=== PATIENT | male | born 1995 | race Caucasian/White ===

== ENCOUNTER 2017-04-26 13:14 | Emergency (ER) | payer SELFPAY | END 2017-04-26 15:27 | disposition home or self-care (01) | PROVIDERS: Emergency Provider Emergency Medicine; Visit Provider Emergency Medicine | DX: F41.8 Other specified anxiety disorders (principal); F32.9 Major depressive disorder, single episode, unspecified; R55 Syncope and collapse; Z81.8 Family history of other mental and behavioral disorders | CPT/HCPCS: 71020; 80053; 80305; 81001; 84484; 85025; 93005; 93041; 99283 ==

== ENCOUNTER 2017-05-13 22:16 | Emergency (ER) | payer SELFPAY ==
[2017-05-13 22:27] VITALS: BP 120/56; PULSE 50; RESP 12; TEMP 36.7; O2SAT 100; BMI 20.3
--- NOTE | 2017-05-13 22:35 | CT_ITS ---
CT abdomen pelvis wo con CLINICAL INDICATION: Left lower quadrant pain ITS.REASON: LLQ PAIN. ORDERING PHYSICIAN: Scott Lewis MD PATIENT AGE: 21 years COMPARISON: None TECHNIQUE: Axial images obtained with sagittal and coronal reformats. PROCEDURE: Oral Contrast: None IV Contrast: None . FINDINGS: Lower thorax: No acute finding ABDOMEN: Liver: No masses or biliary dilatation. Gallbladder: Nondistended. No radio opaque stones. Pancreas: No masses or peripancreatic fluid collections. Spleen: Unremarkable. Adrenals: Unremarkable Kidneys/ureters: No masses. No renal calculi. No hydronephrosis. No perinephric fluid collections. No ureteral dilatation or obvious ureteral calculi. Stomach bowel: Mild amount retained colonic feces. No intestinal obstruction or free air. Multiple unopacified bowel loops are present which could obscure or mimic pathology. Appendix: No evidence of appendicitis. PELVIS: Reproductive: Unremarkable Bladder: Nondistended. No obvious stones or masses. ABDOMEN & PELVIS: Peritoneum: No abnormal fluid collections. No obvious inflammatory changes. No free air. Lymph nodes: No enlarged lymph nodes apparent. Vasculature: No evidence of abdominal aortic aneurysm. No retroperitoneal hemorrhage evident. Bones: No acute fracture IMPRESSION: No acute finding
--- NOTE | 2017-05-13 22:54 | PC.NURSE ---
pt to CT.
[2017-05-13 22:56] LABS: Basophils # 0.1 K/mm3 (0-0.2); Basophils % 1.1 % (0.1-2.0); Eosinophils # 0.3 K/mm3 (0.0-0.4); Eosinophils % 3.9 % (0.1-12.0); Hematocrit 42.1 % (42.0-52.0); Hemoglobin 14.9 g/dL (14.1-18.0); Lymphocytes # 2.2 K/mm3 (0.7-4.5); Lymphocytes % 31.8 K/mm3 (10-50); Mean Corpuscular HGB Conc 35.4 g/dL (31.8-35.4); Mean Corpuscular Hemoglobin 31.2 pg (27.0-31.2); Mean Corpuscular Volume 88.1 fl (80-94); Mean Platelet Volume 8.2 fl (7.4-10.4); Microscopic, Urine URINE MICROSCOPIC (MICROSCOPIC); Monocytes # 0.6 K/mm3 (0.1-1.0); Monocytes % 7.9 % (1.7-9.3); Neutrophils # 3.9 K/mm3 (1.8-7.8); Neutrophils % 55.4 % (37.0-80.0); Platelet Count 245 K/mm3 (142-424); Red Blood Count 4.78 M/mm3 (4.60-6.20); Red Cell Distribution Width 13.5 % (11.5-17.5)
[2017-05-13 23:10] LABS: Alanine Aminotransferase 23 U/L (12-78); Albumin Level 4.8 gm/dL (3.4-5.0); Alkaline Phosphatase 81 U/L (46-116); Amylase 46 U/L (25-125); Anion Gap 11.6 mEq/L (5-15); Aspartate Amino Transferase 21 U/L (15-37); Bilirubin,Total 0.5 mg/dL (0.2-1.0); Blood Urea Nitrogen 12 mg/dL (7-18); Calcium 9.1 mg/dL (8.5-10.1); Carbon Dioxide 28 mmol/L (21.0-32.0); Chloride 104 mmol/L (98-107); Creatinine Clearance Estimated 137 mL/min (0-300); Creatinine,Serum 0.82 mg/dL (0.70-1.30); Estimated Glomerular Filt Rate 119 ml/min (>60); GFR (African American) 144 ML/MIN (>60); Globulin 2.4 gm/dl (1.3-3.2); Glucose 86 mg/dL (74-106); Lipase 99 u/L (73-393); Potassium 3.6 mmoL/L (3.5-5.1); Sodium 140 mmol/L (136-145); Total Protein,Serum 7.2 gm/dL (6.4-8.2)
[2017-05-13 23:23] LABS: Appearance,Urine Clear (Clear); Color,Urine Yellow (Yellow)
[2017-05-13 23:24] LABS: Bacteria,Urine Trace /lpf; Bilirubin,Urine Negative (Negative); Blood, Urine Negative (Negative); Glucose,Urine (UA) Negative (Negative); Ketones,Urine Negative (Negative); Leukocyte Esterase,Urine Negative (Negative); Nitrate,Urine Negative (Negative); Protein,Urine Negative (Negative); Specific Gravity, Urine <= 1.005 (1.005-1.030); Urobilinogen,Urine 0.2 EU/dl (0.2); WBC,Urine Occasional #/hpf (0-3)
[2017-05-13 23:39] VITALS: BP 108/58; PULSE 50; RESP 14; O2SAT 100
--- NOTE | 2017-05-13 23:45 | HMH.EDNVD ---
ED Disposition Clinical Impression: Abdominal pain Qualifiers: Abdominal location: left lower quadrant Qualified Code(s): R10.32 - Left lower quadrant pain Disposition: Home, Self-Care Condition on Discharge: Good Instructions: DI for Acute Abdomen Additional Instructions: fluids and see pcp for follow up - Critical Care Critical Care Time: No Attestation: On 05/13/17, the high probability of a clinically significant, sudden or life threatening deterioration of the following system(s) required my full and direct attention, intervention and personal management. The time I documented below is in addition to time spent performing reported procedures but includes the following listed in this critical care notation. Medical Decision Making - Medical Records Medical records reviewed: Yes: I reviewed the patient's medical records. Vital Signs: 05/13/17 22:27 05/13/17 23:39 Temperature 98.1 F Temperature Source Oral Pulse Rate [Right Brachial] 50 L 50 L Respiratory Rate 12 14 Blood Pressure [Right Arm] 120/56 108/58 Blood Pressure Mean [Right Arm] 77 74 Blood Pressure Source [Right Arm] Automatic Cuff Automatic Cuff Blood Pressure Position [Right Arm] Supine Supine 02 Sat by Pulse Oximetry 100 100 Oxygen Delivery Method Room Air Room Air - Lab Data Lab results reviewed: Yes: I reviewed the patient's lab results. Lab Results 05/13/17 22:45: Urine Color Yellow, Urine Appearance Clear, Urine pH 7.0, Ur Specific [place] <= 1.005, Urine Protein Negative, Urine Glucose (UA) Negative, Urine Ketones Negative, Urine Blood Negative, Urine Nitrate Negative, Urine Bilirubin Negative, Urine Urobilinogen 0.2, Ur Leukocyte Esterase Negative, Urine WBC Occasional, Urine Bacteria Trace 05/13/17 22:45: WBC 7.0, RBC 4.78, Hgb 14.9, Hct 42.1, MCV 88.1, MCH 31.2, MCHC 35.4, RDW 13.5, Plt Count 245, MPV 8.2, Neut % (Auto) 55.4, Lymph % (Auto) 31.8, [place] % (Auto) 7.9, Eos % (Auto) 3.9, Baso % (Auto) 1.1, Neut # (Auto) 3.9, Lymph # (Auto) 2.2, [place] # (Auto) 0.6, Eos # (Auto) 0.3, Baso # (Auto) 0.1 05/13/17 22:45: Sodium 140, Potassium 3.6, Chloride 104, Carbon Dioxide 28, Anion Gap 11.6, BUN 12, Creatinine 0.82, Estimated Creat Clear 137, Estimated GFR 119, Est GFR ( Amer) 144, Glucose 86, Calcium 9.1, Total Bilirubin 0.5, AST 21, ALT 23, Alkaline Phosphatase 81, Total Protein 7.2, Albumin 4.8, Globulin 2.4, Albumin/Globulin Ratio 2.0 H, Amylase 46, Lipase 99 Result diagrams: 05/13/17 22:45 05/13/17 22:45 Orders (Tests/Meds): ED MEDICATIONS Discontinued Medications Generic Name Dose Route Start Last Admin Trade Name Freq PRN Reason Stop Dose Admin Ketorolac Tromethamine 30 mg 05/13/17 22:36 05/13/17 22:38 Toradol 30mg/Ml Vial IV 05/13/17 22:37 30 mg ONCE ONE Administration Lactated Ringer's 0 ml 05/13/17 22:37 05/13/17 22:38 Lactated Ringer's 1000 Ml Bag IV 05/13/17 22:38 1,000 ml BOLUS ONE Administration ORDERS Category Date Time Status CT abdomen pelvis wo con Stat Cat Scan 05/13/17 22:35 Taken - CT Data CT Scan: Abdomen, Pelvis Time Received: 23:[address] Reviewed: Yes: I have viewed the radiologist's interpretation Preliminary Findings: Normal/NAD - Unruly Inquiry Pt receiving controlled substance: No Nausea/Vomiting/Diarrhea HPI - General Chief complaint: Abdominal Pain Stated complaint: Lower left side ABD pain Time Seen by Provider: 05/13/17 23:46 Mode of Arrival: Family Vehicle Source of Information: Patient, Medical Record Limitations: No Limitations Description of Symptoms (Recalled from ER Triage Doc. by RN): C/O LLQ PAIN FOR 2 HOURS SYSTEMS LEAD. DENIES C/O N/V/D - History of Present Illness HPI Narrative: acute onset of lt lower abd pain about 2-3 hrs uniform [employer] with no testicular pain - no fever or gi sx - no hematuria MD complaint: abdominal pain Onset (ago): hour(s) Associated Abdominal Pain: Yes Location of pain: LLQ Severity: moderate Quality: aching
--- NOTE | 2017-05-13 23:49 | ED_ITS ---
ED Disposition Clinical Impression: Abdominal pain Qualifiers: Abdominal location: left lower quadrant Qualified Code(s): R10.32 - Left lower quadrant pain Disposition: Home, Self-Care Condition on Discharge: Good Instructions: DI for Acute Abdomen Additional Instructions: fluids and see pcp for follow up - Critical Care Critical Care Time: No Attestation: On 05/13/17, the high probability of a clinically significant, sudden or life threatening deterioration of the following system(s) required my full and direct attention, intervention and personal management. The time I documented below is in addition to time spent performing reported procedures but includes the following listed in this critical care notation. Medical Decision Making - Medical Records Medical records reviewed: Yes: I reviewed the patient's medical records. Vital Signs: 05/13/17 22:27 05/13/17 23:39 Temperature 98.1 F Temperature Source Oral Pulse Rate [Right Brachial] 50 L 50 L Respiratory Rate 12 14 Blood Pressure [Right Arm] 120/56 108/58 Blood Pressure Mean [Right Arm] 77 74 Blood Pressure Source [Right Arm] Automatic Cuff Automatic Cuff Blood Pressure Position [Right Arm] Supine Supine 02 Sat by Pulse Oximetry 100 100 Oxygen Delivery Method Room Air Room Air - Lab Data Lab results reviewed: Yes: I reviewed the patient's lab results. Lab Results 05/13/17 22:45: Urine Color Yellow, Urine Appearance Clear, Urine pH 7.0, Ur Specific [place] <= 1.005, Urine Protein Negative, Urine Glucose (UA) Negative, Urine Ketones Negative, Urine Blood Negative, Urine Nitrate Negative, Urine Bilirubin Negative, Urine Urobilinogen 0.2, Ur Leukocyte Esterase Negative, Urine WBC Occasional, Urine Bacteria Trace 05/13/17 22:45: WBC 7.0, RBC 4.78, Hgb 14.9, Hct 42.1, MCV 88.1, MCH 31.2, MCHC 35.4, RDW 13.5, Plt Count 245, MPV 8.2, Neut % (Auto) 55.4, Lymph % (Auto) 31.8 , [place] % (Auto) 7.9, Eos % (Auto) 3.9, Baso % (Auto) 1.1, Neut # (Auto) 3.9, Lymph # (Auto) 2.2, [place] # (Auto) 0.6, Eos # (Auto) 0.3, Baso # (Auto) 0.1 05/13/17 22:45: Sodium 140, Potassium 3.6, Chloride 104, Carbon Dioxide 28, Anion Gap 11.6, BUN 12, Creatinine 0.82, Estimated Creat Clear 137, Estimated GFR 119, Est GFR ( Amer) 144, Glucose 86, Calcium 9.1, Total Bilirubin 0.5, AST 21, ALT 23, Alkaline Phosphatase 81, Total Protein 7.2, Albumin 4.8, Globulin 2.4, Albumin/Globulin Ratio 2.0 H, Amylase 46, Lipase 99 Result diagrams: 05/13/17 22:45 05/13/17 22:45 Orders (Tests/Meds): ED MEDICATIONS Discontinued Medications Generic Name Dose Route Start Last Admin Trade Name Freq PRN Reason Stop Dose Admin Ketorolac Tromethamine 30 mg 05/13/17 22:36 05/13/17 22:38 Toradol 30mg/Ml Vial IV 05/13/17 22:37 30 mg ONCE ONE Administration Lactated Ringer's 0 ml 05/13/17 22:37 05/13/17 22:38 Lactated Ringer's 1000 Ml Bag IV 05/13/17 22:38 1,000 ml BOLUS ONE Administration ORDERS Category Date Time Status CT abdomen pelvis wo con Stat Cat Scan 05/13/17 22:35 Taken - CT Data CT Scan: Abdomen, Pelvis Time Received: 23:[address] Reviewed: Yes: I have viewed the radiologist's interpretation Preliminary Findings: Normal/NAD - Unruly Inquiry Pt receiving controlled substance: No Nausea/Vomiting/Diarrhea HPI - General Chief compl
[2017-05-14] VITALS: BP 112/55; PULSE 47; RESP 18; O2SAT 99
== END 2017-05-14 00:01 | disposition home or self-care (01) ==
PROVIDERS: Emergency Provider Emergency Medicine
DX: R10.32 Left lower quadrant pain (principal); F17.210 Nicotine dependence, cigarettes, uncomplicated
CPT/HCPCS: 74176; 80053; 81001; 82150; 83690; 85025; 96365; 96372; 99284

== ENCOUNTER 2018-10-10 23:31 | Emergency (ER) | payer SELFPAY ==
[2018-10-10 23:35] VITALS: BP 128/72; PULSE 58; RESP 14; TEMP 36.9; O2SAT 100; BMI 20.3
--- NOTE | 2018-10-10 23:46 | XR_ITS ---
XR ankle LT min 3V HISTORY: Posttraumatic pain ITS.REASON: injury ORDERING PHYSICIAN: Scott Lewis MD PATIENT AGE: 23 years Comparison: None FINDINGS: No fracture or dislocation. No lytic or blastic change. There is normal mineralization.. The joint spaces are well-preserved. No significant degenerative/arthritic changes. No erosive changes evident. IMPRESSION: Negative ankle, no acute finding
--- NOTE | 2018-10-11 00:18 | HMH.EDGENADL ---
ED Disposition Clinical Impression: Sprain of foot, left Qualifiers: Encounter type: initial encounter Qualified Code(s): S93.602A - Unspecified sprain of left foot, initial encounter Left ankle sprain Qualifiers: Encounter type: initial encounter Involved ligament of ankle: unspecified ligament Qualified Code(s): S93.402A - Sprain of unspecified ligament of left ankle, initial encounter Disposition: Home, Self-Care Condition on Discharge: Good Instructions: DI for Foot Sprain Additional Instructions: wt bearing as triny and see podiatry and pcp for follow up Referrals: Provider,Referral, [Primary Care Provider] - Maris Piedra DPM [Staff Physician] - - Critical Care Critical Care Time: No Attestation: On 10/10/18, the high probability of a clinically significant, sudden or life threatening deterioration of the following system(s) required my full and direct attention, intervention and personal management. The time I documented below is in addition to time spent performing reported procedures but includes the following listed in this critical care notation. Medical Decision Making - Medical Records Medical records reviewed: Yes: I reviewed the patient's medical records. - Unruly Inquiry Pt receiving controlled substance: No Vital Signs: 10/10/18 23:35 Temperature 98.4 F Temperature Source Oral Pulse Rate [Right] 58 L Respiratory Rate 14 Blood Pressure [Right Arm] 128/72 Blood Pressure Mean [Right Arm] 90 Blood Pressure Source [Right Arm] Automatic Cuff Blood Pressure Position [Right Arm] Sitting 02 Sat by Pulse Oximetry 100 Oxygen Delivery Method Room Air Orders (Tests/Meds): ORDERS Category Date Time Status Ankle XR - Left minimum 3 Views [XR ankle LT min 3V] Exams 10/10/18 23:46 Taken Stat XR foot LT min 3V Stat Exams 10/11/18 00:26 Taken - Radiology Data #1 Image(s): Ankle, Foot/Toes Image Reviewed: Yes I reviewed the patient's radiology image Preliminary Findings: No Fracture Seen General Adult HPI - General Chief complaint: PAIN Stated complaint: Pain on inside of left foot Time Seen by Provider: 10/11/18 00:18 Mode of Arrival: Ambulatory Source of Information: Patient, Significant Other, Medical Record Limitations: No Limitations Description of Symptoms (Recalled from ER Triage Doc. by RN): Pain in left ankle. Pt states he was playing softball and it started hurting real Bad when he got done. Pt does not remember injuring it while playing. - History of Present Illness HPI narrative: playing softball and acute injury to lt foot and ankle - Onset (ago): hour(s) Location: left, lower extremity Severity: moderate Associated symptoms: denies other symptoms Treatments prior to arrival: none - Related Data Home Medications Medication Instructions Recorded Confirmed No Known Home Medications 10/11/18 10/11/18 Allergies Allergy/AdvReac Type Severity Reaction Status Date / Time Sulfa (Sulfonamide Allergy Unknown Verified 05/13/17 22:34 Antibiotics) [SULFA (SULFONAMIDE ANTIBIOTICS)] [facility] History - Hepatitis A Screen Drug use history?: No High risk sexual behaviors?: No History of sexually transmitted infection?: No Currently employed?: No Childcare worker?: No Do you have indoor plumbing?: Yes Do you have electricity?: Yes Attestation statement:: This patient has been screened for Hepatitis A risk factors. I have reviewed the patient's past medical history: Yes 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: Denies:: Cancer, Diabetes Mellitus Type 1, Diabetes Mellitus Type 2, Hypertension, MRSA Amputation: No Fractures: No - Social History Educational Level: Completed High School Smoking Status: Current every day smoker Tobacco Type: cigarettes # Packs/Day (cigarettes): 1 #Yrs smoked (if former smoker): 7 Alcohol Intake: never Occupational Status: employed Housing: apartment Household Members: significant other - Psychiatric History Ex
--- NOTE | 2018-10-11 00:26 | XR_ITS ---
XR foot LT min 3V HISTORY: Posttraumatic pain ITS.REASON: injury ORDERING PHYSICIAN: Scott Lewis MD PATIENT AGE: 23 years COMPARISON: None FINDINGS: No fracture or dislocation. No lytic or blastic change. There is normal mineralization.. The joint spaces are well-preserved. No significant degenerative/arthritic changes. No erosive changes evident. IMPRESSION: Negative, no acute finding
[2018-10-11 01:07] VITALS: BP 126/64; PULSE 72; RESP 16; TEMP 36.9; O2SAT 99
== END 2018-10-11 01:08 | disposition home or self-care (01) ==
PROVIDERS: Emergency Provider Emergency Medicine
DX: S93.602A Unspecified sprain of left foot, initial encounter (principal); S93.402A Sprain of unspecified ligament of left ankle, initial encounter; X50.1XXA Overexertion from prolonged static or awkward postures, initial encounter; Y93.64 Activity, baseball; Y92.838 Other recreation area as the place of occurrence of the external cause; F17.210 Nicotine dependence, cigarettes, uncomplicated
CPT/HCPCS: 29515; 73610; 73630; 99283

== ENCOUNTER 2020-01-18 11:35 | Emergency (ER) | payer BC, SELFPAY ==
[2020-01-18 11:41] VITALS: BP 121/65; PULSE 66; RESP 19; TEMP 36.9; O2SAT 97; BMI 20.3
[2020-01-18 11:42] VITALS: BP 121/65; PULSE 66; RESP 19; TEMP 36.9; O2SAT 97; BMI 20.2
--- NOTE | 2020-01-18 11:48 | HMH.EDUTC ---
[facility] [place] Clinical Impression: Viral syndrome Diarrhea Qualifiers: Diarrhea type: unspecified type Qualified Code(s): R19.7 - Diarrhea, unspecified Disposition: Home, Self-Care Condition on Discharge: Good Instructions: Diarrhea, Nausea and Vomiting-Adult, Loperamide, Preventing the Spread of Coronavirus Discharge Instructions Additional Instructions: ? Drink extra fluids with and between meals. If you have difficulty drinking, try very small amounts of water or suck on ice chips. ? Avoid fruit juices, as these do not replace minerals and can actually increase diarrhea. ? Children and adults can use sports drinks to replenish electrolytes. Younger children and infants should use products formulated for children, like oral rehydration solutions. ? Eat food in small amounts and let your stomach recover. ? Get lots of rest. You may feel tired or weak. ? No greasy or fried foods for the next 24-48 hours BRAT diet Bananas Rice Apples and [place] ? Make sure to drink plenty of liquids ? Return if needed ? Straight to ER if any life threatening symptoms ? Zofran as prescribed ? You was given an outpatient order for diarrhea panel, please collect specimen and bring back to outpatient lab then call back to the [facility] or follow up with family doctor for results ? Follow up with family doctor in the next 48-72 hours if no improvement or any worsening of symptoms You was tested for COVID19, your test will take 48-72 hours for the results to be back, make sure to call back to the [facility] to see if your test results are back and the result Return if needed Straight to ER if any life threatening symptoms Prescriptions: Ondansetron [Zofran 4mg ODT] 4 mg PO TIDP PRN #6 tab PRN Reason: Nausea Transmission Status: Received by [facility] #[id number] Forms: Work/School Release Time of Disposition: 12:13 Medical Decision Making - Unruly Inquiry Pt receiving controlled substance: No Unruly was queried for this patient: No Vital Signs: 01/18/20 11:41 01/18/20 11:42 Temperature 98.4 F 98.4 F Temperature Source Oral Oral Pulse Rate [Left Radial] 66 Pulse Rate [Radial] 66 Respiratory Rate 19 19 Blood Pressure [Right Arm] 121/65 121/65 Blood Pressure Mean [Right Arm] 83 83 Blood Pressure Source [Right Arm] Automatic Cuff Automatic Cuff Blood Pressure Position [Right Arm] Sitting Sitting 02 Sat by Pulse Oximetry 97 97 Oxygen Delivery Method Room Air Room Air - Lab Data Lab results reviewed: Yes: I reviewed the patient's lab results. Lab Results 01/18/20 11:45: Influenza Type A Ag Negative, Influenza Type B Ag Negative 01/18/20 11:45: Strep Scn [facility] Negative Orders (Tests/Meds): ORDERS Category Date Time Status Covid-19 Nasal PCR Send[facility] [place] Stat Lab 01/18/20 11:45 Ordered Strep Screen Confirmation Stat Micro 01/18/20 11:45 [place] [facility] [place] - General Stated complaint: nausea,diarrhea,weakness,fatigue Time Seen by Provider: 01/18/20 11:48 Mode of Arrival: Ambulatory Source of Information: Patient Limitations: No Limitations Description of Symptoms (Recalled from Triage Doc. by RN): nausea, diarrhea, weakness, fatigue HEENT Symptoms (Recalled from RN notes): No Resp Symptoms (Recalled from RN notes): No Skin Symptoms (Recalled from RN notes): No MS Symptoms (Recalled from RN notes): No Functional Status (Recalled from RN notes): wnl - History of Present Illness Provider Complaint: Patient states that he woke up this morning having body aches, chills, fatigue, diarrhea and nausea States that girlfriend is having same symptoms that started yesterday States that he was at work and they made him come in and get tested for COVID19 States that he has not had any vomiting nor had a fever that he is aware of States that last eppisode of diarrhea was about 30min prior to arrival - Related Data Previous Rx's Medication Instructions Recorded methylPREDNISolone [Medrol] 4 mg PO DIRECTED 6 Days #21
[2020-01-18 12:10] LABS: UTC Influenza A Antigen Negative (Negative); UTC Strep Screen (Rapid) Negative (Negative)
[2020-01-18 12:11] LABS: UTC Influenza B Antigen Negative (Negative)
[2020-01-18 12:28] VITALS: BP 121/65; PULSE 66; RESP 19; TEMP 36.9; O2SAT 97
[2020-01-19 15:51] LABS: Covid-19 Nasal PCR Sendout Lex Not Detected
== END 2020-01-18 12:28 | disposition home or self-care (01) ==
LOC: UTC 12:44
PROVIDERS: Emergency Provider Nurse Practitioner
DX: B34.9 Viral infection, unspecified (principal); F17.210 Nicotine dependence, cigarettes, uncomplicated; Z88.2 Allergy status to sulfonamides
CPT/HCPCS: 87804; 87880; 99202; U0004

== ENCOUNTER 2020-05-04 00:55 | Emergency (ER) | payer OTHER, SELFPAY ==
[2020-05-04 00:57] VITALS: BP 119/83; PULSE 61; RESP 15; TEMP 37.1; O2SAT 97; BMI 20.3
--- NOTE | 2020-05-04 01:12 | ECG_ITS ---
APPROVED REPORT Exam: Resting ECG HR:55 bpm ECG Measurements Heart Rate 55 AXES DC 142 P 55 QRSd 108 QRS 66 QT 434 T 55 QTc 415 Conclusion Sinus bradycardia Otherwise normal ECG Electronically signed by : Tim Horton, 05/04/2020 19:44:34
--- NOTE | 2020-05-04 01:38 | PC.NURSE ---
Pt finished PO contrast
--- NOTE | 2020-05-04 01:49 | HMH.EDGENADL ---
ED Disposition Clinical Impression: Left against medical advice Abdominal pain Qualifiers: Abdominal location: left upper quadrant Qualified Code(s): R10.12 - Left upper quadrant pain Disposition: Left Against Medical Advice Condition on Discharge: Good Instructions: DI for Acute Pain -- Adult Additional Instructions: see pcp for follow up Referrals: PCP,No [Primary Care Provider] - - Critical Care Critical Care Time: No Attestation: On 05/04/20, the high probability of a clinically significant, sudden or life threatening deterioration of the following system(s) required my full and direct attention, intervention and personal management. The time I documented below is in addition to time spent performing reported procedures but includes the following listed in this critical care notation. Medical Decision Making - Medical Records Medical records reviewed: Yes: I reviewed the patient's medical records. - Unruly Inquiry Pt receiving controlled substance: No Vital Signs: 05/04/20 00:57 05/04/20 02:00 05/04/20 02:15 Temperature 98.7 F 97.9 F Temperature Source Oral Oral Pulse Rate 58 L Pulse Rate [Right Radial] 61 60 Respiratory Rate 15 17 15 Blood Pressure 121/77 Blood Pressure [Right Arm] 119/83 121/77 Blood Pressure Mean [Right Arm] 95 91 Blood Pressure Source Automatic Cuff Blood Pressure Source [Right Arm] Automatic Cuff Automatic Cuff Blood Pressure Position Supine Blood Pressure Position [Right Arm] Supine Supine 02 Sat by Pulse Oximetry 97 100 Oxygen Delivery Method Room Air Room Air Room Air 05/04/20 02:17 Temperature Temperature Source Pulse Rate Pulse Rate [Right Radial] Respiratory Rate Blood Pressure Blood Pressure [Right Arm] Blood Pressure Mean [Right Arm] Blood Pressure Source Blood Pressure Source [Right Arm] Blood Pressure Position Blood Pressure Position [Right Arm] 02 Sat by Pulse Oximetry Oxygen Delivery Method Room Air - Lab Data Lab results reviewed: Yes: I reviewed the patient's lab results. Lab Results 05/04/20 01:34: WBC 9.2, RBC 5.08, Hgb 15.3, Hct 45.4, MCV 89.3, MCH 30.1, MCHC 33.7, RDW 13.6, Plt Count 230, MPV 8.3, Neut % (Auto) 67.7, Lymph % (Auto) 22.3, [place] % (Auto) 5.7, Eos % (Auto) 3.3, Baso % (Auto) 1.0, Neut # (Auto) 6.3, Lymph # (Auto) 2.1, [place] # (Auto) 0.5, Eos # (Auto) 0.3, Baso # (Auto) 0.1 05/04/20 01:34: Sodium 139, Potassium 3.5, Chloride 102, Carbon Dioxide 29, Anion Gap 11.5, BUN 8 L, Creatinine 0.80, Estimated Creat Clear 137, Estimated GFR 119, Est GFR ( Amer) 144, Glucose 102 H, Calcium 9.8, Total Bilirubin 0.5, Direct Bilirubin 0.1, Conjugated Bilirubin 0.0, Indirect Bilirubin 0.4, Unconjugated Bilirubin 0.4, AST 27, ALT 15, Alkaline Phosphatase 50, Troponin I < 0.01, C-Reactive Protein < 0.3, Total Protein 7.6, Albumin 4.9 05/04/20 01:34: ESR 2 05/04/20 01:34: SARS-CoV-2 IgG Ab (Rapid) Negative, SARS-CoV-2 IgM Ab (Rapid) Negative 05/04/20 02:02: Influenza Type A Ag Negative, Influenza Type B Ag Negative Result diagrams: 05/04/20 01:34 05/04/20 01:34 Orders (Tests/Meds): ED MEDICATIONS Discontinued Medications Generic Name Dose Route Start Last Admin Trade Name Kevinq PRN Reason Stop Dose Admin Diatrizoate Meglum/Diatrizoate Sod 30 ml 05/04/20 01:23 05/04/20 01:25 Diatrizoate [place] 66% & Diatrizoate Na 10% 30ml Udc PO 05/04/20 01:24 30 ml ONCE ONE Administration Famotidine 20 mg 05/04/20 01:40 05/04/20 01:52 Famotidine 20mg/2ml Vial IV 05/04/20 01:41 20 mg ONCE ONE Administration Sodium Chloride 1,000 mls @ 999 mls/hr 05/04/20 01:30 05/04/20 01:52 Sod Chlor 0.9% 1000ml Bag IV 05/04/20 02:30 999 mls/hr .Q1H1M NOEMY Administration Ketorolac Tromethamine 30 mg 05/04/20 01:40 05/04/20 01:52 Ketorolac 30mg/Ml Vial IV 05/04/20 01:41 30 mg ONCE ONE Administration Metoclopramide HCl 10 mg 05/04/20 01:40 05/04/20 01:52 Metoclopramide Hcl 10mg/2ml Vial
[2020-05-04 01:50] LABS: Basophils # 0.1 K/mm3 (0-0.2); Eosinophils # 0.3 K/mm3 (0.0-0.4); Eosinophils % 3.3 % (0.1-12.0); Hematocrit 45.4 % (42.0-52.0); Hemoglobin 15.3 g/dL (14.1-18.0); Lymphocytes # 2.1 K/mm3 (0.7-4.5); Lymphocytes % 22.3 % (10-50); Mean Corpuscular HGB Conc 33.7 g/dL (31.8-35.4); Mean Corpuscular Hemoglobin 30.1 pg (27.0-31.2); Mean Corpuscular Volume 89.3 fl (80-94); Mean Platelet Volume 8.3 fl (7.4-10.4); Monocytes # 0.5 K/mm3 (0.1-1.0); Monocytes % 5.7 % (1.7-9.3); Neutrophils # 6.3 K/mm3 (1.8-7.8); Neutrophils % 67.7 % (37.0-80.0); Platelet Count 230 K/mm3 (142-424); Red Blood Count 5.08 M/mm3 (4.60-6.20); Red Cell Distribution Width 13.6 % (11.5-17.5); White Blood Count 9.2 K/mm3 (4.8-10.8)
[2020-05-04 01:52] LABS: Chloride 102 mmol/L (98-107)
[2020-05-04 01:53] LABS: Potassium 3.5 mmoL/L (3.5-5.1); Sodium 139 mmol/L (136-145)
[2020-05-04 01:55] LABS: Alanine Aminotransferase 15 U/L (12-78); Alkaline Phosphatase 50 U/L (38-126); Anion Gap 11.5 mEq/L (5-15); Aspartate Amino Transferase 27 U/L (17-59); Bilirubin,Direct 0.1 mg/dl (0.0-0.4); Bilirubin,Indirect 0.4 mg/dL (0.0-0.9); Bilirubin,Total 0.5 mg/dl (0.2-1.3); Bilirubin,Unconjugated 0.4 mg/dL (0.0-1.1); Blood Urea Nitrogen 8 mg/dl (9-20); Carbon Dioxide 29 mmol/L (22.0-30.0); Creatinine Clearance Estimated 137 mL/min (50-200); Estimated Glomerular Filt Rate 119 ml/min (>60); GFR (African American) 144 ML/MIN (>60)
[2020-05-04 01:56] LABS: Albumin Level 4.9 g/dl (3.5-5.0); Calcium 9.8 mg/dl (8.4-10.2); Glucose 102 mg/dl (74-100); Total Protein,Serum 7.6 g/dl (6.3-8.2)
[2020-05-04 02:00] VITALS: BP 121/77; PULSE 60; RESP 17; O2SAT 100
[2020-05-04 02:10] LABS: Coronavirus 19 IgG Antibody Negative (Negative); Coronavirus 19 IgM Antibody Negative (Negative); Troponin I < 0.01 ng/ml (0.00-0.034)
[2020-05-04 02:12] LABS: C-Reactive Protein < 0.3 mg/L (0-4)
[2020-05-04 02:15] VITALS: BP 121/77; PULSE 58; RESP 15; TEMP 36.6; O2SAT 98
[2020-05-04 02:25] LABS: Erythrocyte Sedimentation Rate 2 mm/hr (0-15)
== END 2020-05-04 02:21 | disposition left against medical advice (07) ==
PROVIDERS: Emergency Provider Emergency Medicine
DX: R10.12 Left upper quadrant pain (principal); Z01.84 Encounter for antibody response examination; F12.10 Cannabis abuse, uncomplicated
CPT/HCPCS: 80048; 80076; 84484; 85025; 85651; 86140; 86328; 87275; 87276; 93005; 96365; 96375; 99283; J2405

== ENCOUNTER 2020-10-02 11:17 | Emergency (ER) | payer OTHER, SELFPAY ==
[2020-10-02 11:24] VITALS: BP 126/74; PULSE 61; RESP 19; TEMP 36.8; O2SAT 100; BMI 20.3
--- NOTE | 2020-10-02 11:32 | HMH.EDUTC ---
[facility] [place] Disposition Clinical Impression: Dental abscess Disposition: Home, Self-Care Condition on Discharge: Good Additional Instructions: Use dental balls as directed in [facility] Take antibiotics as prescribed Follow up with Dentist as scheduled Return if needed Straight to ER if any life threatening symptoms Prescriptions: Ibuprofen [Ibuprofen 600mg Tablet] 600 mg PO Q6HP PRN #20 tab PRN Reason: Moderate Pain Transmission Status: Pending to [id number] # Amoxicillin/Potassium Clav [Augmentin 875-125 Tablet] 1 tab PO Q12H 7 Days #14 tab Transmission Status: Pending to [facility] # Referrals: Provider,Referral, [Primary Care Provider] - As needed Time of Disposition: 11:39 Medical Decision Making - Unruly Inquiry Pt receiving controlled substance: No Unruly was queried for this patient: No Vital Signs: 10/02/20 11:24 Temperature 98.2 F Temperature Source Oral Pulse Rate [Right] 61 Respiratory Rate 19 Blood Pressure [Right Arm] 126/74 Blood Pressure Mean [Right Arm] 91 Blood Pressure Source [Right Arm] Automatic Cuff Blood Pressure Position [Right Arm] Sitting 02 Sat by Pulse Oximetry 100 Medical Decision Narrative: Patient states that he is allergic to sulfa drugs but has taken amoxicillin in the past without reactions [facility] [place] HPI - General Stated complaint: mouth swollen Time Seen by Provider: 10/02/20 11:32 Mode of Arrival: Ambulatory Source of Information: Patient Limitations: No Limitations Description of Symptoms (Recalled from Triage Doc. by RN): pt has swelling on the R side of his mouth. pt has an abcessed tooth. HEENT Symptoms (Recalled from RN notes): Yes (abcessed tooth) Resp Symptoms (Recalled from RN notes): No Skin Symptoms (Recalled from RN notes): No MS Symptoms (Recalled from RN notes): No Functional Status (Recalled from RN notes): na - History of Present Illness Provider Complaint: Patient reports that he has several bad teeth on right lower gum area State that for the last 2 weeks he has been having dental pain and he called and made appointment with Dentist later on this week but for last couple of days he has been having swelling in right lower jaw area and feels like it is abscessed - Related Data Previous Rx's Medication Instructions Recorded Amoxicillin/Potassium Clav 1 tab PO Q12H 7 Days #14 tab 10/02/20 [Augmentin 875-125 Tablet] Ibuprofen [Ibuprofen 600mg 600 mg PO Q6HP PRN #20 tab 10/02/20 Tablet] Allergies Allergy/AdvReac Type Severity Reaction Status Date / Time Sulfa (Sulfonamide Allergy Unknown Verified 10/02/20 11:24 Antibiotics) [SULFA (SULFONAMIDE ANTIBIOTICS)] - Worker's Comp Is this a Worker's Comp case?: No [facility] History - Hepatitis A Screen Drug use history?: No High risk sexual behaviors?: No History of sexually transmitted infection?: No Currently employed?: No Childcare worker?: No Do you have indoor plumbing?: Yes Do you have electricity?: Yes Attestation statement:: This patient has been screened for Hepatitis A risk factors. I have reviewed the patient's past medical history: Yes 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: Denies:: Cancer, Diabetes Mellitus Type 1, Diabetes Mellitus Type 2, Hypertension, MRSA Amputation: No Fractures: No - Social History Smoking Status: Current every day smoker Tobacco Type: cigarettes # Packs/Day (cigarettes): 1 #Yrs smoked (if former smoker): 7 Alcohol Intake: never Substance Use Type: marijuana Occupational Status: employed Housing: apartment Household Members: significant other ROS Obtained: Yes All systems reviewed & no additional complaints, Yes Systems reviewed as appropriate & no additional complaints - Constitutional Constitutional: Reports system reviewed and no additional complaints, except as docu - ENT Ears, Nose, Mouth, and Throat: Reports system reviewed and no additional complaints, except as docu, Reports dental pain - Card
[2020-10-02 11:52] VITALS: BP 120/74; PULSE 65; RESP 14; TEMP 36.6
== END 2020-10-02 11:53 | disposition home or self-care (01) ==
PROVIDERS: Emergency Provider Nurse Practitioner
DX: K04.7 Periapical abscess without sinus (principal); F17.210 Nicotine dependence, cigarettes, uncomplicated; Z88.2 Allergy status to sulfonamides
CPT/HCPCS: 99202; G0463

== ENCOUNTER 2020-10-23 11:40 | Emergency (ER) | payer OTHER, SELFPAY ==
[2020-10-23 11:56] VITALS: BP 114/63; PULSE 56; RESP 14; TEMP 36.8; O2SAT 100; BMI 21.7
[2020-10-23 12:24] VITALS: BP 114/63; PULSE 56; RESP 14; TEMP 36.8
--- NOTE | 2020-10-23 12:33 | HMH.EDUTC ---
[facility] [place] Clinical Impression: Contact dermatitis Qualifiers: Contact dermatitis type: unspecified Contact dermatitis trigger: unspecified trigger Qualified Code(s): L25.9 - Unspecified contact dermatitis, unspecified cause Disposition: Home, Self-Care Condition on Discharge: Good Instructions: DI for Poison Hermelinda Allergy Additional Instructions: Avoid contact with the offending substance (poison hermelinda). Don't start the oral steroids until tomorrow. Don't put the topical steroids (triamcinolone) on your face or your groin. Follow up with your regular doctor. GO TO THE ER FOR ANY WORSENING SYMPTOMS OR CONCERNS Prescriptions: methylPREDNISolone [Medrol] 4 mg PO DIRECTED 6 Days #21 tab.ds.pk Transmission Status: Received by [facility] #[id number] Triamcinolone Acetonide 1 applicatio TP TIDP PRN 7 Days #1 tube PRN Reason: Itching Transmission Status: Received by [facility] #[id number] Referrals: Provider,Referral, [Primary Care Provider] - Time of Disposition: 12:38 Medical Decision Making - Medical Records Medical records reviewed: No: I reviewed the patient's medical records. - Unruly Inquiry Pt receiving controlled substance: No Vital Signs: 10/23/20 11:56 10/23/20 12:24 Temperature 98.3 F 98.3 F Temperature Source Oral Pulse Rate 56 L Pulse Rate [Left] 56 L Respiratory Rate 14 14 Blood Pressure 114/63 Blood Pressure [Right Arm] 114/63 Blood Pressure Mean [Right Arm] 80 02 Sat by Pulse Oximetry 100 [facility] [place] HPI - General Stated complaint: rash face, hands Time Seen by Provider: 10/23/20 12:34 Mode of Arrival: Ambulatory Source of Information: Patient Limitations: No Limitations Description of Symptoms (Recalled from Triage Doc. by RN): pt c/o ongoing poison hermelinda for about a week. he has an itchy rash on his face, neck, arms and legs. HEENT Symptoms (Recalled from RN notes): No Resp Symptoms (Recalled from RN notes): No Skin Symptoms (Recalled from RN notes): Yes (poison hermelinda. face, neck, arms and legs) MS Symptoms (Recalled from RN notes): No Functional Status (Recalled from RN notes): na - History of Present Illness Provider Complaint: He states that for the past 3 days he has a rash and itching of his face and bilateral arms. He states that he has been exposed to pioson hermelinda. - Related Data Previous Rx's Medication Instructions Recorded Amoxicillin/Potassium Clav 1 tab PO Q12H 7 Days #14 tab 10/02/20 [Augmentin 875-125 Tablet] Ibuprofen [Ibuprofen 600mg 600 mg PO Q6HP PRN #20 tab 10/02/20 Tablet] Triamcinolone Acetonide 1 applicatio TP TIDP PRN 7 Days #1 10/23/20 tube methylPREDNISolone [Medrol] 4 mg PO DIRECTED 6 Days #21 10/23/20 tab.ds.pk Allergies Allergy/AdvReac Type Severity Reaction Status Date / Time Sulfa (Sulfonamide Allergy Unknown Verified 10/02/20 11:24 Antibiotics) [SULFA (SULFONAMIDE ANTIBIOTICS)] - Worker's Comp Is this a Worker's Comp case?: No [facility] History - Hepatitis A Screen Drug use history?: No High risk sexual behaviors?: No History of sexually transmitted infection?: No Currently employed?: No Childcare worker?: No Do you have indoor plumbing?: Yes Do you have electricity?: Yes Attestation statement:: This patient has been screened for Hepatitis A risk factors. I have reviewed the patient's past medical history: Yes 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: Denies:: Cancer, Diabetes Mellitus Type 1, Diabetes Mellitus Type 2, Hypertension, MRSA Amputation: No Fractures: No - Social History Smoking Status: Current every day smoker Tobacco Type: cigarettes # Packs/Day (cigarettes): 1 #Yrs smoked (if former smoker): 7 Alcohol Intake: never Substance Use Type: marijuana Occupational Status: employed Housing: apartment Household Members: significant other ROS Obtained: Yes All systems reviewed & no additional complaints - Constitutional Constitutional: Denies chills, Denies fever(s)
== END 2020-10-23 12:49 | disposition home or self-care (01) ==
PROVIDERS: Emergency Provider Nurse Practitioner Family
DX: L25.9 Unspecified contact dermatitis, unspecified cause (principal); F17.210 Nicotine dependence, cigarettes, uncomplicated
CPT/HCPCS: 99202; G0463

== ENCOUNTER 2020-11-03 17:20 | Emergency (ER) | payer SELFPAY ==
[2020-11-03 17:20] VITALS: BP 136/83; PULSE 61; RESP 20; TEMP 36.9; O2SAT 98; BMI 20.5
--- NOTE | 2020-11-03 17:44 | HMH.EDUTC ---
[facility] [place] Disposition Clinical Impression: Dental abscess Disposition: Home, Self-Care Condition on Discharge: Good Instructions: Tooth Abscess, DI for Dental Pain Additional Instructions: Take medication as prescribed Use dental balls as advised Call and make appointment with Dentist, until these teeth are fixed they may continued to cause you pain and cause infection Return if needed Straight to ER if any life threatening symptoms Prescriptions: Ibuprofen [Ibuprofen 600mg Tablet] 600 mg PO Q6HP PRN #20 tab PRN Reason: Moderate Pain Transmission Status: Pending to [facility] # Amoxicillin/Potassium Clav [Augmentin 875-125 Tablet] 1 tab PO Q12H 7 Days #14 tab Transmission Status: Pending to [facility] # Referrals: Provider,Referral, [Primary Care Provider] - As needed Asim Gregg [Referring] - Time of Disposition: 17:55 Medical Decision Making - Unruly Inquiry Pt receiving controlled substance: No Unruly was queried for this patient: No Vital Signs: 11/03/20 17:20 Temperature 98.5 F Temperature Source Oral Pulse Rate [Right Brachial] 61 Respiratory Rate 20 Blood Pressure [Right Arm] 136/83 Blood Pressure Mean [Right Arm] 100 Blood Pressure Source [Right Arm] Automatic Cuff Blood Pressure Position [Right Arm] Sitting 02 Sat by Pulse Oximetry 98 Oxygen Delivery Method Room Air [facility] [place] HPI - General Stated complaint: Left jaw and ear Time Seen by Provider: 11/03/20 17:49 Mode of Arrival: Ambulatory Source of Information: Patient Limitations: No Limitations Description of Symptoms (Recalled from Triage Doc. by RN): PATIENT C/O TOOTH AND EAR PAIN TO LEFT SIDE SINCE YESTERDAY HEENT Symptoms (Recalled from RN notes): Yes Resp Symptoms (Recalled from RN notes): No Skin Symptoms (Recalled from RN notes): No MS Symptoms (Recalled from RN notes): No Functional Status (Recalled from RN notes): WNL - History of Present Illness Provider Complaint: Patient states that he has multiple broken and decaying teeth States that yesterday he started having pain in his left lower gum line and states that pain feels like it shoots into his left ear at times States that he had some dental balls left over and has tried them but they didnt help much States that he had similar pain about a month or so ago on the other side but has never seen a dentist yet - Related Data Previous Rx's Medication Instructions Recorded Amoxicillin/Potassium Clav 1 tab PO Q12H 7 Days #14 tab 11/03/20 [Augmentin 875-125 Tablet] Ibuprofen [Ibuprofen 600mg 600 mg PO Q6HP PRN #20 tab 11/03/20 Tablet] Allergies Allergy/AdvReac Type Severity Reaction Status Date / Time Sulfa (Sulfonamide Allergy Unknown Verified 10/02/20 11:24 Antibiotics) [SULFA (SULFONAMIDE ANTIBIOTICS)] - Worker's Comp Is this a Worker's Comp case?: No [facility] History - Hepatitis A Screen Drug use history?: No High risk sexual behaviors?: No History of sexually transmitted infection?: No Currently employed?: No Childcare worker?: No Do you have indoor plumbing?: Yes Do you have electricity?: Yes Attestation statement:: This patient has been screened for Hepatitis A risk factors. I have reviewed the patient's past medical history: Yes 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: Denies:: Cancer, Diabetes Mellitus Type 1, Diabetes Mellitus Type 2, Hypertension, MRSA Amputation: No Fractures: No - Social History Smoking Status: Current every day smoker Tobacco Type: cigarettes # Packs/Day (cigarettes): 1 #Yrs smoked (if former smoker): 7 Alcohol Intake: never Substance Use Type: marijuana Occupational Status: other Housing: apartment Household Members: significant other ROS Obtained: Yes All systems reviewed & no additional complaints, Yes Systems reviewed as appropriate & no additional complaints - Constitutional Constitutional: Reports system reviewed and no additional complaints, except as docu, Denies chills,
[2020-11-03 17:55] VITALS: BP 136/83; PULSE 61; RESP 20; TEMP 36.9; O2SAT 98
== END 2020-11-03 18:07 | disposition home or self-care (01) ==
PROVIDERS: Emergency Provider Nurse Practitioner
DX: K04.7 Periapical abscess without sinus (principal); K02.9 Dental caries, unspecified; F17.210 Nicotine dependence, cigarettes, uncomplicated

== ENCOUNTER 2020-12-18 20:18 | Emergency (ER) | payer SELFPAY ==
[2020-12-18 20:19] VITALS: BP 120/84; PULSE 63; RESP 18; TEMP 37; O2SAT 98; BMI 20.3
--- NOTE | 2020-12-18 20:32 | CT_ITS ---
PROCEDURE INFORMATION: Exam: CT Abdomen And Pelvis Without Contrast Exam date and time: 12/18/2020 8:32 PM Age: 25 years old Clinical indication: Abdominal pain; Patient HX: Ruq and right flank pain for 3 days per patient. ; Additional info: Ruq and RT flank pin TECHNIQUE: Imaging protocol: Computed tomography of the abdomen and pelvis without contrast. Total images: 282 Radiation optimization: All CT scans at this facility use at least one of these dose optimization techniques: automated exposure control; mA and/or kV adjustment per patient size (includes targeted exams where dose is matched to clinical indication); or iterative reconstruction. COMPARISON: ABDPEL CT abdomen pelvis w con 05/25/2018 7:27 PM FINDINGS: Lungs: Visualized lung bases are clear. Heart: Heart size normal. Mediastinal space: The visualized distal esophagus is normal. Liver: Normal contour. No mass lesions. No intrahepatic biliary ductal dilatation. Gallbladder and bile ducts: Normal. No calcified stones. No ductal dilation. Pancreas: Questionable faint stranding posterior to the pancreatic head/neck which might simply represent image graininess, correlate clinically for any evidence of mild pancreatitis. No pancreatic ductal dilatation. No fluid collections. Spleen: Granulomatous calcifications in the spleen without acute splenic abnormality. Adrenal glands: Normal. No adrenal mass. Kidneys and ureters: No acute abnormalities. No hydronephrosis or hydroureter. No urinary tract stones are identified. Stomach and bowel: The stomach is unremarkable. Question slightly excessive fluid content in the mid and distal small bowel segments with slight mesenteric stranding/congestion. This is suspicious for mild gastroenteritis. No denton bowel dilatation or transition point. No evidence of bowel obstruction, perforation, or abscess. There is a moderate amount of stool distributed throughout the colon suggesting constipation. Appendix: The appendix is normal in caliber and demonstrates no evidence of appendicitis. Intraperitoneal space: No free fluid or air. Vasculature: No acute process. No abdominal aortic aneurysm. Circumaortic left renal vein configuration noted. Lymph nodes: No adenopathy. Urinary bladder: The urinary bladder is largely contracted without gross abnormality. Reproductive: Unremarkable as visualized. Bones/joints: No acute osseous abnormalities. Soft tissues: Unremarkable. IMPRESSION: 1. There is a moderate amount of stool distributed throughout the colon suggesting constipation. 2. Questionable changes of mild gastroenteritis in the mid to distal small bowel. No evidence of bowel obstruction, perforation, or abscess. 3. Questionable faint stranding versus image graininess/artifact near the pancreatic head/neck. Clinical/laboratory correlation recommended to exclude evidence of mild pancreatitis.
[2020-12-18 20:36] LABS: Microscopic, Urine URINE MICROSCOPIC (MICROSCOPIC)
[2020-12-18 20:39] LABS: Appearance,Urine CLEAR (Clear); Bilirubin,Urine Negative (Negative); Blood, Urine Negative (Negative); Color,Urine YELLOW (Yellow); Glucose,Urine (UA) Negative (Negative); Ketones,Urine Negative (Negative); Leukocyte Esterase,Urine Negative (Negative); Nitrate,Urine Negative (Negative); Protein,Urine Negative (Negative)
--- NOTE | 2020-12-18 20:43 | HMH.EDNVD ---
ED Disposition Clinical Impression: Flank pain Disposition: Home, Self-Care Condition on Discharge: Good Instructions: DI for Acute Abdominal Pain Additional Instructions: fluids and see pcp for follow up Referrals: Provider,Referral, [Primary Care Provider] - - Critical Care Critical Care Time: No Attestation: On 12/18/20, the high probability of a clinically significant, sudden or life threatening deterioration of the following system(s) required my full and direct attention, intervention and personal management. The time I documented below is in addition to time spent performing reported procedures but includes the following listed in this critical care notation. Medical Decision Making - Medical Records Medical records reviewed: Yes: I reviewed the patient's medical records. - Unruly Inquiry Pt receiving controlled substance: No Vital Signs: 12/18/20 20:19 Temperature 98.6 F Temperature Source Oral Pulse Rate [Right] 63 Respiratory Rate 18 Blood Pressure [Right Arm] 120/84 Blood Pressure Mean [Right Arm] 96 02 Sat by Pulse Oximetry 98 - Lab Data Lab results reviewed: Yes: I reviewed the patient's lab results. Lab Results 12/18/20 20:28: Urine Color Yellow, Urine Appearance Clear, Urine pH 7.0, Ur Specific [place] 1.020, Urine Protein Negative, Urine Glucose (UA) Negative, Urine Ketones Negative, Urine Blood Negative, Urine Nitrate Negative, Urine Bilirubin Negative, Urine Urobilinogen 2.0, Ur Leukocyte Esterase Negative, Urine RBC None, Urine WBC Occasional, Ur Squamous Epith Cells Occasional, Urine Bacteria Trace 12/18/20 20:41: WBC 7.6, RBC 5.03, Hgb 15.7, Hct 45.6, MCV 90.7, MCH 31.2, MCHC 34.4, RDW 14.3, Plt Count 262, MPV 8.5, Neut % (Auto) 51.8, Lymph % (Auto) 34.3, [place] % (Auto) 6.3, Eos % (Auto) 5.7, Baso % (Auto) 1.9, Neut # (Auto) 3.9, Lymph # (Auto) 2.6, [place] # (Auto) 0.5, Eos # (Auto) 0.4, Baso # (Auto) 0.1 12/18/20 20:41: Sodium 142, Potassium 3.6, Chloride 104, Carbon Dioxide 27, Anion Gap 14.6, BUN 11, Creatinine 0.70, Estimated Creat Clear 155, Estimated GFR 137, Est GFR ( Amer) 166, Glucose 105 H, Calcium 9.4, Total Bilirubin 0.5, AST 33, ALT 40, Alkaline Phosphatase 56, C-Reactive Protein < 0.3, Total Protein 7.6, Albumin 4.8, Globulin 2.8, Albumin/Globulin Ratio 1.7, Amylase 65, Lipase 56 Result diagrams: 12/18/20 20:41 12/18/20 20:41 Orders (Tests/Meds): ED MEDICATIONS Generic Name Dose Route Start Last Admin Trade Name Freq PRN Reason Stop Dose Admin Sodium Chloride 1,000 mls @ 999 mls/hr 12/18/20 20:45 12/18/20 20:57 Sod Chlor 0.9% 1000ml Bag IV 12/18/20 21:45 999 mls/hr .Q1H1M NOEMY Administration Discontinued Medications Generic Name Dose Route Start Last Admin Trade Name Freq PRN Reason Stop Dose Admin Ketorolac Tromethamine 30 mg 12/18/20 20:34 12/18/20 20:57 Ketorolac 30mg/Ml Vial IV 12/18/20 20:35 30 mg ONCE ONE Administration ORDERS Category Date Time Status Amylase Stat Lab 12/18/20 20:41 Results C-Reactive Protein Stat Lab 12/18/20 20:41 Results Complete Blood Count Auto Diff Stat Lab 12/18/20 20:41 Results Comprehensive Metabolic Panel Stat Lab 12/18/20 20:41 Results Erythrocyte Sedimentation Rate Stat Lab 12/18/20 20:41 Results Lipase Stat Lab 12/18/20 20:41 Results Procalcitonin Stat Lab 12/18/20 20:41 Results - CT Data CT Scan: Abdomen, Pelvis Time Received: 21:[address] Reviewed: Yes: I have viewed the radiologist's interpretation Preliminary Findings: Normal/NAD Medical Decision Narrative: rt flank pain - nonspecific and will give pain meds at this time and fluids Nausea/Vomiting/Diarrhea HPI - General Chief complaint: Abdominal Pain Stated complaint: rght side pain Time Seen by Provider: 12/18/20 20:35 Mode of Arrival: Ambulatory Source of Information: Patient, Medical Record Limitations: No Limitations Description of Symptoms (Recalled from ER Triage Doc. by RN): pt c/o RLQ pain
[2020-12-18 21:00] LABS: Bacteria,Urine Trace /lpf; Squamous Epithelial Cell,Urine Occasional #/hpf (0-5); WBC,Urine Occasional #/hpf (0-3)
[2020-12-18 21:02] LABS: Basophils # 0.1 K/mm3 (0-0.2); Basophils % 1.9 % (0.1-2.0); Eosinophils # 0.4 K/mm3 (0.0-0.4); Eosinophils % 5.7 % (0.1-12.0); Hematocrit 45.6 % (42.0-52.0); Hemoglobin 15.7 g/dL (14.1-18.0); Lymphocytes # 2.6 K/mm3 (0.7-4.5); Lymphocytes % 34.3 % (10-50); Mean Corpuscular HGB Conc 34.4 g/dL (31.8-35.4); Mean Corpuscular Hemoglobin 31.2 pg (27.0-31.2); Mean Corpuscular Volume 90.7 fl (80-94); Mean Platelet Volume 8.5 fl (7.4-10.4); Monocytes # 0.5 K/mm3 (0.1-1.0); Monocytes % 6.3 % (1.7-9.3); Neutrophils # 3.9 K/mm3 (1.8-7.8); Neutrophils % 51.8 % (37.0-80.0); Platelet Count 262 K/mm3 (142-424); Red Blood Count 5.03 M/mm3 (4.60-6.20); Red Cell Distribution Width 14.3 % (11.5-17.5); White Blood Count 7.6 K/mm3 (4.8-10.8)
[2020-12-18 21:10] LABS: Alanine Aminotransferase 40 U/L (12-78); Albumin Level 4.8 g/dl (3.5-5.0); Albumin/Globulin Ratio 1.7 (1.1-1.8); Alkaline Phosphatase 56 U/L (38-126); Amylase 65 U/L (30-110); Anion Gap 14.6 mEq/L (5-15); Aspartate Amino Transferase 33 U/L (17-59); Bilirubin,Total 0.5 mg/dl (0.2-1.3); Blood Urea Nitrogen 11 mg/dl (9-20); Calcium 9.4 mg/dl (8.4-10.2); Carbon Dioxide 27 mmol/L (22.0-30.0); Chloride 104 mmol/L (98-107); Creatinine Clearance Estimated 155 mL/min (50-200); Estimated Glomerular Filt Rate 137 ml/min (>60); GFR (African American) 166 ML/MIN (>60); Globulin 2.8 g/dL (1.3-3.2); Glucose 105 mg/dl (74-100); Lipase 56 U/L (23-300); Potassium 3.6 mmoL/L (3.5-5.1); Sodium 142 mmol/L (136-145); Total Protein,Serum 7.6 g/dl (6.3-8.2)
[2020-12-18 21:19] LABS: C-Reactive Protein < 0.3 mg/L (0-4)
[2020-12-18 21:29] LABS: Procalcitonin 0.042 ng/mL (0.0-2.0)
[2020-12-18 21:32] LABS: Erythrocyte Sedimentation Rate 4 mm/hr (0-15)
[2020-12-18 21:33] VITALS: BP 122/81; PULSE 89; RESP 18; TEMP 37; O2SAT 99
== END 2020-12-18 21:33 | disposition home or self-care (01) ==
PROVIDERS: Emergency Provider Emergency Medicine
DX: R10.31 Right lower quadrant pain (principal); F17.210 Nicotine dependence, cigarettes, uncomplicated
CPT/HCPCS: 74176; 80053; 81001; 82150; 83690; 84145; 85025; 85651; 86140; 96365; 96375; 99283

== ENCOUNTER 2021-02-19 21:17 | Emergency (ER) | payer SELFPAY ==
--- NOTE | 2021-02-19 21:17 | ECG_ITS ---
APPROVED REPORT Exam: Resting ECG HR:59 bpm ECG Measurements Heart Rate 59 AXES PA 160 P 65 QRSd 94 QRS 69 QT 424 T 63 QTc 419 Conclusion Sinus bradycardia Otherwise normal ECG Electronically signed by : Tim Horton MD 02/23/2021 14:33:29
[2021-02-19 21:19] VITALS: BP 129/85; PULSE 65; RESP 16; TEMP 36.9; O2SAT 100; BMI 19.6
--- NOTE | 2021-02-19 21:29 | XR_ITS ---
PROCEDURE INFORMATION: Exam: XR Chest Exam date and time: 02/19/2021 9:29 PM Age: 25 years old Clinical indication: Patient HX: Cough, congestion. Smoker. No chest surgeries. ; Additional info: Cp TECHNIQUE: Imaging protocol: XR of the chest. Views: 2 views. COMPARISON: CR CXR CHEST(2 VIEWS-NOT PORTABLE) 04/26/2017 2:13 PM FINDINGS: Lungs: Unremarkable. No consolidation. Pleural spaces: Unremarkable. No pleural effusion. No pneumothorax. Heart/Mediastinum: Left mediastinum calcified node the. No cardiomegaly. Bones/joints: Unremarkable. IMPRESSION: No acute findings.
[2021-02-19 21:34] LABS: Coronavirus 19, PCR Not Detected (NotDetected); Influenza A, PCR Not Detected (NotDetected); Influenza B, PCR Not Detected (NotDetected)
[2021-02-19 21:35] LABS: Basophils # 0.1 K/mm3 (0-0.2); Basophils % 1.6 % (0.1-2.0); Eosinophils # 0.4 K/mm3 (0.0-0.4); Eosinophils % 4.9 % (0.1-12.0); Hematocrit 47.9 % (42.0-52.0); Hemoglobin 16.6 g/dL (14.1-18.0); Lymphocytes # 2.5 K/mm3 (0.7-4.5); Lymphocytes % 32.7 % (10-50); Mean Corpuscular HGB Conc 34.7 g/dL (31.8-35.4); Mean Corpuscular Hemoglobin 31.9 pg (27.0-31.2); Mean Corpuscular Volume 91.8 fl (80-94); Monocytes # 0.5 K/mm3 (0.1-1.0); Monocytes % 6.8 % (1.7-9.3); Neutrophils # 4.2 K/mm3 (1.8-7.8); Platelet Count 255 K/mm3 (142-424); Red Blood Count 5.22 M/mm3 (4.60-6.20); Red Cell Distribution Width 13.8 % (11.5-17.5); White Blood Count 7.8 K/mm3 (4.8-10.8)
[2021-02-19 21:43] LABS: Alanine Aminotransferase 18 U/L (12-78); Albumin Level 4.7 g/dl (3.5-5.0); Alkaline Phosphatase 62 U/L (38-126); Amylase 83 U/L (30-110); Anion Gap 11.6 mEq/L (5-15); Aspartate Amino Transferase 33 U/L (17-59); Bilirubin,Direct 0.5 mg/dl (0.0-0.4); Bilirubin,Total 0.5 mg/dl (0.2-1.3); Blood Urea Nitrogen 7 mg/dl (9-20); Calcium 9.3 mg/dl (8.4-10.2); Carbon Dioxide 30 mmol/L (22.0-30.0); Chloride 104 mmol/L (98-107); Creatinine Clearance Estimated 150 mL/min (50-200); Estimated Glomerular Filt Rate 137 ml/min (>60); GFR (African American) 166 ML/MIN (>60); Glucose 79 mg/dl (74-100); Lipase 112 U/L (23-300); Potassium 3.6 mmoL/L (3.5-5.1); Sodium 142 mmol/L (136-145); Total Protein,Serum 7.7 g/dl (6.3-8.2)
[2021-02-19 21:44] LABS: Magnesium 1.7 mg/dl (1.6-2.3)
[2021-02-19 21:55] LABS: C-Reactive Protein < 0.3 mg/L (0-4); Troponin I 0.01 ng/ml (0.00-0.034)
[2021-02-19 22:00] VITALS: BP 118/75; PULSE 56; RESP 8; O2SAT 97
[2021-02-19 22:09] LABS: Erythrocyte Sedimentation Rate 6 mm/hr (0-15)
[2021-02-19 22:21] LABS: Procalcitonin 0.035 ng/mL (0.0-2.0)
--- NOTE | 2021-02-19 22:36 | HMH.EDCP ---
ED Disposition Clinical Impression: Atypical chest pain Disposition: Home, Self-Care Condition on Discharge: Good Instructions: DI for Atypical Chest Pain Additional Instructions: use meds and see pcp for follow up Prescriptions: predniSONE [Prednisone 20mg Tab] 20 mg PO BID #10 tab Transmission Status: Pending to [email or web address] #[id number] Azithromycin [Zithromax 250mg tab] 250 mg PO DIRECTED #6 tab Transmission Status: Pending to [email or web address] #[id number] Referrals: Provider,Referral, [Primary Care Provider] - - Critical Care Critical Care Time: No Attestation: On 02/19/21, the high probability of a clinically significant, sudden or life threatening deterioration of the following system(s) required my full and direct attention, intervention and personal management. The time I documented below is in addition to time spent performing reported procedures but includes the following listed in this critical care notation. Medical Decision Making - Medical Records Medical records reviewed: Yes: I reviewed the patient's medical records. - Unruly Inquiry Pt receiving controlled substance: No Vital Signs: 02/19/21 21:19 02/19/21 22:00 Temperature 98.4 F Temperature Source Oral Pulse Rate 56 L Pulse Rate [Right] 65 Respiratory Rate 16 8 L Blood Pressure 118/75 Blood Pressure [Right Arm] 129/85 Blood Pressure Mean [Right Arm] 99 Blood Pressure Source [Right Arm] Automatic Cuff 02 Sat by Pulse Oximetry 100 97 Oxygen Delivery Method Room Air Room Air - Lab Data Lab results reviewed: Yes: I reviewed the patient's lab results. Lab Results 02/19/21 21:22: WBC 7.8, RBC 5.22, Hgb 16.6, Hct 47.9, MCV 91.8, MCH 31.9 H, MCHC 34.7, RDW 13.8, Plt Count 255, MPV 9.0, Neut % (Auto) 54.0, Lymph % (Auto) 32.7, Shannon % (Auto) 6.8, Eos % (Auto) 4.9, Baso % (Auto) 1.6, Neut # (Auto) 4.2, Lymph # (Auto) 2.5, Shannon # (Auto) 0.5, Eos # (Auto) 0.4, Baso # (Auto) 0.1 02/19/21 21:22: Sodium 142, Potassium 3.6, Chloride 104, Carbon Dioxide 30, Anion Gap 11.6, BUN 7 L, Creatinine 0.70, Estimated Creat Clear 150, Estimated GFR 137, Est GFR ( Amer) 166, Glucose 79, Calcium 9.3, Total Bilirubin 0.5, Direct Bilirubin 0.5 H, Conjugated Bilirubin 0.0, Indirect Bilirubin 0.0, Unconjugated Bilirubin 0.0, AST 33, ALT 18, Alkaline Phosphatase 62, Troponin I 0.01, Total Protein 7.7, Albumin 4.7, Amylase 83, Lipase 112 02/19/21 21:22: SARS-CoV-2 (PCR) Not detected, Influenza A Untype (PCR) Not detected, Influenza Type B (PCR) Not detected 02/19/21 21:22: Magnesium 1.7, C-Reactive Protein < 0.3 02/19/21 21:22: ESR 6 02/19/21 21:22: Procalcitonin 0.035 Result diagrams: 02/19/21 21:22 02/19/21 21:22 Orders (Tests/Meds): ED MEDICATIONS Generic Name Dose Route Start Last Admin Trade Name Freq PRN Reason Stop Dose Admin Sodium Chloride 1,000 mls @ 999 mls/hr 02/19/21 21:45 02/19/21 21:44 Sod Chlor 0.9% 1000ml Bag IV 02/19/21 22:45 999 mls/hr .Q1H1M NOEMY Administration Discontinued Medications Generic Name Dose Route Start Last Admin Trade Name Freq PRN Reason Stop Dose Admin Aspirin 324 mg 02/19/21 21:31 02/19/21 21:46 Aspirin 81mg Chewable Tablet PO 02/19/21 21:32 324 mg ONCE ONE Administration Ketorolac Tromethamine 30 mg 02/19/21 21:45 02/19/21 21:45 Ketorolac 30mg/Ml Vial IV 02/19/21 21:46 30 mg ONCE ONE Administration Methylprednisolone Sodium Succinate 125 mg 02/19/21 21:45 02/19/21 21:46 Methylprednisolone Sod Succ 125mg Vial IV 02/19/21 21:46 125 mg ONCE ONE Administration ORDERS Category Date Time Status CXR 2 view (NOT portable) [XR chest 2V] Stat Exams 02/19/21 21:29 Taken Troponin I Q3H Lab 02/20/21 00:30 Ordered Troponin I Q3H Lab 02/20/21 03:30 Ordered - Radiology Data #1 Image(s): Chest Image Reviewed: Yes I reviewed the patient's radiology image Preliminary Findings: Normal/NAD - ECG Data Tracing #1
[2021-02-19 22:45] VITALS: BP 119/73; PULSE 55; RESP 14; TEMP 36.9; O2SAT 98
== END 2021-02-19 23:03 | disposition home or self-care (01) ==
PROVIDERS: Emergency Provider Emergency Medicine
DX: R07.89 Other chest pain (principal); F12.10 Cannabis abuse, uncomplicated; F17.210 Nicotine dependence, cigarettes, uncomplicated; Z88.2 Allergy status to sulfonamides; Z20.822 Contact with and (suspected) exposure to COVID-19
CPT/HCPCS: 71046; 80048; 80076; 82150; 83690; 83735; 84145; 84484; 85025; 85651; 86140; 93005; 96365; 96375; 99283; C9803; U0003; U0005

== ENCOUNTER 2021-04-17 23:10 | Emergency (ER) | payer SELFPAY ==
[2021-04-17 23:11] VITALS: BP 136/83; PULSE 87; RESP 20; TEMP 36.9; O2SAT 99; BMI 20.3
--- NOTE | 2021-04-17 23:30 | XR_ITS ---
PROCEDURE INFORMATION: Exam: XR Chest Exam date and time: 04/17/2021 11:30 PM Age: 25 years old Clinical indication: Patient HX: Productive cough x3 days. No SX to chest area, smoker, no HX of covid TECHNIQUE: Imaging protocol: XR of the chest. Views: 2 views. COMPARISON: CR XR CHEST 2V 02/19/2021 9:30 PM FINDINGS: Lungs: Unremarkable. No consolidation. Pleural spaces: Unremarkable. No pleural effusion. No pneumothorax. Heart/Mediastinum: Unremarkable. No cardiomegaly. Bones/joints: Unremarkable. IMPRESSION: No acute findings.
[2021-04-17 23:33] LABS: Coronavirus 19, PCR Not Detected (NotDetected); Influenza A, PCR Not Detected (NotDetected); Influenza B, PCR Not Detected (NotDetected); Microscopic, Urine URINE MICROSCOPIC (MICROSCOPIC)
[2021-04-17 23:38] LABS: Appearance,Urine CLEAR (Clear); Basophils # 0.1 K/mm3 (0-0.2); Basophils % 1.4 % (0.1-2.0); Bilirubin,Urine Negative (Negative); Blood, Urine Negative (Negative); Color,Urine YELLOW (Yellow); Eosinophils # 0.4 K/mm3 (0.0-0.4); Eosinophils % 4.7 % (0.1-12.0); Glucose,Urine (UA) Negative (Negative); Hematocrit 46.9 % (42.0-52.0); Hemoglobin 16.2 g/dL (14.1-18.0); Ketones,Urine Negative (Negative); Leukocyte Esterase,Urine Negative (Negative); Lymphocytes # 2.2 K/mm3 (0.7-4.5); Lymphocytes % 24.9 % (10-50); Mean Corpuscular HGB Conc 34.5 g/dL (31.8-35.4); Mean Corpuscular Hemoglobin 30.8 pg (27.0-31.2); Mean Corpuscular Volume 89.1 fl (80-94); Mean Platelet Volume 8.2 fl (7.4-10.4); Monocytes # 0.6 K/mm3 (0.1-1.0); Monocytes % 6.8 % (1.7-9.3); Neutrophils # 5.5 K/mm3 (1.8-7.8); Neutrophils % 62.3 % (37.0-80.0); Nitrate,Urine Negative (Negative); Platelet Count 234 K/mm3 (142-424); Protein,Urine Negative (Negative); Red Blood Count 5.26 M/mm3 (4.60-6.20); Red Cell Distribution Width 13.4 % (11.5-17.5); White Blood Count 8.8 K/mm3 (4.8-10.8)
[2021-04-17 23:42] LABS: Alanine Aminotransferase 18 U/L (12-78); Albumin Level 4.9 g/dl (3.5-5.0); Albumin/Globulin Ratio 1.8 (1.1-1.8); Alkaline Phosphatase 54 U/L (38-126); Anion Gap 10.6 mEq/L (5-15); Aspartate Amino Transferase 30 U/L (17-59); Bilirubin,Total 0.4 mg/dl (0.2-1.3); Blood Urea Nitrogen 10 mg/dl (9-20); Calcium 9.9 mg/dl (8.4-10.2); Carbon Dioxide 31 mmol/L (22.0-30.0); Chloride 101 mmol/L (98-107); Creatinine Clearance Estimated 136 mL/min (50-200); Estimated Glomerular Filt Rate 118 ml/min (>60); GFR (African American) 143 ML/MIN (>60); Globulin 2.8 g/dL (1.3-3.2); Glucose 97 mg/dl (74-100); Potassium 3.6 mmoL/L (3.5-5.1); Sodium 139 mmol/L (136-145); Total Protein,Serum 7.7 g/dl (6.3-8.2)
--- NOTE | 2021-04-17 23:49 | HMH.EDGENADL ---
ED Disposition Clinical Impression: Bronchitis, Left groin pain Disposition: Home, Self-Care Condition on Discharge: Good Instructions: DI for Acute Pain -- Adult Additional Instructions: fluids and use meds and see pcp for follow up Prescriptions: Benzonatate [Benzonatate 100mg cap] 100 mg PO TID #21 cap Transmission Status: Pending to [facility] # levoFLOXacin [Levaquin 500mg tab] 500 mg PO DAILY #7 tab Transmission Status: Pending to [facility] # predniSONE [Prednisone 20mg Tab] 20 mg PO BID #10 tab Transmission Status: Pending to [facility] # Referrals: Provider,Referral, [Primary Care Provider] - - Critical Care Critical Care Time: No Attestation: On 04/17/21, the high probability of a clinically significant, sudden or life threatening deterioration of the following system(s) required my full and direct attention, intervention and personal management. The time I documented below is in addition to time spent performing reported procedures but includes the following listed in this critical care notation. Medical Decision Making - Medical Records Medical records reviewed: Yes: I reviewed the patient's medical records. - Unruly Inquiry Pt receiving controlled substance: No Vital Signs: 04/17/21 23:11 Temperature 98.4 F Temperature Source Oral Pulse Rate [Apical] 87 Respiratory Rate 20 Blood Pressure [Right Arm] 136/83 Blood Pressure Mean [Right Arm] 100 Blood Pressure Source [Right Arm] Automatic Cuff Blood Pressure Position [Right Arm] Sitting 02 Sat by Pulse Oximetry 99 Oxygen Delivery Method Room Air - Lab Data Lab results reviewed: Yes: I reviewed the patient's lab results. Lab Results 04/17/21 23:20: Urine Color Yellow, Urine Appearance Clear, Urine pH 7.0, Ur Specific Mobile 1.020, Urine Protein Negative, Urine Glucose (UA) Negative, Urine Ketones Negative, Urine Blood Negative, Urine Nitrate Negative, Urine Bilirubin Negative, Urine Urobilinogen 1.0, Ur Leukocyte Esterase Negative, Urine WBC Occasional, Urine Bacteria Trace 04/17/21 23:20: WBC 8.8, RBC 5.26, Hgb 16.2, Hct 46.9, MCV 89.1, MCH 30.8, MCHC 34.5, RDW 13.4, Plt Count 234, MPV 8.2, Neut % (Auto) 62.3, Lymph % (Auto) 24.9, [place] % (Auto) 6.8, Eos % (Auto) 4.7, Baso % (Auto) 1.4, Neut # (Auto) 5.5, Lymph # (Auto) 2.2, [place] # (Auto) 0.6, Eos # (Auto) 0.4, Baso # (Auto) 0.1, ESR 6 04/17/21 23:20: Sodium 139, Potassium 3.6, Chloride 101, Carbon Dioxide 31 H, Anion Gap 10.6, BUN 10, Creatinine 0.80, Estimated Creat Clear 136, Estimated GFR 118, Est GFR ( Amer) 143, Glucose 97, Calcium 9.9, Total Bilirubin 0.4, AST 30, ALT 18, Alkaline Phosphatase 54, C-Reactive Protein < 0.3, Total Protein 7.7, Albumin 4.9, Globulin 2.8, Albumin/Globulin Ratio 1.8 04/17/21 23:20: SARS-CoV-2 (PCR) Not detected, Influenza A Untype (PCR) Not detected, Influenza Type B (PCR) Not detected Result diagrams: 04/17/21 23:20 04/17/21 23:20 - Radiology Data #1 Image(s): Chest Image Reviewed: Yes I reviewed the patient's radiology image Preliminary Findings: Normal/NAD Medical Decision Narrative: has bronchial illness with stable labs and exam- uncertain as to etiology of groin pain - no nodes or hernia and possible lig injury General Adult HPI - General Chief complaint: PAIN Stated complaint: fever,weakness,cough Time Seen by Provider: 04/17/21 23:30 Mode of Arrival: Ambulatory Source of Information: Patient, Medical Record Limitations: No Limitations Description of Symptoms (Recalled from ER Triage Doc. by RN): Patient states that he had a fever on Friday but hasn't had any fever since, has had a cough. Additionally, he complains of left sided groin pain that he describes as sometimes throbbing, and sometimes stabbing. States that this pain started yesterday and he has noticed slight swelling in that groin area. - History of Present Illness HPI narrative: over the last few d
[2021-04-17 23:57] LABS: C-Reactive Protein < 0.3 mg/L (0-4)
[2021-04-18 00:04] LABS: Erythrocyte Sedimentation Rate 6 mm/hr (0-15)
[2021-04-18 00:06] LABS: Bacteria,Urine Trace /lpf; WBC,Urine Occasional #/hpf (0-3)
[2021-04-18 01:07] VITALS: BP 128/78; PULSE 52; RESP 20; TEMP 36.7; O2SAT 100
== END 2021-04-18 01:09 | disposition home or self-care (01) ==
PROVIDERS: Emergency Provider Emergency Medicine
DX: J20.9 Acute bronchitis, unspecified (principal); F17.210 Nicotine dependence, cigarettes, uncomplicated; Z20.822 Contact with and (suspected) exposure to COVID-19
CPT/HCPCS: 71046; 80053; 81001; 85025; 85651; 86140; 99283; C9803; U0003; U0005

== ENCOUNTER 2021-04-19 22:19 | Emergency (ER) | payer SELFPAY ==
[2021-04-19 22:25] VITALS: BP 136/75; PULSE 62; RESP 18; TEMP 36.9; O2SAT 98; BMI 21.7
--- NOTE | 2021-04-19 22:33 | CT_ITS ---
PROCEDURE INFORMATION: Exam: CT Abdomen And Pelvis With Contrast Exam date and time: 04/19/2021 10:33 PM Age: 25 years old Clinical indication: Pain; Other: Left groin; Additional info: Groin pain TECHNIQUE: Imaging protocol: Computed tomography of the abdomen and pelvis with contrast. Total images: 283 Radiation optimization: All CT scans at this facility use at least one of these dose optimization techniques: automated exposure control; mA and/or kV adjustment per patient size (includes targeted exams where dose is matched to clinical indication); or iterative reconstruction. Contrast material: ISOVUE; Contrast volume: 75 ml; Contrast route: IV; COMPARISON: CT ABDOMEN PELVIS WO CON 12/18/2020 8:43 PM FINDINGS: Lungs: Visualized lung bases are clear. Heart: Heart size normal. Mediastinal space: The visualized distal esophagus is largely contracted without gross abnormality. Liver: Question mild generalized fatty infiltration of the liver. Normal contour. No mass lesions. No intrahepatic biliary ductal dilatation. Gallbladder and bile ducts: The gallbladder is contracted but otherwise unremarkable. Nondilated common bile duct. Pancreas: Normal. No inflammatory changes or ductal dilation. Spleen: Granulomatous calcifications in the spleen without acute splenic abnormality. Adrenal glands: Normal. No adrenal mass. Kidneys and ureters: No acute abnormalities. No hydronephrosis or hydroureter. No urinary tract stones are identified. There is a low-density circumscribed right renal cortical lesion suggesting renal cyst. No further imaging evaluation is required. Stomach and bowel: The stomach is unremarkable. The small bowel is nondilated with no gross abnormality. There is a moderate amount of stool distributed throughout the colon suggesting constipation. Appendix: The appendix is normal in caliber and demonstrates no evidence of appendicitis. Intraperitoneal space: No free fluid or air. Vasculature: No acute process. No abdominal aortic aneurysm. Circumaortic left renal vein configuration noted. Lymph nodes: No adenopathy. Urinary bladder: Unremarkable as visualized. Reproductive: Unremarkable as visualized. Bones/joints: No acute osseous abnormalities. Moderate disc space narrowing L5-S1. Soft tissues: Unremarkable. IMPRESSION: 1. There is a moderate amount of stool distributed throughout the colon suggesting constipation. 2. Additional nonemergent findings detailed above. COMMENTS: Consistent with the [employer]'s Incidental Findings Committee white paper (J Am Yohana Radiol 2018): Any incidental renal lesion less than 1 cm or classified as too small to characterize, or any incidental cystic renal lesion characterized as simple-appearing, is likely benign. No follow-up imaging is recommended for these lesions per consensus recommendations based on imaging criteria.
[2021-04-19 22:51] LABS: Basophils # 0.3 K/mm3 (0-0.2); Eosinophils # 0.4 K/mm3 (0.0-0.4); Eosinophils % 5.3 % (0.1-12.0); Hematocrit 48.7 % (42.0-52.0); Lymphocytes # 2.5 K/mm3 (0.7-4.5); Lymphocytes % 30.1 % (10-50); Mean Corpuscular Hemoglobin 30.8 pg (27.0-31.2); Mean Corpuscular Volume 93.6 fl (80-94); Monocytes # 0.5 K/mm3 (0.1-1.0); Monocytes % 5.7 % (1.7-9.3); Neutrophils # 4.5 K/mm3 (1.8-7.8); Neutrophils % 54.9 % (37.0-80.0); Platelet Count 252 K/mm3 (142-424); Red Cell Distribution Width 13.9 % (11.5-17.5); White Blood Count 8.1 K/mm3 (4.8-10.8)
[2021-04-19 22:54] LABS: Chloride 103 mmol/L (98-107)
[2021-04-19 22:55] LABS: Potassium 3.8 mmoL/L (3.5-5.1); Sodium 143 mmol/L (136-145)
[2021-04-19 22:57] LABS: Alanine Aminotransferase 17 U/L (12-78); Aspartate Amino Transferase 36 U/L (17-59); Blood Urea Nitrogen 14 mg/dl (9-20); Creatinine Clearance Estimated 129 mL/min (50-200); Estimated Glomerular Filt Rate 103 ml/min (>60); GFR (African American) 124 ML/MIN (>60)
[2021-04-19 22:58] LABS: Albumin/Globulin Ratio 1.8 (1.1-1.8); Alkaline Phosphatase 55 U/L (38-126); Anion Gap 13.8 mEq/L (5-15); Bilirubin,Total 0.4 mg/dl (0.2-1.3); Calcium 9.6 mg/dl (8.4-10.2); Carbon Dioxide 30 mmol/L (22.0-30.0); Globulin 2.8 g/dL (1.3-3.2); Glucose 97 mg/dl (74-100); Total Protein,Serum 7.8 g/dl (6.3-8.2)
--- NOTE | 2021-04-19 23:22 | HMH.EDGENADL ---
ED Disposition Clinical Impression: Left groin pain Disposition: Home, Self-Care Condition on Discharge: Good Instructions: DI for Acute Pain -- Adult Additional Instructions: use meds and see pcp for follow up Referrals: Provider,Referral, [Primary Care Provider] - - Critical Care Critical Care Time: No Attestation: On 04/19/21, the high probability of a clinically significant, sudden or life threatening deterioration of the following system(s) required my full and direct attention, intervention and personal management. The time I documented below is in addition to time spent performing reported procedures but includes the following listed in this critical care notation. Medical Decision Making - Medical Records Medical records reviewed: Yes: I reviewed the patient's medical records. - Unruly Inquiry Pt receiving controlled substance: No Vital Signs: 04/19/21 22:25 Temperature 98.4 F Temperature Source Oral Pulse Rate [Right Brachial] 62 Respiratory Rate 18 Blood Pressure [Right Arm] 136/75 Blood Pressure Mean [Right Arm] 95 Blood Pressure Source [Right Arm] Automatic Cuff Blood Pressure Position [Right Arm] Sitting 02 Sat by Pulse Oximetry 98 Oxygen Delivery Method Room Air - Lab Data Lab results reviewed: Yes: I reviewed the patient's lab results. Lab Results 04/19/21 22:41: WBC 8.1, RBC 5.20, Hgb 16.0, Hct 48.7, MCV 93.6, MCH 30.8, MCHC 33.0, RDW 13.9, Plt Count 252, MPV 9.0, Neut % (Auto) 54.9, Lymph % (Auto) 30.1, [place] % (Auto) 5.7, Eos % (Auto) 5.3, Baso % (Auto) 4.0 H, Neut # (Auto) 4.5, Lymph # (Auto) 2.5, [place] # (Auto) 0.5, Eos # (Auto) 0.4, Baso # (Auto) 0.3 H 04/19/21 22:41: Sodium 143, Potassium 3.8, Chloride 103, Carbon Dioxide 30, Anion Gap 13.8, BUN 14 D, Creatinine 0.90, Estimated Creat Clear 129, Estimated GFR 103, Est GFR ( Amer) 124, Glucose 97, Calcium 9.6, Total Bilirubin 0.4, AST 36, ALT 17, Alkaline Phosphatase 55, Total Protein 7.8, Albumin 5.0, Globulin 2.8, Albumin/Globulin Ratio 1.8 Result diagrams: 04/19/21 22:41 04/19/21 22:41 Orders (Tests/Meds): ED MEDICATIONS Discontinued Medications Generic Name Dose Route Start Last Admin Trade Name Alfredito PRN Reason Stop Dose Admin Iopamidol 75 ml 04/19/21 22:50 04/19/21 22:51 Iopamidol-370 (76%);100ml Bottle IV 04/19/21 22:51 75 ml ONCE ONE Administration Sodium Chloride 10 ml 04/19/21 22:50 04/19/21 22:51 Sodium Chloride 0.9% 10ml Syr (Rad Only) IV 04/19/21 22:51 10 ml ONCE ONE Administration - CT Data CT Scan: Abdomen, Pelvis Time Received: 23:[address] Reviewed: Yes: I have viewed the radiologist's interpretation Preliminary Findings: Normal/NAD Medical Decision Narrative: pt has lt groin pain with some element of radicular pain - neg ct abd/pelvis for kidney stone and no hernia - General Adult HPI - General Chief complaint: PAIN Stated complaint: Groin pain Time Seen by Provider: 04/19/21 23:00 Mode of Arrival: Family Vehicle Source of Information: Patient, Medical Record Limitations: Physical Limitations Description of Symptoms (Recalled from ER Triage Doc. by RN): patient reports left thigh and groin pain that radiates down into medial thigh; patient denies any injury or straining and states it hurts more when he is sitting rather than moving. denies heavy lifting. recently seen for same problem. states that the only difference is the pain sorta made me nauseated this time when it hit. - History of Present Illness HPI narrative: pt with ongoing lt groin pain over the last few days - w/o fever/rash or trauma but now reports some rad to lt lower leg and gluteal area - Onset (ago): day(s) Location: back Radiation: extremity Severity: moderate Consistency: intermittent Associated symptoms: denies other symptoms Treatments prior to arrival: none - Related Data Previous Rx's Medication Instructions Recorded Azithromycin [Zithromax 250mg 250 mg PO
[2021-04-19 23:52] VITALS: BP 120/70; PULSE 60; RESP 18; TEMP 36.9; O2SAT 98
== END 2021-04-19 23:53 | disposition home or self-care (01) ==
PROVIDERS: Emergency Provider Emergency Medicine
DX: R10.32 Left lower quadrant pain (principal); F17.210 Nicotine dependence, cigarettes, uncomplicated
CPT/HCPCS: 74177; 80053; 85025; 99282; Q9967

== ENCOUNTER 2021-07-01 18:26 | Emergency (ER) | payer OTHER, SELFPAY ==
[2021-07-01 19:00] VITALS: BP 115/82; PULSE 73; RESP 18; TEMP 37.2; O2SAT 98; BMI 20.3
[2021-07-01 19:29] LABS: UTC Strep Screen (Rapid) Negative (Negative)
[2021-07-01 19:35] VITALS: BP 115/82; PULSE 73; RESP 18; TEMP 37.2; O2SAT 98
--- NOTE | 2021-07-01 19:36 | HMH.EDUTC ---
[facility] [place] Disposition Clinical Impression: Acute maxillary sinusitis Qualifiers: Recurrence: non-recurrent Qualified Code(s): J01.00 - Acute maxillary sinusitis, unspecified Disposition: Home, Self-Care Condition on Discharge: Good Instructions: DI for Sinusitis Additional Instructions: Start antibiotic patient to take as ordered for a full length of time even if you feel better. Sinus infections do not get better overnight. It may take 2-3 days to notice much improvement so be sure to use conservative measures as discussed for symptoms. Flonase 1 spray each nostril daily to help with nasal congestion, sinus and ear pressure/information Increase fluids Humidifier/vaporizer as needed Tylenol and ibuprofen as needed for fever or pain. If symptoms do not improve or get worse return or be seen in the ER Follow-up with primary care this week Prescriptions: Azithromycin [Zithromax 250mg tab] 250 mg PO DIRECTED #6 tab Transmission Status: Pending to [facility] #[id number] Referrals: Provider,Referral, [Primary Care Provider] - Time of Disposition: 19:39 Medical Decision Making - Unruly Inquiry Pt receiving controlled substance: No Vital Signs: 07/01/21 19:00 Temperature 99.0 F Temperature Source Oral Pulse Rate [Right Brachial] 73 Respiratory Rate 18 Blood Pressure [Right Arm] 115/82 Blood Pressure Mean [Right Arm] 93 Blood Pressure Source [Right Arm] Automatic Cuff Blood Pressure Position [Right Arm] Sitting 02 Sat by Pulse Oximetry 98 Oxygen Delivery Method Room Air - Lab Data Lab Results 07/01/21 19:02: Strep Scn Rapid Clinic Negative Orders (Tests/Meds): ORDERS Category Date Time Status Covid-19 Nasal PCR ([facility]) Routine Lab 07/01/21 18:58 Received Strep Screen Confirmation Stat Micro 07/01/21 19:02 Received [facility] [place] HPI - General Chief complaint: [facility] Stated complaint: sore throat,cough, runny nose sissy Time Seen by Provider: 07/01/21 19:36 Mode of Arrival: Ambulatory Source of Information: Patient Limitations: No Limitations Description of Symptoms (Recalled from Triage Doc. by RN): PATIENT C/O RUNNY NOSE, PRODUCTIVE COUGH, LOW-GRADE FEVER, CHEST CONGESTION AND SORE THROAT SINCE FRIDAY HEENT Symptoms (Recalled from RN notes): Yes Resp Symptoms (Recalled from RN notes): No Skin Symptoms (Recalled from RN notes): No MS Symptoms (Recalled from RN notes): No Functional Status (Recalled from RN notes): WNL - History of Present Illness Provider Complaint: 25 yr old male presents for runny nose, sore throat, yellow drainage, sinus pressure for 2 days. child has strep - Related Data Previous Rx's Medication Instructions Recorded Azithromycin [Zithromax 250mg 250 mg PO DIRECTED #6 tab 07/01/21 tab] Allergies Allergy/AdvReac Type Severity Reaction Status Date / Time Sulfa (Sulfonamide Allergy Unknown Verified 10/02/20 11:24 Antibiotics) [SULFA (SULFONAMIDE ANTIBIOTICS)] - Worker's Comp Is this a Worker's Comp case?: No [facility] History - Hepatitis A Screen Drug use history?: No High risk sexual behaviors?: No History of sexually transmitted infection?: No Currently employed?: No Childcare worker?: No Do you have indoor plumbing?: Yes Do you have electricity?: Yes Attestation statement:: This patient has been screened for Hepatitis A risk factors. I have reviewed the patient's past medical history: Yes 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: Denies:: Cancer, Diabetes Mellitus Type 1, Diabetes Mellitus Type 2, Hypertension, MRSA Amputation: No Fractures: No - Social History Smoking Status: Current every day smoker Tobacco Type: cigarettes # Packs/Day (cigarettes): 1 #Yrs smoked (if former smoker): 7 Alcohol Intake: never Substance Use Type: marijuana Occupational Status: employed Housing: apartment Household Members: significant other ROS Obtained: Yes Systems reviewed as appropriate & no additional complaints -
== END 2021-07-01 19:38 | disposition home or self-care (01) ==
PROVIDERS: Emergency Provider Nurse Practitioner Family
DX: J01.00 Acute maxillary sinusitis, unspecified (principal); J02.9 Acute pharyngitis, unspecified; R50.9 Fever, unspecified; F17.210 Nicotine dependence, cigarettes, uncomplicated; Z20.822 Contact with and (suspected) exposure to COVID-19; Z88.2 Allergy status to sulfonamides
CPT/HCPCS: 87880; 99213; C9803; G0463; U0003; U0005

== ENCOUNTER 2021-07-21 14:03 | Emergency (ER) | payer OTHER, SELFPAY ==
[2021-07-21 14:03] VITALS: BP 126/79; PULSE 65; RESP 16; TEMP 36.7; O2SAT 100; BMI 20.3
--- NOTE | 2021-07-21 14:03 | ECG_ITS ---
APPROVED REPORT Exam: Resting ECG HR:68 bpm ECG Measurements Heart Rate 68 AXES HI 152 P 73 QRSd 108 QRS 79 QT 400 T 54 QTc 418 Conclusion SINUS RHYTHM WITH SINUS ARRHYTHMIA NORMAL ECG UNCONFIRMED REPORT Electronically signed by : Tim Horton MD 07/22/2021 07:48:28
--- NOTE | 2021-07-21 14:07 | PC.NURSE ---
pt in room, hooked up to cardiac monitoring, vital signs and call light given to patient. Nurses are bedside.
--- NOTE | 2021-07-21 14:22 | PC.NURSE ---
doctor is in with patient at this time.
--- NOTE | 2021-07-21 14:24 | XR_ITS ---
PROCEDURE INFORMATION: Exam: XR Chest Exam date and time: 07/21/2021 2:28 PM Age: 25 years old Clinical indication: Chest wall pain; Additional info: Chest pain TECHNIQUE: Imaging protocol: XR of the chest. Views: 2 views. COMPARISON: CR XR CHEST 2V 04/17/2021 11:32 PM FINDINGS: Lungs: Unremarkable. No consolidation. Pleural spaces: Unremarkable. No pleural effusion. No pneumothorax. Heart/Mediastinum: Unremarkable. No cardiomegaly. Bones/joints: Unremarkable. IMPRESSION: No acute findings.
[2021-07-21 14:30] VITALS: BP 114/70; RESP 16; O2SAT 100
--- NOTE | 2021-07-21 14:30 | PC.NURSE ---
Notified radiology of chest xray
[2021-07-21 14:35] LABS: Basophils # 0.2 K/mm3 (0-0.2); Basophils % 2.5 % (0.1-2.0); Eosinophils # 0.3 K/mm3 (0.0-0.4); Eosinophils % 4.1 % (0.1-12.0); Hematocrit 50.8 % (42.0-52.0); Hemoglobin 16.9 g/dL (14.1-18.0); Lymphocytes # 2.1 K/mm3 (0.7-4.5); Lymphocytes % 32.4 % (10-50); Mean Corpuscular HGB Conc 33.2 g/dL (31.8-35.4); Mean Corpuscular Hemoglobin 31.4 pg (27.0-31.2); Mean Corpuscular Volume 94.6 fl (80-94); Monocytes # 0.4 K/mm3 (0.1-1.0); Monocytes % 6.4 % (1.7-9.3); Neutrophils # 3.6 K/mm3 (1.8-7.8); Neutrophils % 54.7 % (37.0-80.0); Platelet Count 247 K/mm3 (142-424); Red Blood Count 5.38 M/mm3 (4.60-6.20); Red Cell Distribution Width 14.2 % (11.5-17.5); White Blood Count 6.6 K/mm3 (4.8-10.8)
--- NOTE | 2021-07-21 14:35 | PC.NURSE ---
patient to radiology.
[2021-07-21 14:37] LABS: Chloride 105 mmol/L (98-107); Potassium 3.5 mmoL/L (3.5-5.1); Sodium 141 mmol/L (136-145)
--- NOTE | 2021-07-21 14:39 | PC.NURSE ---
patient returned from radiology. hooked back up to vital signs and cardiac monitoring.
--- NOTE | 2021-07-21 14:39 | PC.NURSE ---
pt back from RAD
[2021-07-21 14:40] LABS: Anion Gap 13.5 mEq/L (5-15); Blood Urea Nitrogen 6 mg/dl (9-20); Calcium 9.1 mg/dl (8.4-10.2); Carbon Dioxide 26 mmol/L (22.0-30.0); Creatinine Clearance Estimated 136 mL/min (50-200); Estimated Glomerular Filt Rate 118 ml/min (>60); GFR (African American) 143 ML/MIN (>60); Glucose 79 mg/dl (74-100)
--- NOTE | 2021-07-21 14:42 | HMH.EDGENADL ---
ED Disposition Clinical Impression: Atypical chest pain Disposition: Home, Self-Care Condition on Discharge: Good Additional Instructions: Please return to the ED with any new or worsening symptoms including worsening chest pain, presyncope, shortness of breath. Referrals: Provider,Lance, [Primary Care Provider] - Tim Horton MD [Staff Physician] - - Critical Care Critical Care Time: No Attestation: On 07/21/21, the high probability of a clinically significant, sudden or life threatening deterioration of the following system(s) required my full and direct attention, intervention and personal management. The time I documented below is in addition to time spent performing reported procedures but includes the following listed in this critical care notation. Medical Decision Making - Medical Records Medical records reviewed: Yes: I reviewed the patient's medical records. - Unruly Inquiry Pt receiving controlled substance: No Vital Signs: 07/21/21 14:03 07/21/21 14:30 07/21/21 15:03 Temperature 98.0 F Temperature Source Oral Pulse Rate 60 Pulse Rate [Right] 65 Respiratory Rate 16 16 16 Blood Pressure 114/70 128/77 Blood Pressure [Right Arm] 126/79 Blood Pressure Mean [Right Arm] 94 02 Sat by Pulse Oximetry 100 100 100 Oxygen Delivery Method Room Air Room Air - Lab Data Lab Results 07/21/21 14:10: WBC 6.6, RBC 5.38, Hgb 16.9, Hct 50.8, MCV 94.6 H, MCH 31.4 H, MCHC 33.2, RDW 14.2, Plt Count 247, MPV 9.0, Neut % (Auto) 54.7, Lymph % (Auto) 32.4, [place] % (Auto) 6.4, Eos % (Auto) 4.1, Baso % (Auto) 2.5 H, Neut # (Auto) 3.6, Lymph # (Auto) 2.1, [place] # (Auto) 0.4, Eos # (Auto) 0.3, Baso # (Auto) 0.2 07/21/21 14:10: Sodium 141, Potassium 3.5, Chloride 105, Carbon Dioxide 26, Anion Gap 13.5, BUN 6 L, Creatinine 0.80, Estimated Creat Clear 136, Estimated GFR 118, Est GFR ( Amer) 143, Glucose 79, Calcium 9.1, Troponin I < 0.01 Result diagrams: 07/21/21 14:10 07/21/21 14:10 Orders (Tests/Meds): ED MEDICATIONS Generic Name Dose Route Start Last Admin Trade Name Alfredito PRN Reason Stop Dose Admin Sodium Chloride 10 ml 07/21/21 14:24 Sodium Chloride 0.9% 10ml Flush Syringe IV 08/20/21 14:23 NEEDED PRN Maintain IV Site Discontinued Medications Generic Name Dose Route Start Last Admin Trade Name Freq PRN Reason Stop Dose Admin Aspirin 324 mg 07/21/21 14:27 07/21/21 14:29 Aspirin 81mg Chewable Tablet PO 07/21/21 14:28 324 mg ONCE ONE Administration ORDERS Category Date Time Status XR chest 2V Stat Exams 07/21/21 14:24 Taken Troponin I Q3H Lab 07/21/21 17:30 Ordered Troponin I Q3H Lab 07/21/21 20:30 Ordered Medical Decision Narrative: Patient is 25-year-old male presents the ED today with left upper chest pain, patient is well-appearing no acute distress, vital signs within normal limits and stable, patient with no tachycardia, no hypotension no hypoxia on vital signs, patient's chest pain is unclear in etiology, could be pneumothorax, musculoskeletal, DVT PE, anxiety, asthma. Patient's lung exam is not consistent with COPD or asthma, no wheezes on exam, no pain that is worse with palpation or movement of the left shoulder, will perform a chest x-ray to further evaluate for this. Patient is otherwise young healthy male, pneumothorax is a consideration will rule out with chest x-ray, although patient does have bilateral lung sounds which are normal. 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 Patient reassessed, feels improved from a chest pain standpoint, however states that his head feels foggy and he feels tired, patient does not feel if he is dehydrated, on reassessing review of systems there is no dizziness or presyncope, I discussed the patient that a full cardiac work-up would
--- NOTE | 2021-07-21 14:54 | PC.NURSE ---
Pt to restroom
[2021-07-21 14:55] LABS: Troponin I < 0.01 ng/ml (0.00-0.034)
--- NOTE | 2021-07-21 14:57 | PC.NURSE ---
pt back to room tech hooking pt back up
[2021-07-21 15:03] VITALS: BP 128/77; PULSE 60; RESP 16; O2SAT 100
[2021-07-21 15:30] VITALS: BP 127/76; PULSE 55; RESP 12; O2SAT 100
--- NOTE | 2021-07-21 15:43 | PC.NURSE ---
pt was up to the bathroom at this time. no assistance needed.
[2021-07-21 15:48] VITALS: BP 127/76; PULSE 55; RESP 12; TEMP 36.7; O2SAT 100
== END 2021-07-21 15:52 | disposition home or self-care (01) ==
PROVIDERS: Emergency Provider Student in an Organized Health Care Education/Training Program
DX: R07.89 Other chest pain (principal); R06.02 Shortness of breath; R05.3 Chronic cough; M71.22 Synovial cyst of popliteal space [Baker], left knee; F17.210 Nicotine dependence, cigarettes, uncomplicated
CPT/HCPCS: 71046; 80048; 84484; 85025; 93005; 99283

== ENCOUNTER 2021-07-27 05:14 | Emergency (ER) | payer OTHER, SELFPAY ==
[2021-07-27 05:28] VITALS: BP 119/74; PULSE 53; RESP 18; TEMP 37; O2SAT 98; BMI 20.3
--- NOTE | 2021-07-27 05:30 | ECG_ITS ---
APPROVED REPORT Exam: Resting ECG HR:53 bpm ECG Measurements Heart Rate 53 AXES UT 140 P 55 QRSd 97 QRS 81 QT 424 T 66 QTc 407 Conclusion SINUS BRADYCARDIA INCOMPLETE RIGHT BUNDLE BRANCH BLOCK [90+ ms QRS DURATION, TERMINAL R IN V1/V2, 40+ ms S IN I/aVL/V4/V5/V6] BORDERLINE ECG UNCONFIRMED REPORT Electronically signed by : Tim Horton MD 08/01/2021 17:38:05
--- NOTE | 2021-07-27 05:33 | XR_ITS ---
PROCEDURE INFORMATION: Exam: XR Chest Exam date and time: 07/27/2021 5:41 AM Age: 25 years old Clinical indication: Pain; Cough; Chest pressure; Additional info: Sore throat, cough TECHNIQUE: Imaging protocol: XR of the chest. Views: 2 views. COMPARISON: CR XR CHEST 2V 07/21/2021 2:28 PM FINDINGS: Lungs: No acute findings or consolidation. Pleural spaces: No pleural effusion. No pneumothorax. Heart/Mediastinum: No acute findings or cardiomegaly. Bones/joints: No acute findings. IMPRESSION: No acute cardiopulmonary findings.
--- NOTE | 2021-07-27 05:42 | CT_ITS ---
PROCEDURE INFORMATION: Exam: CT Abdomen And Pelvis With Contrast Exam date and time: 07/27/2021 5:51 AM Age: 25 years old Clinical indication: Nausea; Abdominal pain TECHNIQUE: Imaging protocol: Computed tomography of the abdomen and pelvis with contrast. Radiation optimization: All CT scans at this facility use at least one of these dose optimization techniques: automated exposure control; mA and/or kV adjustment per patient size (includes targeted exams where dose is matched to clinical indication); or iterative reconstruction. Contrast material: ISOVUE; Contrast volume: 75 ml; Contrast route: IV; COMPARISON: CT ABDOMEN PELVIS W CON 04/19/2021 10:43 PM FINDINGS: Liver: No acute findings. No mass. Gallbladder and bile ducts: No acute findings, calcified stones or ductal dilation. Pancreas: No acute findings, focal abnormality or ductal dilation. Spleen: No splenomegaly or focal abnormality. Adrenal glands: Normal. No mass. Kidneys and ureters: Simple appearing exophytic right renal cysts, unchanged. Stomach and bowel: No obstruction. No mucosal thickening. Appendix: No evidence of appendicitis. Intraperitoneal space: No free air. No significant fluid collection. Vasculature: No abdominal aortic aneurysm. Lymph nodes: No pathologically enlarged lymph nodes. Urinary bladder: Unremarkable as visualized. Reproductive: Unremarkable as visualized. Bones/joints: No acute fracture. Soft tissues: No acute findings. IMPRESSION: No acute findings in the abdomen or pelvis.
[2021-07-27 05:43] LABS: Basophils # 0.2 K/mm3 (0-0.2); Basophils % 2.4 % (0.1-2.0); Eosinophils # 0.3 K/mm3 (0.0-0.4); Eosinophils % 5.3 % (0.1-12.0); Hematocrit 45.5 % (42.0-52.0); Hemoglobin 15.7 g/dL (14.1-18.0); Lymphocytes % 32.8 % (10-50); Mean Corpuscular HGB Conc 34.6 g/dL (31.8-35.4); Mean Corpuscular Hemoglobin 31.2 pg (27.0-31.2); Mean Corpuscular Volume 90.2 fl (80-94); Mean Platelet Volume 8.5 fl (7.4-10.4); Monocytes # 0.6 K/mm3 (0.1-1.0); Monocytes % 9.3 % (1.7-9.3); Neutrophils % 50.1 % (37.0-80.0); Platelet Count 219 K/mm3 (142-424); Red Blood Count 5.04 M/mm3 (4.60-6.20); Red Cell Distribution Width 13.7 % (11.5-17.5); White Blood Count 6.1 K/mm3 (4.8-10.8)
[2021-07-27 05:45] LABS: Coronavirus 19, PCR Not Detected (NotDetected); Influenza A, PCR Not Detected (NotDetected); Influenza B, PCR Not Detected (NotDetected)
[2021-07-27 05:47] LABS: Alanine Aminotransferase 21 U/L (12-78); Albumin Level 4.8 g/dl (3.5-5.0); Alkaline Phosphatase 60 U/L (38-126); Anion Gap 12.5 mEq/L (5-15); Aspartate Amino Transferase 30 U/L (17-59); Blood Urea Nitrogen 11 mg/dl (9-20); Calcium 9.3 mg/dl (8.4-10.2); Carbon Dioxide 25 mmol/L (22.0-30.0); Chloride 105 mmol/L (98-107); Creatinine Clearance Estimated 155 mL/min (50-200); Estimated Glomerular Filt Rate 137 ml/min (>60); GFR (African American) 166 ML/MIN (>60); Globulin 2.4 g/dL (1.3-3.2); Glucose 90 mg/dl (74-100); Potassium 3.5 mmoL/L (3.5-5.1); Sodium 139 mmol/L (136-145); Total Protein,Serum 7.2 g/dl (6.3-8.2)
[2021-07-27 05:54] LABS: Strep Scrn Group A (Rapid) Negative (Negative)
[2021-07-27 05:55] LABS: C-Reactive Protein < 0.3 mg/L (0-4)
[2021-07-27 06:06] LABS: Procalcitonin 0.043 ng/mL (0.0-2.0)
[2021-07-27 06:16] LABS: Erythrocyte Sedimentation Rate 3 mm/hr (0-15)
--- NOTE | 2021-07-27 06:46 | HMH.EDWEAK ---
ED Disposition Clinical Impression: Weakness Disposition: Home, Self-Care Condition on Discharge: Good Instructions: DI for Muscle Weakness Additional Instructions: see pcp for follow up Referrals: Tim Horton MD [Primary Care Provider] - - Critical Care Critical Care Time: No Attestation: On 07/27/21, the high probability of a clinically significant, sudden or life threatening deterioration of the following system(s) required my full and direct attention, intervention and personal management. The time I documented below is in addition to time spent performing reported procedures but includes the following listed in this critical care notation. Medical Decision Making - Medical Records Medical records reviewed: Yes: I reviewed the patient's medical records. - Unruly Inquiry Pt receiving controlled substance: No Vital Signs: 07/27/21 05:28 Temperature 98.6 F Temperature Source Oral Pulse Rate [Apical] 53 L Respiratory Rate 18 Blood Pressure [Right Arm] 119/74 Blood Pressure Mean [Right Arm] 89 Blood Pressure Source [Right Arm] Automatic Cuff Blood Pressure Position [Right Arm] Sitting 02 Sat by Pulse Oximetry 98 Oxygen Delivery Method Room Air - Lab Data Lab results reviewed: Yes: I reviewed the patient's lab results. Lab Results 07/27/21 05:27: WBC 6.1, RBC 5.04, Hgb 15.7, Hct 45.5, MCV 90.2, MCH 31.2, MCHC 34.6, RDW 13.7, Plt Count 219, MPV 8.5, Neut % (Auto) 50.1, Lymph % (Auto) 32.8, [facility] % (Auto) 9.3, Eos % (Auto) 5.3, Baso % (Auto) 2.4 H, Neut # (Auto) 3.0, Lymph # (Auto) 2.0, [facility] # (Auto) 0.6, Eos # (Auto) 0.3, Baso # (Auto) 0.2, ESR 3 07/27/21 05:27: Sodium 139, Potassium 3.5, Chloride 105, Carbon Dioxide 25, Anion Gap 12.5, BUN 11, Creatinine 0.70, Estimated Creat Clear 155, Estimated GFR 137, Est GFR ( Amer) 166, Glucose 90, Calcium 9.3, Total Bilirubin 1.0, AST 30, ALT 21, Alkaline Phosphatase 60, C-Reactive Protein < 0.3, Total Protein 7.2, Albumin 4.8, Globulin 2.4, Albumin/Globulin Ratio 2.0 H, Procalcitonin 0.043 07/27/21 05:27: Group A Strep Rapid Negative 07/27/21 05:27: SARS-CoV-2 (PCR) Not detected, Influenza A Untype (PCR) Not detected, Influenza Type B (PCR) Not detected Result diagrams: 07/27/21 05:27 07/27/21 05:27 Orders (Tests/Meds): ED MEDICATIONS Generic Name Dose Route Start Last Admin Trade Name Freq PRN Reason Stop Dose Admin Lactated Ringer's 1,000 mls @ 999 mls/hr 07/27/21 05:45 07/27/21 05:37 Lactated Ringer's 1000 Ml Bag IV 07/27/21 06:45 999 mls/hr .Q1H1M NOEMY Administration Discontinued Medications Generic Name Dose Route Start Last Admin Trade Name Freq PRN Reason Stop Dose Admin Iopamidol 75 ml 07/27/21 05:56 07/27/21 05:57 Iopamidol-370 (76%);100ml Bottle IV 07/27/21 05:57 75 ml ONCE ONE Administration Ketorolac Tromethamine 30 mg 07/27/21 05:35 07/27/21 05:39 Ketorolac 30mg/Ml Vial IV 07/27/21 05:36 30 mg ONCE ONE Administration Methylprednisolone Sodium Succinate 125 mg 07/27/21 05:35 07/27/21 05:39 Methylprednisolone Sod Succ 125mg Vial IV 07/27/21 05:36 125 mg ONCE ONE Administration Ondansetron HCl 4 mg 07/27/21 05:37 07/27/21 05:39 Ondansetron 4mg/2ml Vial IV 07/27/21 05:38 4 mg ONCE ONE Administration Sodium Chloride 10 ml 07/27/21 05:56 07/27/21 05:57 Sodium Chloride 0.9% 10ml Syr (Rad Only) IV 07/27/21 05:57 10 ml ONCE ONE Administration ORDERS Category Date Time Status UA [Urinalysis and Microscopic] Stat Lab 07/27/21 05:36 Ordered UDS [Drug Screen,Urine] Stat Lab 07/27/21 05:50 Ordered Strep Screen Confirmation Stat Micro 07/27/21 05:27 Received - Radiology Data #1 Image(s): Chest Image Reviewed: Yes I have reviewed radiologist's interpretation Preliminary Findings: Normal/NAD - CT Data CT Scan: Abdomen, Pelvis Time Received: 06:[address] Reviewed: Yes: I have viewed the radiologist's interpretation Preliminary Findings:
[2021-07-27 06:58] VITALS: BP 145/81; PULSE 61; RESP 14; TEMP 36.7; O2SAT 100
== END 2021-07-27 07:03 | disposition home or self-care (01) ==
PROVIDERS: Emergency Provider Emergency Medicine; PCP Internal Medicine Adolescent Medicine
DX: R53.83 Other fatigue (principal); R10.11 Right upper quadrant pain; R39.11 Hesitancy of micturition; R11.0 Nausea; F17.210 Nicotine dependence, cigarettes, uncomplicated
CPT/HCPCS: 71046; 74177; 80053; 84145; 85025; 85651; 86140; 87430; 93005; 96360; 96365; 96375; 99284; C9803; J2405; Q9967; U0003; U0005

== ENCOUNTER → 2021-08-04 12:26 | Outpatient (CLI) | payer OTHER, SELFPAY ==
[2021-08-04 12:49] LABS: Adenovirus F 40/41, stool Not Detected (NotDetected); Astrovirus Not Detected (NotDetected); Campylobacter Not Detected (NotDetected); Clostridium Difficile A/B, PCR Not Detected (NotDetected); Cryptosporidium Not Detected (NotDetected); Cyclospora Cayetanesis Not Detected (NotDetected); Entamoeba histolytica Not Detected (NotDetected); Enteroaggregative E coli Not Detected (NotDetected); Enteropathogenic E coli Not Detected (NotDetected); Enterotoxigenic E coli Not Detected (NotDetected); Giardia lamblia Not Detected (NotDetected); Norovirus Not Detected (NotDetected); Plesimonas Shigalloides, PCR Not Detected (NotDetected); Rotavirus A Not Detected (NotDetected); Salmonella, PCR Not Detected (NotDetected); Sapovirus Not Detected (NotDetected); Shiga-like toxin E coli Not Detected (NotDetected); Shigella Enterovasive E coli Not Detected (NotDetected); Vibrio Cholerae Not Detected (NotDetected); Vibrio, PCR Not Detected (NotDetected); Yersinia Entercolitica, PCR Not Detected (NotDetected)
[2021-08-04 13:00] LABS: Basophils # 0.2 K/mm3 (0-0.2); Basophils % 3.4 % (0.1-2.0); Eosinophils # 0.3 K/mm3 (0.0-0.4); Hematocrit 47.3 % (42.0-52.0); Hemoglobin 16.2 g/dL (14.1-18.0); Lymphocytes # 1.4 K/mm3 (0.7-4.5); Lymphocytes % 26.2 % (10-50); Mean Corpuscular HGB Conc 34.2 g/dL (31.8-35.4); Mean Corpuscular Hemoglobin 31.1 pg (27.0-31.2); Mean Corpuscular Volume 90.9 fl (80-94); Mean Platelet Volume 8.5 fl (7.4-10.4); Monocytes # 0.4 K/mm3 (0.1-1.0); Monocytes % 6.5 % (1.7-9.3); Neutrophils # 3.2 K/mm3 (1.8-7.8); Neutrophils % 58.9 % (37.0-80.0); Platelet Count 239 K/mm3 (142-424); Red Blood Count 5.21 M/mm3 (4.60-6.20); White Blood Count 5.4 K/mm3 (4.8-10.8)
[2021-08-04 13:19] LABS: Hemoglobin A1C 4.8 % (4.0-6.0)
[2021-08-04 13:50] LABS: Occult Blood,Stool Negative (Negative)
[2021-08-04 13:59] LABS: Chloride 108 mmol/L (98-107); Sodium 141 mmol/L (136-145)
[2021-08-04 14:01] LABS: Blood Urea Nitrogen 7 mg/dl (9-20); Estimated Glomerular Filt Rate 118 ml/min (>60); GFR (African American) 143 ML/MIN (>60)
[2021-08-04 14:02] LABS: Alanine Aminotransferase 17 U/L (12-78); Albumin Level 4.8 g/dl (3.5-5.0); Alkaline Phosphatase 56 U/L (38-126); Aspartate Amino Transferase 25 U/L (17-59); Bilirubin,Total 0.6 mg/dl (0.2-1.3); Calcium 9.2 mg/dl (8.4-10.2); Carbon Dioxide 26 mmol/L (22.0-30.0); Globulin 2.4 g/dL (1.3-3.2); Glucose 88 mg/dl (74-100); Total Protein,Serum 7.2 g/dl (6.3-8.2)
[2021-08-08 00:07] LABS: Calprotectin, Fecal 1299 ug/g (0-120)
[2021-08-08 16:29] LABS: Lactoferrin, Fecal, Quant. <1.00 ug/mL(g) (0.00-7.24)
== END ==
PROVIDERS: Visit Provider Internal Medicine Adolescent Medicine
DX: R19.7 Diarrhea, unspecified (principal); K92.1 Melena; R35.89 Other polyuria; R89.3 Abnormal level of substances chiefly nonmedicinal as to source in specimens from other organs, systems and tissues
CPT/HCPCS: 36415; 80053; 82272; 83036; 83630; 83993; 85025; 87507; G0328

== ENCOUNTER 2021-09-18 00:03 | Emergency (ER) | payer OTHER, SELFPAY ==
[2021-09-18 00:04] VITALS: BP 126/56; PULSE 48; RESP 18; TEMP 36.8; O2SAT 100; BMI 21.4
[2021-09-18 00:26] LABS: Coronavirus 19, PCR Not Detected (NotDetected); Influenza A, PCR Not Detected (NotDetected); Influenza B, PCR Not Detected (NotDetected); Microscopic, Urine URINE MICROSCOPIC (MICROSCOPIC)
--- NOTE | 2021-09-18 00:42 | CT_ITS ---
PROCEDURE INFORMATION: Exam: CT Abdomen And Pelvis With Contrast Exam date and time: 09/18/2021 1:12 AM Age: 26 years old Clinical indication: Abdominal pain; Localized; Upper; Additional info: Abd pain TECHNIQUE: Imaging protocol: Computed tomography of the abdomen and pelvis with contrast. Radiation optimization: All CT scans at this facility use at least one of these dose optimization techniques: automated exposure control; mA and/or kV adjustment per patient size (includes targeted exams where dose is matched to clinical indication); or iterative reconstruction. Contrast material: ISOVUE; Contrast volume: 75 ml; Contrast route: IV; COMPARISON: CT ABDOMEN PELVIS W CON 07/27/2021 5:51 AM FINDINGS: Lungs: The lung bases are clear. No pleural effusion. Liver: A there is diffuse low-attenuation throughout the liver consistent with fatty infiltration. No mass lesion. Gallbladder and bile ducts: Unremarkable. No calcified stones. No ductal dilation. Pancreas: Unremarkable. Spleen: Unremarkable. Adrenal glands: Unremarkable. Kidneys and ureters: No renal mass or hydronephrosis. Stomach and bowel: Small bowel caliber is normal. No evidence of obstruction. There is moderate to large amount of stool throughout the colon suggesting constipation. Appendix: No evidence of appendicitis.. Intraperitoneal space: No free air. No significant fluid collection. Retroperitoneal space: No bulky lymphadenopathy. Vasculature: Unremarkable. No abdominal aortic aneurysm. A retroaortic left renal vein noted. Lymph nodes: Unremarkable. No enlarged lymph nodes. Urinary bladder: Unremarkable as visualized. Reproductive: Unremarkable as visualized. Bones/joints: Unremarkable. No acute osseous abnormality. Soft tissues: Unremarkable. IMPRESSION: 1. Moderate to large amount of stool throughout the colon suggesting constipation. No evidence of bowel obstruction. 2. Fatty infiltration of liver.
--- NOTE | 2021-09-18 00:42 | XR_ITS ---
PROCEDURE INFORMATION: Exam: XR Chest Exam date and time: 09/18/2021 1:03 AM Age: 26 years old Clinical indication: Pain; Other: Upper abdominal; Additional info: Abd pain TECHNIQUE: Imaging protocol: XR of the chest. Views: 2 views. COMPARISON: CR XR CHEST 2V 07/27/2021 5:41 AM FINDINGS: Lungs: Unremarkable. No consolidation. Pleural spaces: Unremarkable. No pleural effusion. No pneumothorax. Heart/Mediastinum: Unremarkable. No cardiomegaly. Bones/joints: Unremarkable. IMPRESSION: No acute findings. No change since 07/27/2021.
--- NOTE | 2021-09-18 00:43 | HMH.EDNVD ---
ED Disposition Clinical Impression: Abdominal pain Qualifiers: Abdominal location: generalized Qualified Code(s): R10.84 - Generalized abdominal pain Disposition: Home, Self-Care Condition on Discharge: Good Instructions: DI for Acute Abdominal Pain Additional Instructions: see pcp for follow up Referrals: Tim Horton MD [Primary Care Provider] - - Critical Care Critical Care Time: No Attestation: On 09/18/21, the high probability of a clinically significant, sudden or life threatening deterioration of the following system(s) required my full and direct attention, intervention and personal management. The time I documented below is in addition to time spent performing reported procedures but includes the following listed in this critical care notation. Medical Decision Making - Medical Records Medical records reviewed: Yes: I reviewed the patient's medical records. - Unruly Inquiry Pt receiving controlled substance: No Vital Signs: 09/18/21 00:04 Temperature 98.2 F Temperature Source Oral Pulse Rate [Left] 48 L Respiratory Rate 18 Blood Pressure [Right Arm] 126/56 L Blood Pressure Mean [Right Arm] 79 02 Sat by Pulse Oximetry 100 - Lab Data Lab results reviewed: Yes: I reviewed the patient's lab results. Lab Results 09/18/21 00:09: Urine Color Yellow, Urine Appearance Clear, Urine pH 6.5, Ur Specific [place] 1.025, Urine Protein Negative, Urine Glucose (UA) Negative, Urine Ketones Negative, Urine Blood Negative, Urine Nitrate Negative, Urine Bilirubin Negative, Urine Urobilinogen 2.0, Ur Leukocyte Esterase Negative, Urine WBC Occasional, Urine Bacteria Trace, Urine Mucus 1+ 09/18/21 00:09: SARS-CoV-2 (PCR) Not detected, Influenza A Untype (PCR) Not detected, Influenza Type B (PCR) Not detected 09/18/21 00:25: WBC 7.5, RBC 4.83, Hgb 15.5, Hct 44.3, MCV 91.7, MCH 32.1 H, MCHC 35.0, RDW 14.3, Plt Count 221, MPV 9.1, Neut % (Auto) 47.3, Lymph % (Auto) 35.9, [place] % (Auto) 7.8, Eos % (Auto) 5.8, Baso % (Auto) 3.1 H, Neut # (Auto) 3.6, Lymph # (Auto) 2.7, [place] # (Auto) 0.6, Eos # (Auto) 0.4, Baso # (Auto) 0.2 09/18/21 00:25: Sodium 141, Potassium 3.6, Chloride 107, Carbon Dioxide 28, Anion Gap 9.6, BUN 9, Creatinine 0.80, Estimated Creat Clear 138, Estimated GFR 117, Est GFR ( Amer) 141, Glucose 109 H, Calcium 9.5, Total Bilirubin 0.3, AST 35, ALT 18, Alkaline Phosphatase 60, C-Reactive Protein < 0.3, Total Protein 6.8, Albumin 4.5, Globulin 2.3, Albumin/Globulin Ratio 2.0 H, Amylase 66, Lipase 85 09/18/21 00:25: Procalcitonin 0.034 09/18/21 00:25: Lactate 1.1 Result diagrams: 09/18/21 00:25 09/18/21 00:25 Orders (Tests/Meds): ED MEDICATIONS Generic Name Dose Route Start Last Admin Trade Name Freq PRN Reason Stop Dose Admin Sodium Chloride 1,000 mls @ 999 mls/hr 09/18/21 00:45 09/18/21 00:53 Sod Chlor 0.9% 1000ml Bag IV 09/18/21 01:45 999 mls/hr .Q1H1M NOEMY Administration Discontinued Medications Generic Name Dose Route Start Last Admin Trade Name Freq PRN Reason Stop Dose Admin Iopamidol 75 ml 09/18/21 01:21 09/18/21 01:23 Iopamidol-370 (76%);100ml Bottle IV 09/18/21 01:22 75 ml ONCE ONE Administration Ketorolac Tromethamine 30 mg 09/18/21 00:44 09/18/21 00:52 Ketorolac 30mg/Ml Vial IV 09/18/21 00:45 30 mg ONCE ONE Administration Ondansetron HCl 4 mg 09/18/21 00:44 09/18/21 00:53 Ondansetron 4mg/2ml Vial IV 09/18/21 00:45 4 mg ONCE ONE Administration Sodium Chloride 10 ml 09/18/21 01:21 09/18/21 01:23 Sodium Chloride 0.9% 10ml Syr (Rad Only) IV 09/18/21 01:22 10 ml ONCE ONE Administration ORDERS Category Date Time Status Blood Culture Stat Micro 09/18/21 00:25 Received - Radiology Data #1 Image(s): Chest Image Reviewed: Yes I have reviewed radiologist's interpretation Preliminary Findings: Normal/NAD - CT Data CT Scan: Abdomen, Pelvis Time Received: 02:[address] Reviewed: Yes: I have viewed the radiolo
[2021-09-18 00:53] LABS: Basophils # 0.2 K/mm3 (0-0.2); Basophils % 3.1 % (0.1-2.0); Eosinophils # 0.4 K/mm3 (0.0-0.4); Eosinophils % 5.8 % (0.1-12.0); Hematocrit 44.3 % (42.0-52.0); Hemoglobin 15.5 g/dL (14.1-18.0); Lymphocytes # 2.7 K/mm3 (0.7-4.5); Lymphocytes % 35.9 % (10-50); Mean Corpuscular Hemoglobin 32.1 pg (27.0-31.2); Mean Corpuscular Volume 91.7 fl (80-94); Mean Platelet Volume 9.1 fl (7.4-10.4); Monocytes # 0.6 K/mm3 (0.1-1.0); Monocytes % 7.8 % (1.7-9.3); Neutrophils # 3.6 K/mm3 (1.8-7.8); Neutrophils % 47.3 % (37.0-80.0); Platelet Count 221 K/mm3 (142-424); Red Blood Count 4.83 M/mm3 (4.60-6.20); Red Cell Distribution Width 14.3 % (11.5-17.5); White Blood Count 7.5 K/mm3 (4.8-10.8)
[2021-09-18 00:54] LABS: Appearance,Urine CLEAR (Clear); Bilirubin,Urine Negative (Negative); Blood, Urine Negative (Negative); Color,Urine YELLOW (Yellow); Glucose,Urine (UA) Negative (Negative); Ketones,Urine Negative (Negative); Leukocyte Esterase,Urine Negative (Negative); Nitrate,Urine Negative (Negative); PH,Urine 6.5 (5.0-8.5); Protein,Urine Negative (Negative); Specific Gravity, Urine 1.025 (1.005-1.030)
[2021-09-18 00:59] LABS: Chloride 107 mmol/L (98-107); Potassium 3.6 mmoL/L (3.5-5.1); Sodium 141 mmol/L (136-145)
[2021-09-18 01:01] LABS: Alanine Aminotransferase 18 U/L (12-78); Alkaline Phosphatase 60 U/L (38-126); Amylase 66 U/L (30-110); Anion Gap 9.6 mEq/L (5-15); Aspartate Amino Transferase 35 U/L (17-59); Bilirubin,Total 0.3 mg/dl (0.2-1.3); Blood Urea Nitrogen 9 mg/dl (9-20); Carbon Dioxide 28 mmol/L (22.0-30.0); Creatinine Clearance Estimated 138 mL/min (50-200); Estimated Glomerular Filt Rate 117 ml/min (>60); GFR (African American) 141 ML/MIN (>60)
[2021-09-18 01:02] LABS: Albumin Level 4.5 g/dl (3.5-5.0); Calcium 9.5 mg/dl (8.4-10.2); Globulin 2.3 g/dL (1.3-3.2); Glucose 109 mg/dl (74-100); Lactic Acid 1.1 mmol/L (0.7-2.1); Lipase 85 U/L (23-300); Total Protein,Serum 6.8 g/dl (6.3-8.2)
[2021-09-18 01:11] LABS: C-Reactive Protein < 0.3 mg/L (0-4)
[2021-09-18 01:48] LABS: Bacteria,Urine Trace /lpf; Mucus,Urine 1+ /lpf; WBC,Urine Occasional #/hpf (0-3)
[2021-09-18 01:58] LABS: Procalcitonin 0.034 ng/mL (0.0-2.0)
[2021-09-18 02:22] VITALS: BP 131/75; PULSE 51; RESP 18; TEMP 36.8; O2SAT 100
== END 2021-09-18 02:27 | disposition home or self-care (01) ==
PROVIDERS: Emergency Provider Emergency Medicine; PCP Internal Medicine Adolescent Medicine
DX: R10.84 Generalized abdominal pain (principal); R11.2 Nausea with vomiting, unspecified; Z98.890 Other specified postprocedural states; Z72.0 Tobacco use; Z88.2 Allergy status to sulfonamides
CPT/HCPCS: 71046; 74177; 80053; 81001; 82150; 83605; 83690; 84145; 85025; 86140; 87040; 96365; 96375; 99284; C9803; J2405; Q9967; U0003; U0005

== ENCOUNTER 2021-09-20 10:05 | Day surgery (SDC) | payer OTHER, SELFPAY ==
[2021-09-20] VITALS (7 sets, daily range): BP systolic 86–126; BP diastolic 50–66; PULSE 55–63; RESP 16–18; TEMP 36.4–36.7; O2SAT 97–100; BMI 20.3
--- NOTE | 2021-09-20 10:30 | HMH.ANESCL ---
[facility] Anesthesia Checklist - Patient Identification Patient Identification: Arm Band - Structural Data Admitted From: Home Planned Operative Procedure/s: colonoscopy Consent for Planned Operative Procedure(s) Verified: Yes Verified Documents: Surgical Consent, History and Physical - NPO Status Verified Time NPO: 00:00 - Additional verifications Anesthesia Reactions: No - Airway Assessment C-Spine Mobility Assessed: Yes (mp2) TMJ Mobility Assessed: Yes Dentition: Good Dentition - Neurological Assessment Level of Consciousness: Awake, Alert - Anesthesia Plan Anesthesia Risk discussed: Yes Anesthesia Plan: Verified ASA Class: II Anesthesia Type: MAC [facility] History I have reviewed the patient's past medical history: Yes 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: Denies:: Cancer, Diabetes Mellitus Type 1, Diabetes Mellitus Type 2, Hypertension, Internal Pacemaker, MRSA, Seizures *Have you ever received a pneumonia vaccine?: No *Have you received a flu vaccine this season?: No Anesthesia experience/problems:: nac Other Surgeries: Yes: Other. No: Pacemaker Amputation: No Fractures: No - *Social History Last grade of school completed: 11th or 12th Smoking Status: Current every day smoker Tobacco Type: cigarettes # Packs/Day (cigarettes): 1 #Yrs smoked (if former smoker): 7 Alcohol Intake: never Substance Use Type: marijuana *Occupational Status:: employed Housing: house Household Members: spouse *Travel in the last 8 weeks: None Family Hx:: Diabetes, Stroke
--- NOTE | 2021-09-20 10:49 | HMH.SCOPE ---
- Procedure: Date: 09/20/21 Patient Date of :: 1995 Procedure Performed:: Diagnostic colonoscopy Indications:: Blood in stool, abdominal pain Performing Provider:: Bari Marte MD Referring Provider:: Tim Horton MD Sedation:: Propofol Procedure:: After placing the patient in the left lateral decubitus position, the colonoscopy was gently inserted into the rectum and under direct visualization advanced to the cecum which was identified by transillumination in the right lower quadrant, identification of the ileocecal valve, appendiceal orifice, and cecal strap. Color, texture, mucosa, and anatomy of the colon were carefully examined with the scope. Findings:: Anal canal: normal Rectum: normal Sigmoid colon: normal without polyps or inflammatory changes Descending colon: normal without polyps or inflammatory changes Splenic flexure: normal Transverse colon: normal without polyps or inflammatory changes Hepatic flexure: normal Ascending colon: normal without polyps or inflammatory changes Cecum: normal Terminal ileum: not visualized Note: Overall prep quality with fair to poor due to patient not able to tolerate prep. Residual stool noted compromising visualization. Impression:Grossly normal colonoscopy. No evidence of inflammatory bowel disease identified. Recommendations:: Routine follow up exam at age 45 or so, sooner if clinically indicated. Complications:: None Estimated blood obtained (mL): 0
== END 2021-09-20 11:38 | disposition home or self-care (01) ==
LOC: OUTP 10:07
PROVIDERS: PCP Internal Medicine Adolescent Medicine; Visit Provider Internal Medicine Gastroenterology
PROC: 0DJD8ZZ Inspection of Lower Intestinal Tract, Via Natural or Artificial Opening Endoscopic (ICD-10-PCS; CPT 45378; principal; 2021-09-20 11:00)
DX: K92.1 Melena (principal); R10.9 Unspecified abdominal pain; Z72.0 Tobacco use; Z83.3 Family history of diabetes mellitus; Z82.3 Family history of stroke; F41.9 Anxiety disorder, unspecified; Z79.899 Other long term (current) drug therapy; Z88.2 Allergy status to sulfonamides
CPT/HCPCS: 45378; J2704

== ENCOUNTER 2021-09-20 19:34 | Emergency (ER) | payer OTHER, SELFPAY ==
[2021-09-20 19:45] VITALS: BP 119/78; PULSE 59; RESP 18; TEMP 36.9; O2SAT 100; BMI 20.3
[2021-09-20 19:59] LABS: Microscopic, Urine URINE MICROSCOPIC (MICROSCOPIC)
[2021-09-20 20:02] LABS: Basophils # 0.3 K/mm3 (0-0.2); Basophils % 3.2 % (0.1-2.0); Eosinophils # 0.3 K/mm3 (0.0-0.4); Eosinophils % 3.7 % (0.1-12.0); Hematocrit 48.6 % (42.0-52.0); Hemoglobin 16.5 g/dL (14.1-18.0); Lymphocytes # 1.8 K/mm3 (0.7-4.5); Lymphocytes % 22.8 % (10-50); Mean Corpuscular Hemoglobin 31.1 pg (27.0-31.2); Mean Corpuscular Volume 91.7 fl (80-94); Mean Platelet Volume 8.8 fl (7.4-10.4); Monocytes # 0.4 K/mm3 (0.1-1.0); Monocytes % 5.2 % (1.7-9.3); Platelet Count 245 K/mm3 (142-424); Red Blood Count 5.31 M/mm3 (4.60-6.20); White Blood Count 7.7 K/mm3 (4.8-10.8)
[2021-09-20 20:03] LABS: Chloride 104 mmol/L (98-107)
[2021-09-20 20:04] LABS: Potassium 3.6 mmoL/L (3.5-5.1); Sodium 140 mmol/L (136-145)
[2021-09-20 20:06] LABS: Amylase 69 U/L (30-110); Blood Urea Nitrogen 10 mg/dl (9-20); Creatinine Clearance Estimated 154 mL/min (50-200); Estimated Glomerular Filt Rate 136 ml/min (>60); GFR (African American) 165 ML/MIN (>60)
[2021-09-20 20:07] LABS: Alanine Aminotransferase 25 U/L (12-78); Albumin Level 5.3 g/dl (3.5-5.0); Alkaline Phosphatase 65 U/L (38-126); Anion Gap 13.6 mEq/L (5-15); Aspartate Amino Transferase 34 U/L (17-59); Bilirubin,Total 0.5 mg/dl (0.2-1.3); Calcium 9.9 mg/dl (8.4-10.2); Carbon Dioxide 26 mmol/L (22.0-30.0); Globulin 2.7 g/dL (1.3-3.2); Glucose 111 mg/dl (74-100); Lipase 65 U/L (23-300)
[2021-09-20 20:08] LABS: Appearance,Urine CLEAR (Clear); Bilirubin,Urine Negative (Negative); Blood, Urine Negative (Negative); Color,Urine YELLOW (Yellow); Glucose,Urine (UA) Negative (Negative); Ketones,Urine Negative (Negative); Leukocyte Esterase,Urine Negative (Negative); Nitrate,Urine Negative (Negative); PH,Urine 8.5 (5.0-8.5); Protein,Urine Negative (Negative); Specific Gravity, Urine 1.015 (1.005-1.030)
--- NOTE | 2021-09-20 20:09 | PC.NURSE ---
PT UPDATED WITH EXPECTED WAIT TIMES. NO COMPLAINTS VOICED. NO ACUTE DISTRESS NOTED.
--- NOTE | 2021-09-20 20:20 | HMH.EDNVD ---
ED Disposition Clinical Impression: Abdominal pain Qualifiers: Abdominal location: generalized Qualified Code(s): R10.84 - Generalized abdominal pain Disposition: Home, Self-Care Condition on Discharge: Good Instructions: DI for Acute Abdominal Pain Additional Instructions: call pcp for follow up Referrals: Tim Horton MD [Primary Care Provider] - - Critical Care Critical Care Time: No Attestation: On 09/20/21, the high probability of a clinically significant, sudden or life threatening deterioration of the following system(s) required my full and direct attention, intervention and personal management. The time I documented below is in addition to time spent performing reported procedures but includes the following listed in this critical care notation. Medical Decision Making - Medical Records Medical records reviewed: Yes: I reviewed the patient's medical records. - Unruly Inquiry Pt receiving controlled substance: No Vital Signs: 09/20/21 19:45 Temperature 98.4 F Temperature Source Oral Pulse Rate [Apical] 59 L Respiratory Rate 18 Blood Pressure [Right Arm] 119/78 Blood Pressure Mean [Right Arm] 91 Blood Pressure Source [Right Arm] Automatic Cuff Blood Pressure Position [Right Arm] Sitting 02 Sat by Pulse Oximetry 100 Oxygen Delivery Method Room Air - Lab Data Lab results reviewed: Yes: I reviewed the patient's lab results. Lab Results 09/20/21 19:44: Urine Color Yellow, Urine Appearance Clear, Urine pH 8.5, Ur Specific [place] 1.015, Urine Protein Negative, Urine Glucose (UA) Negative, Urine Ketones Negative, Urine Blood Negative, Urine Nitrate Negative, Urine Bilirubin Negative, Urine Urobilinogen 1.0, Ur Leukocyte Esterase Negative 09/20/21 19:44: WBC 7.7, RBC 5.31, Hgb 16.5, Hct 48.6, MCV 91.7, MCH 31.1, MCHC 34.0, RDW 14.0, Plt Count 245, MPV 8.8, Neut % (Auto) 65.0, Lymph % (Auto) 22.8, [place] % (Auto) 5.2, Eos % (Auto) 3.7, Baso % (Auto) 3.2 H, Neut # (Auto) 5.0, Lymph # (Auto) 1.8, [place] # (Auto) 0.4, Eos # (Auto) 0.3, Baso # (Auto) 0.3 H 09/20/21 19:44: Sodium 140, Potassium 3.6, Chloride 104, Carbon Dioxide 26, Anion Gap 13.6, BUN 10, Creatinine 0.70, Estimated Creat Clear 154, Estimated GFR 136, Est GFR ( Amer) 165, Glucose 111 H, Calcium 9.9, Total Bilirubin 0.5, AST 34, ALT 25 D, Alkaline Phosphatase 65, Total Protein 8.0, Albumin 5.3 H, Globulin 2.7, Albumin/Globulin Ratio 2.0 H, Amylase 69, Lipase 65 Result diagrams: 09/20/21 19:44 09/20/21 19:44 Orders (Tests/Meds): ED MEDICATIONS Generic Name Dose Route Start Last Admin Trade Name Freq PRN Reason Stop Dose Admin Sodium Chloride 1,000 mls @ 999 mls/hr 09/20/21 20:15 09/20/21 20:05 Sod Chlor 0.9% 1000ml Bag IV 09/20/21 21:15 999 mls/hr .Q1H1M NOEMY Administration Discontinued Medications Generic Name Dose Route Start Last Admin Trade Name Freq PRN Reason Stop Dose Admin Ondansetron HCl 4 mg 09/20/21 20:03 09/20/21 20:05 Ondansetron 4mg/2ml Vial IV 09/20/21 20:04 4 mg ONCE ONE Administration ORDERS Category Date Time Status Urinalysis and Microscopic Stat Lab 09/20/21 19:44 Results Medical Decision Narrative: staple exam and labs and pt will follow up with pcp Nausea/Vomiting/Diarrhea HPI - General Chief complaint: Abdominal Pain Stated complaint: pain upper abd and R Side Time Seen by Provider: 09/20/21 20:20 Mode of Arrival: Ambulatory Source of Information: Patient, Medical Record Limitations: No Limitations Description of Symptoms (Recalled from ER Triage Doc. by RN): Patient c/o abdominal pain for past week. Was seen at [facility] on Friday night (09/18) for same issue, patient states there were no findings. Patient was seen last night at [facility] for same issue and was told his findings were all negative. Patient states that he had a colonoscopy today that was negative. States that since his colonoscopy earlier today he has had right sided abdominal pain,
[2021-09-20 20:27] VITALS: BP 112/73; PULSE 81; RESP 16; TEMP 36.9; O2SAT 99
[2021-09-20 20:32] LABS: RBC,Urine Occasional #/hpf (0-3)
[2021-09-20 20:33] LABS: Bacteria,Urine 1+ /lpf
== END 2021-09-20 20:31 | disposition home or self-care (01) ==
PROVIDERS: Emergency Medicine; Emergency Provider Emergency Medicine; PCP Internal Medicine Adolescent Medicine
DX: R10.11 Right upper quadrant pain (principal); F17.210 Nicotine dependence, cigarettes, uncomplicated; Z88.2 Allergy status to sulfonamides; Z80.9 Family history of malignant neoplasm, unspecified; Z83.3 Family history of diabetes mellitus
CPT/HCPCS: 80053; 81001; 82150; 83690; 85025; 96361; 96374; 96375; 99285; J2405

== ENCOUNTER 2021-09-21 20:01 | Emergency (ER) | payer OTHER, SELFPAY ==
[2021-09-21 20:32] VITALS: BP 128/77; PULSE 67; RESP 18; TEMP 37; O2SAT 100; BMI 20.3
[2021-09-21 20:36] VITALS: BP 128/77; PULSE 67; RESP 18; TEMP 37; O2SAT 100; BMI 20.3
[2021-09-21 21:37] VITALS: BP 0/0; PULSE 0; RESP 0; TEMP -17.7; TEMP 0
== END 2021-09-21 21:40 | disposition left against medical advice (07) ==
LOC: ER 21:40
PROVIDERS: Emergency Provider Emergency Medicine; PCP Internal Medicine Adolescent Medicine
DX: Z53.21 Procedure and treatment not carried out due to patient leaving prior to being seen by health care provider (principal); R10.9 Unspecified abdominal pain

== ENCOUNTER 2021-09-21 22:26 | Emergency (ER) | payer OTHER, SELFPAY ==
[2021-09-22 00:07] VITALS: BP 130/66; PULSE 66; RESP 18; TEMP 37.1; O2SAT 100; BMI 20.3
--- NOTE | 2021-09-22 00:57 | XR_ITS ---
PROCEDURE INFORMATION: Exam: XR Abdomen Exam date and time: 09/22/2021 2:04 AM Age: 26 years old Clinical indication: Constipation; Abdominal pain; Localized; Right upper quadrant (ruq) TECHNIQUE: Imaging protocol: XR of the abdomen. Views: Frontal supine view of the abdomen. 1 View. COMPARISON: CT ABDOMEN PELVIS W CON 09/18/2021 1:12 AM FINDINGS: Gastrointestinal tract: No bowel dilation. No bowel obstruction. Bones/joints: Unremarkable. IMPRESSION: No acute findings.
--- NOTE | 2021-09-22 01:12 | PC.NURSE ---
Patient states he does not think he can finish the belladonna cocktail.
[2021-09-22 01:15] LABS: Microscopic, Urine URINE MICROSCOPIC (MICROSCOPIC)
[2021-09-22 01:18] LABS: Appearance,Urine CLEAR (Clear); Bilirubin,Urine Negative (Negative); Blood, Urine Negative (Negative); Color,Urine YELLOW (Yellow); Glucose,Urine (UA) Negative (Negative); Ketones,Urine TRACE (Negative); Leukocyte Esterase,Urine Negative (Negative); Nitrate,Urine Negative (Negative); Protein,Urine Negative (Negative); Specific Gravity, Urine 1.015 (1.005-1.030)
--- NOTE | 2021-09-22 01:19 | HMH.EDGENADL ---
ED Disposition Clinical Impression: Abdominal pain Qualifiers: Abdominal location: generalized Qualified Code(s): R10.84 - Generalized abdominal pain Disposition: Home, Self-Care Condition on Discharge: Good Instructions: DI for Acute Abdominal Pain Additional Instructions: Follow-up with your PCP, continue medications as previously directed. Okay to take Tylenol as needed for pain. Return to ED with new or concerning symptoms. Referrals: Tim Horton MD [Primary Care Provider] - - Critical Care Critical Care Time: No Attestation: On 09/21/21, the high probability of a clinically significant, sudden or life threatening deterioration of the following system(s) required my full and direct attention, intervention and personal management. The time I documented below is in addition to time spent performing reported procedures but includes the following listed in this critical care notation. Medical Decision Making - Medical Records Medical records reviewed: Yes: I reviewed the patient's medical records. - Unruly Inquiry Pt receiving controlled substance: No Vital Signs: 09/22/21 00:07 Temperature 98.7 F Temperature Source Oral Pulse Rate [Apical] 66 Respiratory Rate 18 Blood Pressure [Right Arm] 130/66 Blood Pressure Mean [Right Arm] 87 Blood Pressure Source [Right Arm] Automatic Cuff Blood Pressure Position [Right Arm] Sitting 02 Sat by Pulse Oximetry 100 Oxygen Delivery Method Room Air - Lab Data Lab Results 09/22/21 01:10: Urine Color Yellow, Urine Appearance Clear, Urine pH 6.0, Ur Specific [place] 1.015, Urine Protein Negative, Urine Glucose (UA) Negative, Urine Ketones Trace, Urine Blood Negative, Urine Nitrate Negative, Urine Bilirubin Negative, Urine Urobilinogen 1.0, Ur Leukocyte Esterase Negative, Urine WBC Occasional 09/22/21 01:10: WBC 8.8, RBC 4.83, Hgb 15.4, Hct 43.9, MCV 90.9, MCH 31.8 H, MCHC 35.0, RDW 13.9, Plt Count 226, MPV 8.7, Neut % (Auto) 64.2, Lymph % (Auto) 24.6, [place] % (Auto) 6.7, Eos % (Auto) 2.3, Baso % (Auto) 2.2 H, Neut # (Auto) 5.6, Lymph # (Auto) 2.2, [place] # (Auto) 0.6, Eos # (Auto) 0.2, Baso # (Auto) 0.2 09/22/21 01:10: Sodium 140, Potassium 3.5, Chloride 107, Carbon Dioxide 24, Anion Gap 12.5, BUN 6 L D, Creatinine 0.70, Estimated Creat Clear 154, Estimated GFR 136, Est GFR ( Amer) 165, Glucose 104 H, Calcium 9.8, Total Bilirubin 0.8, AST 30, ALT 20, Alkaline Phosphatase 64, Total Protein 7.3, Albumin 4.9, Globulin 2.4, Albumin/Globulin Ratio 2.0 H, Lipase 42 Result diagrams: 09/22/21 01:10 09/22/21 01:10 Orders (Tests/Meds): ED MEDICATIONS Discontinued Medications Generic Name Dose Route Start Last Admin Trade Name Freq PRN Reason Stop Dose Admin Acetaminophen 500 mg 09/22/21 00:56 09/22/21 01:03 Acetaminophen 500mg Tab PO 09/22/21 00:57 500 mg ONCE ONE Administration Belladonna Alkaloids 60 ml 09/22/21 00:57 09/22/21 01:03 Gi Cocktail 60ml Udc PO 09/22/21 00:58 60 ml ONCE ONE Administration ORDERS Category Date Time Status Urine Culture Stat Micro 09/22/21 01:10 Received - Radiology Data #1 Image(s): Abdomen Image Reviewed: Yes I reviewed the patient's radiology results MPARISON: CT ABDOMEN PELVIS W CON 09/18/2021 1:12 AM FINDINGS: Gastrointestinal tract: No bowel dilation. No bowel obstruction. Bones/joints: Unremarkable. IMPRESSION: No acute findings. - US Data US Images: Gallbladder ED US Reviewed: Yes: I have reviewed the patient's US results Findings Narrative: INDINGS: Liver: Normal. No masses. Gallbladder: Normal. No gallstones. There is no gallbladder wall thickening. Biliary ducts: Normal. No stones. No dilation. 2.1 mm. Pancreas: Visualized pancreas is unremarkable. Right kidney: Normal. No mass. No hydronephrosis. IMPRESSION: No acute findings. Medical Decision Narrative: 26-year-old male who is presenting to the ED with abdominal pain. Differential diagno
--- NOTE | 2021-09-22 01:22 | US_ITS ---
PROCEDURE INFORMATION: Exam: US Abdomen, Limited; Right Upper Quadrant Exam date and time: 09/22/2021 1:47 AM Age: 26 years old Clinical indication: Abdominal pain; Localized; Right upper quadrant (ruq); Additional info: Abdominal pain ruq constipation TECHNIQUE: Imaging protocol: US abdomen. Real time ultrasound with image documentation. Limited exam focused on the right upper quadrant. COMPARISON: CT ABDOMEN PELVIS W CON 09/18/2021 1:12 AM FINDINGS: Liver: Normal. No masses. Gallbladder: Normal. No gallstones. There is no gallbladder wall thickening. Biliary ducts: Normal. No stones. No dilation. 2.1 mm. Pancreas: Visualized pancreas is unremarkable. Right kidney: Normal. No mass. No hydronephrosis. IMPRESSION: No acute findings.
[2021-09-22 01:23] LABS: Chloride 107 mmol/L (98-107); WBC,Urine Occasional #/hpf (0-3)
[2021-09-22 01:24] LABS: Potassium 3.5 mmoL/L (3.5-5.1); Sodium 140 mmol/L (136-145)
[2021-09-22 01:25] LABS: Basophils # 0.2 K/mm3 (0-0.2); Basophils % 2.2 % (0.1-2.0); Eosinophils # 0.2 K/mm3 (0.0-0.4); Eosinophils % 2.3 % (0.1-12.0); Hematocrit 43.9 % (42.0-52.0); Hemoglobin 15.4 g/dL (14.1-18.0); Lymphocytes # 2.2 K/mm3 (0.7-4.5); Lymphocytes % 24.6 % (10-50); Mean Corpuscular Hemoglobin 31.8 pg (27.0-31.2); Mean Corpuscular Volume 90.9 fl (80-94); Mean Platelet Volume 8.7 fl (7.4-10.4); Monocytes # 0.6 K/mm3 (0.1-1.0); Monocytes % 6.7 % (1.7-9.3); Neutrophils # 5.6 K/mm3 (1.8-7.8); Neutrophils % 64.2 % (37.0-80.0); Platelet Count 226 K/mm3 (142-424); Red Blood Count 4.83 M/mm3 (4.60-6.20); Red Cell Distribution Width 13.9 % (11.5-17.5); White Blood Count 8.8 K/mm3 (4.8-10.8)
[2021-09-22 01:26] LABS: Alanine Aminotransferase 20 U/L (12-78); Alkaline Phosphatase 64 U/L (38-126); Anion Gap 12.5 mEq/L (5-15); Aspartate Amino Transferase 30 U/L (17-59); Bilirubin,Total 0.8 mg/dl (0.2-1.3); Blood Urea Nitrogen 6 mg/dl (9-20); Carbon Dioxide 24 mmol/L (22.0-30.0); Creatinine Clearance Estimated 154 mL/min (50-200); Estimated Glomerular Filt Rate 136 ml/min (>60); GFR (African American) 165 ML/MIN (>60); Lipase 42 U/L (23-300)
[2021-09-22 01:27] LABS: Albumin Level 4.9 g/dl (3.5-5.0); Calcium 9.8 mg/dl (8.4-10.2); Globulin 2.4 g/dL (1.3-3.2); Glucose 104 mg/dl (74-100); Total Protein,Serum 7.3 g/dl (6.3-8.2)
[2021-09-22 03:13] VITALS: BP 130/60; PULSE 78; RESP 18; TEMP 36.7; O2SAT 99
== END 2021-09-22 03:14 | disposition home or self-care (01) ==
PROVIDERS: Emergency Provider Emergency Medicine; PCP Internal Medicine Adolescent Medicine
DX: R10.84 Generalized abdominal pain (principal); R53.1 Weakness; R11.2 Nausea with vomiting, unspecified
CPT/HCPCS: 74018; 76705; 80053; 81001; 83690; 85025; 87086; 99284

== ENCOUNTER 2021-09-24 17:38 | Emergency (ER) | payer OTHER, SELFPAY ==
[2021-09-24 19:04] VITALS: BP 122/67; PULSE 78; RESP 20; TEMP 37.3; O2SAT 99; BMI 20.3
--- NOTE | 2021-09-24 19:36 | HMH.EDUTC ---
[facility] [place] Disposition Clinical Impression: Viral syndrome, Exposure to COVID-19 virus Disposition: Home, Self-Care Condition on Discharge: Good Instructions: DI for COVID-19 (Suspected or Confirmed ), Preventing the Spread of Coronavirus Discharge Instructions Additional Instructions: Drink plenty of fluids. Take ibuprofen for pain or fever. Take the medications as directed. Follow up with your regular doctor. GO TO THE ER FOR ANY WORSENING SYMPTOMS Quarantine until you know the results of your covid-19 test. Notify your school or workplace of your results and follow their instructions regarding return to work/school. Prescriptions: Brompheniramine/Pseudoephed/Dm [Bromfed Dm Cough Syrup] 5 ml PO Q6HP PRN #240 ml PRN Reason: Cough Transmission Status: Received by [facility] Ibuprofen [Ibuprofen 800mg Tablet] 800 mg PO Q8HP PRN #30 tab PRN Reason: Moderate Pain Transmission Status: Received by [facility] Ondansetron [Zofran 4mg ODT] 4 mg PO Q8HP PRN #12 tab PRN Reason: Nausea Transmission Status: Received by [facility] Referrals: Tim Horton MD [Primary Care Provider] - Time of Disposition: 19:38 Medical Decision Making - Medical Records Medical records reviewed: No: I reviewed the patient's medical records. - Unruly Inquiry Pt receiving controlled substance: No Vital Signs: 09/24/21 19:04 09/24/21 20:07 Temperature 99.1 F 99.1 F Temperature Source Oral Pulse Rate 78 Pulse Rate [Left Radial] 78 Respiratory Rate 20 20 Blood Pressure 122/67 Blood Pressure [Right Arm] 122/67 Blood Pressure Mean [Right Arm] 85 02 Sat by Pulse Oximetry 99 [facility] [place] HPI - General Stated complaint: covid test Time Seen by Provider: 09/24/21 19:36 Mode of Arrival: Ambulatory Source of Information: Patient Limitations: No Limitations Description of Symptoms (Recalled from Triage Doc. by RN): pt here for covid test due to exposure on HEENT Symptoms (Recalled from RN notes): Yes Resp Symptoms (Recalled from RN notes): Yes Skin Symptoms (Recalled from RN notes): No MS Symptoms (Recalled from RN notes): No Functional Status (Recalled from RN notes): wnl - History of Present Illness Provider Complaint: He was exposed to covid-19 last week. Over the past 2 days he has began to have a low grade fever, chills and fatigue. He is here to have a covid-19 test. - Related Data Home Medications Medication Instructions Recorded Confirmed Sertraline HCl 50 mg PO DAILY 09/20/21 09/20/21 Previous Rx's Medication Instructions Recorded Brompheniramine/Pseudoephed/Dm 5 ml PO Q6HP PRN #240 ml 09/24/21 [Bromfed Dm Cough Syrup] Ibuprofen [Ibuprofen 800mg 800 mg PO Q8HP PRN #30 tab 09/24/21 Tablet] Ondansetron [Zofran 4mg ODT] 4 mg PO Q8HP PRN #12 tab 09/24/21 Allergies Allergy/AdvReac Type Severity Reaction Status Date / Time Sulfa (Sulfonamide Allergy Unknown Verified 09/24/21 19:08 Antibiotics) [SULFA (SULFONAMIDE ANTIBIOTICS)] - Worker's Comp Is this a Worker's Comp case?: No [facility] History - Hepatitis A Screen Attestation statement:: This patient has been screened for Hepatitis A risk factors. I have reviewed the patient's past medical history: Yes 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: Denies:: Cancer, Diabetes Mellitus Type 1, Diabetes Mellitus Type 2, Hypertension, Internal Pacemaker, MRSA, Seizures Other Surgeries: Yes: Other. No: Pacemaker Amputation: No Fractures: No - Social History Smoking Status: Current every day smoker Tobacco Type: cigarettes # Packs/Day (cigarettes): 1 #Yrs smoked (if former smoker): 7 Alcohol Intake: never Substance Use Type: marijuana Occupational Status: employed Housing: house Household Members: spouse Family Hx:: Diabetes, Stroke ROS Obtained: Yes All systems reviewed & no additional complaints - Constitutional Constitutional: Reports as per HPI - Eyes Eyes: Denies eye dis
[2021-09-24 20:07] VITALS: BP 122/67; PULSE 78; RESP 20; TEMP 37.3
== END 2021-09-24 20:08 | disposition home or self-care (01) ==
PROVIDERS: Emergency Provider Nurse Practitioner Family; PCP Internal Medicine Adolescent Medicine
DX: Z03.89 Encounter for observation for other suspected diseases and conditions ruled out (principal); F17.210 Nicotine dependence, cigarettes, uncomplicated; Z20.822 Contact with and (suspected) exposure to COVID-19; Z79.52 Long term (current) use of systemic steroids; Z88.2 Allergy status to sulfonamides
CPT/HCPCS: 99213; C9803; G0463; U0003; U0005

== ENCOUNTER 2021-09-27 02:08 | Emergency (ER) | payer OTHER, SELFPAY ==
[2021-09-27 02:19] VITALS: BP 144/76; PULSE 69; RESP 18; TEMP 36.7; O2SAT 98; BMI 19.3
[2021-09-27 02:32] LABS: Basophils # 0.3 K/mm3 (0-0.2); Basophils % 4.1 % (0.1-2.0); Eosinophils # 0.5 K/mm3 (0.0-0.4); Hematocrit 45.9 % (42.0-52.0); Lymphocytes # 2.7 K/mm3 (0.7-4.5); Lymphocytes % 33.3 % (10-50); Mean Corpuscular HGB Conc 34.8 g/dL (31.8-35.4); Mean Corpuscular Hemoglobin 31.4 pg (27.0-31.2); Mean Corpuscular Volume 90.3 fl (80-94); Mean Platelet Volume 8.5 fl (7.4-10.4); Monocytes # 0.7 K/mm3 (0.1-1.0); Monocytes % 8.1 % (1.7-9.3); Neutrophils # 4.2 K/mm3 (1.8-7.8); Neutrophils % 52.5 % (37.0-80.0); Platelet Count 236 K/mm3 (142-424); Red Blood Count 5.08 M/mm3 (4.60-6.20); White Blood Count 8.1 K/mm3 (4.8-10.8)
[2021-09-27 02:40] LABS: Amylase 56 U/L (30-110); Anion Gap 14.4 mEq/L (5-15); Blood Urea Nitrogen 11 mg/dl (9-20); Calcium 9.7 mg/dl (8.4-10.2); Carbon Dioxide 25 mmol/L (22.0-30.0); Chloride 104 mmol/L (98-107); Creatinine Clearance Estimated 128 mL/min (50-200); Estimated Glomerular Filt Rate 117 ml/min (>60); GFR (African American) 141 ML/MIN (>60); Glucose 111 mg/dl (74-100); Lipase 62 U/L (23-300); Potassium 3.4 mmoL/L (3.5-5.1); Sodium 140 mmol/L (136-145)
[2021-09-27 02:59] LABS: Procalcitonin 0.042 ng/mL (0.0-2.0)
[2021-09-27 03:04] LABS: Erythrocyte Sedimentation Rate 4 mm/hr (0-15)
[2021-09-27 03:08] LABS: C-Reactive Protein < 0.3 mg/L (0-4)
--- NOTE | 2021-09-27 03:11 | HMH.EDNVD ---
ED Disposition Clinical Impression: Abdominal pain Qualifiers: Abdominal location: epigastric Qualified Code(s): R10.13 - Epigastric pain Disposition: Home, Self-Care Condition on Discharge: Good Instructions: DI for Acute Abdominal Pain Additional Instructions: see pcp Referrals: Tim Horton MD [Primary Care Provider] - - Critical Care Critical Care Time: No Attestation: On 09/27/21, the high probability of a clinically significant, sudden or life threatening deterioration of the following system(s) required my full and direct attention, intervention and personal management. The time I documented below is in addition to time spent performing reported procedures but includes the following listed in this critical care notation. Medical Decision Making - Medical Records Medical records reviewed: Yes: I reviewed the patient's medical records. - Unruly Inquiry Pt receiving controlled substance: No Vital Signs: 09/27/21 02:19 Temperature 98.1 F Temperature Source Oral Pulse Rate [Apical] 69 Respiratory Rate 18 Blood Pressure [Right Arm] 144/76 H Blood Pressure Mean [Right Arm] 98 Blood Pressure Source [Right Arm] Automatic Cuff Blood Pressure Position [Right Arm] Sitting 02 Sat by Pulse Oximetry 98 Oxygen Delivery Method Room Air - Lab Data Lab results reviewed: Yes: I reviewed the patient's lab results. Lab Results 09/27/21 02:25: WBC 8.1, RBC 5.08, Hgb 16.0, Hct 45.9, MCV 90.3, MCH 31.4 H, MCHC 34.8, RDW 14.0, Plt Count 236, MPV 8.5, Neut % (Auto) 52.5, Lymph % (Auto) 33.3, [place] % (Auto) 8.1, Eos % (Auto) 6.0, Baso % (Auto) 4.1 H, Neut # (Auto) 4.2, Lymph # (Auto) 2.7, [place] # (Auto) 0.7, Eos # (Auto) 0.5 H, Baso # (Auto) 0.3 H, ESR 4 09/27/21 02:25: Sodium 140, Potassium 3.4 L, Chloride 104, Carbon Dioxide 25, Anion Gap 14.4, BUN 11, Creatinine 0.80, Estimated Creat Clear 128, Estimated GFR 117, Est GFR ( Amer) 141, Glucose 111 H, Calcium 9.7, Magnesium 2.0, C-Reactive Protein < 0.3, Amylase 56, Lipase 62, Procalcitonin 0.042 Result diagrams: 09/27/21 02:25 09/27/21 02:25 Orders (Tests/Meds): ED MEDICATIONS Generic Name Dose Route Start Last Admin Trade Name Freq PRN Reason Stop Dose Admin Sodium Chloride 1,000 mls @ 999 mls/hr 09/27/21 02:30 09/27/21 02:28 Sod Chlor 0.9% 1000ml Bag IV 09/27/21 03:30 999 mls/hr .Q1H1M NOEMY Administration Sodium Chloride 8 ml 09/27/21 02:24 Sodium Chloride 0.9% 10ml Vial IV 10/27/21 02:23 NEEDED PRN dilute pepcid Discontinued Medications Generic Name Dose Route Start Last Admin Trade Name Freq PRN Reason Stop Dose Admin Famotidine 20 mg 09/27/21 02:24 09/27/21 02:28 Famotidine 20mg/2ml Vial IV 09/27/21 02:25 20 mg ONCE ONE Administration Ketorolac Tromethamine 30 mg 09/27/21 02:26 09/27/21 02:28 Ketorolac 30mg/Ml Vial IV 09/27/21 02:27 30 mg ONCE ONE Administration Metoclopramide HCl 10 mg 09/27/21 02:26 09/27/21 02:28 Metoclopramide Hcl 10mg/2ml Vial IVP 09/27/21 02:27 10 mg ONCE ONE Administration Medical Decision Narrative: stable exam and labs Nausea/Vomiting/Diarrhea HPI - General Chief complaint: Abdominal Pain Stated complaint: severe mid abdominal pain; fever 101.4; sweats Time Seen by Provider: 09/27/21 02:25 Mode of Arrival: Ambulatory Source of Information: Patient, Medical Record Limitations: No Limitations Description of Symptoms (Recalled from ER Triage Doc. by RN): Patient c/o waking up sweaty with nausea. States this was a couple of hours ago. Says that he also developed severe epigastric pain in his central abdomen. Denies radiation. States that his fever was 101.4 at home, states he did not treat his fever. Additionally, patient states that he has not had a bowel movement since Friday. - History of Present Illness HPI Narrative: upper abd pain MD complaint: nausea, abdominal pain Onset (ago): day(s) Associated Abdominal Pain: Yes
[2021-09-27 03:21] VITALS: BP 137/78; PULSE 61; RESP 18; TEMP 36.7; O2SAT 99
== END 2021-09-27 03:23 | disposition home or self-care (01) ==
PROVIDERS: Emergency Provider Emergency Medicine; PCP Internal Medicine Adolescent Medicine
DX: R10.13 Epigastric pain (principal); Z88.2 Allergy status to sulfonamides; Z72.0 Tobacco use
CPT/HCPCS: 80048; 82150; 83690; 83735; 84145; 85025; 85651; 86140; 96365; 96375; 99284

== ENCOUNTER 2021-09-28 11:26 | Emergency (ER) | payer OTHER, SELFPAY ==
[2021-09-28] VITALS (7 sets, daily range): BP systolic 114–135; BP diastolic 74–82; PULSE 51–65; RESP 16–17; TEMP 36.9–37.1; O2SAT 100; BMI 20.3; BMI 20.2
--- NOTE | 2021-09-28 11:56 | HMH.EDUTC ---
[facility] [place] Disposition Clinical Impression: Paresthesias Disposition: Home, Self-Care Condition on Discharge: Good Additional Instructions: Follow-up with Dr. Baker in the office, call for appointment. Return to emergency room if worsening symptoms. Return to the emergency department if severe or unrelenting headache, vomiting, persistent or worsening numbness or weakness, visual symptoms. Referrals: Tim Horton MD [Primary Care Provider] - Medical Decision Making - Medical Records Medical records reviewed: No: I reviewed the patient's medical records. - Unruly Inquiry Pt receiving controlled substance: No Vital Signs: 09/28/21 11:52 09/28/21 12:25 09/28/21 12:49 Temperature 98.4 F 98.7 F Temperature Source Oral Oral Pulse Rate 51 L Pulse Rate [Left Radial] 61 65 Respiratory Rate 17 16 16 Blood Pressure 124/77 Blood Pressure [Right Arm] 128/74 114/74 Blood Pressure Mean 84 Blood Pressure Mean [Right Arm] 92 87 Blood Pressure Source [Right Arm] Automatic Cuff Blood Pressure Position [Right Arm] Sitting 02 Sat by Pulse Oximetry 100 100 100 Oxygen Delivery Method Room Air Room Air 09/28/21 13:00 09/28/21 13:30 09/28/21 14:00 Temperature Temperature Source Pulse Rate 52 L 53 L 57 L Pulse Rate [Left Radial] Respiratory Rate 16 16 16 Blood Pressure 135/82 128/76 131/76 Blood Pressure [Right Arm] Blood Pressure Mean 94 89 87 Blood Pressure Mean [Right Arm] Blood Pressure Source [Right Arm] Blood Pressure Position [Right Arm] 02 Sat by Pulse Oximetry 100 100 100 Oxygen Delivery Method Room Air Room Air 09/28/21 14:10 Temperature 98.7 F Temperature Source Pulse Rate 57 L Pulse Rate [Left Radial] Respiratory Rate 16 Blood Pressure 131/76 Blood Pressure [Right Arm] Blood Pressure Mean Blood Pressure Mean [Right Arm] Blood Pressure Source [Right Arm] Blood Pressure Position [Right Arm] 02 Sat by Pulse Oximetry Oxygen Delivery Method Room Air - Lab Data Lab Results 09/28/21 11:44: Influenza Type A Ag Negative, Influenza Type B Ag Negative Medical Decision Narrative: He was sent to the ER due to his c/o headache, left arm and left leg numbness. [facility] [place] HPI - General Stated complaint: numbness in lt arm/leg, LOONEY Time Seen by Provider: 06/03/22 11:56 Source of Information: Patient Description of Symptoms (Recalled from Triage Doc. by RN): patient comes in with complaints of left arm and left leg numbness tht comes and goes. has been for 2 days. patients complaints of chest pains for 2 days that come and go. patient complains of headaches. HEENT Symptoms (Recalled from RN notes): Yes Resp Symptoms (Recalled from RN notes): No Skin Symptoms (Recalled from RN notes): No MS Symptoms (Recalled from RN notes): Yes Functional Status (Recalled from RN notes): wnl - History of Present Illness Provider Complaint: He states that for the past 2 days he has been having a moderate to severe head ache and yesterday he began having left leg and arm numbness and tingling. He denies any fever or chills. - Related Data Home Medications Medication Instructions Recorded Confirmed Sertraline HCl 50 mg PO DAILY 09/20/21 09/20/21 Previous Rx's Medication Instructions Recorded Brompheniramine/Pseudoephed/Dm 5 ml PO Q6HP PRN #240 ml 09/24/21 [Bromfed Dm Cough Syrup] Ibuprofen [Ibuprofen 800mg 800 mg PO Q8HP PRN #30 tab 09/24/21 Tablet] Ondansetron [Zofran 4mg ODT] 4 mg PO Q8HP PRN #12 tab 09/24/21 Allergies Allergy/AdvReac Type Severity Reaction Status Date / Time Sulfa (Sulfonamide Allergy Unknown Verified 09/28/21 11:55 Antibiotics) [SULFA (SULFONAMIDE ANTIBIOTICS)] - Worker's Comp Is this a Worker's Comp case?: No [facility] History - Hepatitis A Screen Attestation statement:: This patient has been screened for Hepatitis A risk factors. I have reviewed the patient's past medical history: Yes Medical H
[2021-09-28 12:00] LABS: UTC Influenza A Antigen Negative (Negative); UTC Influenza B Antigen Negative (Negative)
--- NOTE | 2021-09-28 12:25 | PC.NURSE ---
ROBERTO CENTENO at
--- NOTE | 2021-09-28 12:31 | CT_ITS ---
FINAL REPORT CLINICAL HISTORY: numbness left side x 1 week. FINDINGS: Axial images of the head were obtained without contrast. Coronal reformatted images were also obtained.This study was performed with techniques to keep radiation doses as low as reasonably achievable (ALARA). Individualized dose reduction techniques using automated exposure control or adjustment of mA and/or kV according to the patient's size were employed. There is no evidence of intracranial hemorrhage or mass. The ventricular size is within normal limits. There is no evidence of shift of the midline structures. No abnormal extra axial fluid collection is identified. No skull abnormality is seen on the bone window images. IMPRESSION: No acute intracranial abnormality. Reviewed, Interpreted and Dictated by Silvano Monroe III, MD Transcribed by Shanika Villaseñor Authenticated and [facility]
--- NOTE | 2021-09-28 12:31 | HMH.EDGENADL ---
ED Disposition Clinical Impression: Paresthesias Disposition: Home, Self-Care Condition on Discharge: Good Additional Instructions: Follow-up with Dr. Baker in the office, call for appointment. Return to emergency room if worsening symptoms. Return to the emergency department if severe or unrelenting headache, vomiting, persistent or worsening numbness or weakness, visual symptoms. Referrals: Tim Horton MD [Primary Care Provider] - - Critical Care Critical Care Time: No Attestation: On 09/28/21, the high probability of a clinically significant, sudden or life threatening deterioration of the following system(s) required my full and direct attention, intervention and personal management. The time I documented below is in addition to time spent performing reported procedures but includes the following listed in this critical care notation. Medical Decision Making - Unruly Inquiry Pt receiving controlled substance: No Vital Signs: 09/28/21 11:52 09/28/21 12:25 09/28/21 12:49 Temperature 98.4 F 98.7 F Temperature Source Oral Oral Pulse Rate 51 L Pulse Rate [Left Radial] 61 65 Respiratory Rate 17 16 16 Blood Pressure 124/77 Blood Pressure [Right Arm] 128/74 114/74 Blood Pressure Mean 84 Blood Pressure Mean [Right Arm] 92 87 Blood Pressure Source [Right Arm] Automatic Cuff Blood Pressure Position [Right Arm] Sitting 02 Sat by Pulse Oximetry 100 100 100 Oxygen Delivery Method Room Air Room Air 09/28/21 13:00 Temperature Temperature Source Pulse Rate 52 L Pulse Rate [Left Radial] Respiratory Rate 16 Blood Pressure 135/82 Blood Pressure [Right Arm] Blood Pressure Mean 94 Blood Pressure Mean [Right Arm] Blood Pressure Source [Right Arm] Blood Pressure Position [Right Arm] 02 Sat by Pulse Oximetry 100 Oxygen Delivery Method - Lab Data Lab Results 09/28/21 11:44: Influenza Type A Ag Negative, Influenza Type B Ag Negative Medical Decision Narrative: Patient is noted to have had numerous emergency department visits at this facility recently. 7 visits noted since 09/18/2021. These have been largely for abdominal pain with negative work-ups. He also had an outpatient colonoscopy that was negative. He says that his primary care provider had been Dr. Horton, but he is leaving him because every time he sees him, he blames the patient's medications. He says that he is now seeing Dr. Go for his abdominal pain, because he can actually do something about it . He says that he is changing his primary care provider to Dr. Baker. 1:50 PM: The patient has transient paresthesias, migratory in nature, today affecting his left side. They have resolved. CT scan of the head is negative. I do not feel blood work-up needs to be performed as he has had blood tests multiple times in the past couple of weeks including yesterday that were unremarkable. I feel he can be discharged for outpatient evaluation. 2:00 PM: Received call from neurosurgeon at [facility] who reviewed the patient's CT through [facility]. He had a question as to whether there was increased density over the venous sinus, delta sign, and requested further clinical information about the possibility of venous sinus thrombosis. At this time the patient is completely asymptomatic. No headache, no numbness or tingling. He has not had any severe headaches or vomiting. I discussed this with the neurosurgeon. It is felt that there is very low clinical suspicion of venous sinus thrombosis and that this finding is therefore nonspecific. I spoke with the patient and he is sitting upright on the side of bed using her phone and says he is ready to go , wants to be discharged. I do not feel he needs further diagnostics at this time, advised to return if symptoms worsen. General Adult HPI - General Stated complaint: numbness in lt arm/leg, LOONEY Time Seen by Provider: 09/28/21 12:21 Source of Information: Patient Descripti
--- NOTE | 2021-09-28 12:33 | PC.NURSE ---
rad notified of CT head order, spoke with Marshal
--- NOTE | 2021-09-28 12:40 | PC.NURSE ---
pt to Rad
--- NOTE | 2021-09-28 12:42 | PC.NURSE ---
pt back from rad
--- NOTE | 2021-09-28 13:58 | PC.NURSE ---
ROBERTO CENTENO speaking with dr. mirza at [facility]
== END 2021-09-28 14:10 | disposition home or self-care (01) ==
LOC: UTC 11:28 → ER 12:19
PROVIDERS: Nurse Practitioner Family; Emergency Provider Emergency Medicine; PCP Internal Medicine Adolescent Medicine
DX: R20.2 Paresthesia of skin (principal); Z79.899 Other long term (current) drug therapy; Z88.2 Allergy status to sulfonamides; Z72.0 Tobacco use; F12.11 Cannabis abuse, in remission
CPT/HCPCS: 70450; 87804; 99284

== ENCOUNTER → 2021-10-04 08:45 | Outpatient (CLI) | payer OTHER, SELFPAY ==
--- NOTE | 2021-10-04 08:49 | US_ITS ---
FINAL REPORT CLINICAL HISTORY: RUQ PAIN COMPARISON: September 22, 2021 FINDINGS: Sonographic images of the right upper quadrant were obtained. The pancreas is partially obscured.The liver has an unremarkable appearance.The gallbladder has a Phrygian cap and otherwise appears normal without evidence of gallstones. There is a small amount of sludge present in the gallbladder.There is no evidence of biliary ductal dilatation.The common duct measures 2 mm. Limited images of the right kidney are unremarkable. IMPRESSION: Small amount of sludge in the gallbladder. Otherwise unremarkable right upper quadrant ultrasound. Reviewed, Interpreted and Dictated by Silvano Monroe III, MD Transcribed by Madhuri Zuleta Authenticated and [facility]
== END ==
PROVIDERS: PCP Internal Medicine Adolescent Medicine; Visit Provider Internal Medicine Adolescent Medicine
DX: R10.11 Right upper quadrant pain (principal)
CPT/HCPCS: 76705

== ENCOUNTER 2021-10-05 19:02 | Emergency (ER) | payer OTHER, SELFPAY ==
[2021-10-05 19:05] VITALS: BP 116/70; PULSE 71; RESP 18; TEMP 36.8; O2SAT 98; BMI 20.5
[2021-10-05 19:25] VITALS: BP 116/70; PULSE 71; RESP 18; TEMP 36.8; O2SAT 98
--- NOTE | 2021-10-05 19:27 | HMH.EDUTC ---
[place] Disposition Clinical Impression: Tick bite Qualifiers: Encounter type: initial encounter Site of tick bite: abdominal wall Qualified Code(s): S30.861A - Insect bite (nonvenomous) of abdominal wall, initial encounter Disposition: Home, Self-Care Condition on Discharge: Good Instructions: Protect Yourself from Tickborne Illnesses Additional Instructions: Keep the wound clean and dry. Follow up with your regular doctor. Take the antibiotics as directed and apply the topical antibiotics as directed. Watch the wound for signs of worsening infection, such as worsening redness, drainage, swelling, etc. GO TO THE ER FOR ANY WORSENING SYMPTOMS GO TO THE ER FOR ANY WORSENING SYMPTOMS Prescriptions: Mupirocin [Bactroban 2% Ointment 22gm tube] 1 applicatio TP TID 7 Days #1 gm Transmission Status: Received by [facility] Doxycycline Monohydrate [Doxycycline [place] 100mg Tab] 100 mg PO Q12 10 Days #20 tab Transmission Status: Received by [facility] Triamcinolone Acetonide 1 applicatio TP TIDP PRN 7 Days #1 gm PRN Reason: Itching Transmission Status: Received by [facility] Referrals: Juan Baker MD [Primary Care Provider] - Time of Disposition: 19:30 Medical Decision Making - Medical Records Medical records reviewed: No: I reviewed the patient's medical records. - Unruly Inquiry Pt receiving controlled substance: No Vital Signs: 10/05/21 19:05 10/05/21 19:25 Temperature 98.3 F 98.3 F Temperature Source Oral Pulse Rate 71 Pulse Rate [Right Brachial] 71 Respiratory Rate 18 18 Blood Pressure 116/70 Blood Pressure [Right Arm] 116/70 Blood Pressure Mean [Right Arm] 85 Blood Pressure Source [Right Arm] Automatic Cuff Blood Pressure Position [Right Arm] Sitting 02 Sat by Pulse Oximetry 98 Oxygen Delivery Method Room Air [place] HPI - General Stated complaint: tICK INBEDDED lEFT SIDE Time Seen by Provider: 10/05/21 19:10 Mode of Arrival: Ambulatory Limitations: No Limitations Description of Symptoms (Recalled from Triage Doc. by RN): PATIENT C/O TICK BITE TO LEFT HIP THIS MORNING HEENT Symptoms (Recalled from RN notes): No Resp Symptoms (Recalled from RN notes): No Skin Symptoms (Recalled from RN notes): Yes MS Symptoms (Recalled from RN notes): No Functional Status (Recalled from RN notes): WNL - History of Present Illness Provider Complaint: He states that he found a deer tick embedded on his left lower abdomen this morning. He removed the tick, but now he is worried about lyme's disease because he has a family member that caught in the past had got very sick. HE denies any symptoms or complaints other than some itching at the tick bite site. - Related Data Home Medications Medication Instructions Recorded Confirmed Sertraline HCl 50 mg PO DAILY 09/20/21 10/05/21 Previous Rx's Medication Instructions Recorded Doxycycline Monohydrate 100 mg PO Q12 10 Days #20 tab 10/05/21 [Doxycycline [place] 100mg Tab] Mupirocin [Bactroban 2% Ointment 1 applicatio TP TID 7 Days #1 gm 10/05/21 22gm tube] Triamcinolone Acetonide 1 applicatio TP TIDP PRN 7 Days #1 10/05/21 gm Allergies Allergy/AdvReac Type Severity Reaction Status Date / Time Sulfa (Sulfonamide Allergy Unknown Verified 10/05/21 08:53 Antibiotics) [SULFA (SULFONAMIDE ANTIBIOTICS)] - Worker's Comp Is this a Worker's Comp case?: No [facility] History - Hepatitis A Screen Attestation statement:: This patient has been screened for Hepatitis A risk factors. I have reviewed the patient's past medical history: Yes 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: Denies:: Cancer, Diabetes Mellitus Type 1, Diabetes Mellitus Type 2, Hypertension, Internal Pacemaker, MRSA, Seizures Other Surgeries: Yes: Colonoscopy, Other. No: Pacemaker Amputation: No Fractures: No - Social History Smoking Status: Current every day smoker Tobacco Type: cigarettes # Packs/Day (cigar
== END 2021-10-05 19:32 | disposition home or self-care (01) ==
PROVIDERS: Emergency Provider Nurse Practitioner Family; PCP Internal Medicine Adolescent Medicine
DX: S30.861A Insect bite (nonvenomous) of abdominal wall, initial encounter (principal); Z88.2 Allergy status to sulfonamides
CPT/HCPCS: 99212; G0463

== ENCOUNTER 2021-10-10 16:34 | Emergency (ER) | payer OTHER, SELFPAY ==
[2021-10-10 16:35] VITALS: BP 136/76; PULSE 112; RESP 16; TEMP 37.1; O2SAT 98; BMI 19.6
--- NOTE | 2021-10-10 16:35 | ECG_ITS ---
APPROVED REPORT Exam: Resting ECG HR:76 bpm ECG Measurements Heart Rate 76 AXES AK 132 P 75 QRSd 98 QRS 87 QT 384 T 57 QTc 415 Conclusion SINUS RHYTHM NORMAL ECG UNCONFIRMED REPORT Electronically signed by : Tim Horton MD 10/12/2021 17:36:10
--- NOTE | 2021-10-10 16:39 | HMH.EDGENADL ---
ED Disposition Clinical Impression: Atypical chest pain Disposition: Home, Self-Care Condition on Discharge: Good Instructions: DI for Atypical Chest Pain Additional Instructions: Additional instructions for CHEST PAIN: See your physician as soon as possible for further evaluation. Return immediately if worsening chest pain, vomiting, shortness of breath, fever, coughing of blood. Follow-up Lyme disease test with your primary care provider. Follow-up with your primary care provider for continued treatment of anxiety. Referrals: Juan Baker MD [Primary Care Provider] - - Critical Care Critical Care Time: No Attestation: On , the high probability of a clinically significant, sudden or life threatening deterioration of the following system(s) required my full and direct attention, intervention and personal management. The time I documented below is in addition to time spent performing reported procedures but includes the following listed in this critical care notation. Medical Decision Making - Unruly Inquiry Pt receiving controlled substance: No Vital Signs: 10/10/21 16:35 10/10/21 17:00 10/10/21 17:30 Temperature 98.8 F Temperature Source Oral Pulse Rate 74 75 Pulse Rate [Radial] 112 H Respiratory Rate 16 16 15 Blood Pressure 122/77 123/72 Blood Pressure [Right Arm] 136/76 Blood Pressure Mean 87 88 Blood Pressure Mean [Right Arm] 96 Blood Pressure Position [Right Arm] Sitting 02 Sat by Pulse Oximetry 98 100 98 Oxygen Delivery Method Room Air Room Air - Lab Data Lab Results 10/10/21 16:45: WBC 7.8, RBC 4.94, Hgb 15.2, Hct 45.0, MCV 91.0, MCH 30.7, MCHC 33.7, RDW 14.1, Plt Count 252, MPV 9.1, Neut % (Auto) 62.1, Lymph % (Auto) 25.3, Lamar % (Auto) 7.5, Eos % (Auto) 2.7, Baso % (Auto) 2.4 H, Neut # (Auto) 4.8, Lymph # (Auto) 2.0, Lamar # (Auto) 0.6, Eos # (Auto) 0.2, Baso # (Auto) 0.2 10/10/21 16:45: Sodium 142, Potassium 3.1 L, Chloride 108 H, Carbon Dioxide 23, Anion Gap 14.1, BUN 8 L, Creatinine 0.80, Estimated Creat Clear 130, Estimated GFR 117, Est GFR ( Amer) 141, Glucose 101 H, Calcium 9.7, Troponin I < 0.01 Result diagrams: 10/10/21 16:45 10/10/21 16:45 Orders (Tests/Meds): ED MEDICATIONS Discontinued Medications Generic Name Dose Route Start Last Admin Trade Name Freq PRN Reason Stop Dose Admin Potassium Chloride 40 meq 10/10/21 17:45 Potassium Chloride 20meq Tab PO 10/10/21 17:46 ONCE ONE ORDERS Category Date Time Status Lyme (B. burgdorferi) PCR Stat Lab 10/10/21 16:45 Received Troponin I Q3H Lab 10/10/21 20:15 Ordered Troponin I Q3H Lab 10/10/21 23:15 Ordered - Radiology Data #1 Image(s): Chest Image Reviewed: Yes I reviewed the patient's radiology image Preliminary Findings: Normal/NAD - ECG Data Tracing #1 EKG interpreted by Jose Cooley MD: Rhythm: sinus Rate: 76 Erick: normal Ectopy: none Conduction: normal ST Segment Changes: none T Wave Changes: none Q Waves: none No evidence of acute ischemia or injury - LUCIANO Score for Non-Stemi Age of Patient: <30 years old Heart Rate: 110-149 bpm Systolic Blood Pressure: 120-139 mmhg Serum Creatinine: 0.80-1.19 mg/dl CHF Killip Class: I-No CHF Other Risk Factors: None Non-Stemi Risk Score: 65 Medical Decision Narrative: Although mildly tachycardic on arrival, he now has a heart rate in the 60s with a normal pulse ox 100% on room air. PE not suspected. Cardiac chest pain not suspected. Patient has had numerous visits, many likely related to anxiety. I feel his symptoms are likely related to anxiety again today. Lyme disease test will be sent per his request and he says he has an appointment to follow-up with his primary care provider on Friday and we will follow-up results. I recommended that he follow-up with his primary care provider for continued treatment of his anxiety, I am not able to give any advice on the treatment of his chron
[2021-10-10 17:00] VITALS: BP 122/77; PULSE 74; RESP 16; O2SAT 100
--- NOTE | 2021-10-10 17:03 | XR_ITS ---
PROCEDURE INFORMATION: Exam: XR Chest Exam date and time: 10/10/2021 5:04 PM Age: 26 years old Clinical indication: Pain; Chest pressure; Additional info: Chest pain TECHNIQUE: Imaging protocol: Radiologic exam of the chest. Views: 2 views. COMPARISON: CR XR CHEST 2V 09/18/2021 1:03 AM FINDINGS: Lungs: Unremarkable. No consolidation. Pleural spaces: Unremarkable. No pleural effusion. No pneumothorax. Heart/Mediastinum: Unremarkable. No cardiomegaly. Bones/joints: Unremarkable. IMPRESSION: No acute findings.
[2021-10-10 17:10] LABS: Basophils # 0.2 K/mm3 (0-0.2); Basophils % 2.4 % (0.1-2.0); Eosinophils # 0.2 K/mm3 (0.0-0.4); Eosinophils % 2.7 % (0.1-12.0); Hemoglobin 15.2 g/dL (14.1-18.0); Lymphocytes % 25.3 % (10-50); Mean Corpuscular HGB Conc 33.7 g/dL (31.8-35.4); Mean Corpuscular Hemoglobin 30.7 pg (27.0-31.2); Mean Platelet Volume 9.1 fl (7.4-10.4); Monocytes # 0.6 K/mm3 (0.1-1.0); Monocytes % 7.5 % (1.7-9.3); Neutrophils # 4.8 K/mm3 (1.8-7.8); Neutrophils % 62.1 % (37.0-80.0); Platelet Count 252 K/mm3 (142-424); Red Blood Count 4.94 M/mm3 (4.60-6.20); Red Cell Distribution Width 14.1 % (11.5-17.5); White Blood Count 7.8 K/mm3 (4.8-10.8)
[2021-10-10 17:14] LABS: Chloride 108 mmol/L (98-107); Sodium 142 mmol/L (136-145)
[2021-10-10 17:15] LABS: Potassium 3.1 mmoL/L (3.5-5.1)
[2021-10-10 17:17] LABS: Blood Urea Nitrogen 8 mg/dl (9-20); Creatinine Clearance Estimated 130 mL/min (50-200); Estimated Glomerular Filt Rate 117 ml/min (>60); GFR (African American) 141 ML/MIN (>60)
[2021-10-10 17:18] LABS: Anion Gap 14.1 mEq/L (5-15); Calcium 9.7 mg/dl (8.4-10.2); Carbon Dioxide 23 mmol/L (22.0-30.0); Glucose 101 mg/dl (74-100)
[2021-10-10 17:30] VITALS: BP 123/72; PULSE 75; RESP 15; O2SAT 98
[2021-10-10 17:34] LABS: Troponin I < 0.01 ng/ml (0.00-0.034)
--- NOTE | 2021-10-10 17:48 | PC.NURSE ---
Friend at BS
--- NOTE | 2021-10-10 17:50 | PC.NURSE ---
ROBERTO CENTENO at speaking with patient
[2021-10-10 18:56] VITALS: BP 123/54; PULSE 78; RESP 16; TEMP 36.6
[2021-10-18 07:12] LABS: Lyme B. burgdorferi PCR Blood Negative (Negative)
== END 2021-10-10 18:58 | disposition home or self-care (01) ==
PROVIDERS: Emergency Provider Emergency Medicine; PCP Internal Medicine Adolescent Medicine
DX: R07.89 Other chest pain (principal); E87.6 Hypokalemia; F41.8 Other specified anxiety disorders; F17.210 Nicotine dependence, cigarettes, uncomplicated
CPT/HCPCS: 71046; 80048; 84484; 85025; 87476; 93005; 99284

== ENCOUNTER 2021-10-11 22:15 | Emergency (ER) | payer OTHER, SELFPAY ==
[2021-10-11 22:16] VITALS: BP 120/75; PULSE 87; RESP 16; TEMP 37.1; O2SAT 100; BMI 19.9
[2021-10-11 22:30] VITALS: BP 118/71; PULSE 61; O2SAT 100
--- NOTE | 2021-10-11 22:30 | CT_ITS ---
PROCEDURE INFORMATION: Exam: CT Chest With Contrast; Diagnostic Exam date and time: 10/11/2021 10:54 PM Age: 26 years old Clinical indication: Other: Possible esophageal obstruction, choked on a piece of chicken meat; Additional info: Possible esophogeal obstr, chicken TECHNIQUE: Imaging protocol: Diagnostic computed tomography of the chest with contrast. Radiation optimization: All CT scans at this facility use at least one of these dose optimization techniques: automated exposure control; mA and/or kV adjustment per patient size (includes targeted exams where dose is matched to clinical indication); or iterative reconstruction. Contrast material: ISOVUE; Contrast volume: 75 ml; Contrast route: IV; COMPARISON: CR XR CHEST 2V 10/10/2021 5:04 PM FINDINGS: Lungs: Unremarkable. No consolidation. No masses. Pleural spaces: Unremarkable. No pneumothorax. No pleural effusion. Heart: Unremarkable. No cardiomegaly. No pericardial effusion. Lymph nodes: Unremarkable. No enlarged lymph nodes. Vasculature: Unremarkable. No aortic aneurysm. Bones/joints: Unremarkable. No acute fracture. Soft tissues: Unremarkable. IMPRESSION: 1. No radiopaque foreign object is identified within the esophagus. 2. No evidence of acute cardiopulmonary process.
--- NOTE | 2021-10-11 22:30 | CT_ITS ---
PROCEDURE INFORMATION: Exam: CT Neck Without Contrast Exam date and time: 10/11/2021 10:47 PM Age: 26 years old Clinical indication: Dysphagia / difficulty swallowing and other: Possible esophageal obstruction, choked on a piece of chicken meat; Additional info: Possible esophogeal obstr, chicken TECHNIQUE: Imaging protocol: Computed tomography of the neck without contrast. Radiation optimization: All CT scans at this facility use at least one of these dose optimization techniques: automated exposure control; mA and/or kV adjustment per patient size (includes targeted exams where dose is matched to clinical indication); or iterative reconstruction. COMPARISON: CT HEAD/BRAIN WO CON 09/28/2021 12:36 PM FINDINGS: Pharynx: Unremarkable. No significant tonsillar enlargement. Larynx: Unremarkable. Epiglottis is normal. Prevertebral and retropharyngeal spaces: Unremarkable. Salivary glands: Normal. Glands are normal in size. Thyroid: Normal. No enlarged or calcified nodules. Lymph nodes: Unremarkable. No lymphadenopathy. Trachea: Visualized trachea is unremarkable. Lungs: There is a calcified granuloma within the superomedial aspect of the left upper lobe. Bones/joints: Unremarkable. No acute fracture. Soft tissues: No radiopaque foreign body identified. There is air noted within the proximal esophagus. The clinical significance of this finding is uncertain. If distal esophageal obstruction due to foreign body is suspect, correlation with computed tomography of the chest would be helpful. There are calcified lymph nodes within the aortic or pulmonary window and the left hilus. IMPRESSION: 1. No radiopaque foreign body identified. 2. Air noted within the proximal esophagus. Clinical significance of this finding is uncertain. 3. If distal esophageal obstruction due to form body is suspect correlation with computed tomography of the chest would be helpful.
--- NOTE | 2021-10-11 22:49 | XR_ITS ---
PROCEDURE INFORMATION: Exam: XR Chest Exam date and time: 10/11/2021 10:55 PM Age: 26 years old Clinical indication: Other: Possible esophageal obstruction, choked on a piece of chicken meat; Additional info: Choke TECHNIQUE: Imaging protocol: Radiologic exam of the chest. Views: 2 views. COMPARISON: CR XR CHEST 2V 10/10/2021 5:04 PM FINDINGS: Lungs: Unremarkable. No consolidation. Pleural spaces: Unremarkable. No pleural effusion. No pneumothorax. Heart/Mediastinum: Calcified granulomas. No cardiomegaly. Bones/joints: Unremarkable. IMPRESSION: No acute cardiopulmonary findings.
[2021-10-11 22:50] LABS: Basophils # 0.2 K/mm3 (0-0.2); Basophils % 2.7 % (0.1-2.0); Eosinophils # 0.3 K/mm3 (0.0-0.4); Eosinophils % 4.5 % (0.1-12.0); Hematocrit 43.7 % (42.0-52.0); Hemoglobin 15.3 g/dL (14.1-18.0); Lymphocytes # 2.2 K/mm3 (0.7-4.5); Lymphocytes % 29.9 % (10-50); Mean Corpuscular HGB Conc 35.1 g/dL (31.8-35.4); Mean Corpuscular Hemoglobin 31.1 pg (27.0-31.2); Mean Corpuscular Volume 88.7 fl (80-94); Mean Platelet Volume 8.5 fl (7.4-10.4); Monocytes # 0.6 K/mm3 (0.1-1.0); Monocytes % 7.3 % (1.7-9.3); Neutrophils # 4.2 K/mm3 (1.8-7.8); Neutrophils % 55.7 % (37.0-80.0); Platelet Count 239 K/mm3 (142-424); Red Blood Count 4.93 M/mm3 (4.60-6.20); Red Cell Distribution Width 14.1 % (11.5-17.5); White Blood Count 7.5 K/mm3 (4.8-10.8)
[2021-10-11 22:55] LABS: Chloride 110 mmol/L (98-107); Potassium 3.3 mmoL/L (3.5-5.1); Sodium 141 mmol/L (136-145)
[2021-10-11 22:58] LABS: Alanine Aminotransferase 23 U/L (12-78); Albumin Level 4.8 g/dl (3.5-5.0); Alkaline Phosphatase 50 U/L (38-126); Anion Gap 13.3 mEq/L (5-15); Aspartate Amino Transferase 33 U/L (17-59); Bilirubin,Total 0.6 mg/dl (0.2-1.3); Blood Urea Nitrogen 6 mg/dl (9-20); Carbon Dioxide 21 mmol/L (22.0-30.0); Creatinine Clearance Estimated 151 mL/min (50-200); Estimated Glomerular Filt Rate 136 ml/min (>60); GFR (African American) 165 ML/MIN (>60); Globulin 2.4 g/dL (1.3-3.2); Total Protein,Serum 7.2 g/dl (6.3-8.2)
[2021-10-11 22:59] LABS: Calcium 9.7 mg/dl (8.4-10.2); Glucose 103 mg/dl (74-100)
[2021-10-12] VITALS: BP 108/77; PULSE 56; O2SAT 100
--- NOTE | 2021-10-12 00:29 | PC.NURSE ---
Called radiology to check status for ct soft tissue neck, they are chatting vrad now
--- NOTE | 2021-10-12 00:46 | HMH.EDSKAF ---
ED Disposition Clinical Impression: Esophageal foreign body Qualifiers: Encounter type: initial encounter Qualified Code(s): T18.108A - Unspecified foreign body in esophagus causing other injury, initial encounter Disposition: Home, Self-Care Condition on Discharge: Good Instructions: Esophageal Dysphagia Additional Instructions: see pcp for follow up Referrals: Juan Baker MD [Primary Care Provider] - - Critical Care Critical Care Time: No Attestation: On 10/11/21, the high probability of a clinically significant, sudden or life threatening deterioration of the following system(s) required my full and direct attention, intervention and personal management. The time I documented below is in addition to time spent performing reported procedures but includes the following listed in this critical care notation. Medical Decision Making - Medical Records Medical records reviewed: Yes: I reviewed the patient's medical records. - Unruly Inquiry Pt receiving controlled substance: No Vital Signs: 10/11/21 22:16 10/11/21 22:30 10/12/21 00:00 Temperature 98.8 F Temperature Source Oral Pulse Rate 61 56 L Pulse Rate [Left Radial] 87 Respiratory Rate 16 Blood Pressure 118/71 108/77 L Blood Pressure [Right Arm] 120/75 Blood Pressure Mean [Right Arm] 90 02 Sat by Pulse Oximetry 100 100 100 Oxygen Delivery Method Room Air Room Air Room Air - Lab Data Lab results reviewed: Yes: I reviewed the patient's lab results. Lab Results 10/11/21 22:42: WBC 7.5, RBC 4.93, Hgb 15.3, Hct 43.7, MCV 88.7, MCH 31.1, MCHC 35.1, RDW 14.1, Plt Count 239, MPV 8.5, Neut % (Auto) 55.7, Lymph % (Auto) 29.9, Beadle % (Auto) 7.3, Eos % (Auto) 4.5, Baso % (Auto) 2.7 H, Neut # (Auto) 4.2, Lymph # (Auto) 2.2, Beadle # (Auto) 0.6, Eos # (Auto) 0.3, Baso # (Auto) 0.2 10/11/21 22:42: Sodium 141, Potassium 3.3 L, Chloride 110 H, Carbon Dioxide 21 L, Anion Gap 13.3, BUN 6 L, Creatinine 0.70, Estimated Creat Clear 151, Estimated GFR 136, Est GFR ( Amer) 165, Glucose 103 H, Calcium 9.7, Total Bilirubin 0.6, AST 33, ALT 23, Alkaline Phosphatase 50, Total Protein 7.2, Albumin 4.8, Globulin 2.4, Albumin/Globulin Ratio 2.0 H Result diagrams: 10/11/21 22:42 10/11/21 22:42 Orders (Tests/Meds): ED MEDICATIONS Generic Name Dose Route Start Last Admin Trade Name Freq PRN Reason Stop Dose Admin Sodium Chloride 1,000 mls @ 999 mls/hr 10/11/21 23:30 10/12/21 00:07 Sod Chlor 0.9% 1000ml Bag IV 10/12/21 00:30 Not Given .Q1H1M NOEMY Lactated Ringer's 1,000 mls @ 999 mls/hr 10/12/21 00:15 10/12/21 00:06 Lactated Ringer's 1000 Ml Bag IV 10/12/21 01:15 999 mls/hr .Q1H1M NOEMY Administration Sodium Chloride 10 ml 10/11/21 22:26 Sodium Chloride 0.9% 10ml Flush Syringe IV 11/10/21 22:25 NEEDED PRN Maintain IV Site - Radiology Data #1 Image(s): Chest Image Reviewed: Yes I have reviewed radiologist's interpretation Preliminary Findings: Normal/NAD - CT Data CT Scan: Chest, Other (neck) Time Received: 00:[address] Reviewed: Yes: I have viewed the radiologist's interpretation Preliminary Findings: Normal/NAD Medical Decision Narrative: no esophageal fb and pt able to swallow Skin/Abscess/FB HPI - General Chief complaint: Skin/Abscess/Foreign Body Stated complaint: fb STUCK TH THROAT Time Seen by Provider: 10/11/21 22:30 Mode of Arrival: Ambulatory Source of Information: Patient, Medical Record Limitations: No Limitations Description of Symptoms (Recalled from ER Triage Doc. by RN): PT REPORTS THAT HE FEELS LIKE CHICKEN IS STUCK IN HIS THROAT. PT REPORTS THAT HE HAS BEEN ABLE TO DRINK WITHOUT DIFFICULTY AND SWALLOW SPIT BUT THE SENSATION OF SOMETHING STUCK REMAINS PRESENT. PT REPORTS HE INDUCED VOMITING AND DRANK CARBONATED BEVERAGE AFTER HE HAD THE CHICKEN STUCK. - History of Present Illness HPI narrative: possible fb throat - just before arrival MD complaint: foreign b
--- NOTE | 2021-10-12 00:52 | PC.NURSE ---
Updated pt on POC. No new needs at this time.
[2021-10-12 01:05] VITALS: BP 117/67; PULSE 78; RESP 16; TEMP 36.7; O2SAT 99
== END 2021-10-12 01:08 | disposition home or self-care (01) ==
PROVIDERS: Emergency Provider Emergency Medicine; PCP Internal Medicine Adolescent Medicine
DX: T18.128A Food in esophagus causing other injury, initial encounter (principal); F17.210 Nicotine dependence, cigarettes, uncomplicated; Z79.52 Long term (current) use of systemic steroids; Z88.2 Allergy status to sulfonamides
CPT/HCPCS: 70490; 71046; 71260; 80053; 85025; 96360; 96361; 99285; Q9967

== ENCOUNTER 2021-10-13 17:16 | Emergency (ER) | payer OTHER, SELFPAY ==
[2021-10-13 18:02] VITALS: BP 127/61; PULSE 69; RESP 17; TEMP 37.4; O2SAT 100; BMI 20.5
--- NOTE | 2021-10-13 18:41 | HMH.EDUTC ---
[facility] [place] Clinical Impression: Acute otitis media, right Disposition: Home, Self-Care Condition on Discharge: Good Instructions: Middle Ear Infection Additional Instructions: Drink plenty of fluids. Take tylenol or ibuprofen for pain or fever. Take the medications as directed. Follow up with your regular doctor. GO TO THE ER FOR ANY WORSENING SYMPTOMS Prescriptions: methylPREDNISolone [Medrol] 4 mg PO DIRECTED 6 Days #21 packet Transmission Status: Received by [id number] Azithromycin [Z-Kulwant 250mg Tab*] 250 mg PO UD DOSE PK #6 tab Transmission Status: [id number] Referrals: Juan Baker MD [Primary Care Provider] - Time of Disposition: 18:49 Medical Decision Making - Medical Records Medical records reviewed: No: I reviewed the patient's medical records. - Unruly Inquiry Pt receiving controlled substance: No Vital Signs: 10/13/21 18:02 10/13/21 18:57 Temperature 99.4 F 99.4 F Temperature Source Oral Pulse Rate 69 Pulse Rate [Left Radial] 69 Respiratory Rate 17 17 Blood Pressure 127/61 Blood Pressure [Right Arm] 127/61 Blood Pressure Mean [Right Arm] 83 02 Sat by Pulse Oximetry 100 [facility] [place] HPI - General Stated complaint: rIGHT EAR PAIN Time Seen by Provider: 10/13/21 18:42 Description of Symptoms (Recalled from Triage Doc. by RN): patient comes in today for right ear pain. patients states that the pain began 1 week ago. HEENT Symptoms (Recalled from RN notes): Yes Resp Symptoms (Recalled from RN notes): No Skin Symptoms (Recalled from RN notes): No MS Symptoms (Recalled from RN notes): No Functional Status (Recalled from RN notes): wnl - History of Present Illness Provider Complaint: He c/o right ear pain for the past 2 days. He states that he is having sinus drainage and right sided sore throat also. He denies any fever or chills. He denies body aches and other complaints. - Related Data Home Medications Medication Instructions Recorded Confirmed Sertraline HCl 50 mg PO DAILY 09/20/21 10/12/21 Amitriptyline HCl [Elavil 10mg 10 mg PO DAILY 10/12/21 10/12/21 tablet] Famotidine [Pepcid 20mg Tablet] 20 mg PO DAILY 10/12/21 10/12/21 Omeprazole [Omeprazole 40mg 40 mg PO DAILY 10/12/21 10/12/21 Capsule] Previous Rx's Medication Instructions Recorded Azithromycin [Z-Kulwant 250mg Tab*] 250 mg PO UD DOSE PK #6 tab 10/13/21 methylPREDNISolone [Medrol] 4 mg PO DIRECTED 6 Days #21 10/13/21 packet Allergies Allergy/AdvReac Type Severity Reaction Status Date / Time Sulfa (Sulfonamide Allergy Unknown Verified 10/13/21 18:07 Antibiotics) [SULFA (SULFONAMIDE ANTIBIOTICS)] - Worker's Comp Is this a Worker's Comp case?: No [facility] History - Hepatitis A Screen Attestation statement:: This patient has been screened for Hepatitis A risk factors. I have reviewed the patient's past medical history: Yes 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: Denies:: Cancer, Diabetes Mellitus Type 1, Diabetes Mellitus Type 2, Hypertension, Internal Pacemaker, MRSA, Seizures Other Surgeries: Yes: Colonoscopy, Other. No: Pacemaker Amputation: No Fractures: No - Social History Smoking Status: Current every day smoker Tobacco Type: cigarettes # Packs/Day (cigarettes): 1 #Yrs smoked (if former smoker): 7 Alcohol Intake: never Substance Use Type: marijuana Occupational Status: employed Housing: house Household Members: spouse Family Hx:: Diabetes, Stroke ROS Obtained: Yes All systems reviewed & no additional complaints - Constitutional Constitutional: Reports as per HPI - Eyes Eyes: Denies eye discharge - ENT Ears, Nose, Mouth, and Throat: Reports as per HPI - Cardiovascular Cardiovascular: Denies chest pain - Respiratory Respiratory: Denies chest congestion, Reports cough Physical Exam - General General appearance: alert, in no apparent distress - Head Head exam: atraumatic, normocephalic, normal ins
[2021-10-13 18:57] VITALS: BP 127/61; PULSE 69; RESP 17; TEMP 37.4
== END 2021-10-13 18:57 | disposition home or self-care (01) ==
PROVIDERS: Emergency Provider Nurse Practitioner Family; PCP Internal Medicine Adolescent Medicine
DX: H66.91 Otitis media, unspecified, right ear (principal); J02.9 Acute pharyngitis, unspecified; F17.210 Nicotine dependence, cigarettes, uncomplicated; Z79.52 Long term (current) use of systemic steroids; Z88.2 Allergy status to sulfonamides
CPT/HCPCS: 99213; G0463

== ENCOUNTER 2021-10-20 19:22 | Emergency (ER) | payer OTHER, SELFPAY ==
--- NOTE | 2021-10-20 19:17 | ECG_ITS ---
APPROVED REPORT Exam: Resting ECG HR:51 bpm ECG Measurements Heart Rate 51 AXES NJ 143 P 45 QRSd 93 QRS 75 QT 425 T 57 QTc 401 Conclusion SINUS BRADYCARDIA BORDERLINE ECG UNCONFIRMED REPORT Electronically signed by : Tim Horton MD 10/22/2021 21:48:07
[2021-10-20 19:22] VITALS: BP 128/86; PULSE 54; RESP 17; TEMP 36.9; O2SAT 99; BMI 19.9
--- NOTE | 2021-10-20 19:29 | HMH.EDGENADL ---
ED Disposition Clinical Impression: Chest pain Qualifiers: Chest pain type: other chest pain Qualified Code(s): R07.89 - Other chest pain Disposition: Home, Self-Care Condition on Discharge: Good Additional Instructions: Continue to monitor your condition at home. If your condition worsens or any other concerns arise please return to the emergency department for reassessment. Otherwise, please follow-up with your primary care physician. Referrals: Juan Baker MD [Primary Care Provider] - - Critical Care Critical Care Time: No Attestation: On , the high probability of a clinically significant, sudden or life threatening deterioration of the following system(s) required my full and direct attention, intervention and personal management. The time I documented below is in addition to time spent performing reported procedures but includes the following listed in this critical care notation. Medical Decision Making - Medical Records Medical records reviewed: Yes: I reviewed the patient's medical records. - Unruly Inquiry Pt receiving controlled substance: No Vital Signs: 10/20/21 19:22 10/20/21 20:00 Temperature 98.4 F Temperature Source Oral Pulse Rate 47 L Pulse Rate [Right] 54 L Respiratory Rate 17 20 Blood Pressure 116/77 Blood Pressure [Right Arm] 128/86 Blood Pressure Mean [Right Arm] 100 Blood Pressure Source [Right Arm] Automatic Cuff 02 Sat by Pulse Oximetry 99 100 Oxygen Delivery Method Room Air - Lab Data Lab results reviewed: Yes: I reviewed the patient's lab results. Lab Results 10/20/21 19:20: Sodium 140, Potassium 3.4 L, Chloride 107, Carbon Dioxide 24, Anion Gap 12.4, BUN 11, Creatinine 0.70, Estimated Creat Clear 147, Estimated GFR 136, Est GFR ( Amer) 165, Glucose 88, Calcium 10.1, Total Bilirubin 0.4, AST 29, ALT 18, Alkaline Phosphatase 65, Troponin I < 0.01, Total Protein 7.6, Albumin 5.0, Globulin 2.6, Albumin/Globulin Ratio 1.9 H, TSH 2.18 10/20/21 21:35: Troponin I < 0.01 Result diagrams: 10/20/21 19:20 Orders (Tests/Meds): ORDERS Category Date Time Status Troponin I Q3H Lab 10/21/21 01:45 Ordered Medical Decision Narrative: And is a healthy 26-year-old male without cardiac risk factors is presenting for chief complaint of feeling like his heart is skipping beats. Differential diagnosis includes, but is not limited to, cardiac arrhythmia, dehydration, electrolyte abnormality, myocarditis/pericarditis, ACS, underlying infectious cause. Initial exam, patient is hemodynamically stable nontoxic-appearing. Per PERC, he does not require further workup for pulmonary embolus. Suspect that anxiety has significant underlying influence on patient presentation. Clinically he is very well-appearing but did request we do some baseline lab work. Given this, he was evaluate CBC, CMP, troponin, TSH, EKG and chest x-ray. Treated with IV fluids for possible dehydration given poor appetite. On reassessment, patient appears stable. Labwork is unremarkable. Discharged in a stable condition with return precautions. General Adult HPI - General Stated complaint: PALPATATIONS Time Seen by Provider: 10/20/21 19:25 - History of Present Illness HPI narrative: Lanre is a 26-year-old male with a past medical history of anxiety is presenting for chief complaint of feeling like his heart skips beats. Patient denies upper respiratory infectious symptoms, productive cough, hemoptysis but states that his appetite has been poor. He states he has had an exacerbation in his anxiety and depression. Started citalopram yesterday evening. States he has significant concern/anxiety regarding his health. Denies recent syncope, leg swelling, shortness of breath. Increase in frequency of panic attacks. - Related Data Home Medications Medication Instructions Recorded Confirmed Amitriptyline HCl [Elavil 10mg 10 mg PO DAILY 10/12/21 10/20/21 tablet] Famotidine [Pepcid 20mg Tab
--- NOTE | 2021-10-20 19:40 | XR_ITS ---
PROCEDURE INFORMATION: Exam: XR Chest Exam date and time: 10/20/2021 7:44 PM Age: 26 years old Clinical indication: Shortness of breath; Additional info: Lt sided chest pains w SOA x days. Smoker TECHNIQUE: Imaging protocol: Radiologic exam of the chest. Views: 1 view. COMPARISON: CR XR CHEST 2V 10/11/2021 10:55 PM FINDINGS: Lungs: No consolidation. Pleural spaces: No pneumothorax. Heart/Mediastinum: No cardiomegaly. Bones/joints: No acute abnormality. IMPRESSION: No acute findings.
[2021-10-20 19:51] LABS: Alanine Aminotransferase 18 U/L (12-78); Alkaline Phosphatase 65 U/L (38-126); Aspartate Amino Transferase 29 U/L (17-59); Bilirubin,Total 0.4 mg/dl (0.2-1.3); Blood Urea Nitrogen 11 mg/dl (9-20); Carbon Dioxide 24 mmol/L (22.0-30.0); Chloride 107 mmol/L (98-107); Creatinine Clearance Estimated 147 mL/min (50-200); Estimated Glomerular Filt Rate 136 ml/min (>60); GFR (African American) 165 ML/MIN (>60)
[2021-10-20 19:52] LABS: Glucose 88 mg/dl (74-100)
[2021-10-20 20:00] VITALS: BP 116/77; PULSE 47; RESP 20; O2SAT 100
[2021-10-20 20:14] LABS: Troponin I < 0.01 ng/ml (0.00-0.034)
[2021-10-20 20:23] LABS: Sodium 140 mmol/L (136-145); Thyroid Stimulating Hormone 2.18 uIU/mL (0.465-4.68)
[2021-10-20 20:24] LABS: Anion Gap 12.4 mEq/L (5-15); Potassium 3.4 mmoL/L (3.5-5.1)
[2021-10-20 20:26] LABS: Albumin/Globulin Ratio 1.9 (1.1-1.8); Globulin 2.6 g/dL (1.3-3.2); Total Protein,Serum 7.6 g/dl (6.3-8.2)
[2021-10-20 20:27] LABS: Calcium 10.1 mg/dl (8.4-10.2)
[2021-10-20 22:07] LABS: Troponin I < 0.01 ng/ml (0.00-0.034)
[2021-10-20 22:42] VITALS: BP 116/77; PULSE 47; RESP 18; TEMP 36.8; O2SAT 99
[2021-10-20 22:47] LABS: Basophils # 0.2 K/mm3 (0-0.2); Basophils % 2.6 % (0.1-2.0); Eosinophils # 0.3 K/mm3 (0.0-0.4); Eosinophils % 4.2 % (0.1-12.0); Hematocrit 45.9 % (42.0-52.0); Hemoglobin 15.8 g/dL (14.1-18.0); Lymphocytes # 2.5 K/mm3 (0.7-4.5); Lymphocytes % 31.7 % (10-50); Mean Corpuscular HGB Conc 34.4 g/dL (31.8-35.4); Mean Corpuscular Hemoglobin 31.6 pg (27.0-31.2); Mean Corpuscular Volume 91.7 fl (80-94); Mean Platelet Volume 9.3 fl (7.4-10.4); Monocytes # 0.5 K/mm3 (0.1-1.0); Neutrophils # 4.2 K/mm3 (1.8-7.8); Neutrophils % 54.5 % (37.0-80.0); Platelet Count 266 K/mm3 (142-424); Red Cell Distribution Width 14.1 % (11.5-17.5); White Blood Count 7.8 K/mm3 (4.8-10.8)
== END 2021-10-20 22:48 | disposition home or self-care (01) ==
PROVIDERS: Emergency Provider Emergency Medicine; PCP Internal Medicine Adolescent Medicine
DX: R07.89 Other chest pain (principal); F41.9 Anxiety disorder, unspecified; F17.210 Nicotine dependence, cigarettes, uncomplicated
CPT/HCPCS: 71045; 80053; 84443; 84484; 85025; 93005; 99284

== ENCOUNTER 2021-11-01 12:33 | Emergency (ER) | payer OTHER, SELFPAY ==
[2021-11-01 12:42] VITALS: BP 105/62; PULSE 60; RESP 14; TEMP 36.8; O2SAT 100; BMI 19.9
[2021-11-01 12:54] VITALS: BP 113/69; PULSE 63; RESP 16; TEMP 36.9; O2SAT 98; BMI 20.3
--- NOTE | 2021-11-01 12:56 | HMH.EDUTC ---
[facility] [place] Clinical Impression: Left leg pain, Radicular pain Disposition: Home, Self-Care Condition on Discharge: Good Instructions: DI for Lumbar Radiculopathy Additional Instructions: Go home and rest. It would be best if you rested tomorrow too. Follow up with your regular doctor. GO TO THE ER FOR ANY WORSENING SYMPTOMS OR CONCERN, ESPECIALLY BOWEL OR BLADDER ISSUES, SADDLE AREA NUMBNESS, FEVER, ETC Prescriptions: methylPREDNISolone [Medrol] 4 mg PO DIRECTED 6 Days #21 packet Transmission Status: Received by [id number] Referrals: Juan Baker MD [Primary Care Provider] - Time of Disposition: 14:44 Medical Decision Making - Medical Records Medical records reviewed: No: I reviewed the patient's medical records. - Unruly Inquiry Pt receiving controlled substance: No Vital Signs: 11/01/21 12:42 11/01/21 12:54 11/01/21 14:45 Temperature 98.3 F 98.5 F 98.5 F Temperature Source Oral Oral Pulse Rate 63 Pulse Rate [Left Radial] 60 63 Respiratory Rate 14 16 16 Blood Pressure 113/69 Blood Pressure [Left Arm] 105/62 L 113/69 Blood Pressure Mean [Left Arm] 76 83 Blood Pressure Source [Left Arm] Automatic Cuff Blood Pressure Position [Left Arm] Sitting 02 Sat by Pulse Oximetry 100 98 Oxygen Delivery Method Room Air - US Data US Images: Lower Extremity ED US Reviewed: Yes: I have viewed radiologist's interpretation Preliminary Findings: Normal/NAD [facility] [place] HPI - General Stated complaint: left leg pain, numbness/coldness in foot Time Seen by Provider: 11/01/21 12:57 Description of Symptoms (Recalled from Triage Doc. by RN): patient comes in today with complaints of left leg numbness and tingiling. patient states that the numbness comes and goes. it has been going on for 2 days HEENT Symptoms (Recalled from RN notes): No Resp Symptoms (Recalled from RN notes): No Skin Symptoms (Recalled from RN notes): No MS Symptoms (Recalled from RN notes): Yes Functional Status (Recalled from RN notes): wnl - History of Present Illness Provider Complaint: He states that he has had left leg swelling, pain, and tingling . The tingling has came and gone, but the pain began 2 days ago. He has a strong family history of dvts, so he came here to be checke.d - Related Data Home Medications Medication Instructions Recorded Confirmed Amitriptyline HCl [Elavil 10mg 10 mg PO DAILY 10/12/21 10/20/21 tablet] Famotidine [Pepcid 20mg Tablet] 20 mg PO DAILY 10/12/21 10/20/21 Omeprazole [Omeprazole 40mg 40 mg PO DAILY 10/12/21 10/20/21 Capsule] Azithromycin [Z-Kulwant 250mg Tab*] 250 mg PO UD DOSE PK 10/20/21 10/20/21 methylPREDNISolone [Medrol] 4 mg PO DIRECTED 10/20/21 10/20/21 Previous Rx's Medication Instructions Recorded methylPREDNISolone [Medrol] 4 mg PO DIRECTED 6 Days #21 11/01/21 packet Allergies Allergy/AdvReac Type Severity Reaction Status Date / Time Sulfa (Sulfonamide Allergy Unknown Verified 11/01/21 12:56 Antibiotics) [SULFA (SULFONAMIDE ANTIBIOTICS)] - Worker's Comp Is this a Worker's Comp case?: No [facility] History - Hepatitis A Screen Attestation statement:: This patient has been screened for Hepatitis A risk factors. I have reviewed the patient's past medical history: Yes 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: Denies:: Cancer, Diabetes Mellitus Type 1, Diabetes Mellitus Type 2, Hypertension, Internal Pacemaker, MRSA, Seizures Other Surgeries: Yes: Colonoscopy, Other. No: Pacemaker Amputation: No Fractures: No - Social History Smoking Status: Current every day smoker Tobacco Type: cigarettes # Packs/Day (cigarettes): 1 #Yrs smoked (if former smoker): 7 Alcohol Intake: never Substance Use Type: marijuana Occupational Status: employed Housing: house Household Members: spouse Family Hx:: Diabetes, Stroke ROS Obtained: Yes All systems reviewed & no additional complaints - Constitutional Constitutional: Denies chills,
--- NOTE | 2021-11-01 13:31 | CA_ITS ---
FINAL REPORT TECHNIQUE: Color Doppler, duplex Doppler and compression sonography of the left lower extremity deep venous systems was performed. CLINICAL HISTORY: R/O blood clot, calf pain x 2 days FINDINGS: There is no evidence of deep venous thrombosis from the level of the groin to the calf. The veins are patent and compressible. IMPRESSION: No evidence of deep venous thrombosis left lower extremity. Reviewed, Interpreted and Dictated by Silvano Monroe III, MD Transcribed by Poli Sheikh Authenticated and . [facility]
--- NOTE | 2021-11-01 13:32 | PC.NURSE ---
Notified Christine in Vascular lab of venous doppler order; she reports they have both machines tied up at the moment but they would be down as soon as possible to get the patient
--- NOTE | 2021-11-01 13:48 | PC.NURSE ---
pt to [facility] via wheelchair with solid waste landfill technician
--- NOTE | 2021-11-01 14:12 | PC.NURSE ---
pt returned from vascular lab and jenise spoke with Juan regarding test result
[2021-11-01 14:45] VITALS: BP 113/69; PULSE 63; RESP 16; TEMP 36.9
== END 2021-11-01 14:46 | disposition home or self-care (01) ==
PROVIDERS: Emergency Provider Nurse Practitioner Family; PCP Internal Medicine Adolescent Medicine
DX: M79.605 Pain in left leg (principal); M54.10 Radiculopathy, site unspecified
CPT/HCPCS: 93971; 99213; G0463

== ENCOUNTER → 2021-11-30 21:33 | Outpatient (CLI) | payer OTHER, SELFPAY | PROVIDERS: PCP Internal Medicine Adolescent Medicine; Visit Provider Student in an Organized Health Care Education/Training Program | DX: Z20.822 Contact with and (suspected) exposure to COVID-19 (principal) | CPT/HCPCS: C9803; U0003; U0005 ==

== ENCOUNTER 2021-12-01 19:37 | Emergency (ER) | payer OTHER, SELFPAY ==
[2021-12-01 19:40] VITALS: BP 125/75; PULSE 77; RESP 18; TEMP 39.1; O2SAT 100; BMI 20.3
--- NOTE | 2021-12-01 19:51 | HMH.EDUTC ---
[facility] [place] Disposition Clinical Impression: Exposure to COVID-19 virus, Upper respiratory infection Disposition: Home, Self-Care Condition on Discharge: Good Instructions: DI for COVID-19 (Suspected or Confirmed ) Additional Instructions: covid swab was sent to lab, call tomorrow for results. self isolate until test results are known to be negative No sign of a bacterial infection. Likely viral. Viruses can take 7-14 days to run their course. Nasal saline and bulb syringe or nose Gosia to remove nasal drainage to help with nasal congestion. Hard to eat, drink, sleep with nasal congestion so important to keep this cleaned out. Monitor temp. Tylenol or Motrin as needed for pain or fever Encourage fluids, water, Gatorade, Powerade, Pedialyte if infant/toddler/child Warm salt water gargles Warm fluids Sore throat lozenges Sleep elevated Humidifier/vaporizer Follow-up immediately for new or worsening symptoms or no noticeable improvement over the next 48-72 hours. Referrals: Juan Baker MD [Primary Care Provider] - Time of Disposition: 19:54 Medical Decision Making - Unruly Inquiry Pt receiving controlled substance: No [facility] [place] HPI - General Chief complaint: [facility] Stated complaint: fever 103, sore throat Time Seen by Provider: 12/01/21 19:52 Mode of Arrival: Ambulatory Source of Information: Patient Limitations: No Limitations - History of Present Illness Provider Complaint: 26 yr old male presnets for fever,chills,boday aches and sore throat that started today at 4pm. pt states ,kids and friends have covid - Related Data Home Medications Medication Instructions Recorded Confirmed Amitriptyline HCl [Elavil 10mg 10 mg PO DAILY 10/12/21 10/20/21 tablet] Famotidine [Pepcid 20mg Tablet] 20 mg PO DAILY 10/12/21 10/20/21 Omeprazole [Omeprazole 40mg 40 mg PO DAILY 10/12/21 10/20/21 Capsule] Azithromycin [Z-Kulwant 250mg Tab*] 250 mg PO UD DOSE PK 10/20/21 10/20/21 methylPREDNISolone [Medrol] 4 mg PO DIRECTED 10/20/21 10/20/21 Previous Rx's Medication Instructions Recorded methylPREDNISolone [Medrol] 4 mg PO DIRECTED 6 Days #21 11/01/21 packet vilazodone 20 mg tablet See Rx Instructions PO DAILY 30 11/29/21 Days #30 tab Allergies Allergy/AdvReac Type Severity Reaction Status Date / Time Sulfa (Sulfonamide Allergy Unknown Verified 11/01/21 12:56 Antibiotics) [SULFA (SULFONAMIDE ANTIBIOTICS)] [facility] History - Hepatitis A Screen Attestation statement:: This patient has been screened for Hepatitis A risk factors. I have reviewed the patient's past medical history: Yes 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: Denies:: Cancer, Diabetes Mellitus Type 1, Diabetes Mellitus Type 2, Hypertension, Internal Pacemaker, MRSA, Seizures Comment: no to COVID vaccines Other Surgeries: Yes: Colonoscopy, Other. No: Pacemaker Amputation: No Fractures: No - Social History Smoking Status: Current every day smoker Tobacco Type: cigarettes # Packs/Day (cigarettes): 1 #Yrs smoked (if former smoker): 7 Alcohol Intake: never Substance Use Type: marijuana (none for about 18 months) Occupational Status: employed Housing: house Household Members: spouse Family Hx:: Diabetes, Stroke ROS Obtained: Yes Systems reviewed as appropriate & no additional complaints - Constitutional Constitutional: Reports system reviewed and no additional complaints, except as docu, Reports body ache, Reports chills, Reports fever(s) - Eyes Eyes: Reports system reviewed and no additional complaints, except as docu, Denies dry eyes - ENT Ears, Nose, Mouth, and Throat: Reports system reviewed and no additional complaints, except as docu, Reports nasal congestion, Reports sore throat - Cardiovascular Cardiovascular: Reports system reviewed and no additional complaints, except as docu, Denies chest pain - Respiratory Respiratory: Reports system reviewed and no additional complaints, except as docu, Denies cough
[2021-12-01 19:56] LABS: UTC Strep Screen (Rapid) Negative (Negative)
[2021-12-01 19:58] VITALS: BP 125/75; PULSE 77; RESP 18; TEMP 39.1; O2SAT 100
[2021-12-01 20:14] LABS: Adenovirus,PCR Not Detected (NotDetected); Bordetella Pertussis Not Detected (NotDetected); Chlamydophila Pneumoniae, PCR Not Detected (NotDetected); Coronavirus 229E Not Detected (NotDetected); Coronavirus NL63 Not Detected (NotDetected); Coronavirus OC43 Not Detected (NotDetected); Coronovirus HKU1,PCR Not Detected (NotDetected); Human Metapneumovirus Not Detected (NotDetected); Influenza A, PCR Not Detected (NotDetected); Influenza AH1, 2009 Not Detected (NotDetected); Influenza AH1, PCR Not Detected (NotDetected); Influenza AH3,PCR Not Detected (NotDetected); Influenza B, PCR Not Detected (NotDetected); Mycoplasma Pneumoniae, PCR Not Detected (NotDetected); Parainfluenza 1, PCR Not Detected (NotDetected); Parainfluenza 2, PCR Not Detected (NotDetected); Parainfluenza 3, PCR Not Detected (NotDetected); Parainfluenza 4, PCR Not Detected (NotDetected); Respiratory Syncytial Virus Not Detected (NotDetected); Rhinovirus/Enterovirus Not Detected (NotDetected)
[2021-12-01 21:35] LABS: Coronavirus 19, PCR Detected (NotDetected)
== END 2021-12-01 20:01 | disposition home or self-care (01) ==
LOC: UTC 19:59
PROVIDERS: Emergency Provider Nurse Practitioner Family; PCP Internal Medicine Adolescent Medicine
DX: J02.9 Acute pharyngitis, unspecified; R53.82 Chronic fatigue, unspecified; M79.10 Myalgia, unspecified site; Z88.2 Allergy status to sulfonamides; Z82.49 Family history of ischemic heart disease and other diseases of the circulatory system; Z83.3 Family history of diabetes mellitus; Z80.9 Family history of malignant neoplasm, unspecified
CPT/HCPCS: 87581; 87632; 87798; 87880; C9803; U0003; U0005

== ENCOUNTER 2021-12-03 18:47 | Emergency (ER) | payer OTHER, SELFPAY ==
[2021-12-03 18:48] VITALS: BP 123/66; PULSE 61; RESP 16; TEMP 37.2; O2SAT 100; BMI 20.3
--- NOTE | 2021-12-03 19:17 | PC.NURSE ---
PT REFUSES IV AT THIS TIME. MADE AWARE.
--- NOTE | 2021-12-03 19:18 | HMH.EDGENADL ---
ED Disposition Clinical Impression: Exposure to COVID-19 virus Upper respiratory infection Qualifiers: URI type: unspecified viral URI Qualified Code(s): J06.9 - Acute upper respiratory infection, unspecified Disposition: Home, Self-Care Condition on Discharge: Good Instructions: DI for Acute Bronchitis Prescriptions: methylPREDNISolone [Medrol 4mg tab] 4 mg PO DIRECTED #21 tab Transmission Status: Pending to [id number] Referrals: Juan Baker MD [Primary Care Provider] - - Critical Care Critical Care Time: No Attestation: On 12/03/21, the high probability of a clinically significant, sudden or life threatening deterioration of the following system(s) required my full and direct attention, intervention and personal management. The time I documented below is in addition to time spent performing reported procedures but includes the following listed in this critical care notation. Medical Decision Making - Medical Records Medical records reviewed: Yes: I reviewed the patient's medical records. - Unruly Inquiry Pt receiving controlled substance: No Vital Signs: 12/03/21 18:48 Temperature 98.9 F Temperature Source Oral Pulse Rate [Left Radial] 61 Respiratory Rate 16 Blood Pressure [Right Arm] 123/66 Blood Pressure Mean [Right Arm] 85 Blood Pressure Source [Right Arm] Automatic Cuff 02 Sat by Pulse Oximetry 100 Oxygen Delivery Method Room Air Orders (Tests/Meds): ED MEDICATIONS Generic Name Dose Route Start Last Admin Trade Name Freq PRN Reason Stop Dose Admin Acetaminophen 1,000 mg 12/03/21 19:17 Acetaminophen 500mg Tab PO 12/03/21 19:18 ONCE ONE Dexamethasone 10 mg 12/03/21 19:18 Dexamethasone 4mg Tablet PO 12/03/21 19:19 ONCE ONE Diphenhydramine HCl 25 mg 12/03/21 19:17 Diphenhydramine 25mg Capsule PO 12/03/21 19:18 ONCE ONE Discontinued Medications Generic Name Dose Route Start Last Admin Trade Name Freq PRN Reason Stop Dose Admin Dexamethasone Sodium Phosphate 10 mg 12/03/21 19:03 Dexamethasone 4mg/Ml 5ml Mdv IV 12/03/21 19:04 ONCE ONE Sodium Chloride 1,000 mls @ 999 mls/hr 12/03/21 19:15 Sod Chlor 0.9% 1000ml Bag IV 12/03/21 20:15 .Q1H1M NOEMY Ketorolac Tromethamine 30 mg 12/03/21 19:03 Ketorolac 30mg/Ml Vial IV 12/03/21 19:04 ONCE ONE - Reevaluation(s) Time: 19:21 Reevaluation #1: On reevaluation, patient is feeling better. Repeat exam is benign. Patient remains hemodynamically stable. He is refusing IV and any IV medications. Patient was instructed to follow CDC quarantine guidelines. Needs follow-up with PCP in 48 hours. Given strict return precautions. Verbalized understanding. Medical Decision Narrative: 26-year-old male presented to the emergency department with viral type symptoms. Overall, the patient appears nontoxic. There is no respiratory distress or hypoxia. Patient afebrile. Treated symptomatically. General Adult HPI - General Chief complaint: Upper Respiratory Infection Stated complaint: covid + fever, SOA Time Seen by Provider: 12/03/21 18:50 Mode of Arrival: Ambulatory Limitations: No Limitations Description of Symptoms (Recalled from ER Triage Doc. by RN): PT WAS DX WITH COVID ON SAT. PT PRESENTS TO ER TODAY AND STATES HE IS TIRED AFTER HE GETS OUT OF THE SHOWER AND HE HAS A COUGH. PT REPORTS HE HAS TAKEN MOTRIN AT 4P TODAY BUT NO TYLENOL. - History of Present Illness HPI narrative: This is a 26-year-old male presented to the emergency department with some myalgias and fevers. Patient was diagnosed with COVID 2 days ago. Patient is unvaccinated. States that he just has not felt well. Has had some full body myalgias. Feels like he has no energy. He took some ibuprofen earlier today, however does not know why he does not feel better yet. Has had a mild cough. Nonproductive in nature. Does not have any headache or change in vision. No focal wea
[2021-12-03 19:32] VITALS: BP 120/78; PULSE 88; RESP 16; TEMP 37.2; O2SAT 100
== END 2021-12-03 19:37 | disposition home or self-care (01) ==
PROVIDERS: Emergency Provider Emergency Medicine; PCP Internal Medicine Adolescent Medicine
DX: J06.9 Acute upper respiratory infection, unspecified (principal); U07.1 COVID-19; F17.210 Nicotine dependence, cigarettes, uncomplicated; M79.10 Myalgia, unspecified site; R53.1 Weakness; R53.81 Other malaise; Z28.310 Unvaccinated for COVID-19; Z79.52 Long term (current) use of systemic steroids; Z79.899 Other long term (current) drug therapy; Z88.2 Allergy status to sulfonamides; Z82.49 Family history of ischemic heart disease and other diseases of the circulatory system; Z83.3 Family history of diabetes mellitus
CPT/HCPCS: 96361; 96374; 99284

== ENCOUNTER → 2021-12-04 13:07 | Outpatient (CLI) | payer OTHER, SELFPAY ==
[2021-12-04 13:31] LABS: Basophils # 0.1 K/mm3 (0-0.2); Basophils % 1.9 % (0.1-2.0); Eosinophils % 0.9 % (0.1-12.0); Hematocrit 47.3 % (42.0-52.0); Hemoglobin 15.6 g/dL (14.1-18.0); Lymphocytes # 1.5 K/mm3 (0.7-4.5); Lymphocytes % 43.9 % (10-50); Mean Corpuscular HGB Conc 33.1 g/dL (31.8-35.4); Mean Corpuscular Hemoglobin 31.3 pg (27.0-31.2); Mean Corpuscular Volume 94.7 fl (80-94); Monocytes # 0.4 K/mm3 (0.1-1.0); Monocytes % 10.5 % (1.7-9.3); Neutrophils # 1.5 K/mm3 (1.8-7.8); Neutrophils % 42.8 % (37.0-80.0); Platelet Count 174 K/mm3 (142-424); Red Blood Count 4.99 M/mm3 (4.60-6.20); Red Cell Distribution Width 13.7 % (11.5-17.5); White Blood Count 3.4 K/mm3 (4.8-10.8)
[2021-12-04 13:39] LABS: Alanine Aminotransferase 22 U/L (12-78); Albumin Level 4.5 g/dl (3.5-5.0); Albumin/Globulin Ratio 1.7 (1.1-1.8); Alkaline Phosphatase 72 U/L (38-126); Aspartate Amino Transferase 42 U/L (17-59); Bilirubin,Total 0.2 mg/dl (0.2-1.3); Blood Urea Nitrogen 8 mg/dl (9-20); Carbon Dioxide 30 mmol/L (22.0-30.0); Chloride 102 mmol/L (98-107); Estimated Glomerular Filt Rate 117 ml/min (>60); GFR (African American) 141 ML/MIN (>60); Globulin 2.6 g/dL (1.3-3.2); Glucose 91 mg/dl (74-100); Sodium 138 mmol/L (136-145); Total Protein,Serum 7.1 g/dl (6.3-8.2)
[2021-12-04 13:45] LABS: D-Dimer 0.58 ug/mL (0.0-0.5)
== END ==
PROVIDERS: PCP Internal Medicine Adolescent Medicine; Visit Provider Nurse Practitioner Family
DX: R06.02 Shortness of breath (principal)
CPT/HCPCS: 36415; 80053; 85025; 85378

== ENCOUNTER → 2021-12-06 16:03 | Outpatient (CLI) | payer OTHER, SELFPAY ==
--- NOTE | 2021-12-06 16:04 | CA_ITS ---
FINAL REPORT TECHNIQUE: Color Doppler, duplex Doppler and compression sonography of the left lower extremity deep venous systems was performed. CLINICAL HISTORY: .Elevated D-dimer, post covid, Inermit lt leg pain FINDINGS: There is no evidence of deep venous thrombosis from the level of the groin to the calf. The veins are patent and compressible. IMPRESSION: No evidence of deep venous thrombosis left lower extremity. Reviewed, Interpreted and Dictated by Silvano Monroe III, MD Transcribed by Shanika Villaseñor Authenticated and [facility]
== END ==
PROVIDERS: PCP Nurse Practitioner Family; Visit Provider Internal Medicine Adolescent Medicine
DX: M79.605 Pain in left leg (principal)
CPT/HCPCS: 93971

== ENCOUNTER → 2021-12-07 10:04 | Outpatient (CLI) | payer OTHER, SELFPAY ==
--- NOTE | 2021-12-07 10:12 | CT_ITS ---
FINAL REPORT TECHNIQUE: Postcontrast axial images of the chest were performed in a CTA protocol. This study was performed with techniques to keep radiation doses as low as reasonably achievable, (ALARA). Individualized dose reduction technique using automated exposure control or adjustment of mA and/or kV according to the patient's size were employed. CLINICAL HISTORY: SOB, COVID, ELEVATED D-DIMER FINDINGS: The heart is normal in size. No adenopathy is identified. No pleural or pericardial effusion is identified. The thoracic aorta is normal in caliber with no focal aneurysm or dissection identified. There is no filling defect to suggest pulmonary embolism. No lung infiltrate or mass is identified. The images of the upper abdomen are unremarkable. IMPRESSION: No evidence for PE on this exam. Reviewed, Interpreted and Dictated by Silvano Monroe III, MD Transcribed by Kimberlee Arevalo Authenticated and [facility]
== END ==
PROVIDERS: PCP Nurse Practitioner Family; Visit Provider Nurse Practitioner Family
DX: U07.1 COVID-19 (principal); R06.02 Shortness of breath; R79.89 Other specified abnormal findings of blood chemistry; R79.1 Abnormal coagulation profile
CPT/HCPCS: 71275; Q9967

== ENCOUNTER 2021-12-08 18:43 | Emergency (ER) | payer OTHER, SELFPAY ==
--- NOTE | 2021-12-08 18:39 | ECG_ITS ---
APPROVED REPORT Exam: Resting ECG HR:50 bpm ECG Measurements Heart Rate 50 AXES NV 106 P 38 QRSd 106 QRS 71 QT 434 T 67 QTc 406 Conclusion SINUS BRADYCARDIA WITH SHORT NV INTERVAL EARLY REPOLARIZATION [ST ELEVATION WITH NORMALLY INFLECTED T-WAVE] BORDERLINE ECG UNCONFIRMED REPORT Electronically signed by : Tim Horton MD 12/10/2021 14:32:38
[2021-12-08 18:43] VITALS: BP 112/71; PULSE 48; RESP 18; TEMP 36.9; O2SAT 99; BMI 20.3
--- NOTE | 2021-12-08 18:45 | XR_ITS ---
PROCEDURE INFORMATION: Exam: XR Chest Exam date and time: 12/08/2021 7:07 PM Age: 26 years old Clinical indication: Pain; Chest pressure; Additional info: Cp, covid TECHNIQUE: Imaging protocol: Radiologic exam of the chest. Views: 1 view. COMPARISON: CT ANGIO CHEST PE PROTOCOL 12/07/2021 10:24 AM FINDINGS: Lungs: Unremarkable. No consolidation. Pleural spaces: Unremarkable. No pleural effusion. No pneumothorax. Heart/Mediastinum: Unremarkable. No cardiomegaly. Bones/joints: Unremarkable. IMPRESSION: No acute findings.
--- NOTE | 2021-12-08 18:45 | HMH.EDCP ---
ED Disposition Clinical Impression: Pleuritic chest pain, Bronchitis, COVID Disposition: Home, Self-Care Condition on Discharge: Good Instructions: DI for Atypical Chest Pain, DI for COVID-19 (Suspected or Confirmed ) Additional Instructions: follow up PCP as needed, return for worse or any concerns Referrals: Carolina Ann APRN [Primary Care Provider] - - Critical Care Critical Care Time: No Attestation: On , the high probability of a clinically significant, sudden or life threatening deterioration of the following system(s) required my full and direct attention, intervention and personal management. The time I documented below is in addition to time spent performing reported procedures but includes the following listed in this critical care notation. Medical Decision Making - Medical Records Medical records reviewed: Yes: I reviewed the patient's medical records. - Unruly Inquiry Pt receiving controlled substance: No Vital Signs: 12/08/21 18:43 Temperature 98.4 F Temperature Source Oral Pulse Rate [Left Radial] 48 L Respiratory Rate 18 Blood Pressure [Right Arm] 112/71 Blood Pressure Mean [Right Arm] 84 Blood Pressure Source [Right Arm] Automatic Cuff Blood Pressure Position [Right Arm] Sitting 02 Sat by Pulse Oximetry 99 Oxygen Delivery Method Room Air - Lab Data Lab Results 12/08/21 18:46: WBC 4.4 L, RBC 5.04, Hgb 15.3, Hct 45.7, MCV 90.6, MCH 30.3, MCHC 33.4, RDW 13.3, Plt Count 175, MPV 8.7, Neut % (Auto) 50.5, Lymph % (Auto) 37.7, [place] % (Auto) 7.6, Eos % (Auto) 2.5, Baso % (Auto) 1.7, Neut # (Auto) 2.2, Lymph # (Auto) 1.6, [place] # (Auto) 0.3, Eos # (Auto) 0.1, Baso # (Auto) 0.1 12/08/21 18:46: D-Dimer 0.46 12/08/21 18:46: Sodium 142, Potassium 3.6, Chloride 104, Carbon Dioxide 28, Anion Gap 13.6, BUN 10, Creatinine 0.80, Estimated Creat Clear 135, Estimated GFR 117, Est GFR ( Amer) 141, Glucose 85, Calcium 9.7, Total Bilirubin 0.3, AST 41, ALT 22, Alkaline Phosphatase 68, Total Protein 7.6, Albumin 4.7, Globulin 2.9, Albumin/Globulin Ratio 1.6 Result diagrams: 12/08/21 18:46 12/08/21 18:46 Orders (Tests/Meds): ORDERS Category Date Time Status Chest XR -- portable [XR chest portable] Stat Exams 12/08/21 18:45 Taken Comprehensive Metabolic Panel Stat Lab 12/08/21 18:46 Results Troponin I Q3H Lab 12/08/21 21:45 Ordered Troponin I Q3H Lab 12/09/21 00:45 Ordered Troponin I Stat Lab 12/08/21 18:46 Results - ECG Data Tracing #1 I reviewed this ECG and interpreted as documented below: ekg by me sinus 50, early repol, no st elev Chest Pain HPI - General Stated Complaint: chest pain Time Seen by Provider: 12/08/21 18:45 - History of Present Illness HPI narrative: left sided cp with breathing since covid diag 1 week ago covid uri symptoms improved Duration: constant, intermittent Pain location: left chest Severity: moderate Quality: sharp Pain radiation: none Relieving factors: nothing Exacerbating factors: inspiration Context: recent illness - Related Data Home Medications Medication Instructions Recorded Confirmed Amitriptyline HCl [Elavil 10mg 10 mg PO DAILY 10/12/21 10/20/21 tablet] Famotidine [Pepcid 20mg Tablet] 20 mg PO DAILY 10/12/21 10/20/21 Omeprazole [Omeprazole 40mg 40 mg PO DAILY 10/12/21 10/20/21 Capsule] Azithromycin [Z-Kulwant 250mg Tab*] 250 mg PO UD DOSE PK 10/20/21 10/20/21 methylPREDNISolone [Medrol] 4 mg PO DIRECTED 10/20/21 10/20/21 Previous Rx's Medication Instructions Recorded methylPREDNISolone [Medrol] 4 mg PO DIRECTED 6 Days #21 11/01/21 packet vilazodone 20 mg tablet See Rx Instructions PO DAILY 30 11/29/21 Days #30 tab methylPREDNISolone [Medrol 4mg 4 mg PO DIRECTED #21 tab 12/03/21 tab] Allergies Allergy/AdvReac Type Severity Reaction Status Date / Time Sulfa (Sulfonamide Allergy Unknown Verified 11/01/21 12:56 Antibiotics) [SULFA (SULFONAMIDE ANTIBIOTICS)]
[2021-12-08 18:57] LABS: Basophils # 0.1 K/mm3 (0-0.2); Basophils % 1.7 % (0.1-2.0); Eosinophils # 0.1 K/mm3 (0.0-0.4); Eosinophils % 2.5 % (0.1-12.0); Hematocrit 45.7 % (42.0-52.0); Hemoglobin 15.3 g/dL (14.1-18.0); Lymphocytes # 1.6 K/mm3 (0.7-4.5); Lymphocytes % 37.7 % (10-50); Mean Corpuscular HGB Conc 33.4 g/dL (31.8-35.4); Mean Corpuscular Hemoglobin 30.3 pg (27.0-31.2); Mean Corpuscular Volume 90.6 fl (80-94); Mean Platelet Volume 8.7 fl (7.4-10.4); Monocytes # 0.3 K/mm3 (0.1-1.0); Monocytes % 7.6 % (1.7-9.3); Neutrophils # 2.2 K/mm3 (1.8-7.8); Neutrophils % 50.5 % (37.0-80.0); Platelet Count 175 K/mm3 (142-424); Red Blood Count 5.04 M/mm3 (4.60-6.20); Red Cell Distribution Width 13.3 % (11.5-17.5); White Blood Count 4.4 K/mm3 (4.8-10.8)
[2021-12-08 19:09] LABS: Alanine Aminotransferase 22 U/L (12-78); Albumin Level 4.7 g/dl (3.5-5.0); Albumin/Globulin Ratio 1.6 (1.1-1.8); Alkaline Phosphatase 68 U/L (38-126); Anion Gap 13.6 mEq/L (5-15); Aspartate Amino Transferase 41 U/L (17-59); Bilirubin,Total 0.3 mg/dl (0.2-1.3); Blood Urea Nitrogen 10 mg/dl (9-20); Calcium 9.7 mg/dl (8.4-10.2); Carbon Dioxide 28 mmol/L (22.0-30.0); Chloride 104 mmol/L (98-107); Creatinine Clearance Estimated 135 mL/min (50-200); Estimated Glomerular Filt Rate 117 ml/min (>60); GFR (African American) 141 ML/MIN (>60); Globulin 2.9 g/dL (1.3-3.2); Glucose 85 mg/dl (74-100); Potassium 3.6 mmoL/L (3.5-5.1); Sodium 142 mmol/L (136-145); Total Protein,Serum 7.6 g/dl (6.3-8.2)
[2021-12-08 19:13] LABS: D-Dimer 0.46 ug/mL (0.0-0.5)
[2021-12-08 19:23] LABS: Troponin I < 0.01 ng/ml (0.00-0.034)
[2021-12-08 19:37] VITALS: BP 110/74; PULSE 51; RESP 18; TEMP 36.9; O2SAT 99
== END 2021-12-08 19:38 | disposition home or self-care (01) ==
PROVIDERS: Emergency Provider Emergency Medicine; PCP Nurse Practitioner Family
DX: U07.1 COVID-19 (principal); R07.81 Pleurodynia; J40 Bronchitis, not specified as acute or chronic; F17.210 Nicotine dependence, cigarettes, uncomplicated
CPT/HCPCS: 71045; 80053; 84484; 85025; 85378; 93005; 99283

== ENCOUNTER 2021-12-31 19:20 | Emergency (ER) | payer OTHER, SELFPAY ==
[2021-12-31 19:22] VITALS: BP 140/75; PULSE 52; RESP 14; TEMP 36.8; O2SAT 100; BMI 20.3
--- NOTE | 2021-12-31 19:30 | HMH.EDGENADL ---
Discharge Plan Disposition Patient Disposition: Home, Self-Care Condition: Good Chief Complaint: Abdominal Pain Prescriptions Prescriptions: No Action vilazodone [Viibryd] 20 mg tablet 20 mg PO DAILY Label Comments: TAKE 1/2 (ONE-HALF) TABLET BY MOUTH ONCE DAILY FOR 8 DAYS AND THEN INCREASE TO 1 TABLET ONCE DAILY WITH FOOD Referrals Follow up/Referrals: Provider,MD Lance [Primary Care Provider] - See instructions Clinical Impressions Clinical Impression: Abdominal pain, chronic, bilateral lower quadrant Instructions Patient Instructions: DI for Acute Abdominal Pain, DI for Chronic Pain -- Adult Print Language Print Language: Thai Discharge ED Provider: Brennon Calderon General Adult HPI General Chief complaint: Abdominal Pain Stated complaint: Abdominal pain,fever,nausea Time Seen by Provider: 12/31/21 19:54 Mode of Arrival: Ambulatory History of Present Illness HPI narrative: 26-year-old male, history of abdominal pain chronically for which he has been previously evaluated including having a colonoscopy. He presents back with similar discomfort that he describes as intermittent lasting less than a minute but recurring frequently. He denies fevers, chills, nausea, vomiting, diarrhea, has not pursued any other treatments recently or acutely for this issue. No prior abdominal surgical history. He denies any dysuria, flank pain or other symptoms Related Data Home Medications Medication Instructions Recorded Confirmed vilazodone 20 mg tablet (Viibryd) 20 mg PO DAILY Anxiety 12/31/21 12/31/21 Allergies Allergy/AdvReac Type Severity Reaction Status Date / Time Sulfa (Sulfonamide Allergy Unknown Verified 11/01/21 12:56 Antibiotics) [SULFA (SULFONAMIDE ANTIBIOTICS)] PFSH PFS Social History Smoking Status: Current every day smoker tobacco type: cigarettes packs per day: 1 second hand exposure: No alcohol intake: never substance use type: marijuana current occupational status: employed Travel in the last 8 weeks: None household members: spouse housing: house number of children: 1 current occupation: [employer] current occupational exposures/hazards: No caffeine: Yes ROS Obtained: Yes Systems reviewed as appropriate & no additional complaints except as documented Constitutional Constitutional: Reports system reviewed and no additional complaints, except as documented Eyes Eyes: Reports system reviewed and no additional complaints, except as documented ENT Ears, Nose, Mouth, and Throat: Reports system reviewed and no additional complaints, except as documented Cardiovascular Cardiovascular: Reports system reviewed and no additional complaints, except as documented Respiratory Respiratory: Reports system reviewed and no additional complaints, except as documented Gastrointestinal Gastrointestingal: Reports abdominal pain, nausea and vomiting Genitourinary Male Genitourinary: Reports system reviewed and no additional complaints, except as documented Musculoskeletal Musculoskeletal: Reports system reviewed and no additional complaints, except as documented Integumentary/Breasts Skin/Breast: Reports system reviewed and no additional complaints, except as documented Neurologic Neurologic: Reports system reviewed and no additional complaints, except as documented Physical Exam General General appearance: alert and in no apparent distress Head Head exam: atraumatic, normocephalic and normal inspection Eye Eye exam: Present normal appearance, PERRL and EOMI ENT ENT exam: Present normal exam, normal oropharynx, mucous membranes moist, TM's normal bilaterally and normal external ear exam Neck Neck exam: Present normal inspection, full ROM and trachea midline; Absent meningismus or lymphadenopathy Chest Chest inspection: Present normal inspection and symmetric chest wall rise; Absent tenderness R
[2021-12-31 20:05] LABS: Basophils # 0.1 K/mm3 (0-0.2); Eosinophils # 0.2 K/mm3 (0.0-0.4); Eosinophils % 2.1 % (0.1-12.0); Hematocrit 43.4 % (42.0-52.0); Hemoglobin 14.5 g/dL (14.1-18.0); Lymphocytes # 1.8 K/mm3 (0.7-4.5); Lymphocytes % 20.3 % (10-50); Mean Corpuscular HGB Conc 33.4 g/dL (31.8-35.4); Mean Corpuscular Hemoglobin 30.6 pg (27.0-31.2); Mean Corpuscular Volume 91.6 fl (80-94); Mean Platelet Volume 9.3 fl (7.4-10.4); Monocytes # 0.7 K/mm3 (0.1-1.0); Monocytes % 7.6 % (1.7-9.3); Platelet Count 193 K/mm3 (142-424); Red Blood Count 4.74 M/mm3 (4.60-6.20); White Blood Count 8.6 K/mm3 (4.8-10.8)
[2021-12-31 20:12] LABS: Alanine Aminotransferase 17 U/L (12-78); Albumin Level 4.5 g/dl (3.5-5.0); Albumin/Globulin Ratio 1.8 (1.1-1.8); Alkaline Phosphatase 61 U/L (38-126); Anion Gap 11.6 mEq/L (5-15); Aspartate Amino Transferase 25 U/L (17-59); Blood Urea Nitrogen 11 mg/dl (9-20); Calcium 9.5 mg/dl (8.4-10.2); Carbon Dioxide 25 mmol/L (22.0-30.0); Chloride 108 mmol/L (98-107); Creatinine Clearance Estimated 180 mL/min (50-200); Estimated Glomerular Filt Rate 163 ml/min (>60); GFR (African American) 197 ML/MIN (>60); Globulin 2.5 g/dL (1.3-3.2); Glucose 94 mg/dl (74-100); Lipase 59 U/L (23-300); Potassium 3.6 mmoL/L (3.5-5.1); Sodium 141 mmol/L (136-145)
[2021-12-31 20:14] LABS: Bilirubin,Total 0.1 mg/dl (0.2-1.3)
[2021-12-31 20:27] VITALS: BP 130/70; PULSE 65; RESP 16; TEMP 36.7; O2SAT 100
== END 2021-12-31 20:31 | disposition home or self-care (01) ==
PROVIDERS: Emergency Provider Emergency Medicine
DX: R10.31 Right lower quadrant pain (principal); R10.32 Left lower quadrant pain; G89.29 Other chronic pain; Z88.2 Allergy status to sulfonamides; Z79.899 Other long term (current) drug therapy; F41.9 Anxiety disorder, unspecified; Z72.0 Tobacco use
CPT/HCPCS: 80053; 83690; 85025; 99283

== ENCOUNTER 2022-01-08 18:18 | Emergency (ER) | payer OTHER, SELFPAY ==
[2022-01-08 19:10] VITALS: BP 134/73; PULSE 61; RESP 18; TEMP 36.9; O2SAT 100; BMI 20.3
--- NOTE | 2022-01-08 19:25 | PC.NURSE ---
unable to give a urine at this time
--- NOTE | 2022-01-08 20:33 | HMH.EDGENADL ---
Discharge Plan Disposition Patient Disposition: Home, Self-Care Condition: Good Prescriptions Prescriptions: New dicyclomine 20 mg tablet 20 mg PO TID PRN (Reason: cramps) Qty: 12 0RF ondansetron 4 mg tablet,disintegrating 4 mg PO Q6H PRN (Reason: nausea and vomiting) Qty: 12 0RF No Action vilazodone [Viibryd] 20 mg tablet 20 mg PO DAILY Label Comments: TAKE 1/2 (ONE-HALF) TABLET BY MOUTH ONCE DAILY FOR 8 DAYS AND THEN INCREASE TO 1 TABLET ONCE DAILY WITH FOOD Referrals Follow up/Referrals: Juan Baker MD [Primary Care Provider] - See instructions Activity Restrictions/Add. Instructions Additional Instructions/Restrictions: You have been evaluated for abdominal pain. Please continue to monitor your symptoms closely. Take Bentyl for cramps. Zofran for nausea. Follow-up with your primary care doctor and your primary GI doctor. Return to the emergency department at once if your abdominal pain returns or if you have any new or worsening symptoms, fevers, vomiting, diarrhea, other concerns. Clinical Impressions Clinical Impression: Abdominal pain Instructions Patient Instructions: DI for Acute Abdominal Pain Discharge ED Provider: Sariah Porras Adult [facility] General Chief complaint: Abdominal Pain Stated complaint: ADM PAIN lower right side Time Seen by Provider: 01/08/22 20:10 Mode of Arrival: Ambulatory Source of Information: Patient Limitations: No Limitations Description of Symptoms (Recalled from ER Triage Doc. by RN): c/o lower right abdomen pain for 2 weeks with off and on nausea. Has been seen here last week for this issue and then fu with his pcp on Friday which started him on gerd medicine but has not helped his issues. He has been having dark urine. Has noticed that his pain increases with eating History of Present Illness HPI narrative: 26-year-old male presenting to the emergency department with abdominal pain. Initially started a couple of weeks ago, but has not gotten any better. Today it is actually worse. It is now located on the right side of the abdomen, radiates slightly toward his low back. Feels like an aching, cramping pain. No fevers, chills, nausea, vomiting, constipation, diarrhea. His stool has been somewhat light in color. No blood in the urine. No known injuries. He has had pain like this before, had a colonoscopy. Was told he had inflammation, but was not told of a formal diagnosis. He does not follow a particular diet. No medications prior to arrival. Related Data Home Medications Medication Instructions Recorded Confirmed vilazodone 20 mg tablet (Viibryd) 20 mg PO DAILY Anxiety 12/31/21 12/31/21 Previous Rx's Medication Instructions Recorded dicyclomine 20 mg tablet 20 mg PO TID PRN cramps #12 tabs 01/08/22 ondansetron 4 mg disintegrating 4 mg PO Q6H PRN nausea and 01/08/22 tablet vomiting #12 tabs Allergies Allergy/AdvReac Type Severity Reaction Status Date / Time Sulfa (Sulfonamide Allergy Unknown Verified 11/01/21 12:56 Antibiotics) [SULFA (SULFONAMIDE ANTIBIOTICS)] [facility] Social History Smoking Status: Current every day smoker tobacco type: cigarettes packs per day: 1 second hand exposure: No alcohol intake: never substance use type: marijuana current occupational status: employed Travel in the last 8 weeks: None household members: spouse housing: house number of children: 1 current occupation: [employer] current occupational exposures/hazards: No caffeine: Yes ROS Obtained: Yes All systems reviewed & no additional complaints except as documented Constitutional Constitutional: Denies anorexia, Denies chills, Denies fever(s) and Denies headache(s) ENT Ears, Nose, Mouth, and Throat: Denies dizziness and Denies headache(s) Cardiovascular Cardiovascular: Denies chest pain and Denies palpitations Respiratory Respiratory:
[2022-01-08 20:51] LABS: Basophils # 0.2 K/mm3 (0-0.2); Eosinophils # 0.2 K/mm3 (0.0-0.4); Eosinophils % 2.7 % (0.1-12.0); Hemoglobin 15.6 g/dL (14.1-18.0); Lymphocytes % 24.2 % (10-50); Mean Corpuscular HGB Conc 35.4 g/dL (31.8-35.4); Mean Corpuscular Hemoglobin 31.5 pg (27.0-31.2); Mean Platelet Volume 8.7 fl (7.4-10.4); Monocytes # 0.5 K/mm3 (0.1-1.0); Monocytes % 6.1 % (1.7-9.3); Neutrophils # 5.3 K/mm3 (1.8-7.8); Platelet Count 224 K/mm3 (142-424); Red Blood Count 4.95 M/mm3 (4.60-6.20); White Blood Count 8.1 K/mm3 (4.8-10.8)
[2022-01-08 21:07] LABS: Alanine Aminotransferase 16 U/L (12-78); Albumin Level 4.8 g/dl (3.5-5.0); Albumin/Globulin Ratio 1.9 (1.1-1.8); Alkaline Phosphatase 72 U/L (38-126); Anion Gap 15.6 mEq/L (5-15); Aspartate Amino Transferase 29 U/L (17-59); Bilirubin,Total 0.5 mg/dl (0.2-1.3); Blood Urea Nitrogen 8 mg/dl (9-20); Calcium 9.4 mg/dl (8.4-10.2); Carbon Dioxide 29 mmol/L (22.0-30.0); Chloride 102 mmol/L (98-107); Creatinine Clearance Estimated 154 mL/min (50-200); Estimated Glomerular Filt Rate 136 ml/min (>60); GFR (African American) 165 ML/MIN (>60); Globulin 2.5 g/dL (1.3-3.2); Glucose 86 mg/dl (74-100); Lipase 49 U/L (23-300); Potassium 3.6 mmoL/L (3.5-5.1); Sodium 143 mmol/L (136-145); Total Protein,Serum 7.3 g/dl (6.3-8.2)
[2022-01-08 21:17] LABS: C-Reactive Protein < 0.3 mg/L (0-4)
[2022-01-08 22:29] VITALS: BP 114/70; PULSE 49; RESP 14; TEMP 36.7; O2SAT 100
== END 2022-01-08 22:35 | disposition home or self-care (01) ==
PROVIDERS: Emergency Provider Emergency Medicine; PCP Internal Medicine Adolescent Medicine
DX: R10.31 Right lower quadrant pain (principal); R11.0 Nausea
CPT/HCPCS: 80053; 83690; 85025; 86140; 96374; 99284

== ENCOUNTER 2022-01-17 18:34 | Emergency (ER) | payer OTHER, SELFPAY ==
--- NOTE | 2022-01-17 18:30 | ECG_ITS ---
APPROVED REPORT Exam: Resting ECG HR:57 bpm ECG Measurements Heart Rate 57 AXES NC 157 P 84 QRSd 102 QRS 81 QT 427 T 70 QTc 421 Conclusion SINUS BRADYCARDIA BORDERLINE ECG UNCONFIRMED REPORT Electronically signed by : Tim Horton MD 01/19/2022 06:58:02
[2022-01-17 18:34] VITALS: BP 133/71; PULSE 66; RESP 17; TEMP 36.9; O2SAT 100; BMI 20.9
--- NOTE | 2022-01-17 19:24 | HMH.EDGENADL ---
Discharge Plan Disposition Patient Disposition: Home, Self-Care Condition: Good Prescriptions Prescriptions: No Action vilazodone [Viibryd] 10 mg tablet 10 mg PO DAILY Qty: 30 2RF Rx Instructions: must administer with a meal/food dicyclomine 20 mg tablet 20 mg PO TID PRN (Reason: cramps) Qty: 12 0RF ondansetron 4 mg tablet,disintegrating 4 mg PO Q6H PRN (Reason: nausea and vomiting) Qty: 12 0RF Referrals Follow up/Referrals: Provider,Referral, MD [Primary Care Provider] - See instructions Activity Restrictions/Add. Instructions Additional Instructions/Restrictions: Additional instructions for CHEST PAIN: See your physician as soon as possible for further evaluation. Call Dr. Guo for appointment. Return immediately if worsening chest pain, vomiting, shortness of breath, fever, coughing of blood. Clinical Impressions Clinical Impression: Chest pain Discharge ED Provider: Jose Cooley General Adult HPI General Chief complaint: Chest Pain Stated complaint: Chest Pain Time Seen by Provider: 01/17/22 19:24 Mode of Arrival: Ambulatory Source of Information: Patient Limitations: No Limitations Description of Symptoms (Recalled from ER Triage Doc. by RN): c/o center chest pain that started while mowing, radiating into his jaw with soa and nausea for 2 months. History of Present Illness HPI narrative: Patient states that he had an episode of chest pain today while mowing the yard. States it was a sharp pain in his left anterior chest that went into his left shoulder, neck and jaw. Associated with nausea and lightheadedness. States that he thinks his anxiety kicked in and made him a little short of breath. Symptoms only lasted for 2 minutes or less. Symptoms now resolved. He has a prior history of chest pains and palpitations. States that he sees Dr. Guo in [place] and has been referred to a specialist in [place] because he had a heart monitor test that showed his heart rate dropping into the 30s. Otherwise he has no known heart problems. He does not have diabetes, hypertension, or hyperlipidemia. He is a smoker. He has a family history of stroke in his father. Related Data Previous Rx's Medication Instructions Recorded dicyclomine 20 mg tablet 20 mg PO TID PRN cramps #12 tabs 01/08/22 ondansetron 4 mg disintegrating 4 mg PO Q6H PRN nausea and 01/08/22 tablet vomiting #12 tabs vilazodone 10 mg tablet (Viibryd) 10 mg PO DAILY #30 tabs 01/11/22 Allergies Allergy/AdvReac Type Severity Reaction Status Date / Time Sulfa (Sulfonamide Allergy Unknown Verified 01/11/22 14:37 Antibiotics) [SULFA (SULFONAMIDE ANTIBIOTICS)] [facility] 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 (Updated 01/17/22 @ 19:52 by Jose Cooley MD) Generalized anxiety disorder Social History Smoking Status: Current every day smoker tobacco type: cigarettes packs per day: 1 second hand exposure: No alcohol intake: never substance use type: marijuana current occupational status: employed Travel in the last 8 weeks: None household members: spouse housing: house number of children: 1 current occupation: [employer] current occupational exposures/hazards: No caffeine: Yes ROS Obtained: Yes Systems reviewed as appropriate & no additional complaints except as documented Constitutional Constitutional: Denies fever(s), Denies headache(s) and Denies weakness ENT Ears, Nose, Mouth, and Throat: Denies headache(s), Denies nasal discharge and Denies sore throat Cardiovascular Cardiovascular: Reports chest pain, Denies diaphoresis and Reports radiating jaw, neck or arm pain Respiratory Respiratory: Reports shortness of breath and Denies cough Gastrointestinal Gastrointestingal: Reports nausea; Denies abdominal pain, constipation, diarrhea or vomiting Genitourinary Male Genitourinary: Denies difficulty urinating and Denies flank pain Musculoskel
--- NOTE | 2022-01-17 19:26 | XR_ITS ---
PROCEDURE INFORMATION: Exam: XR Chest Exam date and time: 01/17/2022 7:27 PM Age: 26 years old Clinical indication: Sternal or substernal pain; Patient HX: Frequent episodes of chest pain TECHNIQUE: Imaging protocol: Radiologic exam of the chest. Views: 2 views. COMPARISON: CR XR CHEST PORTABLE 12/08/2021 7:07 PM FINDINGS: Lungs: Unremarkable. No consolidation. Pleural spaces: Unremarkable. No pleural effusion. No pneumothorax. Heart/Mediastinum: Unremarkable. No cardiomegaly. Bones/joints: Unremarkable. IMPRESSION: No acute findings.
[2022-01-17 19:35] LABS: Basophils # 0.1 K/mm3 (0-0.2); Basophils % 1.5 % (0.1-2.0); Eosinophils # 0.2 K/mm3 (0.0-0.4); Eosinophils % 1.8 % (0.1-12.0); Hematocrit 41.5 % (42.0-52.0); Hemoglobin 14.6 g/dL (14.1-18.0); Lymphocytes # 2.4 K/mm3 (0.7-4.5); Mean Corpuscular Hemoglobin 31.5 pg (27.0-31.2); Mean Corpuscular Volume 89.9 fl (80-94); Monocytes # 0.6 K/mm3 (0.1-1.0); Monocytes % 7.1 % (1.7-9.3); Neutrophils # 5.6 K/mm3 (1.8-7.8); Neutrophils % 62.7 % (37.0-80.0); Platelet Count 250 K/mm3 (142-424); Red Blood Count 4.62 M/mm3 (4.60-6.20); Red Cell Distribution Width 13.9 % (11.5-17.5); White Blood Count 8.9 K/mm3 (4.8-10.8)
[2022-01-17 19:37] LABS: Chloride 105 mmol/L (98-107); Potassium 3.4 mmoL/L (3.5-5.1); Sodium 143 mmol/L (136-145)
[2022-01-17 19:40] LABS: Anion Gap 15.4 mEq/L (5-15); Blood Urea Nitrogen 10 mg/dl (9-20); Calcium 9.1 mg/dl (8.4-10.2); Carbon Dioxide 26 mmol/L (22.0-30.0); Creatinine Clearance Estimated 135 mL/min (50-200); Estimated Glomerular Filt Rate 117 ml/min (>60); GFR (African American) 141 ML/MIN (>60); Glucose 74 mg/dl (74-100)
[2022-01-17 20:08] LABS: Troponin I < 0.01 ng/ml (0.00-0.034)
[2022-01-17 21:24] VITALS: BP 124/75; PULSE 64; RESP 16; TEMP 36.9; O2SAT 100
== END 2022-01-17 21:27 | disposition home or self-care (01) ==
PROVIDERS: Emergency Provider Emergency Medicine
DX: R07.9 Chest pain, unspecified (principal); Z79.899 Other long term (current) drug therapy; Z88.2 Allergy status to sulfonamides; Z72.0 Tobacco use; F41.1 Generalized anxiety disorder
CPT/HCPCS: 71046; 80048; 84484; 85025; 93005; 99284

== ENCOUNTER → 2022-02-07 10:40 | Outpatient (CLI) | payer OTHER, SELFPAY ==
--- NOTE | 2022-02-07 10:44 | NM_ITS ---
FINAL REPORT CLINICAL HISTORY: CRISTINA RESENDIZ,OMIDPEPSIA 11:05 am 7.97 mci Tc choletec 12:10 pm 1.4 mcg of cck injected into lt ant no pain during cck neg u/s gb from 10/04/21 FINDINGS: HEPATOBILIARY SCAN WITH CCK INJECTION Following intravenous administration of approximately 7.97 of technetium Choletec, multiple scintigraphic images were obtained. The hepatic parenchymal phase shows homogeneous distribution of the tracer throughout the liver. Prompt appearance of tracer is noted in the intrahepatic and extrahepatic biliary systems. The gallbladder visualizes normal. Biliary to bowel transit is within normal limits. Following 1.4 mcg intravenous CCK injection, gallbladder ejection fraction is estimated to be 95 %. IMPRESSION: Normal gallbladder ejection fraction of 95 %. Reviewed, Interpreted and Dictated by Edgar Mckeon MD Transcribed by Poli Sheikh Authenticated and [facility]
== END ==
PROVIDERS: PCP Nurse Practitioner Family; Visit Provider Nurse Practitioner Family
DX: R10.11 Right upper quadrant pain (principal); R10.13 Epigastric pain
CPT/HCPCS: 78227; A9537; J2805

== ENCOUNTER 2022-02-22 11:21 | Emergency (ER) | payer OTHER, SELFPAY ==
--- NOTE | 2022-02-22 11:45 | EXP.UTC ---
Discharge Plan Disposition Patient Disposition: Still a Patient Condition: Fair Prescriptions Prescriptions: No Action paroxetine HCl [Paxil] 20 mg tablet See Rx Instructions PO DAILY Qty: 30 0RF Rx Instructions: take 1/2 tablet for 2 weeks; then increase to 1 whole tablet daily PO daily; dicyclomine 20 mg tablet 20 mg PO TID PRN (Reason: cramps) Qty: 12 0RF ondansetron 4 mg tablet,disintegrating 4 mg PO Q6H PRN (Reason: nausea and vomiting) Qty: 12 0RF Referrals Follow up/Referrals: Tim Horton MD [Primary Care Provider] - See instructions Discharge ED Provider: Arcadio Dickerson [facility] [place] HPI General Stated complaint: right side abdominal pain Time Seen by Provider: 02/22/22 11:45 History of Present Illness Provider Complaint: Patient states that he had a little nausea that started about 12 hrs ago States that he woke up in the middle of the night with bad pain in his right side of abdomen around navel area States that anytime he would move or jar his body it would make pain in his abdomen worse State that lifting his leg to put on his pants made his abdomen hurt worse so he came in when the pain continued to get worse Rates pain 01/05 Related Data Previous Rx's Medication Instructions Recorded dicyclomine 20 mg tablet 20 mg PO TID PRN cramps #12 tabs 01/08/22 ondansetron 4 mg disintegrating 4 mg PO Q6H PRN nausea and 01/08/22 tablet vomiting #12 tabs paroxetine HCl 20 mg tablet (Paxil) See Rx Instructions PO DAILY #30 01/18/22 tabs Allergies Allergy/AdvReac Type Severity Reaction Status Date / Time Sulfa (Sulfonamide Allergy Unknown Verified 02/22/22 11:52 Antibiotics) [SULFA (SULFONAMIDE ANTIBIOTICS)] [facility] 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 (Updated 01/17/22 @ 19:52 by Jose Cooley MD) Generalized anxiety disorder Social History Smoking Status: Current every day smoker tobacco type: cigarettes packs per day: 1 second hand exposure: No alcohol intake: never substance use type: marijuana current occupational status: employed Travel in the last 8 weeks: None household members: spouse housing: house number of children: 1 current occupation: [employer] current occupational exposures/hazards: No caffeine: Yes ROS Obtained: Yes All systems reviewed & no additional complaints except as documented and Yes Systems reviewed as appropriate & no additional complaints except as documented Constitutional Constitutional: Reports system reviewed and no additional complaints, except as documented, Reports as per HPI and Denies fever(s) ENT Ears, Nose, Mouth, and Throat: Reports system reviewed and no additional complaints, except as documented and Reports as per HPI Cardiovascular Cardiovascular: Reports system reviewed and no additional complaints, except as documented and Reports as per HPI Respiratory Respiratory: Reports system reviewed and no additional complaints, except as documented and Reports as per HPI Gastrointestinal Gastrointestingal: Reports system reviewed and no additional complaints, except as documented, as per HPI, abdominal pain and nausea; Denies diarrhea or vomiting Physical Exam General General appearance: alert and in no apparent distress Respiratory Respiratory exam: Present normal lung sounds bilaterally; Absent respiratory distress or wheezes Cardiovascular Cardiovascular exam: Present regular rate, normal rhythm and normal heart sounds Abdominal Exam Abdominal exam: Present tenderness and guarding Abdominal tenderness: Present moderate Comment: Reports tenderness with palation in umbilical area and slightly to the right worse with walking or raising right leg Neurological Exam Neurological exam: Present alert and oriented X3 Medical Decision Making Unruly Inquiry Pt receiving controlled substance: No Unruly was queried for this patient: No Medical Decision Narrative: Ahmet
[2022-02-22 11:47] VITALS: BP 107/70; PULSE 72; RESP 19; TEMP 36.8; O2SAT 98; BMI 20.2
[2022-02-22 11:52] VITALS: BP 113/60; PULSE 72; RESP 18; TEMP 36.8; O2SAT 100; BMI 17.4
--- NOTE | 2022-02-22 11:52 | PC.NURSE ---
DR. REEDER AT BEDSIDE FOR EVALUATION
--- NOTE | 2022-02-22 11:55 | CT_ITS ---
FINAL REPORT CLINICAL HISTORY: acute RLQ pain COMPARISON: August 2021 FINDINGS: CT OF THE ABDOMEN AND PELVIS WITH CONTRAST Axial CT images of the abdomen and pelvis were obtained after the administration of intravenous contrast. Coronal reformatted images were also obtained and reviewed.This study was performed with techniques to keep radiation doses as low as reasonably achievable (ALARA). Individualized dose reduction techniques using automated exposure control or adjustment of mA and/or kV according to the patient's size were employed. Abdomen: The lung bases are clear. The heart is normal in size. The liver has an unremarkable appearance, without evidence of mass or biliary ductal dilatation. The gallbladder is present. The spleen is unremarkable. No adrenal mass is present. The pancreas has an unremarkable appearance. There is a less than 1 cm probable cyst in the lateral right kidney. The aorta is normal in caliber. There is no free fluid or adenopathy. No mass or abnormal fluid collection is seen. Pelvis: The appendix is at the upper limits of normal in size at 6 mm without adjacent inflammatory change. There is no convincing evidence of appendicitis. Mild bladder wall thickening may be inflammatory. No inflammatory process is seen. There is no evidence of mass or adenopathy. There is no evidence of bowel obstruction. There is a moderate amount of retained stool. IMPRESSION: No evidence of acute intra-abdominal process. Moderate retained stool. Reviewed, Interpreted and Dictated by Silvano Monroe III, MD Transcribed by Poli Sheikh Authenticated and [facility]
--- NOTE | 2022-02-22 11:58 | HMH.EDGENADL ---
Discharge Plan Disposition Patient Disposition: Home, Self-Care Condition: Fair Prescriptions Prescriptions: No Action paroxetine HCl [Paxil] 20 mg tablet See Rx Instructions PO DAILY Qty: 30 0RF Rx Instructions: take 1/2 tablet for 2 weeks; then increase to 1 whole tablet daily PO daily; dicyclomine 20 mg tablet 20 mg PO TID PRN (Reason: cramps) Qty: 12 0RF ondansetron 4 mg tablet,disintegrating 4 mg PO Q6H PRN (Reason: nausea and vomiting) Qty: 12 0RF Referrals Follow up/Referrals: Tim Horton MD [Primary Care Provider] - See instructions Activity Restrictions/Add. Instructions Additional Instructions/Restrictions: At this point it was felt you are safe to be discharged home. If new or worsening symptoms please do not hesitate to return to the emergency department for continued evaluation. Clinical Impressions Clinical Impression: Abdominal pain Instructions Patient Instructions: DI for Acute Abdominal Pain Discharge ED Provider: Arcadio Dickerson General Adult HPI General Chief complaint: Abdominal Pain Stated complaint: right side abdominal pain Time Seen by Provider: 02/22/22 11:45 Mode of Arrival: Ambulatory Source of Information: Patient Limitations: No Limitations Description of Symptoms (Recalled from ER Triage Doc. by RN): pt comes in with c/o right lower abdominal pain with nausea. pt states he woke up in a cold swear, severe pain and tender to the touch History of Present Illness HPI narrative: Patient is a 26-year-old male with no past medical history presents emergency department for evaluation of abdominal pain. Onset was acute, occurring in the middle of the night last night. Severe right lower quadrant abdominal pain that is persistent, worse with moving his leg, worse with movement in general. No vomiting however associated nausea. No dysuria. No other acute complaints at this time. Related Data Previous Rx's Medication Instructions Recorded dicyclomine 20 mg tablet 20 mg PO TID PRN cramps #12 tabs 01/08/22 ondansetron 4 mg disintegrating 4 mg PO Q6H PRN nausea and 01/08/22 tablet vomiting #12 tabs paroxetine HCl 20 mg tablet (Paxil) See Rx Instructions PO DAILY #30 01/18/22 tabs Allergies Allergy/AdvReac Type Severity Reaction Status Date / Time Sulfa (Sulfonamide Allergy Unknown Verified 10/28/22 11:52 Antibiotics) [SULFA (SULFONAMIDE ANTIBIOTICS)] [facility] 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 (Updated 02/22/22 @ 14:31 by Arcadio Dickerson MD) Generalized anxiety disorder Family History (Updated 02/22/22 @ 14:29 by Bernadette Snyder, EVA) Other No significant family history Social History Smoking Status: Never smoker second hand exposure: No alcohol intake: never substance use type: marijuana current occupational status: employed Travel in the last 8 weeks: None household members: spouse housing: house number of children: 1 current occupation: [employer] current occupational exposures/hazards: No caffeine: Yes ROS Obtained: Yes Systems reviewed as appropriate & no additional complaints except as documented Physical Exam General General appearance: alert and other (Appearing in pain) Head Head exam: atraumatic and normocephalic Eye Eye exam: Present PERRL and EOMI ENT ENT exam: Present mucous membranes moist Neck Neck exam: Present normal inspection Chest Chest inspection: Present normal inspection and symmetric chest wall rise Respiratory Respiratory exam: Present normal lung sounds bilaterally; Absent respiratory distress Cardiovascular Cardiovascular exam: Present regular rate and normal rhythm Abdominal Exam Abdominal exam: Present soft and tenderness (moderate, bilateral lower quadrants) Extremities Exam Extremities exam: Present normal inspection Neurological Exam Neurological exam: Present alert and oriented X3 Psychiatric Psychiatric ex
--- NOTE | 2022-02-22 12:11 | PC.NURSE ---
PT REQUEST NO PAIN MEDS OR NAUSEA MEDS AT THIS TIME
[2022-02-22 12:21] VITALS: BP 111/64; PULSE 58; RESP 20; O2SAT 100
--- NOTE | 2022-02-22 12:24 | PC.NURSE ---
PT TO CT AT THIS TIME
[2022-02-22 12:25] LABS: Chloride 105 mmol/L (98-107); Potassium 3.8 mmoL/L (3.5-5.1); Sodium 142 mmol/L (136-145)
[2022-02-22 12:28] LABS: Alanine Aminotransferase 17 U/L (12-78); Albumin Level 4.7 g/dl (3.5-5.0); Alkaline Phosphatase 67 U/L (38-126); Anion Gap 12.8 mEq/L (5-15); Aspartate Amino Transferase 33 U/L (17-59); Bilirubin,Total 0.4 mg/dl (0.2-1.3); Blood Urea Nitrogen 8 mg/dl (9-20); Calcium 9.8 mg/dl (8.4-10.2); Carbon Dioxide 28 mmol/L (22.0-30.0); Creatinine Clearance Estimated 97 mL/min (50-200); Estimated Glomerular Filt Rate 136 ml/min (>60); GFR (African American) 165 ML/MIN (>60); Globulin 2.3 g/dL (1.3-3.2); Glucose 106 mg/dl (74-100); Lipase 31 U/L (23-300)
[2022-02-22 12:29] LABS: Basophils # 0.1 K/mm3 (0-0.2); Basophils % 1.4 % (0.1-2.0); Eosinophils # 0.4 K/mm3 (0.0-0.4); Eosinophils % 4.4 % (0.1-12.0); Hematocrit 45.3 % (42.0-52.0); Hemoglobin 15.6 g/dL (14.1-18.0); Lymphocytes # 1.2 K/mm3 (0.7-4.5); Lymphocytes % 13.5 % (10-50); Mean Corpuscular HGB Conc 34.3 g/dL (31.8-35.4); Mean Corpuscular Hemoglobin 30.4 pg (27.0-31.2); Mean Corpuscular Volume 88.7 fl (80-94); Monocytes # 0.5 K/mm3 (0.1-1.0); Monocytes % 5.9 % (1.7-9.3); Neutrophils # 6.6 K/mm3 (1.8-7.8); Platelet Count 242 K/mm3 (142-424); Red Blood Count 5.11 M/mm3 (4.60-6.20); Red Cell Distribution Width 13.5 % (11.5-17.5); White Blood Count 8.8 K/mm3 (4.8-10.8)
--- NOTE | 2022-02-22 12:32 | PC.NURSE ---
PT RETURNED FROM CT
--- NOTE | 2022-02-22 14:05 | PC.NURSE ---
ROUNDED ON PT, UPDATED ON POC. NO NEEDS AT THIS TIME
--- NOTE | 2022-02-22 14:13 | PC.NURSE ---
PT TO BR, UA COLLECTED AND SENT TO LAB
[2022-02-22 14:16] LABS: Microscopic, Urine URINE MICROSCOPIC (MICROSCOPIC)
[2022-02-22 14:18] LABS: Appearance,Urine CLEAR (Clear); Bilirubin,Urine Negative (Negative); Blood, Urine Negative (Negative); Color,Urine YELLOW (Yellow); Glucose,Urine (UA) Negative (Negative); Ketones,Urine Negative (Negative); Leukocyte Esterase,Urine Negative (Negative); Nitrate,Urine Negative (Negative); PH,Urine 7.5 (5.0-8.5); Protein,Urine Negative (Negative); Urobilinogen,Urine 0.2 EU/dl (0.2)
--- NOTE | 2022-02-22 14:24 | PC.NURSE ---
ED MD AT BEDSIDE TO REEVALUATE PT
[2022-02-22 14:31] LABS: Squamous Epithelial Cell,Urine Occasional #/hpf (0-5); WBC,Urine Occasional #/hpf (0-3)
--- NOTE | 2022-02-22 14:31 | PC.NURSE ---
PO FLUIDS GIVEN AT THIS TIME
[2022-02-22 14:55] LABS: Lactic Acid 0.8 mmol/L (0.7-2.1)
[2022-02-22 15:15] VITALS: BP 120/76; PULSE 60; RESP 20; TEMP 36.7; O2SAT 100
== END 2022-02-22 15:15 | disposition home or self-care (01) ==
LOC: UTC 11:25 → ER 11:48
PROVIDERS: Emergency Provider Emergency Medicine; PCP Internal Medicine Adolescent Medicine
DX: R10.9 Unspecified abdominal pain (principal)
CPT/HCPCS: 36415; 74177; 80053; 81001; 83605; 83690; 85025; 99284; Q9967

== ENCOUNTER 2022-03-28 13:32 | Emergency (ER) | payer OTHER, SELFPAY ==
[2022-03-28 14:50] VITALS: BP 115/72; PULSE 60; RESP 18; TEMP 36.7; O2SAT 99; BMI 21.9
--- NOTE | 2022-03-28 15:08 | EXP.UTC ---
Discharge Plan Disposition Patient Disposition: Home, Self-Care Condition: Good Prescriptions Prescriptions: New guaifenesin [Mucinex] 600 mg tablet extended release 12hr 600 mg PO BID PRN (Reason: cough) Qty: 20 0RF azithromycin [Zithromax Z-Kulwant] 250 mg tablet See Rx Instructions .ROUTE .COMPLEX 5 Days Qty: 6 0RF Rx Instructions: For 250 mg dose pack: take 500 mg today (day 1), then 250 mg for 4 days (days 2-5) Referrals Follow up/Referrals: Provider,Referral, MD [Primary Care Provider] - See instructions Activity Restrictions/Add. Instructions Additional Instructions/Restrictions: *Monitor Temp, Over the counter Motrin or Tylenol as directed/as needed Tylenol every 4 hours and Motrin every 6 hours (as long as your family doctor has told you that you can take it) for fever or pain. and straight to ER if unable to lower temp less than 101.0 after medication given *Warm salt water gargles may help to soothe the throat *Throat Lozenges? *Warm fluids like tea with honey may help to soothe the throat? *Sleep elevated *Humidifier/Vaporizer *Flonase 2 sprays in each nostril daily but be aware that it may take 2-3 days before you notice improvement Your throat swab was sent for culture. Those results are typically sent to your primary care. Be sure to follow up in 2-3 days with your family doctor/primary care physician if no improvement so they can review those result and treat if necessary. If you don?t have a primary care doctor, I recommend you get one but in the mean time, you will have to return to a walk in clinic Follow up IMMEDIATELY for new or worsening symptoms or no Noticeable improvement over the next 48-72 hours. 911 for difficulty breathing or swallowing Clinical Impressions Clinical Impression: URI (upper respiratory infection) Instructions Patient Instructions: Sore Throat, Cough Discharge ED Provider: Bekah Brown [facility] HPI General Stated complaint: Sore throat, abd pain, headache, cough Time Seen by Provider: 03/28/22 15:08 History of Present Illness Provider Complaint: Patient state that he has been having sore throat, cough, sinus congestion and pressure and pain in his left ear State that it has been going on for the last 3-4 days and worse today so he came in Related Data Previous Rx's Medication Instructions Recorded azithromycin 250 mg tablet See Rx Instructions PO .COMPLEX 5 03/28/22 (Zithromax Z-Kulwant) days #6 tabs guaifenesin 600 mg tablet, 600 mg PO BID PRN cough #20 tabs 03/28/22 extended release 12 hr (Mucinex) Allergies Allergy/AdvReac Type Severity Reaction Status Date / Time Sulfa (Sulfonamide Allergy Unknown Verified 02/22/22 11:52 Antibiotics) [SULFA (SULFONAMIDE ANTIBIOTICS)] [facility] Disclaimer: The information contained in this section may have been updated after the patient was seen, as this information can be updated by other users. 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 (Updated 03/28/22 @ 15:22 by Bekah Brown APRN) Depression Generalized anxiety disorder Family History (Updated 02/22/22 @ 14:29 by Bernadette Snyder RN) Other No significant family history Social History (Updated 02/22/22 @ 14:29 by Bernadette Snyder RN) Smoking Status: Never smoker second hand exposure: No alcohol intake: never substance use type: marijuana current occupational status: employed Travel in the last 8 weeks: None household members: spouse housing: house number of children: 1 current occupation: [employer] current occupational exposures/hazards: No caffeine: Yes ROS Obtained: Yes All systems reviewed & no additional complaints except as documented and Yes Systems reviewed as appropriate & no additional complaints except as documented Constitutional Constitutional: Reports system reviewed and no additional complaints, except as documented, Reports as per HPI, Reports body ache, Reports fever(s) and R
[2022-03-28 15:17] LABS: UTC Strep Screen (Rapid) Negative (Negative)
[2022-03-28 15:20] VITALS: BP 115/72; PULSE 60; RESP 18; TEMP 36.7; O2SAT 99
[2022-03-28 15:31] LABS: Coronavirus 19, PCR Not Detected (NotDetected); Influenza A, PCR Not Detected (NotDetected); Influenza B, PCR Not Detected (NotDetected)
== END 2022-03-28 15:24 | disposition home or self-care (01) ==
PROVIDERS: Emergency Provider Nurse Practitioner
DX: J06.9 Acute upper respiratory infection, unspecified (principal)
CPT/HCPCS: 87880; 99212; C9803; G0463; U0003; U0005

== ENCOUNTER 2022-06-01 13:46 | Emergency (ER) | payer OTHER, SELFPAY ==
--- NOTE | 2022-06-01 14:12 | XR_ITS ---
PROCEDURE INFORMATION: Exam: XR Right Ankle Exam date and time: 06/01/2022 2:16 PM Age: 26 years old Clinical indication: Pain; Ankle; Right; Additional info: Twisted ankle playing basketball TECHNIQUE: Imaging protocol: Radiologic exam of the Right ankle. Views: 3 or more views. COMPARISON: No relevant prior studies available. FINDINGS: Bones/joints: Normal. Soft tissues: Normal. IMPRESSION: No acute findings.
[2022-06-01 14:40] VITALS: BP 112/60; PULSE 68; RESP 16; TEMP 36.9; O2SAT 98; BMI 20.9
[2022-06-01 15:00] VITALS: BP 112/60; PULSE 68; RESP 16; TEMP 36.9; O2SAT 98
--- NOTE | 2022-06-01 15:00 | EXP.UTC ---
Discharge Plan Disposition Patient Disposition: Home, Self-Care Condition: Good Prescriptions Prescriptions: No Action guaifenesin [Mucinex] 600 mg tablet extended release 12hr 600 mg PO BID PRN (Reason: cough) Qty: 20 0RF azithromycin [Zithromax Z-Kulwant] 250 mg tablet See Rx Instructions .ROUTE .COMPLEX 5 Days Qty: 6 0RF Rx Instructions: For 250 mg dose pack: take 500 mg today (day 1), then 250 mg for 4 days (days 2-5) Referrals Follow up/Referrals: Carolina Ann APRN [Primary Care Provider] - See instructions Activity Restrictions/Add. Instructions Additional Instructions/Restrictions: Weightbearing as tolerated rest Ice with cold pack for 20 minutes remove may repeat for comfort every hour Arnel wrap for support and swelling no less in the shower. Be sure not too tight but not to lose either Elevate with ankle above your heart as much as possible to help reduce swelling and therefore pain Ibuprofen every 6 hours as needed for pain or inflammation. If needs something more you can take Tylenol every 4 hours as needed as long as her primary care has told he was okayed for you to take both. If improving any do not need to follow-up you can bring begin exercising 2-3 weeks after injury. Follow-up immediately if new or worsening symptoms or no noticeable improvement over the next 3-5 days. call ortho Clinical Impressions Clinical Impression: Ankle sprain Instructions Patient Instructions: DI for Ankle Sprain Discharge ED Provider: Bibiana ([facility] [place] General Stated complaint: AO 2/4 RT ankle pain Mode of Arrival: Ambulatory Source of Information: Patient Limitations: No Limitations Time Seen by Provider: 06/01/22 15:00 Description of Symptoms (Recalled from Triage Doc. by RN): PATIENT STATES HE ROLLED HIS RIGHT ANKLE WHILE PLAYING BALL THIS MORNING HEENT Symptoms (Recalled from RN notes): No Resp Symptoms (Recalled from RN notes): No Skin Symptoms (Recalled from RN notes): No MS Symptoms (Recalled from RN notes): Yes Functional Status (Recalled from RN notes): WNL History of Present Illness Provider Complaint: 26 yr male presents for rt ankle pain. Pt states he was playing basketball and jumped to make a basket and came down and rolled ankle. Related Data Previous Rx's Medication Instructions Recorded azithromycin 250 mg tablet See Rx Instructions PO .COMPLEX 5 03/28/22 (Zithromax Z-Kulwant) days #6 tabs guaifenesin 600 mg tablet, 600 mg PO BID PRN cough #20 tabs 03/28/22 extended release 12 hr (Mucinex) Allergies Allergy/AdvReac Type Severity Reaction Status Date / Time Sulfa (Sulfonamide Allergy Unknown Verified 02/22/22 11:52 Antibiotics) [SULFA (SULFONAMIDE ANTIBIOTICS)] Worker's Comp Is this a Worker's Comp case?: No [facility] Disclaimer: The information contained in this section may have been updated after the patient was seen, as this information can be updated by other users. 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) Smoking Status: Never smoker second hand exposure: No alcohol intake: never substance use type: marijuana current occupational status: employed Travel in the last 8 weeks: None household members: spouse housing: house number of children: 1 current occupation: [employer] current occupational exposures/hazards: No caffeine: Yes ROS Obtained: Yes All systems reviewed & no additional complaints except as documented Constitutional Constitutional: Reports system reviewed and no additional complaints, except as documented and Reports as per HPI Eyes Eyes: Reports system reviewed and no additional complaints, except as documented ENT Ears, Nose, Mouth, and
== END 2022-06-01 15:16 | disposition home or self-care (01) ==
PROVIDERS: Emergency Provider Nurse Practitioner Family; PCP Nurse Practitioner Family
DX: S93.409A Sprain of unspecified ligament of unspecified ankle, initial encounter (principal); Y93.67 Activity, basketball
CPT/HCPCS: 73610; 99212; 99213; G0463

== ENCOUNTER 2022-08-03 11:20 | Emergency (ER) | payer OTHER, SELFPAY ==
[2022-08-03 11:35] VITALS: BP 115/73; PULSE 60; RESP 20; TEMP 36.7; O2SAT 100; BMI 20.5
--- NOTE | 2022-08-03 12:01 | EXP.UTC ---
Discharge Plan Disposition Patient Disposition: Home, Self-Care Condition: Good Prescriptions Prescriptions: New ibuprofen [IBU] 800 mg tablet 800 mg PO Q8HP PRN (Reason: Moderate Pain) Qty: 30 0RF amoxicillin-pot clavulanate 875-125 mg Tablet 1 tab PO Q12H Qty: 20 0RF Referrals Follow up/Referrals: Carolina Ann APRN [Primary Care Provider] - See instructions Activity Restrictions/Add. Instructions Additional Instructions/Restrictions: Drink plenty of fluids. Take the ibuprofen that we prescribed for pain or fever. Take the augmentin (antibiotics) as directed. Follow up with your regular doctor. Follow up with a dentist. GO TO THE ER FOR ANY WORSENING SYMPTOMS Clinical Impressions Clinical Impression: Dental abscess Stand Alone Forms Stand Alone Forms: Work/School Release Instructions Patient Instructions: DI for Tooth Abscess, Tooth Abscess Discharge ED Provider: Juan Thomas [facility] [place] HPI General Stated complaint: dental pain radiates to ear Mode of Arrival: Ambulatory Source of Information: Patient Limitations: No Limitations Time Seen by Provider: 08/03/22 12:01 Description of Symptoms (Recalled from Triage Doc. by RN): left tooth pain. Radiates from jaw to left ear. This has been going on for a while it comes an goes. HEENT Symptoms (Recalled from RN notes): Yes Resp Symptoms (Recalled from RN notes): No Skin Symptoms (Recalled from RN notes): No MS Symptoms (Recalled from RN notes): No Functional Status (Recalled from RN notes): n/a History of Present Illness Provider Complaint: He states that for the past 3 days he has had worsening dental pain and swelling around a broken tooth in his left lower jaw. Related Data Previous Rx's Medication Instructions Recorded amoxicillin 875 mg-potassium 1 tab PO Q12H #20 tabs 08/03/22 clavulanate 125 mg tablet ibuprofen 800 mg tablet (IBU) 800 mg PO Q8HP PRN Moderate Pain 08/03/22 #30 tabs Allergies Allergy/AdvReac Type Severity Reaction Status Date / Time Sulfa (Sulfonamide Allergy Unknown Verified 08/03/22 11:50 Antibiotics) [SULFA (SULFONAMIDE ANTIBIOTICS)] Worker's Comp Is this a Worker's Comp case?: No [facility] Disclaimer: The information contained in this section may have been updated after the patient was seen, as this information can be updated by other users. 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 Depression Generalized anxiety disorder Family History Other No significant family history Social History Smoking Status: Never smoker second hand exposure: No alcohol intake: never substance use type: marijuana current occupational status: employed Travel in the last 8 weeks: None household members: spouse housing: house number of children: 1 current occupation: [employer] current occupational exposures/hazards: No caffeine: Yes ROS Obtained: Yes All systems reviewed & no additional complaints except as documented Constitutional Constitutional: Denies chills and Denies fever(s) Eyes Eyes: Denies eye discharge ENT Ears, Nose, Mouth, and Throat: Reports as per HPI, Denies dizziness, Denies otalgia and Denies sore throat Cardiovascular Cardiovascular: Denies chest pain Respiratory Respiratory: Denies shortness of breath, Denies chest congestion, Denies cough, Denies stridor and Denies wheezing Gastrointestinal Gastrointestingal: Denies nausea or vomiting Musculoskeletal Musculoskeletal: Reports system reviewed and no additional complaints, except as documented and Denies arthralgias Integumentary/Breasts Skin/Breast: Denies rash Neurologic Neurologic: Denies dizziness and Denies paresthesias Allergic/Immunologic Allergic/Immunologic: Denies wheezing Physical Exam General General appearance: alert and in no apparent
[2022-08-03 12:19] VITALS: BP 115/73; PULSE 60; RESP 20; TEMP 36.7; O2SAT 100
== END 2022-08-03 12:18 | disposition home or self-care (01) ==
PROVIDERS: Emergency Provider Nurse Practitioner Family; PCP Nurse Practitioner Family
DX: K04.7 Periapical abscess without sinus (principal); R68.84 Jaw pain
CPT/HCPCS: 99212; 99214; G0463

== ENCOUNTER 2022-09-20 22:43 | Emergency (ER) | payer OTHER, SELFPAY ==
--- NOTE | 2022-09-21 00:24 | PC.NURSE ---
have attempted to call back pt 2x, registration states he went out side a while ago, maybe he left . Let her know we would need to have him registered again
[2022-09-21 00:33] VITALS: BP 0/0; PULSE 0; RESP 0; TEMP -17.7; TEMP 0
== END 2022-09-21 00:50 | disposition left against medical advice (07) ==
LOC: ER 09-21 00:38
PROVIDERS: Emergency Provider Emergency Medicine; PCP Internal Medicine Adolescent Medicine
DX: Z53.21 Procedure and treatment not carried out due to patient leaving prior to being seen by health care provider (principal)
CPT/HCPCS: 99211

== ENCOUNTER 2022-09-24 13:13 | Emergency (ER) | payer OTHER, SELFPAY ==
[2022-09-24 13:14] VITALS: BP 116/61; PULSE 56; RESP 17; TEMP 36.8; O2SAT 99; BMI 20.3
--- NOTE | 2022-09-24 13:24 | PC.NURSE ---
DR DOLAN AT BEDSIDE
--- NOTE | 2022-09-24 13:28 | HMH.EDGENADL ---
Discharge Plan Disposition Patient Disposition: Home, Self-Care Condition: Good Prescriptions Prescriptions: New ondansetron 4 mg tablet,disintegrating 4 mg PO Q6H PRN (Reason: nausea and vomiting) Qty: 14 0RF No Action ibuprofen [IBU] 800 mg tablet 800 mg PO Q8HP PRN (Reason: Moderate Pain) Qty: 30 0RF amoxicillin-pot clavulanate 875-125 mg Tablet 1 tab PO Q12H Qty: 20 0RF Referrals Follow up/Referrals: Tim Horton MD [Primary Care Provider] - See instructions Activity Restrictions/Add. Instructions Additional Instructions/Restrictions: Clear liquid diet for today. Avoid caffeine and dairy products. When you resume diet follow bland diet and avoid fried greasy spicy foods. Clinical Impressions Clinical Impression: Gastroenteritis Stand Alone Forms Stand Alone Forms: Work/School Release Instructions Patient Instructions: DI for Acute Abdominal Pain Discharge ED Provider: Blas Olsen General Adult HPI General Chief complaint: Abdominal Pain Stated complaint: RT lower abd pain nausea diarrhea fever Time Seen by Provider: 09/24/22 13:22 Mode of Arrival: Ambulatory Limitations: No Limitations Description of Symptoms (Recalled from ER Triage Doc. by RN): PT WITH 2-3 DAYS OF ABDOMINAL PAIN THAT BECAME WORSE THIS AM. REPORTS NAUSEA ND FEVER OF 101 THIS AM. LAST BM THIS AM History of Present Illness HPI narrative: Patient presents with diarrhea and lower abdominal discomfort that began approxi-2 to 3 days ago. This morning noted fever to 101. He denies exacerbating alleviating factors and symptoms are described as mild to moderate. Is been some nausea but no vomiting. Related Data Previous Rx's Medication Instructions Recorded amoxicillin 875 mg-potassium 1 tab PO Q12H #20 tabs 08/03/22 clavulanate 125 mg tablet ibuprofen 800 mg tablet (IBU) 800 mg PO Q8HP PRN Moderate Pain 08/03/22 #30 tabs ondansetron 4 mg disintegrating 4 mg PO Q6H PRN nausea and 09/24/22 tablet vomiting #14 tabs Allergies Allergy/AdvReac Type Severity Reaction Status Date / Time Sulfa (Sulfonamide Allergy Unknown Verified 08/03/22 11:50 Antibiotics) [SULFA (SULFONAMIDE ANTIBIOTICS)] [facility] Disclaimer: The information contained in this section may have been updated after the patient was seen, as this information can be updated by other users. 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 Depression Generalized anxiety disorder Family History Other No significant family history Social History Smoking Status: Current every day smoker tobacco type: cigarettes packs per day: 1 second hand exposure: No alcohol intake: never substance use type: marijuana current occupational status: employed Travel in the last 8 weeks: None household members: spouse housing: house number of children: 1 current occupation: [email or web address] current occupational exposures/hazards: No caffeine: Yes ROS Obtained: Yes All systems reviewed & no additional complaints except as documented Physical Exam General General appearance: alert and in no apparent distress Head Head exam: atraumatic, normocephalic and normal inspection Eye Eye exam: Present normal appearance, PERRL and EOMI ENT ENT exam: Present normal exam, normal oropharynx, mucous membranes moist, TM's normal bilaterally and normal external ear exam Neck Neck exam: Present normal inspection, full ROM and trachea midline; Absent meningismus or lymphadenopathy Chest Chest inspection: Present normal inspection and symmetric chest wall rise; Absent tenderness Respiratory Respiratory exam: Present normal lung sounds bilaterally; Absent respiratory distress Cardiovascular Cardiovascular exam: Present regular rate and normal rhythm; Absent JVD Abdominal Exam Abdominal exam: Present soft and normal lisa
--- NOTE | 2022-09-24 13:32 | CT_ITS ---
FINAL REPORT TECHNIQUE: Postcontrast axial images through the abdomen and pelvis were performed. This study was performed with techniques to keep radiation doses as low as reasonably achievable, (ALARA). Individualized dose reduction techniques using automated exposure control or adjustment of mA and/or kV according to the patient's size were employed. CLINICAL HISTORY: rlq pain FINDINGS: Abdomen: The lung bases are clear. The liver is normal in size and attenuation. The gallbladder is present. The spleen is unremarkable. The adrenals are normal. The pancreas is unremarkable. The kidneys enhance appropriately. There is a tiny cyst in the right kidney. The aorta is normal in caliber. No free fluid or adenopathy is identified. No findings for mechanical bowel obstruction are identified. There is a moderate amount of retained stool. Pelvis: The appendix is normal. The urinary bladder is unremarkable. No free fluid, free air, abscess or adenopathy is identified. IMPRESSION: Normal appendix. If there remains high clinical suspicion for acute appendicitis a repeat exam in 12-24 hours may be helpful. Reviewed, Interpreted and Dictated by Edgar Mckeon MD Transcribed by Poli Sheikh Authenticated and [facility]
[2022-09-24 13:42] LABS: Microscopic, Urine URINE MICROSCOPIC (MICROSCOPIC)
[2022-09-24 13:46] LABS: Basophils # 0.1 K/mm3 (0-0.2); Basophils % 0.6 % (0.1-2.0); Eosinophils # 0.3 K/mm3 (0.0-0.4); Eosinophils % 2.3 % (0.1-12.0); Hematocrit 47.9 % (42.0-52.0); Hemoglobin 15.9 g/dL (14.1-18.0); Lymphocytes # 1.3 K/mm3 (0.7-4.5); Lymphocytes % 11.5 % (10-50); Mean Corpuscular HGB Conc 33.3 g/dL (31.8-35.4); Mean Corpuscular Hemoglobin 29.7 pg (27.0-31.2); Mean Corpuscular Volume 89.1 fl (80-94); Mean Platelet Volume 8.9 fl (7.4-10.4); Monocytes # 0.5 K/mm3 (0.1-1.0); Monocytes % 4.7 % (1.7-9.3); Neutrophils # 8.9 K/mm3 (1.8-7.8); Platelet Count 192 K/mm3 (142-424); Red Blood Count 5.37 M/mm3 (4.60-6.20); Red Cell Distribution Width 14.1 % (11.5-17.5)
--- NOTE | 2022-09-24 13:51 | PC.NURSE ---
pt to radiology
--- NOTE | 2022-09-24 13:51 | PC.NURSE ---
PT TO CT
[2022-09-24 13:56] LABS: Appearance,Urine CLEAR (Clear); Bilirubin,Urine Negative (Negative); Blood, Urine Negative (Negative); Color,Urine YELLOW (Yellow); Glucose,Urine (UA) Negative (Negative); Ketones,Urine Negative (Negative); Leukocyte Esterase,Urine Negative (Negative); Nitrate,Urine Negative (Negative); PH,Urine 7.5 (5.0-8.5); Protein,Urine Negative (Negative); Urobilinogen,Urine 0.2 EU/dl (0.2)
[2022-09-24 14:00] LABS: Alanine Aminotransferase 23 U/L (12-78); Albumin Level 4.8 g/dl (3.5-5.0); Alkaline Phosphatase 56 U/L (38-126); Anion Gap 15.7 mEq/L (5-15); Aspartate Amino Transferase 31 U/L (17-59); Bilirubin,Total 0.6 mg/dl (0.2-1.3); Blood Urea Nitrogen 7 mg/dl (9-20); Calcium 9.2 mg/dl (8.4-10.2); Carbon Dioxide 25 mmol/L (22.0-30.0); Chloride 106 mmol/L (98-107); Creatinine Clearance Estimated 178 mL/min (50-200); Estimated Glomerular Filt Rate 162 ml/min (>60); GFR (African American) 196 ML/MIN (>60); Globulin 2.4 g/dL (1.3-3.2); Glucose 104 mg/dl (74-100); Lipase 52 U/L (23-300); Potassium 3.7 mmoL/L (3.5-5.1); Sodium 143 mmol/L (136-145); Squamous Epithelial Cell,Urine Occasional #/hpf (0-5); Total Protein,Serum 7.2 g/dl (6.3-8.2)
[2022-09-24 14:47] VITALS: BP 107/54; PULSE 55; O2SAT 98
--- NOTE | 2022-09-24 15:01 | PC.NURSE ---
rounded on pt, pt states no needs at this time
--- NOTE | 2022-09-24 15:02 | PC.NURSE ---
notified ER pt ct scan is resulted
[2022-09-24 15:19] VITALS: BP 109/62; PULSE 60; RESP 17; TEMP 36.9; O2SAT 99
== END 2022-09-24 15:20 | disposition home or self-care (01) ==
PROVIDERS: Emergency Provider Emergency Medicine; PCP Internal Medicine Adolescent Medicine
DX: K52.9 Noninfective gastroenteritis and colitis, unspecified (principal); R50.9 Fever, unspecified; F17.210 Nicotine dependence, cigarettes, uncomplicated
CPT/HCPCS: 74177; 80053; 81001; 83690; 85025; 96360; 99284; 99285; Q9967

== ENCOUNTER 2022-12-30 14:31 | Emergency (ER) | payer OTHER, SELFPAY ==
[2022-12-30 14:40] VITALS: BP 128/69; PULSE 67; RESP 16; TEMP 37; O2SAT 100; BMI 20.3
--- NOTE | 2022-12-30 14:41 | EXP.UTC ---
Discharge Plan Disposition Patient Disposition: Home, Self-Care Condition: Good Prescriptions Prescriptions: New azithromycin [Zithromax] 250 mg tablet 250 mg PO UD DOSE PK Qty: 6 0RF Rx Instructions: Take two (2) tablets today, then one (1) tablet days #2 thru #5 [id number]-[id number] [Bromfed DM] 2-30-10 mg/5 mL Syrup 5 ml PO Q6H PRN (Reason: Cough) Qty: 240 0RF Referrals Follow up/Referrals: Tim Horton MD [Primary Care Provider] - See instructions Activity Restrictions/Add. Instructions Additional Instructions/Restrictions: Drink plenty of fluids. Take tylenol or ibuprofen for pain or fever. Take the medications as directed. Follow up with your regular doctor. GO TO THE ER FOR ANY WORSENING SYMPTOMS Clinical Impressions Clinical Impression: Pharyngitis, Acute viral syndrome Stand Alone Forms Stand Alone Forms: Work/School Release Instructions Patient Instructions: DI for Pharyngitis/Tonsillopharyngitis -- Adult, DI for Viral Syndrome Discharge ED Provider: Juan Thomas [facility] General Stated complaint: sore throat, runny nose, chills, fever 101, Time Seen by Provider: 12/30/22 14:41 History of Present Illness Provider Complaint: He states that for the past 2 days he has had sore throat, malaise, nonproductive cough, and a headache. Related Data Previous Rx's Medication Instructions Recorded azithromycin 250 mg tablet 250 mg PO UD DOSE PK #6 tabs 12/30/22 (Zithromax) onrhpbfgsxmortx-urpzphyzaguepns-OL 5 ml PO Q6H PRN Cough #240 mL 12/30/22 2 mg-30 mg-10 mg/5 mL oral syrup (Bromfed DM) Allergies Allergy/AdvReac Type Severity Reaction Status Date / Time Sulfa (Sulfonamide Allergy Unknown Verified 12/30/22 14:35 Antibiotics) [SULFA (SULFONAMIDE ANTIBIOTICS)] [facility] Disclaimer: The information contained in this section may have been updated after the patient was seen, as this information can be updated by other users. 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 Depression Generalized anxiety disorder Family History Other No significant family history Social History Smoking Status: Current every day smoker tobacco type: cigarettes packs per day: 1 second hand exposure: No alcohol intake: never substance use type: marijuana current occupational status: employed Travel in the last 8 weeks: None household members: spouse housing: house number of children: 1 current occupation: [employer] current occupational exposures/hazards: No caffeine: Yes ROS Obtained: Yes All systems reviewed & no additional complaints except as documented Constitutional Constitutional: Reports chills and Reports fever(s) Eyes Eyes: Denies eye discharge ENT Ears, Nose, Mouth, and Throat: Reports as per HPI Cardiovascular Cardiovascular: Denies chest pain Respiratory Respiratory: Denies chest congestion and Reports cough Gastrointestinal Gastrointestingal: Reports nausea; Denies abdominal pain, constipation, cramping, diarrhea or vomiting Musculoskeletal Musculoskeletal: Denies arthralgias Integumentary/Breasts Skin/Breast: Denies rash Neurologic Neurologic: Denies paresthesias Physical Exam General General appearance: alert and in no apparent distress Head Head exam: atraumatic, normocephalic and normal inspection Eye Eye exam: Present normal appearance, PERRL and EOMI ENT ENT exam: Present mucous membranes moist and normal external ear exam Expanded ENT Exam TM/Canal exam: Bilateral TM: erythema and bulging Nose exam: Absent sinus tenderness Mouth exam: Present normal external inspection; Absent drooling Teeth exam: Present normal inspection Throat exam: Present tonsillar erythema, tonsillomegaly and tonsillar exudate Neck Neck exam: Present normal inspection, full ROM and trachea
[2022-12-30 14:59] LABS: UTC Strep Screen (Rapid) Negative (Negative)
[2022-12-30 15:14] VITALS: BP 128/69; PULSE 67; RESP 14; TEMP 37
== END 2022-12-30 15:16 | disposition home or self-care (01) ==
PROVIDERS: Emergency Provider Nurse Practitioner Family; PCP Internal Medicine Adolescent Medicine
DX: J02.9 Acute pharyngitis, unspecified (principal); R51.9 Headache, unspecified; R53.81 Other malaise; F17.210 Nicotine dependence, cigarettes, uncomplicated; F41.1 Generalized anxiety disorder; F32.A Depression, unspecified; B34.9 Viral infection, unspecified
CPT/HCPCS: 87880; 99212; 99214; G0463

== ENCOUNTER 2023-05-27 03:08 | Emergency (ER) | payer OTHER, SELFPAY ==
[2023-05-27 03:09] VITALS: BP 142/90; PULSE 89; RESP 18; TEMP 37.6; O2SAT 99; BMI 24.5
--- OUTSIDE RECORDS SUMMARY | 2023-05-27 03:13 | XMS_ITS | Patient Health Record ---
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 Name Role Phone Tim Horton Primary Care Provider [phone] Tim Horton Unavailable Unavailable Carolina Mora Unavailable [phone] ALLERGIES Allergen (clinical drug ingredient) Drug/Non Drug Allergy documented on EMR Reaction Allergy Type Onset Date Status sulfa (uncoded) vomiting Allergy Acti ve REASON FOR REFERRAL No Information MEDICATIONS Medication SIG (Take, Route, Frequency, Duration) Notes Start Date End Date Status Diclofenac Sodium sodium 75 mg 1 tab(s) orally every 12 hours for 30 day(s) 06/04/2022 Active SOCIAL HISTORY Tobacco Use: Social History Observation Description Date Details (start date - stop date) Current Smoker NA - NA Sex Assigned At : Social History Observation Description Sex Assigned At Unknown Smoking: Question Answer Notes Are you a: current smoker How often do you smoke cigarettes? every day How many cigarettes a day do you smoke? 11-20 PROBLEMS Problem Type ICD Code Onset Dates Problem Status W/U Status Risk SNOMED Code Notes Problem Generalized anxiety disorder (F41.1) Active confirmed 28027405 Problem Shortness of breath (R06.02) Active confirmed 922984491 Problem Dysthymia (F34.1) Active confirmed 58370030 Problem Mood disorder (F39) Active confirmed 05656463 Problem Elevated d-dimer (R79.89) Active confirmed 583487911 Problem COVID (U07.1) Active confirmed 46353528 6 VITAL SIGNS Heart Rate 74 /min 06/04/2022 Temperature 97.6 degrees Fahrenheit 06/04/2022 Blood pressure diastolic 68 mm Hg 06/04/2022 Height 6 ft 0 in in 06/04/2022 Blood pressure systolic 110 mm Hg 06/04/2022 Weight 149lb 2oz lbs 06/04/2022 BMI 20.22 kg/m2 06/04/2022 Encounters Encounter Location Date Provider Diagnosis [facility] [address] [place] [address] 06/04/2022 Carolina McNees Sprain of right ankl e, unspecified ligament, subsequent encounter S93.401D ASSESSMENTS Encounter Date Diagnosis Assessment Notes Treatment Notes Treatment Clinical Notes 06/04/2022 Sprain of right ankle, unspecified ligament, subsequent encounter (ICD-10 - S93.401D) Discussed RICE method and to wear OTC brace on ankle with supportive tennis shoes. Discussed patient should stop Ibuprofen or any other NSAIDs and take new NSAID to be sent to his pharmacy. Return precautions discussed. Patient agreeable to this plan. PLAN OF TREATMENT Pending Test Test Name Order Date M-D-Dimer 12/04/2021 Insurance Providers Payer Name Payer Address Payer Phone Subscriber Number Group Number Insured Name Patient Relationship to Insured Coverage Start Date Coverage End Date [employer] [facility] [address] [address] [place] [phone] [id number] Lanre Sandoval Self - patient is the insured MEDICAL (GENERAL) HISTORY 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 History ICD Code Anxiety Surgical History Surgery Date(Month/Year) Lynph node removed from neck Colonoscopy- 08/2021 Hospitalization History Reason Date(Month/Year) [facility] 10/2021 4th degree rodriguez on legs as a child
[2023-05-27] MEDS: TETRACAINE/BENZOCAINE/BUTAMBEN 56 GM SPRAY TP (03:27)
[2023-05-27] MEDS: LIDOCAINE 2% VISCOUS SOL 15ML UDC 15 ML PO (03:27)
--- NOTE | 2023-05-27 03:42 | HMH.EDGENADL ---
Discharge Plan Disposition Patient Disposition: Home, Self-Care Condition: Good Prescriptions Prescriptions: New amoxicillin-pot clavulanate 875-125 mg tablet 1 tab PO BID 7 Days Qty: 14 0RF No Action azithromycin [Zithromax] 250 mg tablet 250 mg PO UD DOSE PK Qty: 6 0RF Rx Instructions: Take two (2) tablets today, then one (1) tablet days #2 thru #5 crpsasmnecdiuab-dnezyymvd-UW [Bromfed DM] 2-30-10 mg/5 mL Syrup 5 ml PO Q6H PRN (Reason: Cough) Qty: 240 0RF Referrals Follow up/Referrals: Tim Horton MD [Primary Care Provider] - See instructions Activity Restrictions/Add. Instructions Additional Instructions/Restrictions: You were evaluated in the ER for dental pain. You can take Tylenol and ibuprofen together, however you cannot exceed the recommended doses on the bottles. For ibuprofen do not take more than 2400 mg in 1 day. For Tylenol do not take more than 4000 mg in 1 day. Do not take ibuprofen and Aleve together. Take the prescribed antibiotics as directed, do not skip doses, do not stop taking them early. Make an appointment with your dentist as soon as possible for evaluation and tooth removal. If you are unable to get into your dentist, has a dental urgent care clinic that has walk-in hours. You can google this and find their information. Make an appointment with your primary care physician for reevaluation in the few days. Return to the ER with any new, worsening, or otherwise concerning symptoms. Clinical Impressions Clinical Impression: Pain, dental, Dental caries Instructions Patient Instructions: DI for Dental Pain Discharge ED Provider: Lamont Jack Adult HPI General Chief complaint: Dental/Oral Stated complaint: fever, poss tooth infection Time Seen by Provider: 05/27/23 03:31 Mode of Arrival: Ambulatory Source of Information: Patient Limitations: No Limitations Description of Symptoms (Recalled from ER Triage Doc. by RN): Patient reports right side jaw pain from suspected tooth infection that started on Friday and has progressively gotten worse. Patient has been taking tylenol and motrin at home for pain but pain remains uncontrolled at this time. Last dose of 800mg motrin at 10pm History of Present Illness HPI narrative: This otherwise healthy 27-year-old male presents to the ER with concerns of right upper mouth pain. Patient states he took eight 600 mg ibuprofen today as well as 4 Aleve. He does state he has had fevers at home which improved with ibuprofen and Aleve but his pain remains uncontrolled. He states he just wants antibiotics so that he can make an appointment with a dentist for further evaluation. Patient denies any pain in the floor of the mouth. He states he has some pain in the right side roof of his mouth. No other associated symptoms at this time. Related Data Previous Rx's Medication Instructions Recorded azithromycin 250 mg tablet 250 mg PO UD DOSE PK #6 tabs 12/30/22 (Zithromax) xfvephphvcilpxl-wgmnarkgdokjciq-YZ 5 ml PO Q6H PRN Cough #240 mL 12/30/22 2 mg-30 mg-10 mg/5 mL oral syrup (Bromfed DM) amoxicillin 875 mg-potassium 1 tab PO BID 7 days #14 tabs 05/27/23 clavulanate 125 mg tablet Allergies Allergy/AdvReac Type Severity Reaction Status Date / Time Sulfa (Sulfonamide Allergy Unknown Verified 12/30/22 14:35 Antibiotics) [SULFA (SULFONAMIDE ANTIBIOTICS)] [facility] Disclaimer: The information contained in this section may have been updated after the patient was seen, as this information can be updated by other users. 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 Depression Generalized anxiety disorder Family History Other No significant family history Social History Smoking Status: Current every day smoker tobacco type: cigarettes packs per day: 1 second hand exposure: No alcohol intake: never substance use type: marijuana current occupational status: employed Travel in the last 8 weeks: None household members: spouse housing: house number of children: 1 current occupation: [employer] current occupational exposures/hazards: No caffeine: Yes ROS Obtained: Yes All systems reviewed & no additional complaints except as documented Constitutional Constitutional: Denies chills, Reports fever(s), Denies headache(s) and Denies weakness Eyes Eyes: Denies change in vision ENT Ears, Nose, Mouth, and Throat: Denies dizziness, Denies headache(s), Denies nasal congestion, Denies sore throat, Denies throat swelling and Reports other (Dental pain) Cardiovascular Cardiovascular: Denies chest pain, Denies dyspnea and Denies leg edema Respiratory Respiratory: Denies cough and Denies dyspnea Gastrointestinal Gastrointestingal: Denies constipation, diarrhea, nausea or vomiting Genitourinary Male Genitourinary: Denies difficulty urinating Musculoskeletal Musculoskeletal: Denies arthralgias, Denies myalgias, Denies numbness and Denies tingling Integumentary/Breasts Skin/Breast: Denies change in pigmentation Neurologic Neurologic: Denies dizziness, Denies headache(s), Denies numbness, Denies tingling and Denies weakness Allergic/Immunologic Allergic/Immunologic: Denies throat swelling Physical Exam General General appearance: alert and in no apparent distress Head Head exam: atraumatic and normocephalic Eye Eye exam: Present PERRL and EOMI ENT ENT exam: Present mucous membranes moist and other (Multiple dental caries with significant erosion. Poor dentition throughout. Patient has erythematous, swollen gingiva in the right maxillary area without fluctuance or obvious drainable fluid collection.) Neck Neck exam: Present normal inspection, full ROM and other (No submandibular swelling or erythema, space under the tongue is normal and nontender.); Absent lymphadenopathy Chest Chest inspection: Present symmetric chest wall rise Respiratory Respiratory exam: Absent respiratory distress or stridor Cardiovascular Cardiovascular exam: Present regular rate and normal rhythm Abdominal Exam Abdominal exam: Present soft; Absent distention or tenderness Extremities Exam Extremities exam: Present full ROM Neurological Exam Neurological exam: Present alert and oriented X3; Absent motor sensory deficit Psychiatric Psychiatric exam: Present normal affect and normal mood Skin Skin exam: Present warm and dry Medical Decision Making Unruly Inquiry Pt receiving controlled substance: No Vital Signs: 05/27/23 03:09 Temperature 99.6 F Temperature Source Oral Pulse Rate [Left Radial] 89 Respiratory Rate 18 Blood Pressure [Right Arm] 142/90 H Blood Pressure Mean [Right Arm] 107 Blood Pressure Source [Right Arm] Automatic Cuff Blood Pressure Position [Right Arm] Sitting 02 Sat by Pulse Oximetry 99 Oxygen Delivery Method Room Air Orders (Tests/Meds): ED MEDICATIONS Generic Name Dose Route Start Last Admin Trade Name Freq PRN Reason Stop Dose Admin Acetaminophen 1,000 mg 05/27/23 03:38 Acetaminophen 500mg Tab PO 05/27/23 03:39 ONCE ONE Amoxicillin/Clavulanate Potassium 1 each 05/27/23 03:38 Amoxicillin/Clavulanate Potassium 875/125mg Tablet PO 05/27/23 03:39 ONCE ONE Discontinued Medications Generic Name Dose Route Start Last Admin Trade Name Alfredito PRN Reason Stop Dose Admin Benzocaine/Butamben/Tetracaine HCl 1 gm 05/27/23 03:19 05/27/23 03:27 Tetracaine/Benzocaine/Butamben 56 Gm [place] TP 05/27/23 03:20 1 gm ONCE ONE Administration Lidocaine HCl 15 ml 05/27/23 03:19 05/27/23 03:27 Lidocaine 2% Viscous Shilpi 15ml Udc PO 05/27/23 03:20 15 ml ONCE ONE Administration Medical Decision Narrative: In summary, 27-year-old male presents to the ER with concerns of right-sided maxillary dental pain and fever. On initial evaluation patient is hemodynamically stable, afebrile, resting comfortably. Exam notable for poor dentition with redness, swelling of the right maxillary gingiva. Differential diagnosis includes but is not limited to gingivitis, dental caries, dental fracture, dental abscess, I also considered Ludewig's angina however patient does not have any submandibular swelling, redness, and he is managing his secretions normally. Findings most consistent with gingivitis, dental infection, no abscess. Patient was provided dental balls and Tylenol in the ER as well as 1 dose of Augmentin to start outpatient antibiotic therapy. He was prescribed Augmentin as well. I gave him further instructions on managing his pain medication since he was consuming too much NSAIDs at home. I gave him more specific pain regimen for home use. He is comfortable with this plan. I instructed him to follow-up with dentistry and his primary care physician. I also gave strict return precautions for the ER. He indicated understanding and was discharged in stable condition. Critical Care Critical Care Time Critical Care Time: No
[2023-05-27] MEDS: ACETAMINOPHEN 500MG TAB 1000 MG PO (03:48)
[2023-05-27] MEDS: AMOXICILLIN/CLAVULANATE POTASSIUM 875/125MG TABLET 1 EACH PO (03:48)
[2023-05-27 03:55] VITALS: BP 142/90; PULSE 93; RESP 18; TEMP 37.6; O2SAT 100
== END 2023-05-27 03:56 | disposition home or self-care (01) ==
PROVIDERS: Emergency Provider Emergency Medicine; PCP Internal Medicine Adolescent Medicine
DX: R68.84 Jaw pain (principal); R50.9 Fever, unspecified; F17.210 Nicotine dependence, cigarettes, uncomplicated
CPT/HCPCS: 99283

== ENCOUNTER 2023-09-12 15:36 | Emergency (ER) | payer OTHER, SELFPAY ==
[2023-09-12 15:38] VITALS: BP 108/64; PULSE 61; RESP 16; TEMP 36.7; O2SAT 100; BMI 20.3
--- NOTE | 2023-09-12 16:09 | XR_ITS ---
PROCEDURE INFORMATION: Exam: XR Chest Exam date and time: 09/12/2023 4:19 PM Age: 28 years old Clinical indication: Cough; Additional info: Cough, lightheadedness TECHNIQUE: Imaging protocol: Radiologic exam of the chest. Views: 2 views. COMPARISON: CR XR CHEST 2V 01/17/2022 7:27 PM FINDINGS: Lungs: Unremarkable. No consolidation. Pleural spaces: Unremarkable. No pleural effusion. No pneumothorax. Heart/Mediastinum: Unremarkable. No cardiomegaly. Bones/joints: Unremarkable. IMPRESSION: No acute findings.
--- NOTE | 2023-09-12 16:14 | ECG_ITS ---
APPROVED REPORT Exam: Resting ECG HR:63 bpm ECG Measurements Heart Rate 63 AXES WY 161 P 80 QRSd 99 QRS 89 QT 440 T 69 QTc 448 Conclusion SINUS RHYTHM INCOMPLETE RIGHT BUNDLE BRANCH BLOCK [90+ ms QRS DURATION, TERMINAL R IN V1/V2, 40+ ms S IN I/aVL/V4/V5/V6] BORDERLINE ECG Electronically signed by : RAISSA LINDA, 09/13/2023 00:37:49
--- NOTE | 2023-09-12 16:16 | HMH.EDGENADL ---
Discharge Plan Disposition Patient Disposition: Home, Self-Care Condition: Good Prescriptions Prescriptions: No Action azithromycin [Zithromax] 250 mg tablet 250 mg PO UD DOSE PK Qty: 6 0RF Rx Instructions: Take two (2) tablets today, then one (1) tablet days #2 thru #5 qzdptoqwoiekgqm-qspsxylzf-UJ [Bromfed DM] 2-30-10 mg/5 mL Syrup 5 ml PO Q6H PRN (Reason: Cough) Qty: 240 0RF amoxicillin-pot clavulanate 875-125 mg tablet 1 tab PO BID 7 Days Qty: 14 0RF Referrals Follow up/Referrals: Tim Horton MD [Primary Care Provider] - See instructions Activity Restrictions/Add. Instructions Additional Instructions/Restrictions: You were evaluated in the emergency department today. Please follow-up closely with your primary care provider. Take Tylenol and ibuprofen at home as needed for pain. Return to the emergency department for new or worsening symptoms. Clinical Impressions Clinical Impression: Pleurisy, Cough Instructions Patient Instructions: DI for Atypical Chest Pain Discharge ED Provider: Rebecca Roberts General Adult HPI General Chief complaint: Shortness of Breath/Dyspnea Stated complaint: SOA, dizzy, weak Time Seen by Provider: 09/12/23 15:43 Mode of Arrival: Ambulatory Source of Information: Patient Limitations: No Limitations Description of Symptoms (Recalled from ER Triage Doc. by RN): Patient reports having a hard time catching his breath. States this began around 11 this morning and has just continued to get worse as the day has progressed. States that he has also had some sharp pains in his right rib cage area as well. History of Present Illness HPI narrative: This patient is a 28-year-old male who denies significant past medical history presenting to the emergency department for evaluation with concern for difficulty catching his breath. He states this started around 11:00 this morning while at work, and it has progressed throughout the day. He states that he initially was having some chest pain when he took a deep breath on the right lower rib cage, but this is resolved. He notes that he had issues like this in the past related to anxiety. On medical record review, has been evaluated several times for upper respiratory infections, pleurisy, and anxiety related chest pain. He does note that he had a cough and congestion. No fevers, no calf pain or swelling, no history of blood clots or clotting disorders, no recent surgery, immobilization, or travel. Related Data Previous Rx's Medication Instructions Recorded azithromycin 250 mg tablet 250 mg PO UD DOSE PK #6 tabs 12/30/22 (Zithromax) lvjxurhyzshzctg-vrctojmlqblvzcn-KB 5 ml PO Q6H PRN Cough #240 mL 12/30/22 2 mg-30 mg-10 mg/5 mL oral syrup (Bromfed DM) amoxicillin 875 mg-potassium 1 tab PO BID 7 days #14 tabs 05/27/23 clavulanate 125 mg tablet Allergies Allergy/AdvReac Type Severity Reaction Status Date / Time Sulfa (Sulfonamide Allergy Unknown Verified 12/30/22 14:35 Antibiotics) [SULFA (SULFONAMIDE ANTIBIOTICS)] [facility] Disclaimer: The information contained in this section may have been updated after the patient was seen, as this information can be updated by other users. 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 Depression Generalized anxiety disorder Family History Other No significant family history Social History Smoking Status: Current every day smoker tobacco type: cigarettes packs per day: 1 second hand exposure: No alcohol intake: never substance use type: marijuana current occupational status: employed Travel in the last 8 weeks: None household members: spouse housing: house number of children: 1 current occupation: [employer] current occupational exposures/hazards: No caffeine: Yes ROS Obtained: Yes All systems reviewed & no additional complaints except as documented Physical Exam General General appearance: alert and in no apparent distress Head Head exam: atraumatic and normocephalic Eye Eye exam: Present normal appearance, PERRL and EOMI ENT ENT exam: Present normal exam, normal oropharynx, mucous membranes moist and normal external ear exam Neck Neck exam: Present normal inspection, full ROM and trachea midline; Absent tenderness Chest Chest inspection: Present normal inspection and symmetric chest wall rise; Absent tenderness Respiratory Respiratory exam: Present normal lung sounds bilaterally; Absent respiratory distress, wheezes, stridor or accessory muscle use Cardiovascular Cardiovascular exam: Present regular rate and normal rhythm Abdominal Exam Abdominal exam: Present soft; Absent distention, tenderness or guarding Extremities Exam Extremities exam: Present normal inspection, full ROM and normal capillary refill; Absent tenderness or edema Back Exam Back exam: Present normal inspection and full ROM; Absent tenderness Neurological Exam Neurological exam: Present alert, oriented X3, CN II-XII intact and normal gait; Absent motor sensory deficit Psychiatric Psychiatric exam: Present normal affect and normal mood Skin Skin exam: Present warm and dry Medical Decision Making Medical Records Medical records reviewed: Yes I reviewed the patient's medical records. Unruly Inquiry Pt receiving controlled substance: No Vital Signs: 09/12/23 15:38 09/12/23 16:47 09/12/23 17:20 Temperature 98.1 F 98.1 F Temperature Source Oral Oral Pulse Rate 60 60 Pulse Rate [Radial] 61 Respiratory Rate 16 16 Blood Pressure 110/63 110/63 Blood Pressure [Right Arm] 108/64 L Blood Pressure Mean [Right Arm] 78 Blood Pressure Source Automatic Cuff Automatic Cuff Blood Pressure Source [Right Arm] Automatic Cuff Blood Pressure Position Sitting Sitting Blood Pressure Position [Right Arm] Sitting 02 Sat by Pulse Oximetry 100 100 Oxygen Delivery Method Room Air Room Air Room Air Lab Data Lab results reviewed: Yes I reviewed the patient's lab results. Lab Results 09/12/23 16:16: SARS-CoV-2 (PCR) Not detected, Influenza A Untype (PCR) Not detected, Influenza Type B (PCR) Not detected Orders (Tests/Meds): ORDERS Category Date Time Status XR chest 2V Stat Exams 09/12/23 16:09 Completed Rapid PCR Covid and Flu A/B Stat Lab 09/12/23 16:16 Completed ECG Data Tracing #1: I reviewed this ECG and interpreted as documented below: Normal sinus rhythm with a ventricular rate of 63 bpm. Incomplete right bundle branch block noted. No acute ST changes concerning for ischemia. No change from prior EKG. ECG initial impression date: 09/12/23 ECG initial impression time: 16:16 Medical Decision Narrative: In summary, this patient is a 28-year-old male presenting to the Emergency Department for evaluation of difficulty catching his breath. Differential diagnoses considered include but are not limited to pleurisy, pneumonia, anxiety, respiratory failure, viral syndrome. Ruling out the most morbid conditions drove assessment. It should be noted patient's history includes anxiety which is not at goal therapy. This complicates all aspects of care by increasing patient's risk for morbidity. I reviewed patient's past medical records and noted evaluations for similar symptoms in the past. On exam, the patient is well-appearing. Cardiopulmonary exam is reassuring, and vitals are normal on cardiac telemetry. EKG obtained is reassuring. Patient is PERC negative for pulmonary embolus. At this time, feel patient's clinical picture is not consistent with ACS. Workup included chest x-ray and EKG as well as viral swab. I independently interpreted straight prior to the radiologist read and noted no focal consolidation or pneumothorax. Please see their read for final interpretation. On reassessment, patient is resting calmly and states that he feels like he is ready to go. Exam and vitals remain reassuring. I feel he likely has pleurisy related to a viral upper respiratory infection at this time. He was given instructions for close follow-up, strict return precautions, and he was discharged after all questions were answered. Critical Care Critical Care Time Critical Care Time: No
[2023-09-12 16:22] LABS: Coronavirus 19, PCR Not Detected (NotDetected); Influenza A, PCR Not Detected (NotDetected); Influenza B, PCR Not Detected (NotDetected)
[2023-09-12 16:47] VITALS: BP 110/63; PULSE 60; O2SAT 100
[2023-09-12 17:20] VITALS: BP 110/63; PULSE 60; RESP 16; TEMP 36.7; O2SAT 100
== END 2023-09-12 17:21 | disposition home or self-care (01) ==
PROVIDERS: Emergency Provider Emergency Medicine; PCP Internal Medicine Adolescent Medicine
DX: R09.1 Pleurisy (principal); R05.9 Cough, unspecified; F17.210 Nicotine dependence, cigarettes, uncomplicated
CPT/HCPCS: 71046; 87636; 93005; 99284

== ENCOUNTER 2023-11-25 09:03 | Emergency (ER) | payer OTHER, SELFPAY ==
[2023-11-25 09:15] VITALS: BP 131/84; PULSE 55; RESP 20; TEMP 36.8; O2SAT 100; BMI 20.6
--- NOTE | 2023-11-25 09:27 | EXP.UTC ---
Discharge Plan Disposition Patient Disposition: Home, Self-Care Condition: Good Prescriptions Prescriptions: New bhuemhmfxbsmixv-tkfjojpmp-JZ [Bromfed DM] 2-30-10 mg/5 mL syrup 5 - 10 ml PO Q6H PRN (Reason: cold symptoms) Qty: 200 0RF azithromycin [Zithromax Z-Kulwant] 250 mg tablet See Rx Instructions .ROUTE .COMPLEX 5 Days Qty: 6 0RF Rx Instructions: For 250 mg dose pack: take 500 mg today (day 1), then 250 mg for 4 days (days 2-5) Referrals Follow up/Referrals: Tim Horton MD [Primary Care Provider] - See instructions Activity Restrictions/Add. Instructions Additional Instructions/Restrictions: *Monitor Temp, Over the counter Motrin or Tylenol as directed/as needed Tylenol every 4 hours and Motrin every 6 hours (as long as your family doctor has told you that you can take it) for fever or pain. and straight to ER if unable to lower temp less than 101.0 after medication given *Warm salt water gargles may help to soothe the throat *Throat Lozenges? *Warm fluids like tea with honey may help to soothe the throat? *Sleep elevated *Humidifier/Vaporizer Bromfed may cause drowsiness. Know how it effects you (your child) before driving, caring for small child, or sending your child to school. Not other antihistamines/allergy medications while taking bromfed Your throat swab was sent for culture. Those results are typically sent to your primary care. Be sure to follow up in 2-3 days with your family doctor/primary care physician if no improvement so they can review those result and treat if necessary. If you don?t have a primary care doctor, I recommend you get one but in the mean time, you will have to return to a walk in clinic Follow up IMMEDIATELY for new or worsening symptoms or no Noticeable improvement over the next 48-72 hours. 911 for difficulty breathing or swallowing You were tested for today for COVID19 your test result should be back in the next few ?hours, you may check your results on the [facility] [employer] [facility] Clinical Impressions Clinical Impression: Pharyngitis Stand Alone Forms Stand Alone Forms: Work/School Release Instructions Patient Instructions: Sore Throat Print Language Print Language: Chinese Discharge ED Provider: Beakh Brown [facility] [place] H[place] General Stated complaint: cough, sore throat Mode of Arrival: Ambulatory Source of Information: Patient Limitations: No Limitations Time Seen by Provider: 11/25/23 09:27 Description of Symptoms (Recalled from Triage Doc. by RN): PATIENT C/O COUGH, SORE THROAT, AND CHILLS SINCE YESTERDAY HEENT Symptoms (Recalled from RN notes): Yes Resp Symptoms (Recalled from RN notes): Yes Skin Symptoms (Recalled from RN notes): No MS Symptoms (Recalled from RN notes): No Functional Status (Recalled from RN notes): WNL History of Present Illness Provider Complaint: Patient states that he started feeling bad yesterday with body aches, chills, sore throat and cough States today he was feeling worse not able to go to work so he came in to get checked States he works at the [employer] Related Data Previous Rx's ?Medication ?Instructions ?Recorded azithromycin 250 mg tablet See Rx Instructions PO .COMPLEX 5 11/25/23 (Zithromax Z-Kulwant) days #6 tabs gmufbvyobheaowh-zkqnedoijqwtaeq-HZ 5 - 10 ml PO Q6H PRN cold symptoms 11/25/23 2 mg-30 mg-10 mg/5 mL oral syrup #200 mL (Bromfed DM) Allergies Allergy/AdvReac Type Severity Reaction Status Date / Time Sulfa (Sulfonamide Allergy Unknown Verified 12/30/22 14:35 Antibiotics) [SULFA (SULFONAMIDE ANTIBIOTICS)] Worker's Comp Is this a Worker's Comp case?: No [facility] Disclaimer: The information contained in this section may have been updated after the patient was seen, as this information can be updated by other users. 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 Depression Generalized anxiety disorder Family History Other No significant family history Social History Smoking Status: Current every day smoker tobacco type: cigarettes packs per day: 1 second hand exposure: No alcohol intake: never substance use type: marijuana current occupational status: employed Travel in the last 8 weeks: None household members: spouse housing: house number of children: 1 current occupation: [employer] current occupational exposures/hazards: No caffeine: Yes ROS Obtained: Yes All systems reviewed & no additional complaints except as documented and Yes Systems reviewed as appropriate & no additional complaints except as documented Constitutional Constitutional: Reports system reviewed and no additional complaints, except as documented, Reports as per HPI and Reports chills ENT Ears, Nose, Mouth, and Throat: Reports system reviewed and no additional complaints, except as documented, Reports as per HPI and Reports sore throat Cardiovascular Cardiovascular: Reports system reviewed and no additional complaints, except as documented and Reports as per HPI Respiratory Respiratory: Reports system reviewed and no additional complaints, except as documented, Reports as per HPI and Reports cough Gastrointestinal Gastrointestingal: Reports system reviewed and no additional complaints, except as documented and as per HPI Physical Exam General General appearance: alert and in no apparent distress ENT ENT exam: Present mucous membranes moist Expanded ENT Exam Throat exam: Present tonsillar erythema Respiratory Respiratory exam: Present normal lung sounds bilaterally; Absent respiratory distress or wheezes Cardiovascular Cardiovascular exam: Present regular rate, normal rhythm and normal heart sounds Abdominal Exam Abdominal exam: Present soft and normal bowel sounds; Absent distention or tenderness Neurological Exam Neurological exam: Present alert, oriented X3 and normal gait Medical Decision Making Unruly Inquiry Pt receiving controlled substance: No Unruly was queried for this patient: No Vital Signs: 11/25/23 09:15 Temperature 98.2 F Temperature Source Oral Pulse Rate [Left Brachial] 55 L Respiratory Rate 20 Blood Pressure [Left Arm] 131/84 Blood Pressure Mean [Left Arm] 99 Blood Pressure Source [Left Arm] Automatic Cuff Blood Pressure Position [Left Arm] Sitting 02 Sat by Pulse Oximetry 100 Oxygen Delivery Method Room Air Lab Data Lab results reviewed: Yes I reviewed the patient's lab results.
[2023-11-25 09:30] LABS: UTC Strep Screen (Rapid) Negative (Negative)
[2023-11-25 09:37] LABS: Coronavirus 19, PCR Not Detected (NotDetected); Influenza A, PCR Not Detected (NotDetected); Influenza B, PCR Not Detected (NotDetected)
[2023-11-25 09:40] VITALS: BP 131/84; PULSE 55; RESP 20; TEMP 36.8; O2SAT 100
== END 2023-11-25 09:46 | disposition home or self-care (01) ==
PROVIDERS: Emergency Provider Nurse Practitioner; PCP Internal Medicine Adolescent Medicine
DX: J02.9 Acute pharyngitis, unspecified (principal); R05.9 Cough, unspecified
CPT/HCPCS: 87636; 87880; 99212; 99214; G0463

== ENCOUNTER 2024-02-08 20:58 | Emergency (ER) | payer SELFPAY ==
[2024-02-08 21:04] VITALS: BP 146/68; PULSE 52; O2SAT 100
[2024-02-08 21:05] VITALS: BP 146/68; PULSE 63; RESP 20; TEMP 36.7; O2SAT 100; BMI 20.3
--- NOTE | 2024-02-08 21:17 | ED_ITS ---
Discharge Plan Disposition Patient Disposition: Home, Self-Care Chief Complaint: Abdominal Pain Prescriptions Prescriptions: No Action upbijqewyzmhzhu-wetsijsbp-QM [Bromfed DM] 2-30-10 mg/5 mL syrup 5 - 10 ml PO Q6H PRN (Reason: cold symptoms) Qty: 200 0RF azithromycin [Zithromax Z-Kulwant] 250 mg tablet See Rx Instructions .ROUTE .COMPLEX 5 Days Qty: 6 0RF Rx Instructions: For 250 mg dose pack: take 500 mg today (day 1), then 250 mg for 4 days (days 2-5) Referrals Follow up/Referrals: Tim Horton MD [Primary Care Provider] - See instructions Josue Lee II, MD [Staff Physician] - See instructions Activity Restrictions/Add. Instructions Additional Instructions/Restrictions: Call your family doctor to establish care for this visit to the emergency department and schedule follow-up within 48 hours to ensure improvement. If you have any worsening of your condition or any other concerning signs or symptoms, return to the emergency department or your primary care doctor for further evaluation. Gastroenterology information here if you continue to have symptoms. Clinical Impressions Clinical Impression: Abdominal pain Qualifiers: Abdominal location: periumbilical Qualified Code(s): R10.33 - Periumbilical pain Instructions Patient Instructions: DI for Acute Abdominal Pain Print Language Print Language: Greenlandic Discharge ED Provider: Blas Kauffman General Adult HPI General Chief complaint: Abdominal Pain Stated complaint: Stomach pain Time Seen by Provider: 02/08/24 21:07 Mode of Arrival: Ambulatory Source of Information: Patient Limitations: No Limitations Description of Symptoms (Recalled from ER Triage Doc. by RN): Pt reports to ED with cc of abd pain. Pt states the abd pain started approx 3 hrs ago. Pt decribes the pain as a sharp pain and rates the pain a 7/10. Pain is located in left upper abdomen. Pt states having nausea but denies any vomitting or diarrhea. Pt states having a bowel movement this morning. Pt's abd soft to palpation History of Present Illness HPI narrative: Please note that above description of symptoms, in this electronic medical record under categorization of recalled from ER triage doctor by RN are reflective of an initial nursing assessment, however, is not reflective of my full history and physical exam that was personally taken and clarified. Consequentially, this preceding description of symptoms, which may include the patient's categorized chief complaint in the EMR, do not reflect my personal clinical impression, and the ultimate description of history of present illness and patient stated complaints should be deferred to this section of the note. Unless stated otherwise or congruent with this section of the note, additional signs, symptoms, or incongruence should be interpreted as inaccurate with my clinical impression. Related Data Previous Rx's ?Medication ?Instructions ?Recorded azithromycin 250 mg tablet See Rx Instructions PO .COMPLEX 5 11/25/23 (Zithromax Z-Kulwant) days #6 tabs rsdfsuxoszhhdyk-jooilgfqkumijdz-QP 5 - 10 ml PO Q6H PRN cold symptoms 11/25/23 2 mg-30 mg-10 mg/5 mL oral syrup #200 mL (Bromfed DM) Allergies Allergy/AdvReac Type Severity Reaction Status Date / Time Sulfa (Sulfonamide Allergy Unknown Verified 12/30/22 14:35 Antibiotics) [SULFA (SULFONAMIDE ANTIBIOTICS)] [facility] Disclaimer: The information contained in this section may have been updated after the patient was seen, as this information can be updated by other users. 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 Depression Generalized anxiety disorder Family History Other No significant family history Social History Smoking Status: Current every day smoker tobacco type: cigarettes packs per day: 1 second hand exposure: No alcohol intake: never substance use type: marijuana current occupational status: employed Travel in the last 8 weeks: None household members: spouse housing: house number of children: 1 current occupation: [employer] current occupational exposures/hazards: No caffeine: Yes Other 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 Have you received the Flu Vaccine for this season: No Have you received the Pneumonia Vaccine: No ROS Obtained: Yes All systems reviewed & no additional complaints except as documented Physical Exam General General appearance: alert Head Head exam: atraumatic and normocephalic Eye Eye exam: Present normal appearance, PERRL and EOMI Neck Neck exam: Present normal inspection, full ROM and trachea midline Respiratory Respiratory exam: Absent respiratory distress, wheezes, stridor, accessory muscle use or prolonged expiratory phase Cardiovascular Cardiovascular exam: Present other (Pulses equal symmetric in upper and lower extremities) Abdominal Exam Abdominal exam: Present soft; Absent distention, tenderness or pulsatile mass Extremities Exam Extremities exam: Absent edema Neurological Exam Neurological exam: Present alert, oriented X3 and CN II-XII intact; Absent motor sensory deficit Skin Skin exam: Present warm and dry; Absent diaphoresis or erythema Medical Decision Making Medical Records Medical records reviewed: Yes I reviewed the patient's medical records. Screening: Per USPSTF and CDC recommendations, given the prevalence of disease in our region, it is our hospital?s policy to screen for HIV and viral Hepatitis for all patients aged 18 and over and those with ongoing risk factors. Unruly Inquiry Pt receiving controlled substance: No Unruly was queried for this patient: No Vital Signs: 02/08/24 21:04 02/08/24 21:05 02/08/24 21:30 Temperature 98.0 F Temperature Source Oral Pulse Rate 52 L 50 L Pulse Rate [Left Radial] 63 Respiratory Rate 20 Blood Pressure 146/68 H 117/75 Blood Pressure [Right Arm] 146/68 H Blood Pressure Mean [Right Arm] 94 Blood Pressure Source [Right Arm] Automatic Cuff 02 Sat by Pulse Oximetry 100 100 98 Oxygen Delivery Method Room Air 02/08/24 22:00 Temperature Temperature Source Pulse Rate 48 L Pulse Rate [Left Radial] Respiratory Rate Blood Pressure 120/78 Blood Pressure [Right Arm] Blood Pressure Mean [Right Arm] Blood Pressure Source [Right Arm] 02 Sat by Pulse Oximetry 98 Oxygen Delivery Method Lab Data Lab Results 02/08/24 21:05: WBC 8.0, RBC 5.19, Hgb 16.1, Hct 45.6, MCV 87.7, MCH 31.1, MCHC 35.4, RDW 14.4, Plt Count 238, MPV 8.3, Neut % (Auto) 58.2, Lymph % (Auto) 26.8, Blount % (Auto) 8.2, Eos % (Auto) 5.2, Baso % (Auto) 1.5, Neut # (Auto) 4.7, Lymph # (Auto) 2.2, Blount # (Auto) 0.7, Eos # (Auto) 0.4, Baso # (Auto) 0.1, Sodium 142, Potassium 3.7, Chloride 108 H, Carbon Dioxide 28, Anion Gap 9.7, BUN 9, Creatinine 0.80, Estimated Creat Clear 132, Estimated GFR 115, Est GFR ( Amer) 139, Glucose 89, Lactate 0.9, Calcium 9.5, Total Bilirubin 0.6, AST 29, ALT 19, Alkaline Phosphatase 59, Troponin I 0.02, Total Protein 7.6, Albumin 4.7, Globulin 2.9, Albumin/Globulin Ratio 1.6, Lipase 96 02/08/24 21:05 02/08/24 21:05 Orders (Tests/Meds): ED MEDICATIONS Generic Name Dose Route Start Last Admin Trade Name Alfredito PRN Reason Stop Dose Admin Sodium Chloride 8 ml 02/08/24 21:16 Sodium Chloride 0.9% 10ml Vial IV 03/09/24 21:15 NEEDED PRN dilute pepcid Discontinued Medications Generic Name Dose Route Start Last Admin Trade Name Alfredito PRN Reason Stop Dose Admin Acetaminophen 1,000 mg 02/08/24 21:16 02/08/24 21:25 Acetaminophen 500mg Tab PO 02/08/24 21:17 1,000 mg ONCE ONE Administration Al Hydrox/Mg Hydrox/Simethicone 30 ml 02/08/24 21:16 02/08/24 21:25 Aluminum/Magnesium/Simethicone 30ml Udc PO 02/08/24 21:17 30 ml ONCE ONE Administration Famotidine 20 mg 02/08/24 21:16 02/08/24 21:25 Famotidine 20mg/2ml Vial IV 02/08/24 21:17 20 mg ONCE ONE Administration Ketorolac Tromethamine 15 mg 02/08/24 21:16 02/08/24 21:25 Ketorolac 30mg/Ml Vial IV 02/08/24 21:17 15 mg ONCE ONE Administration ORDERS Category Date Time Status CBC w/Auto Diff [Complete Blood Count Auto Diff] Stat Lab 02/08/24 21:05 Completed CMP [Comprehensive Metabolic Panel] Stat Lab 02/08/24 21:05 Completed HIV (1&2) Antibody Rapid Stat Lab 02/08/24 21:00 Received Hep C Ab with Reflex to RNA Stat Lab 02/08/24 21:00 Received Lactic Acid Stat Lab 02/08/24 21:05 Completed Lipase Stat Lab 02/08/24 21:05 Completed Trop I [Troponin I] Stat Lab 02/08/24 21:05 Completed Troponin I Q3H Lab 02/09/24 00:30 Ordered Troponin I Q3H Lab 02/09/24 03:30 Ordered UA [Urinalysis and Microscopic] Stat Lab 02/08/24 21:16 Ordered Medical Decision Narrative: 28-year-old male history of intermittent abdominal pains presenting with abdominal pain. Patient states that he was doing nothing particular earlier just prior to arrival when he started having abdominal pains. Epigastric, do not radiate. Not associated with nausea, vomiting, diarrhea, constipation, fevers, chills, urinary symptoms, scrotal swelling, testicular pain, or any other concerns. States that the last time this happened, he did not have any resolution. Saw gastroenterology, no results from workup. Does not do any daily drinking, no history of illicit drug use. No history of hepatitis. History obtained with patient. On arrival, patient well-appearing. He is stating he has epigastric pain, but in no acute distress. Abdomen is soft, nontender, nondistended. No worsening of pain or abnormality elicited on exam. Patient does not respond to deep palpation with any discomfort. No flank tenderness. No overlying skin changes. Differential includes PUD, gastritis, pancreatitis, enteritis, gas pains, cholecystitis, appendicitis, among others. Patient given Zofran, Toradol, Maalox for pain control. Independent interpretation of workup demonstrates nonactionable hematologic workup including CBC, chemistry, lipase, troponin, LFTs. CT of the abdomen and pelvis was considered, but not deemed necessary. On reevaluation, patient states that his pain is completely gone, he is ready to go after meds. I feel given patient's negative abdominal exam, complete resolution of pain, CT scan not deemed necessary at this time. Because patient at baseline without signs or symptoms of clinical decompensation, deemed appropriate for discharge. Results were relayed to patient who voiced understanding and were agreeable to outpatient management and follow up. I discussed my clinical impression with patient and answered all questions. At this time, the evidence for any other entities in the differential is insufficient to warrant any further testing or ED observation. This was explained as well. Advisory was given that persistent or worsening symptoms require further evaluation. I confirmed the understanding of this discussion. Tub Washer disclaimer Much of this encounter note is an electronic diesel truck technician spoken language to printed text. Electronic diesel truck technician of the spoken language may permit errors. Although I have reviewed the note, some errors may still exist. Critical Care Critical Care Time Critical Care Time: No
[2024-02-08] MEDS: ALUMINUM/MAGNESIUM/SIMETHICONE 30ML UDC 30 ML PO (21:25)
[2024-02-08] MEDS: ACETAMINOPHEN 500MG TAB 1000 MG PO (21:25)
[2024-02-08] MEDS: KETOROLAC 30MG/ML VIAL 15 MG IV (21:25)
[2024-02-08] MEDS: FAMOTIDINE 20MG/2ML VIAL 20 MG IV (21:25)
[2024-02-08 21:30] VITALS: BP 117/75; PULSE 50; O2SAT 98
[2024-02-08 21:35] LABS: Basophils # 0.1 K/mm3 (0-0.2); Basophils % 1.5 % (0.1-2.0); Eosinophils # 0.4 K/mm3 (0.0-0.4); Eosinophils % 5.2 % (0.1-12.0); Hematocrit 45.6 % (42.0-52.0); Hemoglobin 16.1 g/dL (14.1-18.0); Lymphocytes # 2.2 K/mm3 (0.7-4.5); Lymphocytes % 26.8 % (10-50); Mean Corpuscular HGB Conc 35.4 g/dL (31.8-35.4); Mean Corpuscular Hemoglobin 31.1 pg (27.0-31.2); Mean Corpuscular Volume 87.7 fl (80-94); Mean Platelet Volume 8.3 fl (7.4-10.4); Monocytes # 0.7 K/mm3 (0.1-1.0); Monocytes % 8.2 % (1.7-9.3); Neutrophils # 4.7 K/mm3 (1.8-7.8); Neutrophils % 58.2 % (37.0-80.0); Platelet Count 238 K/mm3 (142-424); Red Blood Count 5.19 M/mm3 (4.60-6.20); Red Cell Distribution Width 14.4 % (11.5-17.5)
[2024-02-08 21:51] LABS: Albumin Level 4.7 g/dl (3.5-5.0); Chloride 108 mmol/L (98-107); Sodium 142 mmol/L (136-145)
[2024-02-08 21:52] LABS: Potassium 3.7 mmoL/L (3.5-5.1)
[2024-02-08 21:54] LABS: Alanine Aminotransferase 19 U/L (12-78); Albumin/Globulin Ratio 1.6 (1.1-1.8); Alkaline Phosphatase 59 U/L (38-126); Anion Gap 9.7 mEq/L (5-15); Aspartate Amino Transferase 29 U/L (17-59); Bilirubin,Total 0.6 mg/dl (0.2-1.3); Blood Urea Nitrogen 9 mg/dl (9-20); Calcium 9.5 mg/dl (8.4-10.2); Carbon Dioxide 28 mmol/L (22.0-30.0); Creatinine Clearance Estimated 132 mL/min (50-200); Estimated Glomerular Filt Rate 115 ml/min (>60); GFR (African American) 139 ML/MIN (>60); Globulin 2.9 g/dL (1.3-3.2); Glucose 89 mg/dl (74-100); Lactic Acid 0.9 mmol/L (0.7-2.1); Lipase 96 U/L (23-300); Total Protein,Serum 7.6 g/dl (6.3-8.2)
[2024-02-08 22:00] VITALS: BP 120/78; PULSE 48; O2SAT 98
[2024-02-08 22:06] LABS: Troponin I 0.02 ng/ml (0.00-0.034)
[2024-02-08 22:50] VITALS: BP 118/81; PULSE 55; RESP 18; TEMP 36.6; O2SAT 100
[2024-02-08 22:52] LABS: HIV (1&2) Antibody Rapid NONREACTIVE (NONREACTIVE)
[2024-02-10 08:19] LABS: HCV Ab Non Reactive (Non Reactive)
== END 2024-02-08 22:51 | disposition home or self-care (01) ==
PROVIDERS: Emergency Provider Emergency Medicine; PCP Internal Medicine Adolescent Medicine
DX: R10.33 Periumbilical pain (principal); R10.9 Unspecified abdominal pain
CPT/HCPCS: 96374; 96375; 80053; 83605; 83690; 84484; 85025; 86803; 87389; 99283; J1885; S0028

== ENCOUNTER 2024-03-30 12:42 | Emergency (ER) | payer SELFPAY ==
[2024-03-30 13:30] VITALS: BP 109/73; PULSE 63; RESP 19; TEMP 36.8; O2SAT 100; BMI 20.1
--- NOTE | 2024-03-30 13:34 | EXP.UTC ---
Discharge Plan Disposition Patient Disposition: Home, Self-Care Condition: Good Referrals Follow up/Referrals: Tim Horton MD [Primary Care Provider] - See instructions Activity Restrictions/Add. Instructions Additional Instructions/Restrictions: *Monitor Temp, Over the counter Motrin or Tylenol as directed/as needed Tylenol every 4 hours and Motrin every 6 hours (as long as your family doctor has told you that you can take it) for fever or pain. and straight to ER if unable to lower temp less than 101.0 after medication given *Warm salt water gargles may help to soothe the throat *Throat Lozenges? *Warm fluids like tea with honey may help to soothe the throat? *Sleep elevated *Humidifier/Vaporizer Your throat swab was sent for culture. Those results are typically sent to your primary care. Be sure to follow up in 2-3 days with your family doctor/primary care physician if no improvement so they can review those result and treat if necessary. If you don?t have a primary care doctor, I recommend you get one but in the mean time, you will have to return to a walk in clinic Follow up IMMEDIATELY for new or worsening symptoms or no Noticeable improvement over the next 48-72 hours. 911 for difficulty breathing or swallowing Clinical Impressions Clinical Impression: Viral upper respiratory infection Stand Alone Forms Stand Alone Forms: Work/School Release Instructions Patient Instructions: Sore Throat, DI for Viral Upper Respiratory Infection -- Adult Print Language Print Language: Sami Discharge ED Provider[place] Bekha Brown [facility] [place] [facility] [place] General Stated complaint: sore throat, cough Mode of Arrival: Ambulatory Source of Information: Patient Time Seen by Provider: 03/30/24 13:34 Description of Symptoms (Recalled from Triage Doc. by RN): COUGH, SORE THROAT, BODY ACHES, CHILLS HEENT Symptoms (Recalled from RN notes): Yes Resp Symptoms (Recalled from RN notes): Yes Skin Symptoms (Recalled from RN notes): No MS Symptoms (Recalled from RN notes): No Functional Status (Recalled from RN notes): WNL History of Present Illness Provider Complaint: Patient states that he hasnt felt well for the last couple of days he has been having sore throat, nasal congestion, body aches, and chills States he was worried he may have flu or strep throat so he came in to get checked Related Data Allergies Allergy/AdvReac Type Severity Reaction Status Date / Time Sulfa (Sulfonamide Allergy Unknown Verified 12/30/22 14:35 Antibiotics) (SULFA (SULFONAMIDE ANTIBIOTICS)) Worker's Comp Is this a Worker's Comp case?: No [facility] Disclaimer: The information contained in this section may have been updated after the patient was seen, as this information can be updated by other users. 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 Depression Generalized anxiety disorder Family History Other No significant family history Social History Smoking Status: Current every day smoker tobacco type: cigarettes packs per day: 1 second hand exposure: No alcohol intake: never substance use type: marijuana current occupational status: employed Travel in the last 8 weeks: None household members: spouse housing: house number of children: 1 current occupation: [employer] current occupational exposures/hazards: No caffeine: Yes ROS Obtained: Yes All systems reviewed & no additional complaints except as documented and Yes Systems reviewed as appropriate & no additional complaints except as documented Constitutional Constitutional: Reports system reviewed and no additional complaints, except as documented, Reports as per HPI, Reports body ache and Reports chills Eyes Eyes: Reports system reviewed and no additional complaints, except as documented and Reports as per HPI ENT Ears, Nose, Mouth, and Throat: Reports system reviewed and no additional complaints, except as documented, Reports as per HPI and Reports sore throat Cardiovascular Cardiovascular: Reports system reviewed and no additional complaints, except as documented and Reports as per HPI Respiratory Respiratory: Reports system reviewed and no additional complaints, except as documented and Reports as per HPI Gastrointestinal Gastrointestingal: Reports system reviewed and no additional complaints, except as documented and as per HPI Physical Exam General General appearance: alert and in no apparent distress Expanded ENT Exam Nose exam: Absent sinus tenderness Throat exam: Present tonsillar erythema; Absent tonsillomegaly or tonsillar exudate Respiratory Respiratory exam: Present normal lung sounds bilaterally; Absent respiratory distress or wheezes Cardiovascular Cardiovascular exam: Present regular rate, normal rhythm and normal heart sounds Abdominal Exam Abdominal exam: Present soft and normal bowel sounds; Absent distention or tenderness Neurological Exam Neurological exam: Present alert, oriented X3 and normal gait Medical Decision Making Medical Records Screening: Per USPSTF and CDC recommendations, given the prevalence of disease in our region, it is our hospital?s policy to screen for HIV and viral Hepatitis for all patients aged 18 and over and those with ongoing risk factors. Unruly Inquiry Pt receiving controlled substance: No Unruly was queried for this patient: No Vital Signs: 03/30/24 13:30 Temperature 98.2 F Temperature Source Oral Pulse Rate [Left Radial] 63 Respiratory Rate 19 Blood Pressure [Left Arm] 109/73 L Blood Pressure Mean [Left Arm] 85 02 Sat by Pulse Oximetry 100 Lab Data Lab results reviewed: Yes I reviewed the patient's lab results.
[2024-03-30 13:38] LABS: UTC Strep Screen (Rapid) Negative (Negative)
[2024-03-30 13:41] LABS: UTC Influenza A Antigen Negative (Negative); UTC Influenza B Antigen Negative (Negative)
[2024-03-30 13:43] VITALS: BP 109/73; PULSE 63; RESP 19; TEMP 36.8
== END 2024-03-30 13:47 | disposition home or self-care (01) ==
PROVIDERS: Emergency Provider Nurse Practitioner; PCP Internal Medicine Adolescent Medicine
DX: J06.9 Acute upper respiratory infection, unspecified (principal); R05.9 Cough, unspecified; J02.9 Acute pharyngitis, unspecified; M79.10 Myalgia, unspecified site; R68.83 Chills (without fever); R09.81 Nasal congestion
CPT/HCPCS: 87804; 87880; 99212; G0381

== ENCOUNTER 2024-06-22 00:04 | Emergency (ER) | payer SELFPAY ==
[2024-06-22] VITALS (9 sets, daily range): BP systolic 115–131; BP diastolic 65–91; PULSE 56–72; RESP 14; TEMP 36.7–36.8; O2SAT 98–100; BMI 21.7
--- NOTE | 2024-06-22 00:13 | CT_ITS ---
PROCEDURE INFORMATION: Exam: CTA Chest With Contrast Exam date and time: 06/22/2024 1:01 AM Age: 28 years old Clinical indication: Shortness of breath; Additional info: Leg pain SOA recent long distance travel TECHNIQUE: Imaging protocol: Computed tomographic angiography of the chest with contrast. Exam focused on the arteries. 3D rendering (Not supervised by radiologist): MIP and/or 3D reconstructed images were created by the technologist. Radiation optimization: All CT scans at this facility use at least one of these dose optimization techniques: automated exposure control; mA and/or kV adjustment per patient size (includes targeted exams where dose is matched to clinical indication); or iterative reconstruction. Contrast material: ISOVUE; Contrast volume: 75 ml; Contrast route: INTRAVENOUS (IV); COMPARISON: CT ANGIO CHEST PE PROTOCOL 12/07/2021 10:24 AM FINDINGS: Pulmonary arteries: Normal. No pulmonary emboli. Aorta: Unremarkable. No aortic aneurysm. No aortic dissection. Lungs: Unremarkable. No consolidation. No masses. Pleural spaces: Unremarkable. No pneumothorax. No pleural effusion. Heart: Unremarkable. No cardiomegaly. No pericardial effusion. Lymph nodes: Unremarkable. No enlarged lymph nodes. Bones/joints: Unremarkable. No acute fracture. Soft tissues: Unremarkable. IMPRESSION: No acute findings.
--- NOTE | 2024-06-22 00:14 | XR_ITS ---
PROCEDURE INFORMATION: Exam: XR Chest Exam date and time: 06/22/2024 12:53 AM Age: 28 years old Clinical indication: Shortness of breath; Additional info: SOA TECHNIQUE: Imaging protocol: Radiologic exam of the chest. Views: 1 view. COMPARISON: CR XR CHEST 2V 09/12/2023 4:19 PM FINDINGS: Lungs: Unremarkable. No consolidation. Pleural spaces: Unremarkable. No pleural effusion. No pneumothorax. Heart/Mediastinum: Unremarkable. No cardiomegaly. Bones/joints: Unremarkable. IMPRESSION: No acute findings.
--- NOTE | 2024-06-22 00:15 | ECG_ITS ---
APPROVED REPORT Exam: Resting ECG HR:62 bpm ECG Measurements Heart Rate 62 AXES WA 168 P 79 QRSd 109 QRS 81 QT 430 T 71 QTc 435 Conclusion SINUS RHYTHM NORMAL ECG Electronically signed by : SCOTT FOWLER, 06/22/2024 06:45:55
[2024-06-22] MEDS: KETOROLAC 30MG/ML VIAL 30 MG IV (00:21)
[2024-06-22 00:24] LABS: Coronavirus 19, PCR Not Detected (NotDetected); Influenza A, PCR Not Detected (NotDetected); Influenza B, PCR Not Detected (NotDetected)
--- NOTE | 2024-06-22 00:27 | [facility].EDGENADL ---
Discharge Plan Disposition Patient Disposition: Home, Self-Care Prescriptions Prescriptions: New methocarbamol 500 mg tablet 500 mg PO TID Qty: 14 0RF lidocaine 5 % adhesive patch,medicated See Rx Instructions .ROUTE .COMPLEX Qty: 15 0RF Rx Instructions: Apply to most painful area for 12 hours, remove and leave off for 12 hours before using a new patch. doxycycline hyclate 100 mg capsule 100 mg PO BID 10 Days Qty: 20 0RF No Action azithromycin [Zithromax Z-Kulwant] 250 mg tablet See Rx Instructions PO .COMPLEX Qty: 6 0RF Rx Instructions: For 250 mg dose pack: take 500 mg today (day 1), then 250 mg for 4 days (days 2-5) PO methylprednisolone 4 mg tablets,dose pack See Rx Instructions PO PER PKG DIR Qty: 21 0RF Rx Instructions: PO PER PKG DIR hchmykozhfqsgfj-eiskpfajc-GC [Bromfed DM] 2-30-10 mg/5 mL syrup 5 ml PO Q4-6H PRN (Reason: cold symptoms) Qty: 118 0RF Referrals Follow up/Referrals: Provider,Lance, [Primary Care Provider] - See instructions Miguelito Wood MD [Staff Physician] - See instructions (abnormal troponin, no chest pain) Activity Restrictions/Add. Instructions Additional Instructions/Restrictions: You were evaluated in the ER and are appropriate for discharge at this time. Take the prescribed antibiotics (doxycycline) as directed. Do not skip doses, do not stop taking this early. Follow-up the results of the STI testing and the patient portal - If your results are negative, then you can stop taking the doxycycline. Otherwise complete all the doxycycline as prescribed. Take the doxycycline with a full glass of water and stay sitting upright for 30 minutes after taking this medication to avoid side effects. Take the prescribed methocarbamol which is a muscle relaxant if needed for pain. Do not drive or operate machinery after taking this medication because it can make you sleepy. Use the prescribed lidocaine patches if needed. Take Tylenol or ibuprofen if needed for pain, do not exceed the recommended dose on the bottle. Drink water and eat a small snack each time you take these medications to avoid side effects. Follow-up with cardiology for reevaluation of your cardiac enzyme. You have been referred to Dr. Wood for this purpose. Follow-up with your primary care doctor for reevaluation in 2 to 3 days. Return to the ER with new, worsening, or otherwise concerning symptoms. Clinical Impressions Clinical Impression: Left groin pain Print Language Print Language: Persian Discharge ED Provider: Lamont Jack General Adult HPI General Chief complaint: Shortness of Breath/Dyspnea Stated complaint: numbness L side whole body Time Seen by Provider: 06/22/24 00:15 History of Present Illness HPI narrative: 28-year-old male who reports no chronic medical conditions, no daily medications, allergy to sulfa presents to the ER with complaints of groin pain and shortness of breath. Patient states approximately 45 minutes prior to arrival he started having pain in the left groin. On further questioning, he states it is in the left leg and he feels like his whole body is numb. He also states he is having shortness of breath. He admits he has had a cough for multiple weeks but states the shortness of breath is new tonight. He is not having any chest pain. He does state he just returned from a road trip approximately 24 hours ago. No history of blood clots, no swelling in the legs. He has not having any pain in the penis or testicles, he denies nausea, vomiting, diarrhea, or abdominal pain. He denies weakness, dizziness, headache, or other associated symptoms. No recent fevers or chills. He ambulated independently into the ER with a limp on the left leg. Patient admits to marijuana use. 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 He does not play basketball and has not had any known injuries. He reports that his pain actually started approximately 3 hours prior to arrival but approximately 45 minutes prior to arrival he was laying in bed and it was not getting better so he got anxious which he believes caused his shortness of breath and his fianc?e encouraged him to present to the ER at that time. He states he does not have numbness now and is not having any shortness of breath. He initially reported that the pain in the groin did not radiate but is now stating it radiates up into the left side of the abdomen with some movements. He denies testicular or penis pain. Related Data Previous Rx's ?Medication ?Instructions ?Recorded azithromycin 250 mg tablet See Rx Instructions PO .COMPLEX #6 06/14/24 (Zithromax Z-Kulwant) tabs ejqvbpwywahlpku-ouapkyscdpskddy-EB 5 ml PO Q4-6H PRN cold symptoms 06/14/24 2 mg-30 mg-10 mg/5 mL oral syrup #118 mL (Bromfed DM) methylprednisolone 4 mg tablets in See Rx Instructions PO PER PKG DIR 06/14/24 a dose pack #21 tabs doxycycline hyclate 100 mg capsule 100 mg PO BID 10 days #20 caps 06/22/24 lidocaine 5 % topical patch See Rx Instructions topical 06/22/24 .COMPLEX #15 ea methocarbamol 500 mg tablet 500 mg PO TID #14 tabs 06/22/24 Allergies Allergy/AdvReac Type Severity Reaction Status Date / Time Sulfa (Sulfonamide Allergy Unknown Verified 06/14/24 12:34 Antibiotics) (SULFA (SULFONAMIDE ANTIBIOTICS)) [facility] Disclaimer: The information contained in this section may have been updated after the patient was seen, as this information can be updated by other users. 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 Depression Generalized anxiety disorder Family History Other No significant family history Social History Smoking Status: Current every day smoker tobacco type: cigarettes packs per day: 1 second hand exposure: No alcohol intake: never substance use type: marijuana current occupational status: employed Travel in the last 8 weeks: None household members: spouse housing: house number of children: 1 current occupation: [employer] current occupational exposures/hazards: No caffeine: Yes Have you lived/traveled outside US in past 30 days?: No Contact w/someone who lives/traveled outside US past 30 days?: No Exposure to someone with infectious disease in past 14 days?: No Do you have a fever (greater than 100.4 F or 38 C)?: No Have you tested positive for COVID-19: No Exposed to someone with COVID-19 in past 14 days?: No Do you have a sore throat?: No Do you have a cough?: No Do you have any weakness?: No Do you have any diarrhea?: No Are you experiencing any unusual bleeding?: No Do you have any muscle aches/pain?: No Do you have any abdominal pain?: No Are you experiencing loss of taste or smell?: No Other 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 Have you received the Flu Vaccine for this season: No Have you received the Pneumonia Vaccine: No ROS Obtained: Yes Systems reviewed as appropriate & no additional complaints except as documented Per HPI Physical Exam General General appearance: alert and in no apparent distress Head Head exam: atraumatic and normocephalic Eye Eye exam: Present PERRL and EOMI ENT ENT exam: Present mucous membranes moist Neck Neck exam: Present normal inspection and full ROM Chest Chest inspection: Present symmetric chest wall rise Respiratory Respiratory exam: Present normal lung sounds bilaterally; Absent respiratory distress, wheezes or stridor Cardiovascular Cardiovascular exam: Present regular rate and normal rhythm Abdominal Exam Abdominal exam: Present soft and tenderness (Slight left lower quadrant abdominal pain to palpation without rebound or guarding); Absent distention, guarding or rebound exam: Present normal inspection, normal testicular lie and other (No epididymal tenderness, no testicular mass, swelling, or tenderness); Absent testicular tenderness or scrotal swelling Expanded Exam exam: Absent erythema Scrotal exam: bilateral: cremasteric reflex present Extremities Exam Extremities exam: Present full ROM, tenderness (Tenderness along the left medial thigh proximally in the adductor muscles, no pain in the hip) and other (Neurovascularly intact throughout with no external evidence of injury); Absent normal capillary refill, edema or joint swelling (No pain in the joints) Back Exam Back exam: Present full ROM; Absent tenderness, CVA tenderness (R), CVA tenderness (L), paraspinal tenderness or vertebral tenderness Neurological Exam Neurological exam: Present alert, oriented X3, CN II-XII intact, reflexes normal and other (NIH 0); Absent normal gait (Walking with a limp on the left lower extremity stating he has pain in the left groin with each step) or motor sensory deficit (5 out of 5 strength throughout, sensation intact throughout, proprioception, temperature, 2 point discrimination, and light touch intact throughout including throughout the left lower extremity) Psychiatric Psychiatric exam: Present normal affect and normal mood Skin Skin exam: Present warm and dry Medical Decision Making Medical Records Medical records reviewed: Yes I reviewed the patient's medical records. Screening: Per USPSTF and CDC recommendations, given the prevalence of disease in our region, it is our hospital?s policy to screen for HIV and viral Hepatitis for all patients aged 18 and over and those with ongoing risk factors. MR Comment: Patient was seen in [facility] in March and diagnosed with viral upper respiratory infection, discharged without any new prescriptions. Labs from that visit reviewed by me demonstrate negative strep and influenza Additionally, patient recently saw Angelina Becerril and was treated for bronchitis with azithromycin, methylprednisolone, Bromfed. Unruly Inquiry Pt receiving controlled substance: No Vital Signs: 06/22/24 00:05 06/22/24 00:09 06/22/24 00:23 Temperature 98.0 F Temperature Source Oral Pulse Rate 72 60 Pulse Rate [Left] 68 Respiratory Rate 14 Blood Pressure 131/91 H 121/79 Blood Pressure [Right Arm] 131/91 H Blood Pressure Mean [Right Arm] 104 02 Sat by Pulse Oximetry 100 100 100 Oxygen Delivery Method Room Air Room Air Room Air 06/22/24 00:29 06/22/24 01:30 06/22/24 01:36 Temperature Temperature Source Pulse Rate 58 L 60 58 L Pulse Rate [Left] Respiratory Rate 14 Blood Pressure 117/76 117/76 117/76 Blood Pressure [Right Arm] Blood Pressure Mean [Right Arm] 02 Sat by Pulse Oximetry 99 98 99 Oxygen Delivery Method Room Air Room Air Room Air 06/22/24 02:00 06/22/24 02:30 Temperature Temperature Source Pulse Rate 56 L 62 Pulse Rate [Left] Respiratory Rate Blood Pressure 115/75 120/85 Blood Pressure [Right Arm] Blood Pressure Mean [Right Arm] 02 Sat by Pulse Oximetry 98 100 Oxygen Delivery Method Room Air Room Air Lab Data Lab Results 06/22/24 00:09: SARS-CoV-2 (PCR) Not detected, Influenza A Untype (PCR) Not detected, Influenza Type B (PCR) Not detected 06/22/24 00:16: WBC 8.3, RBC 5.24, Hgb 16.1, Hct 44.6, MCV 85.1, MCH 30.7, MCHC 36.1 H, RDW 12.7, Plt Count 279, MPV 10.4, Neut % (Auto) 48.8, Lymph % (Auto) 37.7, Pope % (Auto) 9.1, Eos % (Auto) 2.9, Baso % (Auto) 1.3, Neut # (Auto) 4.0, Lymph # (Auto) 3.1, Pope # (Auto) 0.8, Eos # (Auto) 0.2, Baso # (Auto) 0.1, PT 10.8, INR 0.98, D-Dimer < 0.25, Sodium 138, Potassium 3.7, Chloride 104, Carbon Dioxide 29, Anion Gap 8.7, BUN 10, Creatinine 0.80, Estimated Creat Clear 141, Estimated GFR 115, Est GFR ( Amer) 139, Glucose 98, Calcium 9.5, Total Bilirubin 0.4, AST 29, ALT 22, Alkaline Phosphatase 62, Troponin I 0.02, Total Protein 7.7, Albumin 5.1 H, Globulin 2.6, Albumin/Globulin Ratio 2.0 H 06/22/24 00:25: Urine Color Yellow, Urine Appearance Clear, Urine pH 7.0, Ur Specific Forbes <= 1.005, Urine Protein Negative, Urine Glucose (UA) Negative, Urine Ketones Negative, Urine Blood Negative, Urine Nitrate Negative, Urine Bilirubin Negative, Urine Urobilinogen 0.2, Ur Leukocyte Esterase Negative, Urine WBC Occasional, Ur Squamous Epith Cells None, Urine Bacteria Trace 06/22/24 02:57: Troponin I 0.02 06/22/24 00:16 06/22/24 00:16 Orders (Tests/Meds): ED MEDICATIONS Generic Name Dose Route Start Last Admin Trade Name Kevinq PRN Reason Stop Dose Admin Sodium Chloride 10 ml 06/22/24 01:14 06/22/24 01:14 Sodium Chloride 0.9% 10ml Syr (Rad Only) IV 07/22/24 01:13 10 ml NEEDED PRN Administration Maintain IV Site Discontinued Medications Generic Name Dose Route Start Last Admin Trade Name Freclaudia PRN Reason Stop Dose Admin Ceftriaxone Sodium 500 mg 06/22/24 01:44 06/22/24 01:58 Ceftriaxone 500mg Vial IM 06/22/24 01:45 500 mg ONCE ONE Administration Doxycycline Hyclate 100 mg 06/22/24 01:46 06/22/24 01:58 Doxycycline Hycl 100 Mg Tablet PO 06/22/24 01:47 100 mg ONCE ONE Administration Iopamidol 75 ml 06/22/24 01:14 06/22/24 01:14 Iopamidol-370 (76%);100ml Bottle IV 06/22/24 01:15 75 ml ONCE ONE Administration Ketorolac Tromethamine 30 mg 06/22/24 00:13 06/22/24 00:21 Ketorolac 30mg/Ml Vial IV 06/22/24 00:14 30 mg ONCE ONE Administration Lidocaine 1 each 06/22/24 01:44 06/22/24 02:04 Lidocaine 5% Transdermal Patch TP 06/22/24 01:45 1 each ONCE ONE Administration Lidocaine HCl 0 ml 06/22/24 01:44 06/22/24 02:00 Lidocaine 1% 5ml Pf Vial IM 06/22/24 01:45 5 ml ONCE ONE Administration Methocarbamol 500 mg 06/22/24 01:44 06/22/24 01:58 Methocarbamol 500mg Tablet PO 06/22/24 01:45 500 mg ONCE ONE Administration Sodium Chloride 50 ml 06/22/24 01:14 06/22/24 01:14 0.9 % Sodium Chloride 50 Ml Vial IV 06/22/24 01:15 50 ml ONCE ONE Administration ORDERS Category Date Time Status CT abdomen pelvis w con Stat Cat Scan 06/22/24 00:[address] angio chest PE protocol Stat Cat Scan 06/22/24 00:13 Completed CXR --portable [XR chest portable] Stat Exams 06/22/24 00:14 Completed POCUS Point of Care (ER Only) Stat Exams 06/22/24 00:13 Completed CBC w/Auto Diff [Complete Blood Count Auto Diff] Stat Lab 06/22/24 00:16 Completed CMP [Comprehensive Metabolic Panel] Stat Lab 06/22/24 00:16 Completed D-Dimer Stat Lab 06/22/24 00:16 Completed PT INR [Prothrombin Time INR] Stat Lab 06/22/24 00:16 Completed Rapid PCR Covid and Flu A/B Stat Lab 06/22/24 00:09 Completed Trop I [Troponin I] Stat Lab 06/22/24 00:16 Completed Troponin I Q3H Lab 06/22/24 02:57 Completed Troponin I Q3H Lab 06/22/24 06:15 Ordered Urinalysis and Microscopic Stat Lab 06/22/24 00:25 Completed Testicular US [US Testicular] Stat Ultrasound 06/22/24 00:36 Completed Medical Decision Narrative: In summary, this 28-year-old male with a social history including marijuana use which could complicate his presentation if he is actively intoxicated as well as worsened anxiety presents to the emergency department today with left groin pain, a sensation of whole body numbness, and shortness of breath, the numbness and shortness of breath had resolved on arrival to the ER. On initial evaluation patient is hemodynamically stable, afebrile, GCS 15, NIH 0, no neurologic deficits, patient has sensation, motor, and reflexes intact and normal throughout with normal dohlfx-kk-thnv and fdpz-ff-mxtl, he has no tenderness of the penis or testicles, no erythema, swelling, normal cremasteric reflex bilaterally, mild left lower quadrant abdominal tenderness without rebound or guarding, no peritonitic findings, lungs clear bilaterally with normal cardiopulmonary exam, patient has tenderness of the proximal medial left thigh in the adductor region without redness, heat, swelling, neurovascularly intact distally, ambulated independently into the ER with a limp on the left leg which she describes as being secondary to pain in the left groin muscles. Differential diagnosis includes but is not limited to ACS, PE, DVT, anxiety, diverticulosis, diverticulitis, kidney stone though patient does not have any CVA tenderness or urinary complaints, I also considered testicular torsion and though I do not have evidence of this on exam with normal exam, ultrasound is ordered for torsion rule out, considered viral syndrome, mesenteric adenitis, pulled muscle, electrolyte abnormality, muscle spasm, among others. Based on these concerns, I ordered broad workup including serum labs, with patient's recent long distance travel and complaints of leg pain and shortness of breath have strongly considered the possibility of PE and DVTs over [id number] ultrasound as well as CTA PE, with abdominal tenderness ordered abdominal CT, ruling out torsion with torsion ultrasound, and broad serum lab workup. ECG personally interpreted demonstrates normal sinus rhythm, rate 62, normal axis, normal VA and QTc, no STEMI. Patient received Toradol initially for treatment. Labs personally reviewed demonstrate no leukocytosis or anemia, PT/INR normal, CMP nonactionable, UA negative for findings of infection, D-dimer undetectable, initial troponin 0.02, serial troponin pending. COVID, flu negative. Lihme-si-lsvd ultrasound personally performed and interpreted by me does not demonstrate evidence of DVT in the left lower extremity. XR personally interpreted demonstrates no acute intrathoracic abnormality, see radiology read for final interpretation. CT imaging personally interpreted demonstrate no PE, no lobar infiltrate, no aortic dissection, no acute intra-abdominal pathology, see radiology read for final interpretation. Formal testicular ultrasound was reviewed and demonstrates slightly increased blood flow to both testes, radiologist commented possible orchitis. I have low suspicion for orchitis since patient does not have any testicular swelling, no pain with palpation, however the increased flow does increase my concern for this since patient is sexually active. He denies anoreceptive sex, and has no urinary symptoms. He has not had any signs or symptoms of mom's recently such as fever, parotid swelling, and again does not have specifically pain or swelling of the testes. However since he is sexually active he has increased risk of gonorrhea or chlamydia, or other STI, which could cause orchitis and increased blood flow. Therefore patient is being treated empirically with Rocephin and doxycycline. Labs have been sent for gonorrhea and chlamydia. On reassessment patient is resting comfortably. He states as long as he does not move he does not have much pain. He is receiving methocarbamol and the lidocaine patch since I have highest suspicion at this time for MSK etiology given patient's otherwise reassuring workup. Patient was placed in ED observation at 0145 for continued monitoring and serial troponins to rule out evolving NV and preclude unnecessary admission though he is not complaining of any chest pain or shortness of breath at this time. He remains on the compliance monitor and has been frequently reassessed. He has not had any concerning changes in his vitals and continues to be comfortable while in ED observation. Repeat troponin stable at 0.02. On further reassessment, patient continues to be stable and is resting comfortably. I believe he is appropriate for discharge at this time. I prescribed doxycycline for continued outpatient management of orchitis while confirmatory labs are pending. I also prescribed methocarbamol, lidocaine patch. He was instructed that if his gonorrhea or chlamydia are positive that he should have any sexual partners be evaluated and treated as well. Patient was given instructions on symptomatic management, follow up instructions, and return precautions for the emergency department. Patient indicated understanding and was discharged in stable condition. Total time in ED observation: 1 hour 50 minutes Procedures Miscellaneous Procedure Procedure Performed: Limited DVT ultrasound Indication: Limited compression ultrasonography of the left lower was performed to evaluate for non-compressibility of the deep veins in the patient. The ultrasound was performed with the following indications, as noted in the H&P: Proximal left leg pain, shortness of breath Identified structures: Left [common femoral vein, femoral vein, popliteal vein were examined.] Findings: Lower Extremity: Left CFV: Good compressibility Left FV good compressibility Left Popliteal vein: Good compressibility Impression: No evidence of DVT, normal left lower extremity DVT ultrasound Images were saved to permanent archive The study was technically adequate CPT: 82488-57-YS This study was performed by me, and I personally interpreted all images/videos. Based on my clinical judgement, these images were adequate and did not necessitate further imaging. Critical Care Critical Care Time Critical Care Time: No
[2024-06-22 00:34] LABS: Microscopic, Urine URINE MICROSCOPIC (MICROSCOPIC)
[2024-06-22 00:34] LABS: Basophils # 0.1 K/mm3 (0-0.2); Basophils % 1.3 % (0.1-2.0); Eosinophils # 0.2 K/mm3 (0.0-0.4); Eosinophils % 2.9 % (0.1-12.0); Hematocrit 44.6 % (42.0-52.0); Hemoglobin 16.1 g/dL (14.1-18.0); Lymphocytes # 3.1 K/mm3 (0.7-4.5); Lymphocytes % 37.7 % (10-50); Mean Corpuscular HGB Conc 36.1 g/dL (31.8-35.4); Mean Corpuscular Hemoglobin 30.7 pg (27.0-31.2); Mean Corpuscular Volume 85.1 fl (80-94); Mean Platelet Volume 10.4 fl (7.4-10.4); Monocytes # 0.8 K/mm3 (0.1-1.0); Monocytes % 9.1 % (1.7-9.3); Neutrophils % 48.8 % (37.0-80.0); Platelet Count 279 K/mm3 (142-424); Red Blood Count 5.24 M/mm3 (4.60-6.20); Red Cell Distribution Width 12.7 % (11.5-17.5); White Blood Count 8.3 K/mm3 (4.8-10.8)
--- NOTE | 2024-06-22 00:36 | US_ITS ---
PROCEDURE INFORMATION: Exam: US Scrotum Exam date and time: 06/22/2024 12:58 AM Age: 28 years old Clinical indication: Groin pain; Additional info: Groin pain radiating into abd TECHNIQUE: Imaging protocol: Real-time ultrasound of the scrotum and contents with color Doppler and image documentation. COMPARISON: CT ABDOMEN PELVIS W CON 09/24/2022 1:54 PM FINDINGS: Right testicle: No mass. Mild increased color Doppler and arterial waveforms. No torsion. Right testicle measures 5.3 x 2.7 x 4.4 cm. Left testicle: No mass. Mild increased color Doppler and arterial waveforms. No torsion. Left testicle measures 5 x 3 x 2.6 cm. Epididymides: Normal. Scrotum/soft tissues: Normal. No hydroceles. IMPRESSION: Mild increased blood flow bilateral testicles which could reflect orchitis.
--- NOTE | 2024-06-22 00:36 | CT_ITS ---
PROCEDURE INFORMATION: Exam: CT Abdomen And Pelvis With Contrast Exam date and time: 06/22/2024 1:01 AM Age: 28 years old Clinical indication: Abdominal pain; Additional info: Llq pain, groin pain TECHNIQUE: Imaging protocol: Computed tomography of the abdomen and pelvis with contrast. 3D rendering (Not supervised by radiologist): MIP and/or 3D reconstructed images were created by the technologist. Radiation optimization: All CT scans at this facility use at least one of these dose optimization techniques: automated exposure control; mA and/or kV adjustment per patient size (includes targeted exams where dose is matched to clinical indication); or iterative reconstruction. Contrast material: ISOVUE; Contrast volume: 75 ml; Contrast route: IV; COMPARISON: CT ABDOMEN PELVIS W CON 09/24/2022 1:54 PM FINDINGS: Liver: Normal. No mass. Gallbladder and biliary ducts: Normal. No calcified stones. No ductal dilation. Pancreas: Normal. No ductal dilation. Spleen: Normal. No splenomegaly. Adrenal glands: Normal. No mass. Kidneys and ureters: Normal. No hydronephrosis. Stomach and bowel: Constipation. No obstruction. No mucosal thickening. Appendix: No evidence of appendicitis. Intraperitoneal space: Unremarkable. No free air. No significant fluid collection. Vasculature: Unremarkable. No abdominal aortic aneurysm. Lymph nodes: Unremarkable. No enlarged lymph nodes. Urinary bladder: Unremarkable as visualized. Reproductive: Unremarkable as visualized. Bones/joints: Unremarkable. No acute fracture. Soft tissues: Unremarkable. IMPRESSION: No acute findings.
[2024-06-22 00:39] LABS: INR 0.98 (0.9-1.1); Prothrombin Time 10.8 seconds (9.2-12.1)
[2024-06-22 00:46] LABS: Alanine Aminotransferase 22 U/L (12-78); Albumin Level 5.1 g/dl (3.5-5.0); Alkaline Phosphatase 62 U/L (38-126); Anion Gap 8.7 mEq/L (5-15); Aspartate Amino Transferase 29 U/L (17-59); Bilirubin,Total 0.4 mg/dl (0.2-1.3); Blood Urea Nitrogen 10 mg/dl (9-20); Calcium 9.5 mg/dl (8.4-10.2); Carbon Dioxide 29 mmol/L (22.0-30.0); Chloride 104 mmol/L (98-107); Creatinine Clearance Estimated 141 mL/min (50-200); Estimated Glomerular Filt Rate 115 ml/min (>60); GFR (African American) 139 ML/MIN (>60); Globulin 2.6 g/dL (1.3-3.2); Glucose 98 mg/dl (74-100); Potassium 3.7 mmoL/L (3.5-5.1); Sodium 138 mmol/L (136-145); Total Protein,Serum 7.7 g/dl (6.3-8.2)
--- NOTE | 2024-06-22 00:52 | PC.NURSE ---
pt taken out of the department to radiology at this time.
[2024-06-22 00:53] LABS: D-Dimer < 0.25 ug/mL (0.0-0.5)
[2024-06-22 00:54] LABS: Appearance,Urine CLEAR (Clear); Bilirubin,Urine Negative (Negative); Blood, Urine Negative (Negative); Color,Urine YELLOW (Yellow); Glucose,Urine (UA) Negative (Negative); Ketones,Urine Negative (Negative); Leukocyte Esterase,Urine Negative (Negative); Nitrate,Urine Negative (Negative); Protein,Urine Negative (Negative); Specific Gravity, Urine <= 1.005 (1.005-1.030); Urobilinogen,Urine 0.2 EU/dl (0.2)
[2024-06-22 00:58] LABS: Troponin I 0.02 ng/ml (0.00-0.034)
[2024-06-22 01:10] LABS: Bacteria,Urine Trace /lpf; WBC,Urine Occasional #/hpf (0-3)
--- NOTE | 2024-06-22 01:10 | PC.NURSE ---
pt taken from our radiology department up to have US complete.
[2024-06-22] MEDS: IOPAMIDOL-370 (76%);100ML BOTTLE 75 ML IV (01:14)
[2024-06-22] MEDS: SODIUM CHLORIDE 0.9% 10ML SYR (RAD ONLY) 10 ML IV (01:14)
[2024-06-22] MEDS: 0.9 % SODIUM CHLORIDE 50 ML VIAL IV (01:14)
--- NOTE | 2024-06-22 01:25 | PC.NURSE ---
pt returned from US without incident at this time. Pt aox4, nad noted, RR even and non labored, skin pwd.
--- NOTE | 2024-06-22 01:28 | PC.NURSE ---
Patient was hooked back up to BP cuff and O2 monitor after scans. Patient states no needs at this time.
--- NOTE | 2024-06-22 01:47 | PC.NURSE ---
provider at the bedside to update pt on POC
[2024-06-22] MEDS: METHOCARBAMOL 500MG TABLET 500 MG PO (01:58)
[2024-06-22] MEDS: DOXYCYCLINE HYCL 100 MG TABLET PO (01:58)
[2024-06-22] MEDS: cefTRIAXone 500MG VIAL 500 MG IM (01:58)
[2024-06-22] MEDS: LIDOCAINE 1% 5ML PF VIAL IM (02:00)
[2024-06-22] MEDS: LIDOCAINE 5% TRANSDERMAL PATCH 1 EACH TP (02:04)
--- NOTE | 2024-06-22 02:58 | PC.NURSE ---
repeat trop drawn and sent to the lab, pt ambulates with slow steady gait to restroom and warm blankets given upon request.
[2024-06-22 03:25] LABS: Troponin I 0.02 ng/ml (0.00-0.034)
[2024-06-24 03:36] LABS: Neisseria gonorrhoeae, NAA Negative (Negative)
== END 2024-06-22 03:42 | disposition home or self-care (01) ==
PROVIDERS: Emergency Provider Emergency Medicine
DX: R10.32 Left lower quadrant pain (principal); M79.605 Pain in left leg; R20.0 Anesthesia of skin; R06.02 Shortness of breath; R05.9 Cough, unspecified
CPT/HCPCS: 71045; 71275; 74177; 76870; 80053; 81001; 84484; 85025; 85378; 85610; 87491; 87591; 87636; 93005; 96374; 99285; J0696; J1885; Q9967

== ENCOUNTER 2024-06-29 10:51 | Outpatient (CLI) | payer SELFPAY ==
[2024-06-29 21:14] LABS: Coronavirus 19, PCR Not Detected (NotDetected); Influenza B, PCR Not Detected (NotDetected)
[2024-06-29 22:45] LABS: Influenza A, PCR Detected (NotDetected)
== END 2024-06-29 23:59 | disposition home or self-care (01) ==
LOC: LAB.DROPOF 06-30 10:52
PROVIDERS: PCP Student in an Organized Health Care Education/Training Program; Visit Provider Student in an Organized Health Care Education/Training Program
DX: J10.1 Influenza due to other identified influenza virus with other respiratory manifestations (principal)
CPT/HCPCS: 87636

== ENCOUNTER 2024-07-02 12:42 | Emergency (ER) | payer OTHER, SELFPAY ==
[2024-07-02 13:35] VITALS: BP 128/64; PULSE 66; RESP 17; TEMP 36.8; O2SAT 100; BMI 27.4
--- NOTE | 2024-07-02 13:39 | XR_ITS ---
FINAL REPORT CLINICAL HISTORY: Flu + with cough and rib pain COMPARISON: 01/17/2022 FINDINGS: An AP view of the abdomen was obtained. A gastrostomy tube is present. Contrast has been injected through the gastrostomy tube, with opacification of the stomach. There is no evidence of contrast extravasation. A nonobstructive bowel gas pattern is seen. IMPRESSION: Gastrostomy tube tip in the stomach without evidence of contrast extravasation. Chest Reviewed, Interpreted and Dictated by Sorin Yi MD Transcribed by Taniya Argueta Authenticated and . [facility]
[2024-07-02 14:04] LABS: Albumin Level 4.7 g/dl (3.5-5.0); Chloride 108 mmol/L (98-107); Potassium 4.4 mmoL/L (3.5-5.1); Sodium 139 mmol/L (136-145)
[2024-07-02 14:07] LABS: Alanine Aminotransferase 22 U/L (12-78); Albumin/Globulin Ratio 2.1 (1.1-1.8); Alkaline Phosphatase 51 U/L (38-126); Anion Gap 12.4 mEq/L (5-15); Aspartate Amino Transferase 36 U/L (17-59); Bilirubin,Total 0.5 mg/dl (0.2-1.3); Blood Urea Nitrogen 10 mg/dl (9-20); Carbon Dioxide 23 mmol/L (22.0-30.0); Creatinine Clearance Estimated 151 mL/min (50-200); Estimated Glomerular Filt Rate 134 ml/min (>60); GFR (African American) 162 ML/MIN (>60); Globulin 2.2 g/dL (1.3-3.2); Total Protein,Serum 6.9 g/dl (6.3-8.2)
[2024-07-02 14:08] LABS: Calcium 9.2 mg/dl (8.4-10.2); Glucose 99 mg/dl (74-100)
--- NOTE | 2024-07-02 15:07 | ED_ITS ---
Discharge Plan Disposition Patient Disposition: Home, Self-Care Condition: Good Prescriptions Prescriptions: New prednisone 50 mg tablet 50 mg PO DAILY 5 Days Qty: 5 0RF albuterol sulfate 90 mcg/actuation HFA aerosol inhaler 1 inh inhalation Q4H PRN (Reason: shortness of breath or wheezing) Qty: 8.5 0RF tpgsgouegyyudjn-ycioweoeq-FP [Bromfed DM] 2-30-10 mg/5 mL syrup 5 ml PO Q4H PRN (Reason: sinus symptoms) Qty: 118 0RF ondansetron 4 mg tablet,disintegrating 4 mg PO QID PRN (Reason: nausea and vomiting) Qty: 10 0RF No Action methylprednisolone 4 mg tablets,dose pack See Rx Instructions PO PER PKG DIR Qty: 21 0RF Rx Instructions: PO PER PKG DIR ondansetron HCl 4 mg tablet 4 mg PO Q8H PRN (Reason: nausea and vomiting) Qty: 14 0RF ynvqgetgbcibchp-rvnkuavaj-UH [Bromfed DM] 2-30-10 mg/5 mL syrup 5 ml PO Q4-6H PRN (Reason: cold symptoms) Qty: 118 0RF benzonatate 100 mg capsule 100 mg PO BID PRN (Reason: cough) Qty: 20 0RF methocarbamol 500 mg tablet 500 mg PO TID Qty: 14 0RF Referrals Follow up/Referrals: Tim Horton MD [Primary Care Provider] - See instructions Activity Restrictions/Add. Instructions Additional Instructions/Restrictions: I recommend continuing Tylenol alternating with Motrin every 4 hours for any constitutional symptoms like pain or fever body aches etc. I have sent Bromfed into your pharmacy. I have also sent in a prescription for prednisone. Please take till the steroids are gone. I have additionally put in medication for nausea as well as rescue inhaler that you may be used 2 puffs every 4 hours for. If you have any continued new or worsening signs or symptoms follow-up with your PCP return to the ER as needed. Clinical Impressions Clinical Impression: Bronchitis, Dizziness Stand Alone Forms Stand Alone Forms: Work/School Release Instructions Patient Instructions: DI for Acute Bronchitis Print Language Print Language: Uzbek Discharge ED Provider: Blas Kauffman General Adult HPI <NICO Lyn - Last Filed: 07/02/24 22:34> General Chief complaint: Upper Respiratory Infection Stated complaint: dizziness, SOA Time Seen by Provider: 07/02/24 15:06 Mode of Arrival: Family Vehicle Source of Information: Patient Description of Symptoms (Recalled from ER Triage Doc. by RN): Pt reports he was dx with Flu this week. States his appetite and fever are improved, however he still feels dizzy with SOA. History of Present Illness HPI narrative: Patient presents for evaluation of weakness lightheadedness and shortness of breath. Patient was diagnosed with the flu last week. He reports that his constitutional symptoms have initially improved however he started having feelings of lightheadedness and tightness with breathing. He actually denies chest pain fever chills hemoptysis hematochezia melena nausea vomiting diarrhea. Related Data Previous Rx's ?Medication ?Instructions ?Recorded methylprednisolone 4 mg tablets in See Rx Instructions PO PER PKG DIR 06/14/24 a dose pack #21 tabs methocarbamol 500 mg tablet 500 mg PO TID #14 tabs 06/22/24 xlwstieoistvhce-mritiaignltweiy-CT 5 ml PO Q4-6H PRN cold symptoms 06/29/24 2 mg-30 mg-10 mg/5 mL oral syrup #118 mL (Bromfed DM) ondansetron HCl 4 mg tablet 4 mg PO Q8H PRN nausea and 06/29/24 vomiting #14 tabs albuterol sulfate 90 mcg/actuation 1 inh inhalation Q4H PRN shortness 07/02/24 aerosol inhaler of breath or wheezing #8.5 grams benzonatate 100 mg capsule 100 mg PO BID PRN cough #20 caps 07/02/24 lwxiwvyivjyczzr-otnkljdovntinie-IY 5 ml PO Q4H PRN sinus symptoms 07/02/24 2 mg-30 mg-10 mg/5 mL oral syrup #118 mL (Bromfed DM) ondansetron 4 mg disintegrating 4 mg PO QID PRN nausea and 07/02/24 tablet vomiting #10 tabs prednisone 50 mg tablet 50 mg PO DAILY 5 days #5 tabs 07/02/24 Allergies Allergy/AdvReac Type Severity Reaction Status Date / Time Sulfa (Sulfonamide Allergy Unknown Verified 06/29/24 17:43 Antibiotics) (SULFA (SULFONAMIDE ANTIBIOTICS)) [facility] <NICO Lyn - Last Filed: 07/02/24 22:34> [facility] Disclaimer: The information contained in this section may have been updated after the patient was seen, as this information can be updated by other users. 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 Depression Generalized anxiety disorder Family History Other No significant family history Social History Smoking Status: Current every day smoker tobacco type: cigarettes packs per day: 1 second hand exposure: No alcohol intake: never substance use type: marijuana current occupational status: employed Travel in the last 8 weeks: None household members: spouse housing: house number of children: 1 current occupation: [employer] current occupational exposures/hazards: No caffeine: Yes Do you have any abdominal pain?: Yes Other 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 Have you received the Flu Vaccine for this season: No Have you received the Pneumonia Vaccine: No <NICO Lyn - Last Filed: 07/02/24 22:34> ROS Obtained: Yes Systems reviewed as appropriate & no additional complaints except as documented Physical Exam <NICO Lyn - Last Filed: 07/02/24 22:34> General General appearance: alert and in no apparent distress Respiratory Respiratory exam: Present wheezes; Absent normal lung sounds bilaterally Cardiovascular Cardiovascular exam: Present regular rate Neurological Exam Neurological exam: Present alert and oriented X3 Medical Decision Making <NICO Lyn Last Filed: 07/02/24 22:34> Medical Records Medical records reviewed: Yes I reviewed the patient's medical records. Screening: Per USPSTF and CDC recommendations, given the prevalence of disease in our region, it is our hospital?s policy to screen for HIV and viral Hepatitis for all patients aged 18 and over and those with ongoing risk factors. Unruly Inquiry Pt receiving controlled substance: No Vital Signs: 07/02/24 13:35 07/02/24 16:45 Temperature 98.2 F 98.2 F Temperature Source Oral Oral Pulse Rate 60 Pulse Rate [Left Radial] 66 Respiratory Rate 17 16 Blood Pressure 122/75 Blood Pressure [Right Arm] 128/64 Blood Pressure Mean [Right Arm] 85 Blood Pressure Source Automatic Cuff Blood Pressure Source [Right Arm] Automatic Cuff Blood Pressure Position [Right Arm] Supine 02 Sat by Pulse Oximetry 100 Oxygen Delivery Method Room Air Room Air Lab Data Lab results reviewed: Yes I reviewed the patient's lab results. Lab Results 07/02/24 13:43: Sodium 139, Potassium 4.4, Chloride 108 H, Carbon Dioxide 23, Anion Gap 12.4, BUN 10, Creatinine 0.70, Estimated Creat Clear 151, Estimated GFR 134, Est GFR ( Amer) 162, Glucose 99, Calcium 9.2, Total Bilirubin 0.5, AST 36, ALT 22, Alkaline Phosphatase 51, Total Protein 6.9, Albumin 4.7, Globulin 2.2, Albumin/Globulin Ratio 2.1 H 07/02/24 15:05: WBC 3.4 L, RBC 4.89, Hgb 15.1, Hct 42.2, MCV 86.3, MCH 30.9, M CHC 35.8 H, RDW 12.6, Plt Count 167, MPV 11.0 H, Neut % (Auto) 48.9, Lymph % (Auto) 41.1, [place] % (Auto) 7.9, Eos % (Auto) 1.5, Baso % (Auto) 0.6, Neut # (Auto) 1.7 L, Lymph # (Auto) 1.4, [place] # (Auto) 0.3, Eos # (Auto) 0.1, Baso # (Auto) 0.0 07/02/24 15:05 07/02/24 13:43 Orders (Tests/Meds): ED MEDICATIONS Discontinued Medications Generic Name Dose Route Start Last Admin Trade Name Alfredito PRN Reason Stop Dose Admin Albuterol/Ipratropium 3 ml 07/02/24 15:38 07/02/24 16:05 Ipratropium/Albuterol 3 Ml Neb IH 07/02/24 15:39 3 ml ONCE ONE Administration Meclizine HCl 50 mg 07/02/24 15:38 07/02/24 15:57 Meclizine 25mg Tablet PO 07/02/24 15:39 50 mg ONCE ONE Administration Prednisone 40 mg 07/02/24 15:38 07/02/24 15:55 Prednisone 20mg Tab PO 07/02/24 15:39 40 mg ONCE ONE Administration ORDERS Category Date Time Status XR chest 2V Stat Exams 07/02/24 13:39 Completed Complete Blood Count Auto Diff Stat Lab 07/02/24 15:05 Completed Comprehensive Metabolic Panel Stat Lab 07/02/24 13:43 Completed Medical Decision Narrative: In summary patient is a 28-year-old male who presents to the emergency department for evaluation of breathing tightness and lightheadedness. Patient is hemodynamically stable with a blood pressure 128/64 heart rate 66 with normal sinus rhythm on bedside monitor breathing 17 times a minute satting at 100% on room air upon arrival, afebrile at 98.2. School exam is remarkable for pupils equal round reactive to light, no nuchal rigidity or meningeal signs, no carotid bruits, cranial nerves II through XII intact respiratory exam, no focal neurologic deficits, no cervical lymphadenopathy, breath sounds are heard to bases however he has faint end expiratory wheezes in the lower lung olvera without increased work of breathing.. Differential diagnosis includes post influenza pneumonia versus bronchitis versus dehydration versus peripheral vertigo that are. Initial workup will be conducted with hematologic labs plain film chest x-ray twelve-lead EKG. Initial interventions include DuoNeb Decadron Tylenol ibuprofen meclizine. Initial workup reviewed by me shows his hematologic labs are nonactionable my informal interpretation of his plain film chest x-ray shows no acute processes prior to radiology read. Upon repeat evaluation patient reported moderate symptomatic improvement. Given this patient is appropriate for discharge with prescription for prednisone metered- dose inhaler Bromfed Zofran. Patient given recommendations for symptomatic and supportive treatment and close follow-up with his PCP for any continuing new or worsening signs or symptoms or to return to the ER as needed. <Rosa Pedraza MD - Last Filed: 07/16/24 07:26> Vital Signs: 07/02/24 13:35 07/02/24 16:45 Temperature 98.2 F 98.2 F Temperature Source Oral Oral Pulse Rate 60 Pulse Rate [Left Radial] 66 Respiratory Rate 17 16 Blood Pressure 122/75 Blood Pressure [Right Arm] 128/64 Blood Pressure Mean [Right Arm] 85 Blood Pressure Source Automatic Cuff Blood Pressure Source [Right Arm] Automatic Cuff Blood Pressure Position [Right Arm] Supine 02 Sat by Pulse Oximetry 100 Oxygen Delivery Method Room Air Room Air Lab Data Lab Results 07/02/24 13:43: Sodium 139, Potassium 4.4, Chloride 108 H, Carbon Dioxide 23, Anion Gap 12.4, BUN 10, Creatinine 0.70, Estimated Creat Clear 151, Estimated GFR 134, Est GFR ( Amer) 162, Glucose 99, Calcium 9.2, Total Bilirubin 0.5, AST 36, ALT 22, Alkaline Phosphatase 51, Total Protein 6.9, Albumin 4.7, Globulin 2.2, Albumin/Globulin Ratio 2.1 H 07/02/24 15:05: WBC 3.4 L, RBC 4.89, Hgb 15.1, Hct 42.2, MCV 86.3, MCH 30.9, M CHC 35.8 H, RDW 12.6, Plt Count 167, MPV 11.0 H, Neut % (Auto) 48.9, Lymph % (Auto) 41.1, [place] % (Auto) 7.9, Eos % (Auto) 1.5, Baso % (Auto) 0.6, Neut # (Auto) 1.7 L, Lymph # (Auto) 1.4, [place] # (Auto) 0.3, Eos # (Auto) 0.1, Baso # (Auto) 0.0 Orders (Tests/Meds): ED MEDICATIONS Discontinued Medications Generic Name Dose Route Start Last Admin Trade Name Freq PRN Reason Stop Dose Admin Albuterol/Ipratropium 3 ml 07/02/24 15:38 07/02/24 16:05 Ipratropium/Albuterol 3 Ml Neb IH 07/02/24 15:39 3 ml ONCE ONE Administration Meclizine HCl 50 mg 07/02/24 15:38 07/02/24 15:57 Meclizine 25mg Tablet PO 07/02/24 15:39 50 mg ONCE ONE Administration Prednisone 40 mg 07/02/24 15:38 07/02/24 15:55 Prednisone 20mg Tab PO 07/02/24 15:39 40 mg ONCE ONE Administration ORDERS Category Date Time Status XR chest 2V Stat Exams 07/02/24 13:39 Completed Complete Blood Count Auto Diff Stat Lab 07/02/24 15:05 Completed Comprehensive Metabolic Panel Stat Lab 07/02/24 13:43 Completed Medical Decision Narrative: In summary patient is a 28-year-old male who presents to the emergency department for evaluation of breathing tightness and lightheadedness. Patient is hemodynamically stable with a blood pressure 128/64 heart rate 66 with normal sinus rhythm on bedside monitor breathing 17 times a minute satting at 100% on room air upon arrival, afebrile at 98.2. School exam is remarkable for pupils equal round reactive to light, no nuchal rigidity or meningeal signs, no carotid bruits, cranial nerves II through XII intact respiratory exam, no focal neurologic deficits, no cervical lymphadenopathy, breath sounds are heard to bases however he has faint end expiratory wheezes in the lower lung olver[place] without increased work of breathing.. Differential diagnosis includes post influenza pneumonia versus bronchitis versus dehydration versus peripheral vertigo that are. Initial workup will be conducted with hematologic labs plain film chest x-ray twelve-lead EKG. Initial interventions include DuoNeb Decadron Tylenol ibuprofen meclizine. Initial workup reviewed by me shows his hematologic labs are nonactionable my informal interpretation of his plain film chest x-ray shows no acute processes prior to radiology read. Upon repeat evaluation patient reported moderate symptomatic improvement. Given this patient is appropriate for discharge with prescription for prednisone metered- dose inhaler Bromfed Zofran. Patient given recommendations for symptomatic and supportive treatment and close follow-up with his PCP for any continuing new or worsening signs or symptoms or to return to the ER as needed. I was consulted by the JAVIER, and we discussed the complexity of problems being addressed. I approved the treatment and management plan for this patient's care in the emergency department, thus performing a substantial portion of the medical decision making. Rosa Pedraza MD Critical Care <NICO Lyn - Last Filed: 07/02/24 22:34> Critical Care Time Critical Care Time: No
[2024-07-02 15:33] LABS: Basophils % 0.6 % (0.1-2.0); Eosinophils # 0.1 K/mm3 (0.0-0.4); Eosinophils % 1.5 % (0.1-12.0); Hematocrit 42.2 % (42.0-52.0); Hemoglobin 15.1 g/dL (14.1-18.0); Lymphocytes # 1.4 K/mm3 (0.7-4.5); Lymphocytes % 41.1 % (10-50); Mean Corpuscular HGB Conc 35.8 g/dL (31.8-35.4); Mean Corpuscular Hemoglobin 30.9 pg (27.0-31.2); Mean Corpuscular Volume 86.3 fl (80-94); Monocytes # 0.3 K/mm3 (0.1-1.0); Monocytes % 7.9 % (1.7-9.3); Neutrophils # 1.7 K/mm3 (1.8-7.8); Neutrophils % 48.9 % (37.0-80.0); Platelet Count 167 K/mm3 (142-424); Red Blood Count 4.89 M/mm3 (4.60-6.20); Red Cell Distribution Width 12.6 % (11.5-17.5); White Blood Count 3.4 K/mm3 (4.8-10.8)
[2024-07-02] MEDS: predniSONE 20MG TAB 40 MG PO (15:55)
[2024-07-02] MEDS: MECLIZINE 25MG TABLET 50 MG PO (15:57)
[2024-07-02] MEDS: IPRATROPIUM/ALBUTEROL 3 ML NEB IH (16:05)
[2024-07-02 16:45] VITALS: BP 122/75; PULSE 60; RESP 16; TEMP 36.8; O2SAT 98
== END 2024-07-02 16:47 | disposition home or self-care (01) ==
PROVIDERS: Student in an Organized Health Care Education/Training Program; Emergency Provider Emergency Medicine; PCP Internal Medicine Adolescent Medicine
DX: J20.9 Acute bronchitis, unspecified (principal); R42 Dizziness and giddiness
CPT/HCPCS: 71046; 80053; 85025; 94640; 99284; J7620

== ENCOUNTER 2024-07-08 19:55 | Emergency (ER) | payer OTHER, SELFPAY ==
[2024-07-08 20:02] VITALS: BP 129/72; PULSE 58; RESP 18; TEMP 36.9; O2SAT 100; BMI 20.3
[2024-07-08 20:30] VITALS: BP 121/75; PULSE 58; O2SAT 100
--- NOTE | 2024-07-08 20:45 | HMH.EDGENADL ---
Discharge Plan Disposition Patient Disposition: Home, Self-Care Chief Complaint: PAIN Prescriptions Prescriptions: No Action methylprednisolone 4 mg tablets,dose pack See Rx Instructions PO PER PKG DIR Qty: 21 0RF Rx Instructions: PO PER PKG DIR ondansetron HCl 4 mg tablet 4 mg PO Q8H PRN (Reason: nausea and vomiting) Qty: 14 0RF oeusbixpivzoltb-rzicekitw-PP [Bromfed DM] 2-30-10 mg/5 mL syrup 5 ml PO Q4-6H PRN (Reason: cold symptoms) Qty: 118 0RF benzonatate 100 mg capsule 100 mg PO BID PRN (Reason: cough) Qty: 20 0RF methocarbamol 500 mg tablet 500 mg PO TID Qty: 14 0RF prednisone 50 mg tablet 50 mg PO DAILY 5 Days Qty: 5 0RF albuterol sulfate 90 mcg/actuation HFA aerosol inhaler 1 inh inhalation Q4H PRN (Reason: shortness of breath or wheezing) Qty: 8.5 0RF xnlvaxiffveczqk-ezhwvsdgk-RF [Bromfed DM] 2-30-10 mg/5 mL syrup 5 ml PO Q4H PRN (Reason: sinus symptoms) Qty: 118 0RF ondansetron 4 mg tablet,disintegrating 4 mg PO QID PRN (Reason: nausea and vomiting) Qty: 10 0RF Referrals Follow up/Referrals: Tim Horton MD [Primary Care Provider] - See instructions Activity Restrictions/Add. Instructions Additional Instructions/Restrictions: Follow-up with your family doctor as needed for this visit to the emergency department. Take Tylenol 1000 mg every 6 hours (4 times daily) and ibuprofen 400 mg every 6 hours (4 times daily) as needed with food and water to prevent GI upset and kidney damage. Clinical Impressions Clinical Impression: Acute pain of left lower extremity Print Language Print Language: [place] Discharge ED Provider: Blas Kauffman General Adult HPI General Chief complaint: PAIN Stated complaint: Left side groin pain,no injury Time Seen by Provider: 07/08/24 20:06 Mode of Arrival: Ambulatory Source of Information: Patient Description of Symptoms (Recalled from ER Triage Doc. by RN): Pt ambulatory to ED with c/o left calf pain X1 week and left groin pain X2 days. No injury or fall. No PRN meds at home. History of Present Illness HPI narrative: Please note that above description of symptoms, in this electronic medical record under categorization of recalled from ER triage doctor by RN are reflective of an initial nursing assessment, however, is not reflective of my full history and physical exam that was personally taken and clarified. Consequentially, this preceding description of symptoms, which may include the patient's categorized chief complaint in the EMR, do not reflect my personal clinical impression, and the ultimate description of history of present illness and patient stated complaints should be deferred to this section of the note. Unless stated otherwise or congruent with this section of the note, additional signs, symptoms, or incongruence should be interpreted as inaccurate with my clinical impression. Related Data Previous Rx's ?Medication ?Instructions ?Recorded methylprednisolone 4 mg tablets in See Rx Instructions PO PER PKG DIR 06/14/24 a dose pack #21 tabs methocarbamol 500 mg tablet 500 mg PO TID #14 tabs 06/22/24 vgzvpsmkjetvmjt-fhrwtyllzinxiaa-LK 5 ml PO Q4-6H PRN cold symptoms 06/29/24 2 mg-30 mg-10 mg/5 mL oral syrup #118 mL (Bromfed DM) ondansetron HCl 4 mg tablet 4 mg PO Q8H PRN nausea and 06/29/24 vomiting #14 tabs albuterol sulfate 90 mcg/actuation 1 inh inhalation Q4H PRN shortness 07/02/24 aerosol inhaler of breath or wheezing #8.5 grams benzonatate 100 mg capsule 100 mg PO BID PRN cough #20 caps 07/02/24 eqmrlgoxzlcxmor-isablcuvvjldjsr-EO 5 ml PO Q4H PRN sinus symptoms 07/02/24 2 mg-30 mg-10 mg/5 mL oral syrup #118 mL (Bromfed DM) ondansetron 4 mg disintegrating 4 mg PO QID PRN nausea and 07/02/24 tablet vomiting #10 tabs prednisone 50 mg tablet 50 mg PO DAILY 5 days #5 tabs 07/02/24 Allergies Allergy/AdvReac Type Severity Reaction Status Date / Time Sulfa (Sulfonamide Allergy Unknown Verified 06/29/24 17:43 Antibiotics) (SULFA (SULFONAMIDE ANTIBIOTICS)) [facility] Disclaimer: The information contained in this section may have been updated after the patient was seen, as this information can be updated by other users. 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 Depression Generalized anxiety disorder Family History Other No significant family history Social History Smoking Status: Current every day smoker tobacco type: cigarettes packs per day: 1 second hand exposure: No alcohol intake: never substance use type: marijuana current occupational status: employed Travel in the last 8 weeks: None household members: spouse housing: house number of children: 1 current occupation: [employer] current occupational exposures/hazards: No caffeine: Yes Have you lived/traveled outside [place] in past 30 days?: No Contact w/someone who lives/traveled outside US past 30 days?: No Exposure to someone with infectious disease in past 14 days?: No Do you have a fever (greater than 100.4 F or 38 C)?: No Have you tested positive for COVID-19: No Exposed to someone with COVID-19 in past 14 days?: No Do you have a sore throat?: No Do you have a cough?: No Do you have any weakness?: No Do you have any diarrhea?: No Are you experiencing any unusual bleeding?: No Do you have any muscle aches/pain?: No Do you have any abdominal pain?: No Are you experiencing loss of taste or smell?: No Other 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 Have you received the Flu Vaccine for this season: No Have you received the Pneumonia Vaccine: No ROS Obtained: Yes All systems reviewed & no additional complaints except as documented Physical Exam General General appearance: alert Head Head exam: atraumatic and normocephalic Eye Eye exam: Present normal appearance, PERRL and EOMI Neck Neck exam: Present normal inspection, full ROM and trachea midline Respiratory Respiratory exam: Absent respiratory distress, wheezes, stridor, accessory muscle use or prolonged expiratory phase Cardiovascular Cardiovascular exam: Present other (Pulses equal symmetric in upper and lower extremities) Abdominal Exam Abdominal exam: Present soft; Absent distention, tenderness or pulsatile mass Extremities Exam Extremities exam: Absent edema Neurological Exam Neurological exam: Present alert, oriented X3 and CN II-XII intact; Absent motor sensory deficit Skin Skin exam: Present warm and dry; Absent diaphoresis or erythema Medical Decision Making Medical Records Medical records reviewed: Yes I reviewed the patient's medical records. Screening: Per USPSTF and CDC recommendations, given the prevalence of disease in our region, it is our hospital?s policy to screen for HIV and viral Hepatitis for all patients aged 18 and over and those with ongoing risk factors. Unruly Inquiry Pt receiving controlled substance: No Unruly was queried for this patient: No Vital Signs: 07/08/24 20:02 07/08/24 20:30 Temperature 98.5 F Temperature Source Oral Pulse Rate 58 L Pulse Rate [Left Radial] 58 L Respiratory Rate 18 Blood Pressure 121/75 Blood Pressure [Right Arm] 129/72 Blood Pressure Mean [Right Arm] 91 Blood Pressure Source [Right Arm] Automatic Cuff Blood Pressure Position [Right Arm] Sitting 02 Sat by Pulse Oximetry 100 100 Oxygen Delivery Method Room Air Orders (Tests/Meds): ORDERS Category Date Time Status POCUS Point of Care (ER Only) Stat Exams 07/08/24 20:10 Ordered Medical Decision Narrative: 28-year-old male presenting with left lower extremity complaints. Patient states that he has been traveling recently a lot to watch sports. States that he also has been feeling well, thinks he had some kind of viral syndrome recently, so has not been moving much. Largely concerned about DVT in his left lower extremity. 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 No trauma. History was obtained via conversation with patient. On arrival, patient hemodynamically stable, alert, oriented x4, appropriate, GCS 15, moving all extremities spontaneously, pupils equal and reactive to light. Full physical exam performed and significant for normal left lower extremity. Pulses intact, neurovascular intact, range of motion intact and he is ambulatory. No swelling or outward signs of abnormality. No evidence of hernia on Valsalva. Differential includes sprain, strain, DVT, among others. Patient placed on continuous cardiac monitoring and continuous pulse ox with initial blood pressure 129/72, heart rate 58, saturation 100% on room air. Hematologic labs were considered, not deemed necessary. Patient has no systemic signs or symptoms and outwardly normal extremity. Left lower extremity DVT ultrasound was performed, this was negative. Because patient at baseline without signs or symptoms of clinical decompensation, deemed appropriate for discharge. Results were relayed to patient who voiced understanding and were agreeable to outpatient management and follow up. I discussed my clinical impression with patient and answered all questions. At this time, the evidence for any other entities in the differential is insufficient to warrant any further testing or ED observation. This was explained as well. Advisory was given that persistent or worsening symptoms require further evaluation. I confirmed the understanding of this discussion. Food Manager disclaimer Much of this encounter note is an electronic intake counselor spoken language to printed text. Electronic intake counselor of the spoken language may permit errors. Although I have reviewed the note, some errors may still exist. Procedures Limited Ultrasound Indication:: Limited DVT ultrasound Indication: Limited compression ultrasonography of the left lower extremity was performed to evaluate for non-compressibility of the deep veins in the patient. The ultrasound was performed with the following indications, as noted in the H&P: Left lower extremity pain Identified structures: Left common femoral vein, femoral vein, popliteal vein were examined. Findings: Left CFV: Good compressibility Left FV good compressibility Left Popliteal vein: Good compressibility Impression: Normal left lower extremity DVT ultrasound with no evidence of DVT Images were saved to permanent archive The study was technically adequate CPT: 53005-93-KV 47001-71-[id number] 43086-84 (complete bilateral study) This study was performed by me, and I personally interpreted all images/videos. Based on my clinical judgement, these images were adequate and did not necessitate further imaging Critical Care Critical Care Time Critical Care Time: No
[2024-07-08 21:25] VITALS: BP 121/75; PULSE 52; RESP 18; TEMP 36.8; O2SAT 100
== END 2024-07-08 21:27 | disposition home or self-care (01) ==
PROVIDERS: Emergency Provider Emergency Medicine; PCP Internal Medicine Adolescent Medicine
DX: M79.605 Pain in left leg (principal)
CPT/HCPCS: 93971; 99284

== ENCOUNTER 2024-07-10 03:02 | Emergency (ER) | payer OTHER, SELFPAY ==
--- NOTE | 2024-07-10 03:07 | HMH.EDGENADL ---
Discharge Plan Disposition Patient Disposition: Home, Self-Care Prescriptions Prescriptions: No Action methylprednisolone 4 mg tablets,dose pack See Rx Instructions PO PER PKG DIR Qty: 21 0RF Rx Instructions: PO PER PKG DIR ondansetron HCl 4 mg tablet 4 mg PO Q8H PRN (Reason: nausea and vomiting) Qty: 14 0RF eanvytglxuvpizi-ymgmkpbfb-SQ [Bromfed DM] 2-30-10 mg/5 mL syrup 5 ml PO Q4-6H PRN (Reason: cold symptoms) Qty: 118 0RF benzonatate 100 mg capsule 100 mg PO BID PRN (Reason: cough) Qty: 20 0RF methocarbamol 500 mg tablet 500 mg PO TID Qty: 14 0RF prednisone 50 mg tablet 50 mg PO DAILY 5 Days Qty: 5 0RF albuterol sulfate 90 mcg/actuation HFA aerosol inhaler 1 inh inhalation Q4H PRN (Reason: shortness of breath or wheezing) Qty: 8.5 0RF fzhupvucfihatep-bjfbtcbrt-NR [Bromfed DM] 2-30-10 mg/5 mL syrup 5 ml PO Q4H PRN (Reason: sinus symptoms) Qty: 118 0RF ondansetron 4 mg tablet,disintegrating 4 mg PO QID PRN (Reason: nausea and vomiting) Qty: 10 0RF Referrals Follow up/Referrals: Tim Horton MD [Primary Care Provider] - See instructions Activity Restrictions/Add. Instructions Additional Instructions/Restrictions: Please follow-up with your primary care provider. Please return to the emergency department if you develop any new or worsening symptoms or become concerned for your health. Clinical Impressions Clinical Impression: Nausea, Abdominal pain Instructions Patient Instructions: DI for Acute Abdominal Pain Print Language Print Language: Yoruba Discharge ED Provider: Ben Hamilton General Adult HPI General Chief complaint: Abdominal Pain Stated complaint: abd pain, nausea Time Seen by Provider: 07/10/24 03:07 History of Present Illness HPI narrative: 28-year-old male, denies any past medical history presents for nausea and abdominal pain. He reports it started a few hours ago. He denies any vomiting but does feel nauseous. Pain is primarily in the epigastric region. Denies any history of pancreatitis, denies any alcohol or drug use, no history of abdominal surgery. No fever at home. No diarrhea. Related Data Previous Rx's ?Medication ?Instructions ?Recorded methylprednisolone 4 mg tablets in See Rx Instructions PO PER PKG DIR 06/14/24 a dose pack #21 tabs methocarbamol 500 mg tablet 500 mg PO TID #14 tabs 06/22/24 jlsuzclwxgoiwhe-szypvfdrpkxbneq-GG 5 ml PO Q4-6H PRN cold symptoms 06/29/24 2 mg-30 mg-10 mg/5 mL oral syrup #118 mL (Bromfed DM) ondansetron HCl 4 mg tablet 4 mg PO Q8H PRN nausea and 06/29/24 vomiting #14 tabs albuterol sulfate 90 mcg/actuation 1 inh inhalation Q4H PRN shortness 07/02/24 aerosol inhaler of breath or wheezing #8.5 grams benzonatate 100 mg capsule 100 mg PO BID PRN cough #20 caps 07/02/24 ejilwoidoxutilm-bmlxhwrkzzsdwfr-NM 5 ml PO Q4H PRN sinus symptoms 07/02/24 2 mg-30 mg-10 mg/5 mL oral syrup #118 mL (Bromfed DM) ondansetron 4 mg disintegrating 4 mg PO QID PRN nausea and 07/02/24 tablet vomiting #10 tabs prednisone 50 mg tablet 50 mg PO DAILY 5 days #5 tabs 07/02/24 Allergies Allergy/AdvReac Type Severity Reaction Status Date / Time Sulfa (Sulfonamide Allergy Unknown Verified 06/29/24 17:43 Antibiotics) (SULFA (SULFONAMIDE ANTIBIOTICS)) [facility] Disclaimer: The information contained in this section may have been updated after the patient was seen, as this information can be updated by other users. 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 current occupational exposures/hazards: No caffeine: Yes Do you have any abdominal pain?: Yes Other 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 Have you received the Flu Vaccine for this season: No Have you received the Pneumonia Vaccine: No ROS Obtained: Yes All systems reviewed & no additional complaints except as documented Physical Exam General General appearance: alert and in no apparent distress Head Head exam: atraumatic and normocephalic Eye Eye exam: Present normal appearance, PERRL and EOMI ENT ENT exam: Present normal oropharynx and normal external ear exam Neck Neck exam: Present normal inspection and full ROM Chest Chest inspection: Present normal inspection and symmetric chest wall rise; Absent tenderness Respiratory Respiratory exam: Present normal lung sounds bilaterally; Absent respiratory distress Cardiovascular Cardiovascular exam: Present regular rate and normal rhythm Abdominal Exam Abdominal exam: Present soft and tenderness (Mild, epigastric); Absent distention or guarding Extremities Exam Extremities exam: Present normal inspection; Absent edema or joint swelling Back Exam Back exam: Present normal inspection; Absent tenderness Neurological Exam Neurological exam: Present alert and oriented X3; Absent motor sensory deficit Psychiatric Psychiatric exam: Present normal affect and normal mood Skin Skin exam: Present warm, dry and normal color Lymphatic Lymphatic Findings: no adenopathy Medical Decision Making Medical Records Medical records reviewed: Yes I reviewed the patient's medical records. Screening: Per USPSTF and CDC recommendations, given the prevalence of disease in our region, it is our hospital?s policy to screen for HIV and viral Hepatitis for all patients aged 18 and over and those with ongoing risk factors. Unruly Inquiry Pt receiving controlled substance: No Unruly was queried for this patient: No Vital Signs: 07/10/24 03:26 Temperature 97.9 F Temperature Source Oral Pulse Rate [Radial] 70 Respiratory Rate 16 Blood Pressure [Right Arm] 124/76 Blood Pressure Mean [Right Arm] 92 Blood Pressure Position [Right Arm] Sitting 02 Sat by Pulse Oximetry 99 Oxygen Delivery Method Room Air Lab Data Lab results reviewed: Yes I reviewed the patient's lab results. Lab Results 07/10/24 03:24: WBC 6.0, RBC 4.90, Hgb 15.0, Hct 41.4 L, MCV 84.5, MCH 30.6, MCHC 36.2 H, RDW 12.4, Plt Count 247, MPV 10.4, Neut % (Auto) 40.1, Lymph % (Auto) 43.9, [place] % (Auto) 11.8 H, Eos % (Auto) 2.8, Baso % (Auto) 0.7, Neut # (Auto) 2.4, Lymph # (Auto) 2.6, [place] # (Auto) 0.7, Eos # (Auto) 0.2, Baso # (Auto) 0.0, Sodium 139, Potassium 3.7, Chloride 108 H, Carbon Dioxide 25, Anion Gap 9.7, BUN 8 L, Creatinine 0.70, Estimated Creat Clear 151, Estimated GFR 134, Est GFR ( Amer) 162, Glucose 86, Calcium 8.8, Total Bilirubin 0.5, AST 33, ALT 25, Alkaline Phosphatase 63, Total Protein 6.9, Albumin 4.6, Globulin 2.3, Albumin/Globulin Ratio 2.0 H, Lipase 81 07/10/24 03:24 07/10/24 03:24 Orders (Tests/Meds): ED MEDICATIONS Discontinued Medications Generic Name Dose Route Start Last Admin Trade Name Freq PRN Reason Stop Dose Admin Acetaminophen 1,000 mg 07/10/24 03:35 07/10/24 03:52 Acetaminophen 500mg Tab PO 07/10/24 03:36 1,000 mg ONCE ONE Administration Belladonna Alkaloids 60 ml 07/10/24 03:35 07/10/24 03:52 Belladonna Alkaloids 60 Ml Ml PO 07/10/24 03:36 60 ml ONCE ONE Administration Ketorolac Tromethamine 30 mg 07/10/24 03:35 07/10/24 03:52 Ketorolac 30mg/Ml Vial IV 07/10/24 03:36 30 mg ONCE ONE Administration Ondansetron HCl 4 mg 07/10/24 03:35 07/10/24 03:52 Ondansetron 4mg/2ml Vial IV 07/10/24 03:36 4 mg ONCE ONE Administration ORDERS Category Date Time Status POCUS Point of Care (ER Only) Stat Exams 07/10/24 03:35 Completed CBC w/Auto Diff [Complete Blood Count Auto Diff] Stat Lab 07/10/24 03:24 Completed CMP [Comprehensive Metabolic Panel] Stat Lab 07/10/24 03:24 Completed Lipase Stat Lab 07/10/24 03:24 Completed Medical Decision Narrative: 28-year-old male without reported past medical history presents for a few hours of nausea and upper abdominal pain. History was obtained via interactive discussion with patient chart review. On arrival, patient is [afebrile, hemodynamically stable, satting appropriately, alert, oriented x4, GCS 15], moving all extremities spontaneously. Full physical exam performed and significant for mild epigastric and right upper quadrant tenderness Differential includes but is not limited to gastritis, cholecystitis, pancreatitis, gastroenteritis. Patient was given Tylenol Toradol Zofran for symptomatic management and correction of underlying abnormalities. Workup initiated including CBC CMP lipase. Bedside ultrasound was performed by me, gallbladder is normal in appearance without pericholecystic fluid, wall thickening or stones. CT was considered but deemed unnecessary given negative ultrasound.. On re-evaluation, patient reports some symptomatic improvement. Has not had any vomiting Laboratory workup independently interpreted by me and significant for negative lipase, no significant leukocytosis, normal renal function, normal electrolytes, Given patient history, exam and workup, patient's presentation most likely represents possible gastroenteritis. No evidence of pancreatitis or acute biliary pathology at this time. Patient was discharged in stable condition with return symptoms.. Procedures Risk/Benefits of Procedure(s) Were Explained: Yes Limited Ultrasound Indication:: Limited RUQ ultrasound Indication: Abdominal pain nausea Identified structures: -Gallbladder -Gallbladder wall -Liver Findings: Sonographic Mabry sign: Absent Gallstones: Absent Sludge: Absent Pericholecystic fluid: Absent Maximal GB wall thickness (mm): [normal is </= 3mm] 2 mm Common bile duct width (mm): [normal is </= 6mm] Unable to visualize Gallbladder width (cm): [normal is < 4cm] Grossly normal Impression: Normal gallbladder without evidence of cholelithiasis or cholecystitis Images were saved to permanent archive The study was technically adequate CPT 22374-68 This study was performed by de, and I personally interpreted all images/videos. Critical Care Critical Care Time Critical Care Time: No
[2024-07-10 03:26] VITALS: BP 124/76; PULSE 70; RESP 16; TEMP 36.6; O2SAT 99; BMI 20.3
--- NOTE | 2024-07-10 03:30 | PC.NURSE ---
provider at the bedside
[2024-07-10 03:50] LABS: Albumin Level 4.6 g/dl (3.5-5.0); Chloride 108 mmol/L (98-107)
[2024-07-10 03:51] LABS: Potassium 3.7 mmoL/L (3.5-5.1); Sodium 139 mmol/L (136-145)
[2024-07-10] MEDS: ONDANSETRON 4MG/2ML VIAL 4 MG IV (03:52)
[2024-07-10] MEDS: KETOROLAC 30MG/ML VIAL 30 MG IV (03:52)
[2024-07-10] MEDS: BELLADONNA ALKALOIDS 60 ML ML PO (03:52)
[2024-07-10] MEDS: ACETAMINOPHEN 500MG TAB 1000 MG PO (03:52)
[2024-07-10 03:53] LABS: Alanine Aminotransferase 25 U/L (12-78); Alkaline Phosphatase 63 U/L (38-126); Anion Gap 9.7 mEq/L (5-15); Aspartate Amino Transferase 33 U/L (17-59); Bilirubin,Total 0.5 mg/dl (0.2-1.3); Blood Urea Nitrogen 8 mg/dl (9-20); Carbon Dioxide 25 mmol/L (22.0-30.0); Creatinine Clearance Estimated 151 mL/min (50-200); Estimated Glomerular Filt Rate 134 ml/min (>60); GFR (African American) 162 ML/MIN (>60); Globulin 2.3 g/dL (1.3-3.2); Lipase 81 U/L (23-300); Total Protein,Serum 6.9 g/dl (6.3-8.2)
[2024-07-10 03:54] LABS: Calcium 8.8 mg/dl (8.4-10.2); Glucose 86 mg/dl (74-100)
[2024-07-10 04:07] LABS: Basophils % 0.7 % (0.1-2.0); Eosinophils # 0.2 K/mm3 (0.0-0.4); Eosinophils % 2.8 % (0.1-12.0); Hematocrit 41.4 % (42.0-52.0); Lymphocytes # 2.6 K/mm3 (0.7-4.5); Lymphocytes % 43.9 % (10-50); Mean Corpuscular HGB Conc 36.2 g/dL (31.8-35.4); Mean Corpuscular Hemoglobin 30.6 pg (27.0-31.2); Mean Corpuscular Volume 84.5 fl (80-94); Mean Platelet Volume 10.4 fl (7.4-10.4); Monocytes # 0.7 K/mm3 (0.1-1.0); Monocytes % 11.8 % (1.7-9.3); Neutrophils # 2.4 K/mm3 (1.8-7.8); Neutrophils % 40.1 % (37.0-80.0); Platelet Count 247 K/mm3 (142-424); Red Cell Distribution Width 12.4 % (11.5-17.5)
[2024-07-10 04:54] VITALS: BP 104/58; PULSE 62; RESP 14; TEMP 36.6; O2SAT 100
== END 2024-07-10 04:55 | disposition home or self-care (01) ==
PROVIDERS: Emergency Provider Emergency Medicine; PCP Internal Medicine Adolescent Medicine
DX: R10.13 Epigastric pain (principal); R11.0 Nausea; F17.210 Nicotine dependence, cigarettes, uncomplicated
CPT/HCPCS: 80053; 83690; 85025; 96374; 96375; 99283; J1885; J2405

== ENCOUNTER 2024-08-02 17:08 | Emergency (ER) | payer OTHER, SELFPAY ==
[2024-08-02 17:20] VITALS: BP 117/69; PULSE 66; RESP 13; TEMP 37.1; O2SAT 100; BMI 21.7
[2024-08-02 17:29] VITALS: BP 131/84; PULSE 63; O2SAT 100
[2024-08-02 17:30] VITALS: BP 119/78; PULSE 68; O2SAT 100
--- NOTE | 2024-08-02 18:00 | HMH.EDGENADL ---
Discharge Plan Disposition Patient Disposition: Home, Self-Care Chief Complaint: PAIN Prescriptions Prescriptions: No Action methylprednisolone 4 mg tablets,dose pack See Rx Instructions PO PER PKG DIR Qty: 21 0RF Rx Instructions: PO PER PKG DIR ondansetron HCl 4 mg tablet 4 mg PO Q8H PRN (Reason: nausea and vomiting) Qty: 14 0RF caqcesprwrqycmh-nznblczcm-HU [Bromfed DM] 2-30-10 mg/5 mL syrup 5 ml PO Q4-6H PRN (Reason: cold symptoms) Qty: 118 0RF benzonatate 100 mg capsule 100 mg PO BID PRN (Reason: cough) Qty: 20 0RF methocarbamol 500 mg tablet 500 mg PO TID Qty: 14 0RF prednisone 50 mg tablet 50 mg PO DAILY 5 Days Qty: 5 0RF albuterol sulfate 90 mcg/actuation HFA aerosol inhaler 1 inh inhalation Q4H PRN (Reason: shortness of breath or wheezing) Qty: 8.5 0RF evycguyaywbigvg-sulzrqdug-KV [Bromfed DM] 2-30-10 mg/5 mL syrup 5 ml PO Q4H PRN (Reason: sinus symptoms) Qty: 118 0RF ondansetron 4 mg tablet,disintegrating 4 mg PO QID PRN (Reason: nausea and vomiting) Qty: 10 0RF Referrals Follow up/Referrals: Tim Horton MD [Primary Care Provider] - See instructions Activity Restrictions/Add. Instructions Additional Instructions/Restrictions: Call your family doctor to establish care for this visit to the emergency department and schedule follow-up as needed. Tylenol and Motrin, be sure to stretch your legs Clinical Impressions Clinical Impression: Encounter for medical assessment, Left leg pain Print Language Print Language: Upper Sorbian Discharge ED Provider: Blas Kauffman General Adult HPI General Chief complaint: PAIN Stated complaint: Swelling left back calf with knot Time Seen by Provider: 08/02/24 17:15 Mode of Arrival: Ambulatory Source of Information: Patient Description of Symptoms (Recalled from ER Triage Doc. by RN): pt presents to ED with c/o pain, redness, swelling in left calf. pt reports tenderness and swelling from thigh down to calf. pt reports symptoms ongoing for the past week. History of Present Illness HPI narrative: Please note that above description of symptoms, in this electronic medical record under categorization of recalled from ER triage doctor by RN are reflective of an initial nursing assessment, however, is not reflective of my full history and physical exam that was personally taken and clarified. Consequentially, this preceding description of symptoms, which may include the patient's categorized chief complaint in the EMR, do not reflect my personal clinical impression, and the ultimate description of history of present illness and patient stated complaints should be deferred to this section of the note. Unless stated otherwise or congruent with this section of the note, additional signs, symptoms, or incongruence should be interpreted as inaccurate with my clinical impression. Related Data Previous Rx's ?Medication ?Instructions ?Recorded methylprednisolone 4 mg tablets in See Rx Instructions PO PER PKG DIR 06/14/24 a dose pack #21 tabs methocarbamol 500 mg tablet 500 mg PO TID #14 tabs 06/22/24 klowfwifnnefvuz-ikzlfzcawfeeatg-EX 5 ml PO Q4-6H PRN cold symptoms 06/29/24 2 mg-30 mg-10 mg/5 mL oral syrup #118 mL (Bromfed DM) ondansetron HCl 4 mg tablet 4 mg PO Q8H PRN nausea and 06/29/24 vomiting #14 tabs albuterol sulfate 90 mcg/actuation 1 inh inhalation Q4H PRN shortness 07/02/24 aerosol inhaler of breath or wheezing #8.5 grams benzonatate 100 mg capsule 100 mg PO BID PRN cough #20 caps 07/02/24 zgujoksvtqdjzku-ndxeabxjjvxjfhv-UJ 5 ml PO Q4H PRN sinus symptoms 07/02/24 2 mg-30 mg-10 mg/5 mL oral syrup #118 mL (Bromfed DM) ondansetron 4 mg disintegrating 4 mg PO QID PRN nausea and 07/02/24 tablet vomiting #10 tabs prednisone 50 mg tablet 50 mg PO DAILY 5 days #5 tabs 07/02/24 Allergies Allergy/AdvReac Type Severity Reaction Status Date / Time Sulfa (Sulfonamide Allergy Unknown Verified 06/29/24 17:43 Antibiotics) (SULFA (SULFONAMIDE ANTIBIOTICS)) [facility] Disclaimer: The information contained in this section may have been updated after the patient was seen, as this information can be updated by other users. 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 Depression Generalized anxiety disorder Family History Other No significant family history Social History Smoking Status: Current every day smoker tobacco type: cigarettes packs per day: 1 second hand exposure: No alcohol intake: never substance use type: marijuana current occupational status: employed Travel in the last 8 weeks: None household members: spouse housing: house number of children: 1 current occupation: [employer] current occupational exposures/hazards: No caffeine: Yes Have you lived/traveled outside US in past 30 days?: No Contact w/someone who lives/traveled outside US past 30 days?: No Exposure to someone with infectious disease in past 14 days?: No Do you have a fever (greater than 100.4 F or 38 C)?: No Have you tested positive for COVID-19: No Exposed to someone with COVID-19 in past 14 days?: No Do you have a sore throat?: No Do you have a cough?: No Do you have any weakness?: No Do you have any diarrhea?: No Are you experiencing any unusual bleeding?: No Do you have any muscle aches/pain?: No Do you have any abdominal pain?: No Are you experiencing loss of taste or smell?: No Other 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 Have you received the Flu Vaccine for this season: No Have you received the Pneumonia Vaccine: No ROS Obtained: Yes All systems reviewed & no additional complaints except as documented Physical Exam General General appearance: alert Head Head exam: atraumatic and normocephalic Eye Eye exam: Present normal appearance, PERRL and EOMI Neck Neck exam: Present normal inspection, full ROM and trachea midline Respiratory Respiratory exam: Absent respiratory distress, wheezes, stridor, accessory muscle use or prolonged expiratory phase Cardiovascular Cardiovascular exam: Present other (Pulses equal symmetric in upper and lower extremities) Abdominal Exam Abdominal exam: Present soft; Absent distention, tenderness or pulsatile mass Extremities Exam Extremities exam: Absent edema Neurological Exam Neurological exam: Present alert, oriented X3 and CN II-XII intact; Absent motor sensory deficit Skin Skin exam: Present warm and dry; Absent diaphoresis or erythema Medical Decision Making Medical Records Medical records reviewed: Yes I reviewed the patient's medical records. Screening: Per USPSTF and CDC recommendations, given the prevalence of disease in our region, it is our hospital?s policy to screen for HIV and viral Hepatitis for all patients aged 18 and over and those with ongoing risk factors. Unruly Inquiry Pt receiving controlled substance: No Unruly was queried for this patient: No Vital Signs: 08/02/24 17:20 08/02/24 17:29 08/02/24 17:30 Temperature 98.7 F Temperature Source Oral Pulse Rate 63 68 Pulse Rate [Left Radial] 66 Respiratory Rate 13 Blood Pressure 131/84 119/78 Blood Pressure [Right Arm] 117/69 Blood Pressure Mean [Right Arm] 85 02 Sat by Pulse Oximetry 100 100 100 Oxygen Delivery Method Room Air Orders (Tests/Meds): ORDERS Category Date Time Status POCUS Point of Care (ER Only) Stat Exams 08/02/24 17:26 Ordered Medical Decision Narrative: This is a 28-year-old male with illness anxiety disorder, generalized anxiety presenting with left lower extremity pain. I actually saw him recently for similar symptoms, states that he is having similar discomfort that used to be in his groin, now is down by his knee. Posterior left knee. Not made better or worse finding a particular, feels full, and like a bottle of fluid, but has not noticed anything that makes it better, worse, smaller, larger, etc. Came in for further evaluation. He openly admits that he is generally anxious about things and gets fixated on things, has no DVT or PE risk factors, no new changes. History obtained with patient and significant other. On arrival, physical exam completely unremarkable. Posterior aspect of bilateral legs symmetric and normal. No unilateral abnormalities. Bedside bcats-jm-byoj ultrasound was performed. This was negative for any acute DVT or soft tissue abnormality. Because patient at baseline without signs or symptoms of clinical decompensation, deemed appropriate for discharge. Results were relayed to patient who voiced understanding and were agreeable to outpatient management and follow up. I discussed my clinical impression with patient and answered all questions. At this time, the evidence for any other entities in the differential is insufficient to warrant any further testing or ED observation. This was explained as well. Advisory was given that persistent or worsening symptoms require further evaluation. I confirmed the understanding of this discussion. Dining Car Waiter/Waitress disclaimer Much of this encounter note is an electronic bulk driver spoken language to printed text. Electronic bulk driver of the spoken language may permit errors. Although I have reviewed the note, some errors may still exist. Procedures Limited Ultrasound Indication:: Limited soft tissue ultrasound Indication: Subjective soft tissue swelling posterior aspect of left knee Identified structures: Location: Flexor surface of left knee, popliteal region Findings: -Normal soft tissue ultrasound Impression: -Normal limited soft tissue ultrasound Images were saved to permanent archive The study was technically adequate Soft Tissue CPT Codes: CPT Neck: 72276-13 CPT Upper extremity: 96491-26 CPT Axilla: 50613-62 CPT Chest wall: 48585-13 CPT Breast: 10867-22-TL/LT (complete), 71533-69-VX/LT (limited), CPT Upper Back: 38197-54 CPT Lower Back: 65397-25 CPT Abdominal Wall: 65208-29 CPT Pelvic Wall: 49401-93 CPT Lower Extremity: 10274-03 CPT Other Soft Tissue: 19381-80 This study was performed by me, and I personally interpreted all images/videos. Based on my clinical judgement, these images were adequate and did not necessitate further imaging. Views:: Limited DVT ultrasound Indication: Limited compression ultrasonography of the left lower extremity was performed to evaluate for non-compressibility of the deep veins in the patient. The ultrasound was performed with the following indications, as noted in the H&P: Subjective lower lower extremity swelling Identified structures: Left common femoral vein, femoral vein, popliteal vein were examined. Findings: Lower extremity Left CFV: Good compressibility Left FV good compressibility Left Popliteal vein: Good compressibility Impression: Normal ultrasound with no evidence of left lower extremity DVT Images were saved to permanent archive The study was technically adequate CPT: 07356-69-NR 93350-71-DF 04778-12 (complete bilateral study) This study was performed by me, and I personally interpreted all images/videos. Based on my clinical judgement, these images were adequate and did not necessitate further imaging Critical Care Critical Care Time Critical Care Time: No
[2024-08-02 18:10] VITALS: BP 119/78; PULSE 68; RESP 16; TEMP 37.1
== END 2024-08-02 18:12 | disposition home or self-care (01) ==
PROVIDERS: Emergency Provider Emergency Medicine; PCP Internal Medicine Adolescent Medicine
DX: R22.42 Localized swelling, mass and lump, left lower limb (principal); M79.605 Pain in left leg; F41.1 Generalized anxiety disorder; F17.210 Nicotine dependence, cigarettes, uncomplicated
CPT/HCPCS: 99283

== ENCOUNTER 2025-01-29 11:21 | Emergency (ER) | payer OTHER, SELFPAY ==
--- OUTSIDE RECORDS SUMMARY | 2023-08-05 04:30 | XMS_ITS ---
Author Organization [facility] Address [address] [facility] [address] [place] [address] Care Team Providers Care A R Specialist Name Role Phone Tim Horton Primary Care Provider [phone] Tim Horton Unavailable Unavailable Carolina Mora [phone] REASON FOR VISIT Annual Encounters Encounter Location Date Provider Diagnosis [facility] [address] [facility] [address] [place] [address] 08/05/2023 Carolina Mora Plan Of Treatment No Information Progress Notes * BENJAMINLanre DUNNDOGt:1995 (29 yo M)Acc No.[id number]:08/05/2023 Progress Notes Patient: Lanre MISHRA Provider: Lucien Mora APRN :1995 A ge:27 Y S ex:Male Date:08/05/2023 [address] [id number] Pcp:Tim Horton Subjective: * Chief Complaints: * 1 . Annual. * 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: Objective: * Vitals: Assessment: Plan: * Treatment: * * Electronic signature of Ileana Mora APRN on 01/29/2025 at 11:27 AM EDT Sign off status: Pending * Provider: Lucien Mora APRN Date: 0 08/05/2023 Generated for Donna adams/Jodi/Maxxitting on: 1 11:27 AM EDT
--- OUTSIDE RECORDS SUMMARY | 2024-07-31 17:30 | XMS_ITS ---
Author Organization [facility] Address [address] [facility] [address] [place] [address] Care Team Providers Care Cabinet Builder Name Role Phone Tim Horton Primary Care Provider [phone] Tim Horton Unavailable Unavailable Migration, Provider Unavailable Unavailable Allergies Allergen (clinical drug ingredient) Drug/Non Drug Allergy documented on EMR Reaction Allergy Type Onset Date Status SULFA (uncoded) vomiting Allergy Acti ve REASON FOR VISIT [facility] Conversion Encounter Medications Medication SIG (Take, Route, Fr equency, Duration) Notes Start Date End Date Status Diclofenac Sodium 75 MG 1 tab(s) orally every 12 hours; Duration: 30 day(s) 06/04/2022 Activ e Encounters Encounter Location Date Provider Diagnosis [facility] [address] [place] [address] [place] [address] 07/31/2024 Provider Migration Sprain of right ankle, unspecified ligament, subsequent encounter S93.401D Assessments Encounter Date Diagnosis (ICD Code) Assessment Notes Treatment Notes Treatment Clinical Notes Section Notes 07/31/2024 Sprain of right ankle, unspecified ligament, subsequent encounter (ICD-10 - S93.401D) Plan Of Treatment Medication Medication Name Sig Start Date Stop Date Notes Diclofenac Sodium 75 MG 1 tab(s) orally every 12 hours; Duration: 30 day(s) 06/04/2022 Progress Notes * Lanre BENJAMINDOB:1995 (29 yo M)Acc No.[id number]:07/31/2024 Patient: Lanre MISHRA Provider: Rayshawn Godoy :1995 A ge:28 Y S ex:Male Date:07/31/2024 Address:[address] [place], [id number] Pcp:Tim Horton Subjective: * Chief Complaints: * 1 . [facility] Conversion Encounter. * 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: * Allergies: S ULFA: vomiting. Objective: * Vitals: Assessment: * Assessment: 1. S prain of right ankle, unspecified ligament, subsequent encounter - S93.401D (Primary) Plan: * Treatment: * * Electronic signature of Prov ider Migration on 01/29/2025 at 11:27 AM EDT Sign off status: Pending * Provider: Rayshawn Godoy Date: 0 07/31/2024 Generated for Donna adams/Jodi/Maxxitting on: 1 11:27 AM EDT
[2025-01-29 11:19] VITALS: BP 128/60; PULSE 67; RESP 18; TEMP 37.1; O2SAT 98; BMI 20.6
--- NOTE | 2025-01-29 11:25 | ECG_ITS ---
APPROVED REPORT Exam: Resting ECG HR:58 bpm ECG Measurements Heart Rate 58 AXES AR 152 P 75 QRSd 109 QRS 85 QT 444 T 74 QTc 442 Conclusion Sinus bradycardia Normal axis Normal intervals No STEMI Electronically signed by : Eduardo Lloyd, 01/30/2025 07:30:30
--- OUTSIDE RECORDS SUMMARY | 2025-01-29 11:28 | XMS_ITS | Clinical Summary ---
Author Organization Healthcare Address [address] [place] [address] Care Team Providers Care Volunteer Services Specialist Name Role Phone Tim Horton MD Primary Care Provider + [phone] Allergies Active Allergy Reactions Criticality Noted Date Comments Sulfa Drugs Other - please docum ent in the comment field Low 09/22/2021 vomiting Medications ALPRAZolam (Xanax) 0.5 MG tablet Take 0.5 mg by mouth at night if needed for anxiety. Active amitriptyline (Elavil) 10 MG tablet Take 1 tablet (10 mg total) by mouth every night. 30 tablet 2 10/02/2021 Active Active Problems Problem Noted Date Diagnosed Date Generalized anxiety disorder 10/02/2021 Social History Tobacco Use Types Packs/Day Years Used Date Smoking Tobacco: Every Day Cigarettes 1 13.8 Started: 2011 Smokeless Tobacco: Never Alcohol Use Standard Drinks/Week Comments Never 0 (1 standard drink = 0.6 oz pur e alcohol) PHQ-2 Answer Date Recorded Patient Health Questionnaire-2 Score 0 10/02/2021 Sex and Gender Information Value Date Recorded Sex Assigned at Not on file Legal Sex Male 7:58 PM EDT Gender Identity Not on file Sexual Orientation Not on file Last Filed Vital Signs Vital Sign Reading Time Taken Comments Blood Pressure 127/68 09/22/2021 9:01 PM EDT Pulse 55 10/02/2021 9:09 AM EDT Temperature 36.9 C (98.4 F) 10/02/2021 9:09 AM EDT Respiratory Rate 17 09/22/2021 9:01 PM EDT Oxygen Saturation 99% 09/22/2021 9:01 PM EDT Inhaled Oxygen Concentration - - Weight 67.7 kg (149 lb 3.2 oz) 10/02/2021 9:09 A M EDT Height 182.9 cm (6') 10/02/2021 9:09 AM EDT Body Mass Index 20.24 10/02/2021 9:09 AM EDT Plan of Treatment Health Maintenance Due Date Last Done Comments [facility]-Depression Screening 1995 [facility]-Infant/Child/Adol SDOH Screenings 1995 [facility]-Hepatitis B Vaccines (3 of 3 - 3-dose series) 03/28/2000 02/01/2000, 1995 [facility]-Varicella Vaccines (2 of 2 - 2-dose childhood series) 04/16/2001 01/22/2001 [facility]-Hepatitis A Vaccines (2 of 2 - 2-dose series) 05/17/2011 11/14/2010 [facility]- SDOH Screenings 08/22/2013 [facility]-Adult SDOH Screenings 08/22/2013 [facility]-DTaP,Tdap,and Td Vaccines (3 - Td or Tdap) 04/11/2019 04/11/2009, 06/06/2003 HPV Vaccines (1 - 3-dose SCDM series) 08/22/2022 [id number] Vaccine (1 - season) 2024 [facility]-Influenza Vaccine (#1) 2024 [facility]-Zoster Vaccines (1 of 2) 08/22/2045 01/22/2001 [facility]-HIB Vaccines Completed 02/01/2000 [facility]-IPV Vaccines Completed 05/08/2001, 02/01/2000, 1995 [facility]-Pneumococcal Vaccine: Pediatrics (0 to 5 Years) and At-Risk Patients (6 to 49 Years) Aged Out No longer eligible b ased on patient's age to complete this topic [facility]-Rotavirus Vaccines Aged Out No lo nger eligible based on patient's age to complete this topic Insurance [employer] MEDICAID Care Teams Volunteer Services Specialist Relationship Specialty Start Date End Date Tim Horton MD [address] [place] [address] PCP - General Internal Medicine 09/22/21
--- OUTSIDE RECORDS SUMMARY | 2025-01-29 11:28 | XMS_ITS | Patient Health Record ---
Author Organization [facility] Address [address] [place] [address] [place] [address] Care Team Providers Care Assistant Professor Of Surgery Name Role Phone Tim Horton Primary Care Provider Tim Horton Unavailable Unavailable Migration, Provider Unavailable Unavailable Allergies Allergen (clinical drug ingredient) Drug/Non Drug Allergy documented on EMR Reaction Allergy Type Onset Date Status SULFA (uncoded) vomiting Allergy Acti ve Reason For Referral No Information Medications Medication SIG (Take, Route, Fr equency, Duration) Notes Start Date End Date Status Diclofenac Sodium 75 MG 1 tab(s) orally every 12 hours; Duration: 30 day(s) 06/04/2022 Activ e Social History Tobacco Use: Social History Observation Description Date Details (start date - stop date) Current Smoker NA - NA Smoking: Question Answer Notes Are you a: current smoker How often do you smoke cigarettes? every day How many cigarettes a day do you smoke? 11-20 Problems Problem Type SNOMED Code ICD Code Onset Dates Problem Status W/U Status Risk Notes Problem Generalized anxiety disorder (16370752) Generalized anxiety disorder (F41.1) Active confirmed Problem Shortness of breath (614863075) Shortness of breath (R06.02) Active confirmed Problem Dysthymia (53356551) Dysthymia (F34.1) Active confirmed Problem Mood disorder (99796451) Mood disorder (F39) Active confirmed Problem Elevated D-dimer (921747514) Elevated d-dimer (R79.89) Active confirmed Problem Disease caused by Severe acute respiratory syndrome coronavirus 2 (disorder) (863642308) COVID (U07.1) Active confirmed Encounters Encounter Location Date Provider Diagnosis [facility] [address] [place] [address] 07/31/2024 Provider Migration Sprain of right ankle, unspecified ligament, subsequent encounter S93.401D Assessments Encounter Date Diagnosis (ICD Code) Assessment Notes Treatment Notes Treatment Clinical Notes Section Notes 07/31/2024 Sprain of right ankle, unspecified ligament, subsequent encounter (ICD-10 - S93.401D) Plan Of Treatment Pending Test Test Name Order Date M-D-Dimer 12/04/2021 Insurance Providers Payer Name Payer Address Payer Phone Subscriber Number Group Number Insured Name Patient Relationship to Insured Coverage Start Date Coverage End Date [employer] [facility] [address] [address] [place] [phone] [id number] Lanre Sandoval Self - patient is the insured Medical (General) History 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 History ICD Code Anxiety Surgical History Surgery Date(Month/Year) Lynph node removed from neck Colonoscopy- 08/2021 Hospitalization History Reason Date(Month/Year) Jaz Jamul 10/2021 4th degree rodriguez on legs as a child
[2025-01-29 12:00] VITALS: BP 119/75; PULSE 60; RESP 18; O2SAT 100
[2025-01-29 12:00] LABS: Microscopic, Urine URINE MICROSCOPIC (MICROSCOPIC)
[2025-01-29 12:11] LABS: Bilirubin,Urine Negative (Negative); Color,Urine YELLOW (Yellow); Glucose,Urine (UA) Negative (Negative); Ketones,Urine Negative (Negative); Leukocyte Esterase,Urine Negative (Negative); PH,Urine 8.0 (5.0-8.5); Protein,Urine Negative (Negative); Specific Gravity, Urine 1.010 (1.005-1.030); Urobilinogen,Urine 0.2 EU/dl (0.2)
[2025-01-29 12:17] LABS: Hematocrit 39.8 % (42.0-52.0); Hemoglobin 14.7 g/dL (14.1-18.0); Immature Granulocytes % 0.2 %; Mean Corpuscular HGB Conc 36.9 g/dL (31.8-35.4); Mean Corpuscular Hemoglobin 31.6 pg (27.0-31.2); Mean Corpuscular Volume 85.6 fl (80-94); Nucleated Red Blood Cells % 0 %; Platelet Count 232 K/mm3 (142-424); Red Blood Count 4.65 M/mm3 (4.60-6.20); Red Cell Distribution Width-SD 39.8 fL; White Blood Count 6.5 K/mm3 (4.8-10.8)
[2025-01-29 12:23] LABS: Alanine Aminotransferase 22 U/L (12-78); Albumin Level 4.5 g/dl (3.5-5.0); Albumin/Globulin Ratio 2.0 (1.1-1.8); Alkaline Phosphatase 72 U/L (38-126); Anion Gap 16.8 mEq/L (5-15); Aspartate Amino Transferase 29 U/L (17-59); Bilirubin,Total 0.9 mg/dl (0.2-1.3); Blood Urea Nitrogen 6 mg/dl (9-20); Calcium 9.1 mg/dl (8.4-10.2); Carbon Dioxide 19 mmol/L (22.0-30.0); Chloride 106 mmol/L (98-107); Creatinine Clearance Estimated 152 mL/min (50-200); Creatinine,Serum 0.70 mg/dl (0.66-1.25); Estimated Glomerular Filt Rate 133 ml/min (>60); GFR (African American) 161 ML/MIN (>60); Globulin 2.2 g/dL (1.3-3.2); Glucose 191 mg/dl (74-100); Lipase 47 U/L (23-300); Potassium 3.8 mmoL/L (3.5-5.1); Sodium 138 mmol/L (136-145); Total Protein,Serum 6.7 g/dl (6.3-8.2)
--- NOTE | 2025-01-29 12:23 | ED_ITS ---
Discharge Plan Disposition Patient Disposition: Left Against Medical Advice Condition: Good Prescriptions Prescriptions: No Action methylprednisolone 4 mg tablets,dose pack See Rx Instructions PO PER PKG DIR Qty: 21 0RF Rx Instructions: PO PER PKG DIR ondansetron HCl 4 mg tablet 4 mg PO Q8H PRN (Reason: nausea and vomiting) Qty: 14 0RF lakxwjfmbpqnmut-ypyweozcc-VJ [Bromfed DM] 2-30-10 mg/5 mL syrup 5 ml PO Q4-6H PRN (Reason: cold symptoms) Qty: 118 0RF benzonatate 100 mg capsule 100 mg PO BID PRN (Reason: cough) Qty: 20 0RF methocarbamol 500 mg tablet 500 mg PO TID Qty: 14 0RF prednisone 50 mg tablet 50 mg PO DAILY 5 Days Qty: 5 0RF albuterol sulfate 90 mcg/actuation HFA aerosol inhaler 1 inh inhalation Q4H PRN (Reason: shortness of breath or wheezing) Qty: 8.5 0RF uoozzyilpijzrnr-bxohluuhf-XY [Bromfed DM] 2-30-10 mg/5 mL syrup 5 ml PO Q4H PRN (Reason: sinus symptoms) Qty: 118 0RF ondansetron 4 mg tablet,disintegrating 4 mg PO QID PRN (Reason: nausea and vomiting) Qty: 10 0RF Referrals Follow up/Referrals: Provider,Referral, MD [Primary Care Provider, Medical] - See instructions Clinical Impressions Clinical Impression: Left against medical advice, Chest pain Print Language Print Language: Malay Discharge ED Provider: Eduardo Lloyd Adult HPI General Chief complaint: Chest Pain Stated complaint: Chest pain Time Seen by Provider: 01/29/25 11:57 Mode of Arrival: EMS Source of Information: Patient and EMS Description of Symptoms (Recalled from ER Triage Doc. by RN): Patient presents to ED via EMS with left sided CP. CP started 30 minutes ago. rates pain 4/10, pt had aspirin and nitro in route. EMS reports patient was wheezing in route and administered duo neb. Patient reports he has not been feeling well for the past week. History of Present Illness HPI narrative: This is a 29-year-old male patient, with past medical history of tobacco abuse, who is presenting to the emergency department today for evaluation of chest pain. Patient states that he had sudden onset chest pain that began around 30 minutes prior to arrival. It was located in the left chest and was worse with movement of the left arm. He states that he has had associated nausea, but no vomiting or diaphoresis. His pain is not pleuritic in nature. He states that he has also had a cough recently but he attributes this to smoking. And route to the hospital he was given a DuoNeb for wheezing appreciated and route. He has had no abdominal pain. Related Data Previous Rx's ?Medication ?Instructions ?Recorded methylprednisolone 4 mg tablets in See Rx Instructions PO PER PKG DIR 06/14/24 a dose pack #21 tabs methocarbamol 500 mg tablet 500 mg PO TID #14 tabs jxtsxrxivukhvty-xsevlsouskjlghy-QS 5 ml PO Q4-6H PRN c old symptoms 06/29/24 2 mg-30 mg-10 mg/5 mL oral syrup #118 mL (Bromfed DM) ondansetron HCl 4 mg tablet 4 mg PO Q8H PRN nausea and 06/29/24 vomiting #14 tabs albuterol sulfate 90 mcg/actuation 1 inh inhalation Q4 H PRN shortness 07/02/24 aerosol inhaler of breath or wheezing #8.5 g jeovany benzonatate 100 mg capsule 100 mg PO BID PRN cough #20 caps 07/02/24 rcyiaekbaupmyah-jqeqlncjapzvfvg-PD 5 ml PO Q4H PRN sin us symptoms 07/02/24 2 mg-30 mg-10 mg/5 mL oral syrup #118 mL (Bromfed DM) ondansetron 4 mg disintegrating 4 mg PO QID PRN nausea and 07/02/24 tablet vomiting #10 tabs prednisone 50 mg tablet 50 mg PO DAILY 5 days #5 tab s 07/02/24 Allergies Allergy/AdvReac Type Severity Reaction Status Date / Time Sulfa (Sulfonamide Allergy Unknown Verified 06/29/24 17:43 Antibiotics) (SULFA (SULFONAMIDE ANTIBIOTICS)) [facility] Disclaimer: The information contained in this section may have been updated after the patient was seen, as this information can be updated by other users. 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 Depression Generalized anxiety disorder Family History Other No significant family history Social History Smoking Status: Current every day smoker tobacco type: cigarettes packs per day: 1 second hand exposure: No alcohol intake: never substance use type: marijuana current occupational status: employed Travel in the last 8 weeks?: None household members: spouse housing: house number of children: 1 current occupation: [employer] current occupational exposures/hazards: No caffeine: Yes Have you lived/traveled outside US in past 30 days?: No Contact w/someone who lives/traveled outside US past 30 days?: No Exposure to someone with infectious disease in past 14 days?: No Do you have a fever (greater than 100.4 F or 38 C)?: No Have you tested positive for COVID-19?: No Exposed to someone with COVID-19 in past 14 days?: No Do you have a sore throat?: No Do you have a cough?: No Do you have any weakness?: No Do you have any diarrhea?: No Are you experiencing any unusual bleeding?: No Do you have any muscle aches/pain?: No Do you have any abdominal pain?: No Are you experiencing loss of taste or smell?: No Other 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 Have you received the Flu Vaccine for this season: No Have you received the Pneumonia Vaccine: No ROS Obtained: Yes Systems reviewed as appropriate & no additional complaints except as documented Physical Exam General General appearance: other (See MDM) Respiratory Respiratory exam: Present other (See MDM) Cardiovascular Cardiovascular exam: Present other (See MDM) Neurological Exam Neurological exam: Present other (See MDM) Medical Decision Making Medical Records Medical records reviewed: Yes I reviewed the patient's medical records. Screening: Per USPSTF and CDC recommendations, given the prevalence of disease in our region, it is our hospital?s policy to screen for HIV and viral Hepatitis for all patients aged 18 and over and those with ongoing risk factors. Unruly Inquiry Pt receiving controlled substance: No Unruly was queried for this patient: No Vital Signs: 01/29/25 11:19 01/29/25 12:00 01/29/25 12:30 Temperature 98.8 F Temperature Source Oral Pulse Rate 60 50 L Pulse Rate [Right Brachial] 67 Respiratory Rate 18 18 18 Blood Pressure 119/75 115/69 Blood Pressure [Right Arm] 128/60 Blood Pressure Mean 86 80 Blood Pressure Mean [Right Arm] 82 Blood Pressure Source Blood Pressure Source [Right Arm] Automatic Cuff Blood Pressure Position Blood Pressure Position [Right Arm] Sitting 02 Sat by Pulse Oximetry 98 100 100 Oxygen Delivery Method Room Air 01/29/25 13:00 01/29/25 13:37 Temperature 98.8 F Temperature Source Oral Pulse Rate 57 L 64 Pulse Rate [Right Brachial] Respiratory Rate 13 20 Blood Pressure 112/72 121/74 Blood Pressure [Right Arm] Blood Pressure Mean Blood Pressure Mean [Right Arm] Blood Pressure Source Automatic Cuff Blood Pressure Source [Right Arm] Blood Pressure Position Sitting Blood Pressure Position [Right Arm] 02 Sat by Pulse Oximetry 100 Oxygen Delivery Method Room Air Room Air Lab Data Lab Results 01/29/25 11:23: WBC 6.5, RBC 4.65, Hgb 14.7, Hct 39.8 L, MCV 85.6, MCH 31.6 H, M CHC 36.9 H, RDW 13.0, Plt Count 232, MPV 11.3 H, Neut % (Auto) 62.4, Lymph % (Auto) 26.7, [place] % (Auto) 7.3, Eos % (Auto) 2.3, Baso % (Auto) 1.1, Neut # (Auto) 4.1, Lymph # (Auto) 1.7, [place] # (Auto) 0.5, Eos # (Auto) 0.2, Baso # (Auto) 0.1, D-Dimer 0.41, Sodium 138, Potassium 3.8, Chloride 106, Carbon Dioxide 19 L, Anion Gap 16.8 H, BUN 6 L, Creatinine 0.70, Estimated Creat Clear 152, Estimated GFR 133, Est GFR ( Amer) 161, Glucose 191 H, Calcium 9.1, Total Bilirubin 0.9, AST 29, ALT 22, Alkaline Phosphatase 72, Troponin I 0.01, Total Protein 6.7, Albumin 4.5, Globulin 2.2, Albumin/Globulin Ratio 2.0 H, Lipase 47, HCV Ab APARNA w/Rflx PCR Qn Negative, HIV Ag/Ab Combo Qual Negative 01/29/25 11:56: Urine Color Yellow, Urine Appearance Clear, Urine pH 8.0, Ur Specific [place] 1.010, Urine Protein Negative, Urine Glucose (UA) Negative, Urine Ketones Negative, Urine Blood Negative, Urine Nitrate Negative, Urine Bilirubin Negative, Urine Urobilinogen 0.2, Ur Leukocyte Esterase Negative, Urine RBC None, Urine WBC None, Ur Squamous Epith Cells None, Urine Bacteria None 01/29/25 11:23 01/29/25 11:23 Orders (Tests/Meds): ED MEDICATIONS Discontinued Medications Generic Name Dose Route Start Last Admin Trade Name Kevinq PRN Reason Stop Dose Admin Aspirin 325 mg 01/29/25 12:08 01/29/25 12:11 Aspirin 325mg Tablet PO 01/29/25 12:09 Not Given ONCE ONE Methocarbamol 1,500 mg 01/29/25 13:23 01/29/25 13:36 Methocarbamol 500mg Tablet PO 01/29/25 13:24 Not Given ONCE ONE ORDERS Category Date Time Status CXR --portable [XR chest portable] Stat Exams 01/29/25 13:22 Taken CBC w/Auto Diff [Complete Blood Count Auto Diff] Stat Lab 01/29/25 11:23 Completed CMP [Comprehensive Metabolic Panel] Stat Lab 01/29/25 11:23 Completed D-Dimer Stat Lab 01/29/25 11:23 Completed HIV Combo Stat Lab 01/29/25 11:23 Completed Hepatitis C Ab Qual. W/ RFX Stat Lab 01/29/25 11:23 Completed Lipase Stat Lab 01/29/25 11:23 Completed Troponin I Stat Lab 01/29/25 11:23 Completed UA [Urinalysis and Microscopic] Stat Lab 01/29/25 11:56 Completed ECG Data Tracing #1: I reviewed this ECG and interpreted as documented below: EKG personally interpreted by me demonstrates sinus bradycardia with a rate of 58 bpm, normal axis, no TX prolongation, narrow QRS, no QTc prolongation. No ST elevation or depression. No overt signs of ischemia or arrhythmia Medical Decision Narrative: In summary, this is a 29-year-old male patient who is presenting to the emergency department today for evaluation of chest pain. Chest pain was sudden onset prior to arrival. in route to the hospital he was administered DuoNebs for wheezing. Patient's only comorbidities include tobacco abuse. On initial evaluation of the patient they were resting comfortably in no acute distress and nontoxic in appearance. They are hemodynamically stable, saturating well room air, and are neurologically intact. On physical examination of the patient he is appropriately alert and interactive with GCS 15. His heart and lungs are clear to auscultation bilaterally. Abdomen is soft and nontender to palpation. He has no lower extremity erythema or edema. He has no reproducible chest wall tenderness on the left. Differential diagnosis includes ACS/AL, pleurisy, pneumonia, viral syndrome, reactive airway disease, among others. I have considered the possibility of pulmonary embolism, however the patient is low risk [place] and his PERC score is 0 which effectively rules out pulmonary embolism Workup was initiated with hematologic labs as well as a chest x-ray. We administered 325 mg of aspirin as well as 15 mg of Robaxin. Labs were personally interpreted by me and demonstrate no leukocytosis or actionable anemia. No electrolyte derangements or evidence of acute kidney injury. No transaminitis. Initial troponin is less than 0.01. Prior to being able to obtain a second troponin the patient requested to leave the hospital AGAINST MEDICAL ADVICE. I was unable to speak to the patient prior to his departure, but he acknowledged understanding of risk and benefits to the nurse. Patient left the emergency department in stable condition prior to completing his workup today. Critical Care Critical Care Time Critical Care Time: No
[2025-01-29 12:27] LABS: D-Dimer 0.41 ug/mL (0.0-0.5)
[2025-01-29 12:30] VITALS: BP 115/69; PULSE 50; RESP 18; O2SAT 100
[2025-01-29 12:36] LABS: Troponin I 0.01 ng/ml (0.00-0.034)
[2025-01-29 13:00] VITALS: BP 112/72; PULSE 57; RESP 13; O2SAT 100
--- NOTE | 2025-01-29 13:22 | XR_ITS ---
PROCEDURE INFORMATION: Exam: XR Chest Exam date and time: 01/29/2025 1:29 PM Age: 29 years old Clinical indication: Pain; Chest pressure; Additional info: Chest pain TECHNIQUE: Imaging protocol: Radiologic exam of the chest. Views: 1 view. COMPARISON: CR XR CHEST 2V 07/02/2024 1:39 PM FINDINGS: Lungs: Unremarkable. No consolidation. Pleural spaces: Unremarkable. No gross pleural effusion. No pneumothorax. Heart/Mediastinum: Unremarkable. No cardiomegaly. Bones/joints: Unremarkable. IMPRESSION: No acute findings.
[2025-01-29 13:29] LABS: Hepatitis C Ab Qual. W/ RFX NEGATIVE (Negative)
[2025-01-29 13:37] VITALS: BP 121/74; PULSE 64; RESP 20; TEMP 37.1; O2SAT 97
== END 2025-01-29 13:41 | disposition left against medical advice (07) ==
PROVIDERS: Emergency Provider Student in an Organized Health Care Education/Training Program
DX: R07.9 Chest pain, unspecified (principal); R00.1 Bradycardia, unspecified; R11.0 Nausea; F17.210 Nicotine dependence, cigarettes, uncomplicated
CPT/HCPCS: 71045; 80053; 81001; 83690; 84484; 85025; 85378; 86803; 87389; 93005; 99285

== ENCOUNTER 2025-02-02 00:14 | Emergency (ER) | payer OTHER, SELFPAY ==
--- OUTSIDE RECORDS SUMMARY | 2023-08-05 04:30 | XMS_ITS ---
Author Organization [facility] Address [address] [facility] [address] [place] [address] Care Team Providers Care Manager Hiv Name Role Phone Tim Horton Primary Care Provider Tim Horton Unavailable Unavailable Carolina Mora [phone] REASON FOR VISIT Annual Encounters Encounter Location Date Provider Diagnosis [facility] [address] [facility] [address] [place] [address] 08/05/2023 Carolina Mora Plan Of Treatment No Information Progress Notes * BENJAMINLanre DUNNDOGt:1995 (29 yo M)Acc No.[id number]:08/05/2023 Progress Notes Patient: Lanre MISHRA Provider: Lucien Mora APRN :1995 A ge:27 Y S ex:Male Date:08/05/2023 [address] [id number] Pcp:Tim Horton Subjective: * Chief Complaints: * 1 . Annual. * 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: Objective: * Vitals: Assessment: Plan: * Treatment: * * Electronic signature of Ileana Mora APRN on 02/02/2025 at 12:38 AM EDT Sign off status: Pending * Provider: Lucien Mora APRN Date: 0 08/05/2023 Generated for Donna adams/Jodi/Maxxitting on: 1 12:38 AM EDT
--- OUTSIDE RECORDS SUMMARY | 2024-07-31 17:30 | XMS_ITS ---
Author Organization [facility] Address [address] [facility] [address] [place] [address] Care Team Providers Care Youth Services Librarian Name Role Phone Tim Horton Primary Care Provider Tim Horton Unavailable Unavailable Migration, Provider Unavailable Unavailable Allergies Allergen (clinical drug ingredient) Drug/Non Drug Allergy documented on EMR Reaction Allergy Type Onset Date Status SULFA (uncoded) vomiting Allergy Acti ve [facility] Conversion Encounter Medications Medication SIG (Take, Route, Fr equency, Duration) Notes Start Date End Date Status Diclofenac Sodium 75 MG 1 tab(s) orally every 12 hours; Duration: 30 day(s) 06/04/2022 Activ e Encounters Encounter Location Date Provider Diagnosis [facility] [address] [place] [address] [place] [address] 07/31/2024 Provider Migration Sprain of right ankle, [...] Notes * Lanre BENJAMINDOB:1995 (29 yo M)Acc No.[id number]:07/31/2024 Patient: Lanre MISHRA Provider: Rayshawn Godoy :1995 A ge:28 Y S ex:Male Date:07/31/2024 Address:[address] [place], [id number] Pcp:Tim Horton Subjective: * Chief Complaints: * 1 . [facility] To [facility] Conversion Encounter. * 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: * Allergies: S ULFA: vomiting. Objective: * Vitals: Assessment: * Assessment: 1. S prain of right ankle, unspecified ligament, subsequent encounter - S93.401D (Primary) Plan: * Treatment: * * Electronic signature of Prov ider Migration on 02/02/2025 at 12:38 AM EDT Sign off status: Pending * Provider: Rayshawn Godoy Date: 0 07/31/2024 Generated for Donna adams/Jodi/Maxxitting on: 1 12:38 AM EDT
[2025-02-02] VITALS (9 sets, daily range): BP systolic 101–129; BP diastolic 74–81; PULSE 54–60; RESP 18–20; TEMP 36.7; O2SAT 99–100; BMI 20.3
--- NOTE | 2025-02-02 00:22 | HMH.EDGENADL ---
Discharge Plan Disposition Patient Disposition: Home, Self-Care Prescriptions Prescriptions: No Action methylprednisolone 4 mg tablets,dose pack See Rx Instructions PO PER PKG DIR Qty: 21 0RF Rx Instructions: PO PER PKG DIR ondansetron HCl 4 mg tablet 4 mg PO Q8H PRN (Reason: nausea and vomiting) Qty: 14 0RF qmheuiavswlifwh-gxyrdsfyl-CG [Bromfed DM] 2-30-10 mg/5 mL syrup 5 ml PO Q4-6H PRN (Reason: cold symptoms) Qty: 118 0RF benzonatate 100 mg capsule 100 mg PO BID PRN (Reason: cough) Qty: 20 0RF methocarbamol 500 mg tablet 500 mg PO TID Qty: 14 0RF prednisone 50 mg tablet 50 mg PO DAILY 5 Days Qty: 5 0RF albuterol sulfate 90 mcg/actuation HFA aerosol inhaler 1 inh inhalation Q4H PRN (Reason: shortness of breath or wheezing) Qty: 8.5 0RF yangqydtqwbkmfx-xwqnhnppc-UK [Bromfed DM] 2-30-10 mg/5 mL syrup 5 ml PO Q4H PRN (Reason: sinus symptoms) Qty: 118 0RF ondansetron 4 mg tablet,disintegrating 4 mg PO QID PRN (Reason: nausea and vomiting) Qty: 10 0RF Referrals Follow up/Referrals: Provider,Referral, MD [Primary Care Provider, Medical] - See instructions Activity Restrictions/Add. Instructions Additional Instructions/Restrictions: Please return during business hours to have your formal ultrasound performed. They will call you if your results are positive. Clinical Impressions Clinical Impression: Leg pain, left, Chest pain Print Language Print Language: Thai Discharge ED Provider: Ben Hamilton General Adult HPI General Chief complaint: PAIN Stated complaint: pain in right calf radiating up to groin Time Seen by Provider: 02/02/25 00:15 History of Present Illness HPI narrative: 29-year-old male without significant past medical history presents for left leg pain. He reports that he noticed it a couple of days ago. He has pain behind his calf that radiates up to the groin. Denies any trauma. Denies significant swelling but does report that it is tender behind the knee. He also reports that he has had intermittent chest pains on the left side. He has been seen in the ER numerous times for chest pain. He denies any fever chills or infectious symptoms. Related Data Previous Rx's ?Medication ?Instructions ?Recorded methylprednisolone 4 mg tablets in See Rx Instructions PO PER PKG DIR 06/14/24 a dose pack #21 tabs methocarbamol 500 mg tablet 500 mg PO TID #14 tabs 06/22/24 djdhavojzwkrmzl-wxxgwmhxmnsisgl-MC 5 ml PO Q4-6H PRN cold symptoms 06/29/24 2 mg-30 mg-10 mg/5 mL oral syrup #118 mL (Bromfed DM) ondansetron HCl 4 mg tablet 4 mg PO Q8H PRN nausea and 06/29/24 vomiting #14 tabs albuterol sulfate 90 mcg/actuation 1 inh inhalation Q4H PRN shortness 07/02/24 aerosol inhaler of breath or wheezing #8.5 grams benzonatate 100 mg capsule 100 mg PO BID PRN cough #20 caps 07/02/24 rcfnoheumfnjhpp-dfnkvcaixdlqabn-LI 5 ml PO Q4H PRN sinus symptoms 07/02/24 2 mg-30 mg-10 mg/5 mL oral syrup #118 mL (Bromfed DM) ondansetron 4 mg disintegrating 4 mg PO QID PRN nausea and 07/02/24 tablet vomiting #10 tabs prednisone 50 mg tablet 50 mg PO DAILY 5 days #5 tabs 07/02/24 Allergies Allergy/AdvReac Type Severity Reaction Status Date / Time Sulfa (Sulfonamide Allergy Unknown Verified 06/29/24 17:43 Antibiotics) (SULFA (SULFONAMIDE ANTIBIOTICS)) [facility] Disclaimer: The information contained in this section may have been updated after the patient was seen, as this information can be updated by other users. 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 Depression Generalized anxiety disorder Family History Other No significant family history Social History Smoking Status: Current every day smoker tobacco type: cigarettes packs per day: 1 second hand exposure: No alcohol intake: never substance use type: marijuana current occupational status: employed Travel in the last 8 weeks?: None household members: spouse housing: house number of children: 1 current occupation: [employer] current occupational exposures/hazards: No caffeine: Yes Have you lived/traveled outside US in past 30 days?: No Contact w/someone who lives/traveled outside US past 30 days?: No Exposure to someone with infectious disease in past 14 days?: No Do you have a fever (greater than 100.4 F or 38 C)?: No Have you tested positive for COVID-19?: No Exposed to someone with COVID-19 in past 14 days?: No Do you have a sore throat?: No Do you have a cough?: No Do you have any weakness?: No Do you have any diarrhea?: No Are you experiencing any unusual bleeding?: No Do you have any muscle aches/pain?: No Do you have any abdominal pain?: No Are you experiencing loss of taste or smell?: No Other 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 Have you received the Flu Vaccine for this season: No Have you received the Pneumonia Vaccine: No ROS Obtained: Yes All systems reviewed & no additional complaints except as documented Physical Exam General General appearance: alert and in no apparent distress Head Head exam: atraumatic and normocephalic Eye Eye exam: Present normal appearance, PERRL and EOMI ENT ENT exam: Present normal oropharynx and normal external ear exam Neck Neck exam: Present normal inspection and full ROM Chest Chest inspection: Present normal inspection and symmetric chest wall rise; Absent tenderness Respiratory Respiratory exam: Present normal lung sounds bilaterally; Absent respiratory distress Cardiovascular Cardiovascular exam: Present regular rate and normal rhythm Abdominal Exam Abdominal exam: Present soft; Absent distention, tenderness or guarding Extremities Exam Extremities exam: Present normal inspection; Absent edema or joint swelling Back Exam Back exam: Present normal inspection; Absent tenderness Neurological Exam Neurological exam: Present alert and oriented X3; Absent motor sensory deficit Psychiatric Psychiatric exam: Present normal affect and normal mood Skin Skin exam: Present warm, dry and normal color Lymphatic Lymphatic Findings: no adenopathy Medical Decision Making Medical Records Medical records reviewed: Yes I reviewed the patient's medical records. Screening: Per USPSTF and CDC recommendations, given the prevalence of disease in our region, it is our hospital?s policy to screen for HIV and viral Hepatitis for all patients aged 18 and over and those with ongoing risk factors. Unruly Inquiry Pt receiving controlled substance: No Unruly was queried for this patient: No Vital Signs: 02/02/25 00:21 02/02/25 01:19 02/02/25 01:20 Temperature 98.0 F Temperature Source Oral Pulse Rate 60 55 L Pulse Rate [Right Radial] 56 L Respiratory Rate 20 Blood Pressure Blood Pressure [Right Arm] 129/81 Blood Pressure Mean Blood Pressure Mean [Right Arm] 97 Blood Pressure Source Blood Pressure Source [Right Arm] Automatic Cuff Blood Pressure Position Blood Pressure Position [Right Arm] Sitting 02 Sat by Pulse Oximetry 100 100 100 Oxygen Delivery Method Room Air 02/02/25 01:20 02/02/25 01:30 02/02/25 01:45 Temperature Temperature Source Pulse Rate Pulse Rate [Right Radial] Respiratory Rate Blood Pressure 111/78 109/74 L 101/80 L Blood Pressure [Right Arm] Blood Pressure Mean 85 81 84 Blood Pressure Mean [Right Arm] Blood Pressure Source Blood Pressure Source [Right Arm] Blood Pressure Position Blood Pressure Position [Right Arm] 02 Sat by Pulse Oximetry Oxygen Delivery Method 02/02/25 01:45 02/02/25 02:00 02/02/25 02:00 Temperature Temperature Source Pulse Rate 54 L 58 L Pulse Rate [Right Radial] Respiratory Rate Blood Pressure 116/76 Blood Pressure [Right Arm] Blood Pressure Mean 89 Blood Pressure Mean [Right Arm] Blood Pressure Source Blood Pressure Source [Right Arm] Blood Pressure Position Blood Pressure Position [Right Arm] 02 Sat by Pulse Oximetry 99 100 Oxygen Delivery Method 02/02/25 02:15 02/02/25 02:15 02/02/25 02:30 Temperature Temperature Source Pulse Rate 54 L Pulse Rate [Right Radial] Respiratory Rate Blood Pressure 121/78 117/79 Blood Pressure [Right Arm] Blood Pressure Mean 84 90 Blood Pressure Mean [Right Arm] Blood Pressure Source Blood Pressure Source [Right Arm] Blood Pressure Position Blood Pressure Position [Right Arm] 02 Sat by Pulse Oximetry 100 Oxygen Delivery Method 02/02/25 02:30 02/02/25 02:38 Temperature 98.0 F Temperature Source Pulse Rate 56 L 56 L Pulse Rate [Right Radial] Respiratory Rate 18 Blood Pressure 117/79 Blood Pressure [Right Arm] Blood Pressure Mean Blood Pressure Mean [Right Arm] Blood Pressure Source Automatic Cuff Blood Pressure Source [Right Arm] Blood Pressure Position Sitting Blood Pressure Position [Right Arm] 02 Sat by Pulse Oximetry 99 Oxygen Delivery Method Room Air Lab Data Lab results reviewed: Yes I reviewed the patient's lab results. Lab Results 02/02/25 00:55: WBC 8.4, RBC 4.76, Hgb 14.9, Hct 39.9 L, MCV 83.8, MCH 31.3 H, MCHC 37.3 H, RDW 12.6, Plt Count 245, MPV 10.7 H, Neut % (Auto) 53.3, Lymph % (Auto) 33.4, [place] % (Auto) 9.1, Eos % (Auto) 3.0, Baso % (Auto) 1.0, Neut # (Auto) 4.5, Lymph # (Auto) 2.8, [place] # (Auto) 0.8, Eos # (Auto) 0.3, Baso # (Auto) 0.1, D-Dimer 0.39, Sodium 139, Potassium 3.4 L, Chloride 107, Carbon Dioxide 20 L, Anion Gap 15.4 H, BUN 10, Creatinine 0.60 L, Estimated Creat Clear 175, Estimated GFR 159, Est GFR ( Amer) 193, Glucose 56 L, Calcium 9.8, Total Bilirubin 0.7, AST 35, ALT 18, Alkaline Phosphatase 76, Total Protein 7.2, Albumin 4.7, Globulin 2.5, Albumin/Globulin Ratio 1.9 H 02/02/25 00:55 02/02/25 00:55 Orders (Tests/Meds): ED MEDICATIONS Discontinued Medications Generic Name Dose Route Start Last Admin Trade Name Freq PRN Reason Stop Dose Admin Metoprolol Tartrate 5 mg 02/02/25 02:23 Metoprolol Tartrate 5mg/5ml Vial IV 02/02/25 02:24 ONCE ONE ORDERS Category Date Time Status CXR 2 view (NOT portable) [XR chest 2V] Stat Exams 02/02/25 00:40 Taken Complete Blood Count Auto Diff Stat Lab 02/02/25 00:55 Completed Comprehensive Metabolic Panel Stat Lab 02/02/25 00:55 Completed D-Dimer Stat Lab 02/02/25 00:55 Completed Medical Decision Narrative: 29-year-old male with history of multiple prior evaluations for chest pain presents for left leg pain and intermittent sharp left-sided chest pain. History was obtained via interactive discussion with patient. On arrival, patient is [afebrile, hemodynamically stable, satting appropriately, alert, oriented x4, GCS 15], moving all extremities spontaneously. Full physical exam performed and significant for no left lower extremity swelling, clear lungs bilaterally on exam. Differential includes but is not limited to DVT, PE, musculoskeletal strain, pneumonia, pneumothorax. EKG was obtained and independently interpreted by me. Significant for sinus bradycardia with benign early repolarization. Interpreted at 0 224. I attempted bedside ultrasound to evaluate the leg but images were nondiagnostic and so were not saved.. Workup initiated including chest x-ray CBC CMP D-dimer. On re-evaluation, patient [remains afebrile, HD stable.] Laboratory workup independently interpreted by me and significant for negative D-dimer, no leukocytosis, mildly low blood sugar.. Imaging independently interpreted by me and significant for clear lungs bilaterally without focal opacity. See radiology read for full review of final results. Given patient history, exam and workup, patient's presentation most likely represents musculoskeletal pain. On my nondiagnostic ultrasound, there was a small portion of the femoral vein just superior to the popliteal fossa that seems less compressible. Given it was indeterminate and patient has symptoms consistent with DVT, I ordered a formal DVT ultrasound to be performed outpatient. Patient was discharged in stable condition. Return precautions given.. Procedures Risk/Benefits of Procedure(s) Were Explained: Yes Critical Care Critical Care Time Critical Care Time: No
--- OUTSIDE RECORDS SUMMARY | 2025-02-02 00:38 | XMS_ITS | Patient Health Record ---
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 Name Role Phone Tim Horton Primary Care [...] Status Risk Notes Problem Generalized anxiety disorder (56320529) Generalized anxiety disorder (F41.1) Active confirmed Problem Shortness of breath (215386277) Shortness of breath (R06.02) Active confirmed Problem Dysthymia (57878787) Dysthymia (F34.1) Active confirmed Problem Mood disorder (67050035) Mood disorder (F39) Active confirmed Problem Elevated D-dimer (705007530) Elevated d-dimer (R79.89) Active confirmed Problem Disease caused by Severe acute respiratory syndrome coronavirus 2 (disorder) (578132905) COVID (U07.1) Active confirmed Encounters Encounter Location Date Provider Diagnosis [facility] [address] [place] [address] 07/31/2024 Provider Migration Sprain of right ankle, [...] Coverage Start Date Coverage End Date [employer] [facility] [address] [address] [place] [phone] [id number] Lanre Sandoval Self - patient is the insured Medical (General) History 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 History ICD Code Anxiety Surgical History Surgery Date(Month/Year) Lynph node removed from neck Colonoscopy- 08/2021 Hospitalization History Reason Date(Month/Year) Jaz Unga 10/2021 4th degree rodriguez on legs as a child
--- NOTE | 2025-02-02 00:40 | XR_ITS ---
PROCEDURE INFORMATION: Exam: XR Chest Exam date and time: 02/02/2025 1:25 AM Age: 29 years old Clinical indication: Pain; Chest pressure TECHNIQUE: Imaging protocol: Radiologic exam of the chest. Views: 2 views. COMPARISON: CR XR CHEST PORTABLE 01/29/2025 1:29 PM FINDINGS: Lungs: Granulomatous change. No consolidation. Pleural spaces: Unremarkable. No pleural effusion. No pneumothorax. Heart/Mediastinum: Unremarkable. No cardiomegaly. Bones/joints: Unremarkable. IMPRESSION: No acute findings.
[2025-02-02 01:01] LABS: Hematocrit 39.9 % (42.0-52.0); Hemoglobin 14.9 g/dL (14.1-18.0); Immature Granulocytes % 0.2 %; Mean Corpuscular HGB Conc 37.3 g/dL (31.8-35.4); Mean Corpuscular Hemoglobin 31.3 pg (27.0-31.2); Mean Corpuscular Volume 83.8 fl (80-94); Nucleated Red Blood Cells % 0 %; Platelet Count 245 K/mm3 (142-424); Red Blood Count 4.76 M/mm3 (4.60-6.20); Red Cell Distribution Width-SD 38.5 fL; White Blood Count 8.4 K/mm3 (4.8-10.8)
[2025-02-02 01:25] LABS: Alanine Aminotransferase 18 U/L (12-78); Albumin Level 4.7 g/dl (3.5-5.0); Albumin/Globulin Ratio 1.9 (1.1-1.8); Alkaline Phosphatase 76 U/L (38-126); Anion Gap 15.4 mEq/L (5-15); Aspartate Amino Transferase 35 U/L (17-59); Bilirubin,Total 0.7 mg/dl (0.2-1.3); Blood Urea Nitrogen 10 mg/dl (9-20); Calcium 9.8 mg/dl (8.4-10.2); Carbon Dioxide 20 mmol/L (22.0-30.0); Chloride 107 mmol/L (98-107); Creatinine Clearance Estimated 175 mL/min (50-200); Creatinine,Serum 0.60 mg/dl (0.66-1.25); Estimated Glomerular Filt Rate 159 ml/min (>60); GFR (African American) 193 ML/MIN (>60); Globulin 2.5 g/dL (1.3-3.2); Glucose 56 mg/dl (74-100); Potassium 3.4 mmoL/L (3.5-5.1); Sodium 139 mmol/L (136-145); Total Protein,Serum 7.2 g/dl (6.3-8.2)
[2025-02-02 01:29] LABS: D-Dimer 0.39 ug/mL (0.0-0.5)
--- NOTE | 2025-02-02 01:36 | PC.NURSE ---
Pt ambulatory to xray
--- NOTE | 2025-02-02 02:10 | PC.NURSE ---
Pt given snack for c/o low blood sugar Reviewed labs and notified MD of patient's symptoms no new orders received
--- NOTE | 2025-02-02 02:18 | ECG_ITS ---
APPROVED REPORT Exam: Resting ECG HR:48 bpm ECG Measurements Heart Rate 48 AXES ID 110 P 50 QRSd 106 QRS 81 QT 468 T 74 QTc 434 Conclusion SINUS BRADYCARDIA WITH SHORT ID INTERVAL POSSIBLE RIGHT VENTRICULAR CONDUCTION DELAY [RSR (QR) IN V1/V2] ST ELEVATION, PROBABLY EARLY REPOLARIZATION [ST ELEVATION WITH NORMALLY INFLECTED T-WAVE] BORDERLINE ECG UNCONFIRMED REPORT Electronically signed by : JONH GILMAN, 02/03/2025 00:32:37
== END 2025-02-02 02:39 | disposition home or self-care (01) ==
PROVIDERS: Emergency Provider Emergency Medicine
DX: R07.9 Chest pain, unspecified (principal); R00.1 Bradycardia, unspecified; M79.605 Pain in left leg; F17.210 Nicotine dependence, cigarettes, uncomplicated
CPT/HCPCS: 71046; 80053; 85025; 85378; 93005; 99284

== ENCOUNTER 2025-02-02 13:25 | Outpatient (CLI) | payer OTHER, SELFPAY ==
--- NOTE | 2025-02-02 | CA_ITS ---
FINAL REPORT TECHNIQUE: Ultrasound images of the deep venous system were obtained from the left groin to the calf veins. CLINICAL HISTORY: pain and edema lt calf that extends to left groin FINDINGS: The deep venous system is normally compressible. Normal flow is identified. IMPRESSION: No evidence of left lower extremity DVT. Reviewed, Interpreted and Dictated by Mini Rosenberg MD Transcribed by Madhuri Zuleta Authenticated and [facility]
== END 2025-02-02 23:59 | disposition home or self-care (01) ==
LOC: RT 13:26
PROVIDERS: Visit Provider Student in an Organized Health Care Education/Training Program
DX: M79.605 Pain in left leg (principal)
CPT/HCPCS: 93971

== ENCOUNTER 2025-02-04 00:27 | Emergency (ER) | payer OTHER, SELFPAY ==
[2025-02-04 00:38] VITALS: BP 131/91; PULSE 52; RESP 16; TEMP 36.6; O2SAT 100; BMI 20.3
--- OUTSIDE RECORDS SUMMARY | 2025-02-04 00:40 | XMS_ITS | Clinical Summary ---
Author Organization Healthcare Address [address] [place] [address] Care Team Providers Care Storekeeper Steward Name Role Phone Tim Horton MD Primary Care Provider + [phone] Allergies Active Allergy Reactions Criticality Noted Date [...] Vaccines (1 - 3-dose SCDM series) 08/22/2022 [id number] Vaccine (1 - season) 2024 [facility]-Influenza Vaccine [...] Insurance [employer] Care Teams Storekeeper Steward Relationship Specialty Start Date End Date Tim Horton MD [address] [place] [address] PCP - General Internal Medicine 09/22/21
--- NOTE | 2025-02-04 00:52 | PC.NURSE ---
ED provider at the bedside.
--- NOTE | 2025-02-04 01:12 | ED_ITS ---
Discharge Plan Disposition Patient Disposition: Home, Self-Care Condition: Good Prescriptions Prescriptions: No Action methylprednisolone 4 mg tablets,dose pack See Rx Instructions PO PER PKG DIR Qty: 21 0RF Rx Instructions: PO PER PKG DIR ondansetron HCl 4 mg tablet 4 mg PO Q8H PRN (Reason: nausea and vomiting) Qty: 14 0RF xjcmeppbpimjjnu-tofssxmpa-LK [Bromfed DM] 2-30-10 mg/5 mL syrup 5 ml PO Q4-6H PRN (Reason: cold symptoms) Qty: 118 0RF benzonatate 100 mg capsule 100 mg PO BID PRN (Reason: cough) Qty: 20 0RF methocarbamol 500 mg tablet 500 mg PO TID Qty: 14 0RF prednisone 50 mg tablet 50 mg PO DAILY 5 Days Qty: 5 0RF albuterol sulfate 90 mcg/actuation HFA aerosol inhaler 1 inh inhalation Q4H PRN (Reason: shortness of breath or wheezing) Qty: 8.5 0RF ozzvjcuzathtnlk-fgayjutbs-YS [Bromfed DM] 2-30-10 mg/5 mL syrup 5 ml PO Q4H PRN (Reason: sinus symptoms) Qty: 118 0RF ondansetron 4 mg tablet,disintegrating 4 mg PO QID PRN (Reason: nausea and vomiting) Qty: 10 0RF Referrals Follow up/Referrals: Provider,Referral, MD [Primary Care Provider, Medical] - See instructions Activity Restrictions/Add. Instructions Additional Instructions/Restrictions: You were evaluated in the ER and are believed to be appropriate for discharge at this time. Follow-up with your primary care doctor in 2 to 3 days for reevaluation. Keep your appointment with behavioral health on and go to as scheduled. Eat a well-rounded diet and drink plenty of fluids to stay hydrated. Return to the ER with new, worsening, or otherwise concerning symptoms. Clinical Impressions Clinical Impression: Anxiety Print Language Print Language: Gabonese Discharge ED Provider: Lamont Jack Adult HPI General Chief complaint: Anxiety Stated complaint: can't sleep, anxiety Time Seen by Provider: 02/04/25 00:47 Mode of Arrival: Ambulatory Source of Information: Patient Description of Symptoms (Recalled from ER Triage Doc. by RN): Pt presents with complaints of insomnia and states I can't eat I can't sleep I can't drink. I've been to the doctor multiple times and they check everything and they keep telling me I'm fine I dont know if it's like a health anxiety thing or what Pt reports to beeing seen with psych facility in the past and attempted to taking medications with no relief from anxiety or other symptoms. Pt denies SI/HI, reports to feeling safe at home. History of Present Illness HPI narrative: 29-year-old male presents to the ER with complaints of anxiety. Patient reports he is having a hard time sleeping and having decreased appetite. He states he has been seen multiple times and review of records demonstrates he has been seen twice this month for chest pain and left leg pain. He reports an extensive history of anxiety and states he has been on multiple previous anxiety medications without effect. Patient reports he gets spells of anxiety for multiple weeks every few years. He states he is going through 1 of those now. He states he always has the same anxiety about potentially having something wrong with his left leg or with his chest though he reports no pain at this time and knows that he has had negative workups in the last week for both of these complaints. He states he just wants to be examined to make sure nothing has changed though he admits I know there is nothing wrong but I just have to be sure . Patient states anytime he has a small symptom of pain or an abnormal feeling in his body he fixates on it and gets extremely worried that it is something dangerous. He drinks 1 cup of coffee and 1 pop per day, he smokes, he does have a history of marijuana use and states that in the past marijuana was the only thing that improved his anxiety but he has cut back significantly. He denies any other illicit substances. He denies suicidal or homicidal ideation and states he feels safe at home. Patient reports he has contacted behavioral health and has an appointment in 1 week for follow-up with them. On further discussion he states he had low blood sugar once and had similar feelings of anxiety so he would like his blood sugar checked. He is not having any fevers, chills, chest pain, difficulty breathing, nausea, vomiting, diarrhea, constipation, dysuria, hematuria, pain in the arms or legs, no swelling in the extremities, no numbness, tingling, or weakness. No recent illness. No other complaints or concerns. Related Data Previous Rx's ?Medication ?Instructions ?Recorded methylprednisolone 4 mg tablets in See Rx Instructions PO PER PKG DIR 06/14/24 a dose pack #21 tabs methocarbamol 500 mg tablet 500 mg PO TID #14 tabs jbuiinxauybodnc-rivbgdcodvkejul-IW 5 ml PO Q4-6H PRN c old symptoms 06/29/24 2 mg-30 mg-10 mg/5 mL oral syrup #118 mL (Bromfed DM) ondansetron HCl 4 mg tablet 4 mg PO Q8H PRN nausea and 06/29/24 vomiting #14 tabs albuterol sulfate 90 mcg/actuation 1 inh inhalation Q4 H PRN shortness 07/02/24 aerosol inhaler of breath or wheezing #8.5 g jeovany benzonatate 100 mg capsule 100 mg PO BID PRN cough #20 caps 07/02/24 udfhcoaorxwlsjz-jheeemsnbvlwhda-IQ 5 ml PO Q4H PRN sin us symptoms 07/02/24 2 mg-30 mg-10 mg/5 mL oral syrup #118 mL (Bromfed DM) ondansetron 4 mg disintegrating 4 mg PO QID PRN nausea and 07/02/24 tablet vomiting #10 tabs prednisone 50 mg tablet 50 mg PO DAILY 5 days #5 tab s 07/02/24 Allergies Allergy/AdvReac Type Severity Reaction Status Date / Time Sulfa (Sulfonamide Allergy Unknown Verified 06/29/24 17:43 Antibiotics) (SULFA (SULFONAMIDE ANTIBIOTICS)) [facility] Disclaimer: The information contained in this section may have been updated after the patient was seen, as this information can be updated by other users. 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 Depression Generalized anxiety disorder Family History Other No significant family history Social History Smoking Status: Current every day smoker tobacco type: cigarettes packs per day: 1 second hand exposure: No alcohol intake: never substance use type: marijuana current occupational status: employed Travel in the last 8 weeks?: None household members: spouse housing: house number of children: 1 current occupation: [employer] current occupational exposures/hazards: No caffeine: Yes Have you lived/traveled outside [place] in past 30 days?: No Contact w/someone who lives/traveled outside [place] past 30 days?: No Exposure to someone with infectious disease in past 14 days?: No Do you have a fever (greater than 100.4 F or 38 C)?: No Have you tested positive for COVID-19?: No Exposed to someone with COVID-19 in past 14 days?: No Do you have a sore throat?: No Do you have a cough?: No Do you have any weakness?: No Do you have any diarrhea?: No Are you experiencing any unusual bleeding?: No Do you have any muscle aches/pain?: No Do you have any abdominal pain?: No Are you experiencing loss of taste or smell?: No Other 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 Have you received the Flu Vaccine for this season: No Have you received the Pneumonia Vaccine: No ROS Obtained: Yes Systems reviewed as appropriate & no additional complaints except as documented Per HPI Physical Exam General General appearance: alert and in no apparent distress Head Head exam: atraumatic and normocephalic Eye Eye exam: Present PERRL and EOMI ENT ENT exam: Present mucous membranes moist Neck Neck exam: Present normal inspection and full ROM Chest Chest inspection: Present symmetric chest wall rise; Absent tenderness Respiratory Respiratory exam: Present normal lung sounds bilaterally; Absent respiratory distress, wheezes or stridor Cardiovascular Cardiovascular exam: Present regular rate and normal rhythm Abdominal Exam Abdominal exam: Present soft; Absent distention, tenderness, guarding or rebound Extremities Exam Extremities exam: Present full ROM and normal capillary refill; Absent tenderness, edema, joint swelling or calf tenderness Back Exam Back exam: Present full ROM; Absent tenderness, CVA tenderness (R) or CVA tenderness (L) Neurological Exam Neurological exam: Present alert and oriented X3; Absent motor sensory deficit Psychiatric Psychiatric exam: Present normal affect and anxious (Mildly but able to be redirected); Absent homicidal ideation or suicidal ideation Skin Skin exam: Present warm and dry Medical Decision Making Medical Records Medical records reviewed: Yes I reviewed the patient's medical records. Screening: Per USPSTF and CDC recommendations, given the prevalence of disease in our region, it is our hospital?s policy to screen for HIV and viral Hepatitis for all patients aged 18 and over and those with ongoing risk factors. Unruly Inquiry Pt receiving controlled substance: No Vital Signs: 02/04/25 00:38 Temperature 97.9 F Temperature Source Oral Pulse Rate [Radial] 52 L Respiratory Rate 16 Blood Pressure [Right Arm] 131/91 H Blood Pressure Mean [Right Arm] 104 Blood Pressure Position [Right Arm] Sitting 02 Sat by Pulse Oximetry 100 Oxygen Delivery Method Room Air Medical Decision Narrative: In summary, this otherwise healthy 29-year-old male presents to the emergency department today with anxiety. On initial evaluation patient is hemodynamically stable, afebrile, GCS 15, aside from anxiety exam is otherwise benign and reassuring with no focal findings. Specifically, benign cardiopulmonary exam, no peripheral edema or abnormalities in the extremities, no pain, tenderness, or swelling in the left leg which patient states he sometimes worries about though he has no complaints here at this time. Differential diagnosis includes but is not limited to generalized anxiety, panic attack, medical anxiety, hypoglycemia. Patient has no physical complaints at this time and has a benign exam so I do not believe he requires extensive lab or imaging workup especially since he has had extensive, reassuring workups recently. On labs performed by previous encounters within the last week patient has had no leukocytosis or anemia, negative D-dimers, reassuring CMP, negative troponin, negative chest x-rays, negative venous Doppler. Nonischemic ECGs. He has had extensive workups that have been very reassuring. Patient understands this and is comforted by it and does not want additional labs or imaging at this time. He requested a fingerstick which I believe is reasonable to assess for hypoglycemia. FSBG 92. Patient is tolerating oral intake. I offered the patient hydroxyzine and even offered him a one-time low-dose of Xanax but he refused both of these stating he is so anxious about his health that when he takes something and then has a symptom afterwards he fixates on it and becomes worried that he is having adverse effects of medication. Patient's exam is very reassuring and he is well-appearing at this time. He is redirectable and not having any suicidal or homicidal ideation. He does not want any medications for anxiety at this time and is reassured by the exam and normal fingerstick blood glucose. He has follow-up with behavioral health in 1 week. I encouraged him to keep this appointment. Patient is appropriate for discharge at this time. Patient was given instructions on symptomatic monitoring and management, follow up instructions, and return precautions for the emergency department. Patient indicated understanding and was discharged in stable condition. Critical Care Critical Care Time Critical Care Time: No
[2025-02-04 01:17] VITALS: BP 114/72; PULSE 59; RESP 18; TEMP 36.7; O2SAT 100
[2025-02-04 01:19] VITALS: BP 114/72; PULSE 56; RESP 18; TEMP 36.6; O2SAT 100
== END 2025-02-04 01:20 | disposition home or self-care (01) ==
PROVIDERS: Emergency Provider Emergency Medicine
DX: F41.1 Generalized anxiety disorder (principal); G47.00 Insomnia, unspecified; F17.210 Nicotine dependence, cigarettes, uncomplicated
CPT/HCPCS: 99283